=== PATIENT | female | born 1940 | race Caucasian/White ===

== ENCOUNTER → 2017-10-18 05:00 | Outpatient (REF) | payer MEDICARE, MEDICAID, SELFPAY ==
[2017-10-18 09:08] LABS: Hematocrit 41.2 % (37-47); Hemoglobin 12.8 g/dl (12.0-15.0); Mean Corp Hgb Conc 31.1 g/gl (32-36); Mean Corpuscular Hgb 32.5 pg (27.0-32.0); Mean Corpuscular Volume 104.6 fL (81-99); Mean Platelet Vol. 12.4 fl (6.2-12.0); Platelet Count 175 K/mm3 (150-450); RBC Distribution Width CV 13.1 % (11.6-14.6); RBC Distribution Width SD 49.7 fl (35.1-43.9); Red Blood Count 3.94 M/mm3 (4.2-5.4); White Blood Count 4.8 K/mm3 (4.4-11.0)
[2017-10-18 09:10] LABS: Scan Indicated on CBC? Y/N NO
[2017-10-18 09:28] LABS: ALB/GLOB Ratio 0.7 RATIO (0.9-2.4); AST(SGOT) 26 U/L (15-37); Alanine Aminotransfer ALT/SGPT 18 U/L (12-78); Albumin, Serum 2.9 g/dL (3.4-5.0); Alkaline Phosphatase 93 U/L (45-117); Anion Gap 6 (5-15); BUN 27 mg/dL (7-18); BUN/Creat Ratio 46.2 RATIO (10-20); Calcium,Total 8.7 mg/dL (8.5-10.1); Chloride 105 mmol/L (98-107); Creatinine, Serum 0.58 mg/dL (0.55-1.02); EST Glomerular Filtration Rate 106 mL/min (>60); Est Glom Filt Rate - Afr Amer 128 mL/min (>60); Globulin 4.1 g/dL (2.2-4.2); Glucose 90 mg/dL (70-110); Potassium 4.2 mmol/L (3.5-5.1); Sodium Level 139 mmol/L (136-145)
== END ==
LOC: OLS.WHLEAS 05:00
PROVIDERS: Visit Provider Internal Medicine
DX: D64.9 Anemia, unspecified (principal); I10 Essential (primary) hypertension; M15.9 Polyosteoarthritis, unspecified; I73.89 Other specified peripheral vascular diseases
CPT/HCPCS: 36415; 80053; 85027

== ENCOUNTER → 2018-03-03 05:00 | Outpatient (REF) | payer MEDICARE, MEDICAID, SELFPAY ==
[2018-03-03 06:56] LABS: Absolute Lymphocyte Count 0.85 X10^3/ul (0.83-4.51); Absolute Neutrophil Count 5.9 X10^3/uL (2.0-7.7); Basophil# 0.01 X10^3/uL; Basophil% 0.1 % (0-1); Eosinophil# 0.13 X10^3/uL; Eosinophils% 1.7 % (0-5); Hematocrit 40.7 % (37-47); Hemoglobin 13.2 g/dl (12.0-15.0); Lymphocyte # 0.85 X10^3/ul (4.0); Lymphocyte % 11.2 % (19-41); Mean Corp Hgb Conc 32.4 g/gl (32-36); Mean Corpuscular Hgb 33.8 pg (27.0-32.0); Mean Corpuscular Volume 104.1 fL (81-99); Mean Platelet Vol. 13.1 fl (6.2-12.0); Monocyte# 0.73 X10^3/uL; Monocyte% 9.6 % (0-10); Neutrophil # 5.86 X10^3/uL (2.7-7.7); Neutrophil % 77.3 % (47-70); POSITIVE COUNT NO; POSITIVE DIFFERENTIAL NO; POSITIVE MORPHOLOGY NO; Platelet Count 139 K/mm3 (150-450); RBC Distribution Width CV 13.3 % (11.6-14.6); RBC Distribution Width SD 50.3 fl (35.1-43.9); Red Blood Count 3.91 M/mm3 (4.2-5.4); White Blood Count 7.6 K/mm3 (4.4-11.0)
[2018-03-03 07:00] LABS: Anion Gap 4 (5-15); BUN 23 mg/dL (7-18); Calcium,Total 8.7 mg/dL (8.5-10.1); Chloride 104 mmol/L (98-107); Creatinine, Serum 0.68 mg/dL (0.55-1.02); EST Glomerular Filtration Rate 89 mL/min (>60); Est Glom Filt Rate - Afr Amer 108 mL/min (>60); Glucose 103 mg/dL (74-106); Potassium 4.6 mmol/L (3.5-5.1); Sodium Level 139 mmol/L (136-145)
== END ==
LOC: OLS.WHLEAS 05:00
PROVIDERS: Visit Provider Internal Medicine
DX: D64.9 Anemia, unspecified (principal)
CPT/HCPCS: 36415; 80048; 85025

== ENCOUNTER → 2018-06-03 05:50 | Outpatient (REF) | payer MEDICARE, SELFPAY ==
[2018-06-03 09:19] LABS: Hematocrit 41.5 % (37-47); Hemoglobin 13.1 g/dl (12.0-15.0); Mean Corp Hgb Conc 31.6 g/gl (32-36); Mean Corpuscular Hgb 33.2 pg (27.0-32.0); Mean Corpuscular Volume 105.3 fL (81-99); Mean Platelet Vol. 13.2 fl (6.2-12.0); Platelet Count 145 K/mm3 (150-450); RBC Distribution Width CV 13.1 % (11.6-14.6); RBC Distribution Width SD 50.1 fl (35.1-43.9); Red Blood Count 3.94 M/mm3 (4.2-5.4); White Blood Count 3.3 K/mm3 (4.4-11.0)
[2018-06-03 09:24] LABS: Scan Indicated on CBC? Y/N NO
[2018-06-03 09:31] LABS: Anion Gap 8 (5-15); BUN 24 mg/dL (7-18); BUN/Creat Ratio 34.7 RATIO (10-20); Calcium,Total 8.7 mg/dL (8.5-10.1); Chloride 104 mmol/L (98-107); Creatinine, Serum 0.69 mg/dL (0.55-1.02); EST Glomerular Filtration Rate 87 mL/min (>60); Est Glom Filt Rate - Afr Amer 105 mL/min (>60); Glucose 110 mg/dL (74-106); Potassium 4.4 mmol/L (3.5-5.1); Sodium Level 142 mmol/L (136-145)
== END ==
LOC: OLS.WHLEAS 05:50
PROVIDERS: Visit Provider Internal Medicine
DX: D64.9 Anemia, unspecified (principal); I10 Essential (primary) hypertension
CPT/HCPCS: 36415; 80048; 85027

== ENCOUNTER → 2018-08-31 05:00 | Outpatient (REF) | payer MEDICARE, SELFPAY ==
[2018-08-31 08:31] LABS: Hematocrit 41.1 % (37-47); Hemoglobin 13.1 g/dl (12.0-15.0); Mean Corp Hgb Conc 31.9 g/gl (32-36); Mean Corpuscular Hgb 33.8 pg (27.0-32.0); Mean Corpuscular Volume 105.9 fL (81-99); Mean Platelet Vol. 13.3 fl (6.2-12.0); Platelet Count 131 K/mm3 (150-450); RBC Distribution Width CV 12.9 % (11.6-14.6); RBC Distribution Width SD 49.5 fl (35.1-43.9); Red Blood Count 3.88 M/mm3 (4.2-5.4); White Blood Count 4.5 K/mm3 (4.4-11.0)
[2018-08-31 08:35] LABS: Scan Indicated on CBC? Y/N NO
[2018-08-31 08:43] LABS: Anion Gap 8 (5-15); BUN 26 mg/dL (7-18); BUN/Creat Ratio 34.9 RATIO (10-20); Calcium,Total 8.2 mg/dL (8.5-10.1); Chloride 102 mmol/L (98-107); Creatinine, Serum 0.75 mg/dL (0.55-1.02); EST Glomerular Filtration Rate 80 mL/min (>60); Est Glom Filt Rate - Afr Amer 96 mL/min (>60); Glucose 80 mg/dL (74-106); Potassium 4.3 mmol/L (3.5-5.1); Sodium Level 139 mmol/L (136-145)
== END ==
LOC: OLS.WHLEAS 05:00
PROVIDERS: Visit Provider Internal Medicine
DX: D64.9 Anemia, unspecified (principal); I10 Essential (primary) hypertension; M15.9 Polyosteoarthritis, unspecified; I73.89 Other specified peripheral vascular diseases
CPT/HCPCS: 36415; 80048; 85027

== ENCOUNTER → 2018-12-08 05:55 | Outpatient (REF) | payer MEDICARE, SELFPAY ==
[2018-12-08 08:19] LABS: Hemoglobin 12.5 g/dl (12.0-15.0); Mean Corp Hgb Conc 31.3 g/gl (32-36); Mean Corpuscular Hgb 33.5 pg (27.0-32.0); Mean Corpuscular Volume 107.2 fL (81-99); Mean Platelet Vol. 12.9 fl (6.2-12.0); Platelet Count 108 K/mm3 (150-450); RBC Distribution Width CV 12.7 % (11.6-14.6); RBC Distribution Width SD 48.8 fl (35.1-43.9); Red Blood Count 3.73 M/mm3 (4.2-5.4); White Blood Count 4.5 K/mm3 (4.4-11.0)
[2018-12-08 08:22] LABS: Scan Indicated on CBC? Y/N NO
[2018-12-08 08:27] LABS: Anion Gap 6 (5-15); BUN 25 mg/dL (7-18); BUN/Creat Ratio 32.2 RATIO (10-20); Calcium,Total 8.7 mg/dL (8.5-10.1); Chloride 103 mmol/L (98-107); Creatinine, Serum 0.78 mg/dL (0.55-1.02); EST Glomerular Filtration Rate 76 mL/min (>60); Est Glom Filt Rate - Afr Amer 92 mL/min (>60); Glucose 85 mg/dL (74-106); Potassium 4.2 mmol/L (3.5-5.1); Sodium Level 140 mmol/L (136-145)
== END ==
LOC: OLS.WHLEAS 05:55
PROVIDERS: Visit Provider Internal Medicine
DX: D64.9 Anemia, unspecified (principal); I10 Essential (primary) hypertension; M15.9 Polyosteoarthritis, unspecified; F79 Unspecified intellectual disabilities
CPT/HCPCS: 36415; 80048; 85027

== ENCOUNTER → 2019-01-24 05:00 | Outpatient (REF) | payer MEDICARE, SELFPAY ==
[2019-01-24 09:49] LABS: Anion Gap 4 (5-15); BUN 27 mg/dL (7-18); BUN/Creat Ratio 39.2 RATIO (10-20); Calcium,Total 8.1 mg/dL (8.5-10.1); Chloride 107 mmol/L (98-107); Creatinine, Serum 0.69 mg/dL (0.55-1.02); EST Glomerular Filtration Rate 87 mL/min (>60); Est Glom Filt Rate - Afr Amer 106 mL/min (>60); Glucose 99 mg/dL (74-106); Potassium 4.2 mmol/L (3.5-5.1); Sodium Level 139 mmol/L (136-145)
[2019-01-24 10:35] LABS: Vitamin B12 648 pg/mL (211-911)
== END ==
LOC: OLS.WHLEAS 05:00
PROVIDERS: Visit Provider Internal Medicine
DX: I10 Essential (primary) hypertension (principal); Z93.1 Gastrostomy status
CPT/HCPCS: 36415; 80048; 82607; 82746

== ENCOUNTER 2019-03-12 19:53 | Emergency (ER) | payer MEDICARE, SELFPAY ==
[2019-03-12 20:03] VITALS: BP 153/77; PULSE 69; RESP 16; TEMP 36.7; O2SAT 96; BMI 34.4
--- NOTE | 2019-03-12 21:06 | ED.DCSUM_ITS ---
- ER Visit Summary Date of Service: 03/12/19 Chief Complaint: Chest pain, shortness of breath History of Present Illness: The patient is a 78 F presenting after pulling her PEG tube out. Her PEG tube was accidentally pulled out at the long-term. She is unable to provide history. Per long-term staff this was placed by Dr. Mohan. Physical Examination: Vitals are stable. Patient is afebrile. Alert no acute distress. HEENT exam is unremarkable. Neck is supple. Lungs are clear and equal bilaterally. Heart is regular rate and rhythm Abdomen is soft nontender nondistended. Extremities symmetric edema Skin is warm and dry. Remainder of exam is unremarkable. Emergency Department Course and Treatment: Discussed with Dr. Mohan. He replaced her PEG tube 2 weeks ago. She had a previous PEG tube per Dr. Crane and the track is well-established. PEG tube was replaced in the emergency department. KUB with Gastrografin shows PEG tube with tip in the stomach. No contrast extravasation. Patient will be sent back to the nursing facility. Advised return to ED if worsening complaints. Disposition: Discharge home Impression: PEG tube replacement This note was generated with [employer] dictation software. It may contain incorrect words, spelling, and punctuation that were not noted in review of the chart prior to signing ED Disposition - Plan for ED Patient: Referrals: Tory aFrris MD [Primary Care Provider] -
--- NOTE | 2019-03-12 21:40 | RAD_ITS ---
STUDY: X-RAY - ABDOMEN/PELVIS REASON FOR EXAM: Female, 78 years old. PEG tube placement with Gastrografin TECHNIQUE: Single view COMPARISON: None. FINDINGS: Normal visualized lung bases. There is an unremarkable bowel gas pattern. Feces distended rectum. There is no demonstrated free abdominal air. A PEG tube is noted with tip in the distal stomach. Administered contrast outlines the gastric lumen. There is no gastric outlet obstruction. No contrast extravasation. Normal soft tissue structures. Normal visualized osseous structures. RAD/Abdomen Single View (Portable) IMPRESSION: PEG tube with tip in the stomach. No contrast extravasation. Electronically Signed: Rui Marie DO at 22:08 EDT Tel [phone], Service support ,
--- NOTE | 2019-03-12 23:00 | ED.DEP ---
ED Disposition - Plan for ED Patient: Instructions: ED G Tube Replacement Referrals: Tory Farris MD [Primary Care Provider] -
== END 2019-03-12 23:36 | disposition skilled nursing facility (03) ==
PROVIDERS: Emergency Provider Emergency Medicine; Family Provider Internal Medicine; PCP Internal Medicine
DX: Z43.1 Encounter for attention to gastrostomy (principal); R60.0 Localized edema; Z66 Do not resuscitate
CPT/HCPCS: 74018; 99284; J7030

== ENCOUNTER 2019-03-13 13:48 | Emergency (ER) | payer MEDICARE, SELFPAY ==
[2019-03-12 20:03] VITALS: BMI 34.4
[2019-03-13 13:49] VITALS: BP 126/73; PULSE 73; RESP 18; TEMP 36; O2SAT 97; BMI 31.7
--- NOTE | 2019-03-13 14:14 | ED.VISSUMM ---
- ER Visit Summary Date of Service: 03/13/19 Chief Complaint: [G-tube fell out] History of Present Illness: The patient is a 78 F [resents to the emergency department from workshop where the nurse attempted to give medication to patient through G-tube and noted that it was out of the abdomen and just sitting on top of her abdomen. Patient was in the emergency department last night and had a G-tube replaced. Patient is nonverbal and really cannot give any history. Patient otherwise not been ill.] Physical Examination: [HEENT-PERRLA, EOMI. Cranial nerves II through XII grossly intact. TMs clear. Mucous membranes moist. No adenopathy. Cardiovascular-regular rate and rhythm without murmur or ectopy Lungs-clear to auscultation, chest wall stable without crepitus or subcu emphysema Abdomen-normoactive bowel sounds, soft, nontender, no rebound or rigidity, no peritoneal signs. Extremities-intact ?4, normal range of motion, normal pulses, atraumatic] Test Results: [KUB was obtained with Gastrografin and shows good position of G-tube in the stomach.] Emergency Department Course and Treatment: [Patient had the G-tube checked as it was brought by nursing staff. I inflated it with water in the balloon appears to be intact and does not bubble air while submerged in water. The G-tube was lubricated with petroleum jelly and easily inserted through the fistulous tract into the stomach. I inflated the balloon with 5 cc of normal saline. Patient tired procedure well.] Treatment Plan: [Follow-up with primary care physician or surgeon as needed] Disposition: [Discharged in stable condition.] Impression: [G-tube reinsertion] This note was generated with [employer] dictation software. It may contain incorrect words, spelling, and punctuation that were not noted in review of the chart prior to signing ED Disposition - Plan for ED Patient: Referrals: Tory Farris MD [Primary Care Provider] -
--- NOTE | 2019-03-13 14:17 | ED.DCSUM_ITS ---
- ER Visit Summary Date of Service: 03/13/19 Chief Complaint: [G-tube fell out] History of Present Illness: The patient is a 78 F [resents to the emergency department from workshop where the nurse attempted to give medication to patient through G-tube and noted that it was out of the abdomen and just sitting on top of her abdomen. Patient was in the emergency department last night and had a G-tube replaced. Patient is nonverbal and really cannot give any history. Patient otherwise not been ill.] Physical Examination: [HEENT-PERRLA, EOMI. Cranial nerves II through XII grossly intact. TMs clear. Mucous membranes moist. No adenopathy. Cardiovascular-regular rate and rhythm without murmur or ectopy Lungs-clear to auscultation, chest wall stable without crepitus or subcu emphysema Abdomen-normoactive bowel sounds, soft, nontender, no rebound or rigidity, no peritoneal signs. Extremities-intact ?4, normal range of motion, normal pulses, atraumatic] Test Results: [KUB was obtained with Gastrografin and shows good position of G- tube in the stomach.] Emergency Department Course and Treatment: [Patient had the G-tube checked as it was brought by nursing staff. I inflated it with water in the balloon appears to be intact and does not bubble air while submerged in water. The G-tube was lubricated with petroleum jelly and easily inserted through the fistulous tract into the stomach. I inflated the balloon with 5 cc of normal saline. Patient tired procedure well.] Treatment Plan: [Follow-up with primary care physician or surgeon as needed] Disposition: [Discharged in stable condition.] Impression: [G-tube reinsertion] This note was generated with [employer] dictation software. It may contain incorrect words, spelling, and punctuation that were not noted in review of the chart prior to signing ED Disposition - Plan for ED Patient: Referrals: Tory Farris MD [Primary Care Provider] -
--- NOTE | 2019-03-13 14:17 | ED.DEP ---
ED Disposition - Plan for ED Patient: Instructions: ED G Tube Insertion Referrals: Tory Farris MD [Primary Care Provider] - As Needed
--- NOTE | 2019-03-13 14:27 | RAD_ITS ---
STUDY: X-RAY - ABDOMEN/PELVIS REASON FOR EXAM: Female, 78 years old. G-tube placement. TECHNIQUE: Single AP view of the abdomen / pelvis. COMPARISON: Comparison is made with prior study dated March 12, 2019. FINDINGS: A gastrostomy tube is in situ. 60 cc of Gastrografin was placed. The gastrostomy tube is within the stomach. Oral contrast from prior examination is seen throughout the colon. Contrast is also seen within the urinary bladder. The visualized liver, spleen and kidneys are grossly normal in size and morphology. Normal soft tissue structures. There are degenerative changes of the visualized lumbar spine. RAD/Abdomen Single View IMPRESSION: PEG tube within the stomach. Electronically Signed: Neto Michaels, at 15:07 EDT , Service support ,
[2019-03-13 15:37] VITALS: BP 124/65; PULSE 85; RESP 14; O2SAT 98
== END 2019-03-13 15:30 | disposition home or self-care (01) ==
PROVIDERS: Emergency Provider Emergency Medicine; Family Provider Internal Medicine; PCP Internal Medicine
DX: Z43.1 Encounter for attention to gastrostomy (principal); F79 Unspecified intellectual disabilities; E66.9 Obesity, unspecified
CPT/HCPCS: 74018; 99284

== ENCOUNTER → 2019-06-01 05:00 | Outpatient (REF) | payer MEDICARE, SELFPAY ==
[2019-06-01 07:28] LABS: Hematocrit 38.1 % (37-47); Hemoglobin 12.2 g/dL (12.0-15.0); Mean Corpuscular Hgb 34.1 pg (27.0-32.0); Mean Corpuscular Volume 106.4 fL (81-99); Platelet Count 141 K/mm3 (150-450); RBC Distribution Width CV 12.1 % (11.6-14.6); RBC Distribution Width SD 47.8 fl (35.1-43.9); Red Blood Count 3.58 M/mm3 (4.2-5.4); White Blood Count 5.2 K/mm3 (4.4-11.0)
[2019-06-01 08:00] LABS: Albumin, Serum 2.6 g/dL (3.2-5.0); Anion Gap 5 (5-15); BUN 26 mg/dL (7-18); BUN/Creat Ratio 36.3 RATIO (10-20); Calcium,Total 8.5 mg/dL (8.5-10.1); Chloride 106 mmol/L (98-107); Creatinine, Serum 0.72 mg/dL (0.55-1.02); EST Glomerular Filtration Rate 83 mL/min (>60); Est Glom Filt Rate - Afr Amer 101 mL/min (>60); Glucose 116 mg/dL (74-106); Potassium 4.5 mmol/L (3.5-5.1); Sodium Level 142 mmol/L (136-145)
== END ==
LOC: OLS.WHLEAS 05:00
PROVIDERS: Visit Provider Internal Medicine
DX: F79 Unspecified intellectual disabilities (principal); R13.10 Dysphagia, unspecified; I10 Essential (primary) hypertension; D64.9 Anemia, unspecified; E66.9 Obesity, unspecified; H35.30 Unspecified macular degeneration
CPT/HCPCS: 36415; 80048; 82040; 85027

== ENCOUNTER 2019-07-17 05:52 | Day surgery (SDC) | payer MEDICARE, SELFPAY ==
[2019-07-17] VITALS (10 sets, daily range): BP systolic 90–128; BP diastolic 53–76; PULSE 72–79; RESP 16–18; TEMP 36.2–36.7; O2SAT 94–98; BMI 33.2
--- NOTE | 2019-07-17 07:07 | ED.DCSUM_ITS ---
- ER Visit Summary Date of Service: 07/17/19 Chief Complaint: Dislodged PEG tube History of Present Illness: The patient is a 78 F who presents with a dislodged PEG tube that was noticed this morning. Patient is a poor historian. Patient woke up and her tube was out this morning. Patient does not know when her PEG tube fell out. Patient denies any pain. Patient denies any nausea or vomiting. Patient denies any discharge or drainage. Patient denies any fevers or chills. Physical Examination: Vital signs are stable. Patient is afebrile. Patient is in no acute distress. Oral mucosa is pink and moist. Neck is supple. Trachea is midline. There is no JVD noted. Heart was regular rate and rhythm. Lungs are clear and equal bilaterally. Abdomen is soft. Bowel sounds are normal. There is no tenderness. There is a PEG tube site in the left upper quadrant. There is no discharge or drainage. There is mild erythema. Cranial nerves II through XII are grossly intact. There are no focal motor or sensory deficits noted. Emergency Department Course and Treatment: I attempted to replace the PEG tube with the tube that was provided by the [facility]. I was unable to replace the tube. I kept meeting resistance at the abdominal muscle wall. Case was discussed with Dr. Vargas. She will begin an attempt to replace the PEG tube. Disposition: [] Impression: 1. Dislodged PEG tube This note was generated with [employer] dictation software. It may contain incorrect words, spelling, and punctuation that were not noted in review of the chart prior to signing ED Disposition - Plan for ED Patient: Disposition: [facility] Acute Care Diagnosis: PEG tube malfunction Instructions: PEG Feeding Tube Care: [place] Referrals: Tory Farris MD [Primary Care Provider] -
--- NOTE | 2019-07-17 07:51 | PN_ITS ---
Progress Note Attempt to replace 20 Togolese G-tube. Did meet resistance. Did try a 16 Tog[place]ese [place] again the same resistance. Unsure if this just fell out overnight. Patient was also not wanting this replaced she kept saying no and was trying to move away. Patient will likely need an EGD for replacement of PEG per previous notes this was placed by Dr. Mohan, Dr. Cerda will take her for an EGD and replacement.
[2019-07-17] MEDS: Lactated Ringers 1,000 ML 100 ML IV (09:28)
[2019-07-17] MEDS: Cefazolin 2 GM in 0.9% Normal Saline 100 ML IV (10:57)
--- NOTE | 2019-07-17 11:22 | OP.ENDO_ITS ---
07/17/2019 Tory Farris [id number] [place] [address] Re : Upper GI endoscopy procedure for Dariana Agee Dear Dr. Farris This procedure was performed on Wednesday, July 17, 2019. My impressions and recommendations are as follows: Impressions : - Normal first portion of the duodenum and second portion of the duodenum. - Normal stomach. - Tortuous esophagus. - An externally removable PEG placement was successfully completed. - No specimens collected. Recommendations : - Discharge patient to home (ambulatory). - Resume previous diet. - Continue present medications. - Return to primary care physician PRN. My findings are described in the full procedure note, which is enclosed. If I can be of further assistance, please feel free to contact me at Doctor phone number(s): , Work: . Sincerely, MD Ashely Han MD 07/17/2019 11:22:00 AM This report has been signed electronically.
--- NOTE | 2019-07-17 11:25 | HP.PCM_ITS ---
History and Physical Date of Admission: 07/17/19 Chief Complaint: PEG fell out History of Present Illness: 78 y/o WF with MRDD - resident of [facility], presented to ED this morning. ED physician was told that the PEG tube fell out at 5:00 am this morning. As he was trying to arrange outpatient replacement of PEG tube, he was then told by the [facility] staff that the patient hadn't had any food or water for two days. The patient cannot take in oral feedings, and has had PEG tube for several years. Multiple attempts were made to replace the gastrostomy tube in the ED by three physicians. Patient therefore presents for PEG tube placement Past Medical History: MRDD GERD obesity Past Surgical History: placement of PEG tube - multiple times Medications: unobtainable Allergies: clindamycin Social history: TOB use denies resident of [facility] Review of Systems: General - denies fevers unobtainable Physical examination: Vital signs Temp 98F HR 78 RR 16 BP 128/74 General WD/WN obese WF in no apparent distress HEENT Normocephalic. EOM intact with sclera clear and no icterus noted. Neck is supple. Trachea is midline. Lungs normal breath sounds in all lung angulo. No rales/rhonchi/wheezing noted. No labored breathing noted, such as retractions. No cough heard. Heart regular Abdomen soft and benign and obese, gastrostomy tube site - skin indentation due to patient's body habitus Extremities no pitting edema noted. Genitourinary/Rectal deferred Skin normal skin integrity. Neurological non foca. Psychological patient is calm and appropriate Impression: replace PEG tube DIscussion/Plannformed consent: I have discussed the above with the patient's medical power of real estate attorney - her sister Plan for placement of PEG. I have explained the procedure to her. I have counseled her as to the risks of the procedure, including but not limited to: infection, bleeding, perforation of the stomach, injury to any intraabdominal organs, inability to place the PEG tube, complications of anesthesia, etc. - she understands. She wishes to proceed I have answered all questions to the patient?s satisfaction and the patient has no further questions.
--- NOTE | 2019-07-17 11:35 | DCINST_ITS ---
Discharge Diet: No Restrictions - start with small input per gtube for today - no more than 50 cc/ hr Discharge Activity: Return to Normal Activity Additional Dressing/Incision Instructions:: Apply dressings to area as previous Instructions: PEG Feeding Tube Care: [place] Allergies/Adverse Reactions: Allergies clindamycin Allergy (Verified 07/17/19 05:59) Unknown TAPE Allergy (Uncoded 07/17/19 05:59) Unknown Medications to take at Discharge Unobtainable 03/13/19 Primary Care Physician: Tory Farris MD [Primary Care Provider] - Test Results: Test results from this visit will be discussed in further detail at your follow- up appointment, if applicable. Please Follow Up With: Ashely Cerda MD - When: as needed
== END 2019-07-17 13:43 | disposition home or self-care (01) ==
LOC: ED 08:35 → SDC 08:37 → AC 08:38
PROVIDERS: Emergency Provider Emergency Medicine; Family Provider Internal Medicine; PCP Internal Medicine; Visit Provider Surgery
PROC: 0DJ08ZZ Inspection of Upper Intestinal Tract, Via Natural or Artificial Opening Endoscopic (ICD-10-PCS; CPT 43235; principal; 2019-07-17 10:55)
DX: Z43.1 Encounter for attention to gastrostomy (principal); Q39.9 Congenital malformation of esophagus, unspecified; F79 Unspecified intellectual disabilities; E66.9 Obesity, unspecified
CPT/HCPCS: 43246; 99285; J7120; A4216; J2405

== ENCOUNTER → 2019-09-08 05:00 | Outpatient (REF) | payer MEDICARE, SELFPAY ==
[2019-07-17 05:53] VITALS: BMI 33.2
[2019-09-08 07:46] LABS: Albumin, Serum 2.8 g/dL (3.2-5.0); Anion Gap 4 (5-15); BUN 32 mg/dL (7-18); BUN/Creat Ratio 48.1 RATIO (10-20); Calcium,Total 8.6 mg/dL (8.5-10.1); Chloride 106 mmol/L (98-107); Creatinine, Serum 0.66 mg/dL (0.55-1.02); EST Glomerular Filtration Rate 91 mL/min (>60); Est Glom Filt Rate - Afr Amer 110 mL/min (>60); Glucose 119 mg/dL (74-106); Potassium 4.5 mmol/L (3.5-5.1); Sodium Level 141 mmol/L (136-145)
[2019-09-08 08:06] LABS: Hematocrit 37.9 % (37-47); Hemoglobin 12.2 g/dL (12.0-15.0); Mean Corp Hgb Conc 32.2 g/dL (32-36); Mean Corpuscular Hgb 33.6 pg (27.0-32.0); Mean Corpuscular Volume 104.4 fL (81-99); Mean Platelet Vol. 12.7 fl (6.2-12.0); Platelet Count 150 K/mm3 (150-450); RBC Distribution Width CV 12.6 % (11.6-14.6); RBC Distribution Width SD 48.5 fl (35.1-43.9); Red Blood Count 3.63 M/mm3 (4.2-5.4); White Blood Count 4.4 K/mm3 (4.4-11.0)
== END ==
LOC: OLS.WHLEAS 05:00
PROVIDERS: Visit Provider Internal Medicine
DX: F79 Unspecified intellectual disabilities (principal); R13.10 Dysphagia, unspecified; I10 Essential (primary) hypertension; D64.9 Anemia, unspecified; E66.9 Obesity, unspecified; H35.30 Unspecified macular degeneration; Z93.1 Gastrostomy status
CPT/HCPCS: 36415; 80048; 82040; 85027

== ENCOUNTER → 2019-12-07 05:00 | Outpatient (REF) | payer MEDICARE, MEDICAID, SELFPAY ==
[2019-07-17 05:53] VITALS: BMI 33.2
[2019-12-07 09:31] LABS: Hematocrit 39.6 % (37-47); Hemoglobin 12.5 g/dL (12.0-15.0); Mean Corp Hgb Conc 31.6 g/dL (32-36); Mean Corpuscular Hgb 33.5 pg (27.0-32.0); Mean Corpuscular Volume 106.2 fL (81-99); Mean Platelet Vol. 12.9 fl (6.2-12.0); Platelet Count 147 K/mm3 (150-450); RBC Distribution Width CV 12.8 % (11.6-14.6); RBC Distribution Width SD 50.2 fl (35.1-43.9); Red Blood Count 3.73 M/mm3 (4.2-5.4); White Blood Count 4.9 K/mm3 (4.4-11.0)
[2019-12-07 09:45] LABS: Albumin, Serum 2.7 g/dL (3.2-5.0); Anion Gap 2 (5-15); BUN 29 mg/dL (7-18); Calcium,Total 8.7 mg/dL (8.5-10.1); Chloride 107 mmol/L (98-107); Creatinine, Serum 0.76 mg/dL (0.55-1.02); EST Glomerular Filtration Rate 77 mL/min (>60); Est Glom Filt Rate - Afr Amer 94 mL/min (>60); Glucose 124 mg/dL (74-106); Potassium 4.5 mmol/L (3.5-5.1); Sodium Level 140 mmol/L (136-145)
== END ==
LOC: OLS.WHLEAS 05:00
PROVIDERS: PCP Internal Medicine; Visit Provider Internal Medicine
DX: F79 Unspecified intellectual disabilities (principal); R13.10 Dysphagia, unspecified; I10 Essential (primary) hypertension; D64.9 Anemia, unspecified; E66.9 Obesity, unspecified; H35.30 Unspecified macular degeneration; Z93.1 Gastrostomy status
CPT/HCPCS: 36415; 80048; 82040; 85027

== ENCOUNTER → 2020-03-07 06:00 | Outpatient (REF) | payer MEDICARE, MEDICAID, SELFPAY ==
[2019-07-17 05:53] VITALS: BMI 33.2
[2020-03-07 08:54] LABS: Hematocrit 38.3 % (37-47); Hemoglobin 12.3 g/dL (12.0-15.0); Mean Corp Hgb Conc 32.1 g/dL (32-36); Mean Corpuscular Hgb 33.6 pg (27.0-32.0); Mean Corpuscular Volume 104.6 fL (81-99); Mean Platelet Vol. 12.8 fl (6.2-12.0); Platelet Count 143 K/mm3 (150-450); RBC Distribution Width CV 12.5 % (11.6-14.6); Red Blood Count 3.66 M/mm3 (4.2-5.4); White Blood Count 3.7 K/mm3 (4.4-11.0)
[2020-03-07 09:11] LABS: BUN 26 mg/dL (7-18); Creatinine, Serum 0.71 mg/dL (0.55-1.02); EST Glomerular Filtration Rate 84 mL/min (>60); Glucose 105 mg/dL (74-106)
[2020-03-07 09:12] LABS: Albumin, Serum 2.7 g/dL (3.2-5.0); Anion Gap 6 (5-15); BUN/Creat Ratio 36.6 RATIO (10-20); Calcium,Total 8.5 mg/dL (8.5-10.1); Chloride 100 mmol/L (98-107); Est Glom Filt Rate - Afr Amer 102 mL/min (>60); Potassium 3.9 mmol/L (3.5-5.1); Sodium Level 136 mmol/L (136-145)
== END ==
LOC: OLS.WHLEAS 06:00
PROVIDERS: PCP Internal Medicine; Referring Provider Internal Medicine; Visit Provider Internal Medicine
DX: I10 Essential (primary) hypertension (principal); F79 Unspecified intellectual disabilities; R13.10 Dysphagia, unspecified; E66.9 Obesity, unspecified; D64.9 Anemia, unspecified; H35.30 Unspecified macular degeneration; Z93.1 Gastrostomy status
CPT/HCPCS: 36415; 80048; 82040; 85027

== ENCOUNTER → 2020-06-06 05:12 | Outpatient (REF) | payer MEDICARE, MEDICAID, SELFPAY ==
[2019-07-17 05:53] VITALS: BMI 33.2
[2020-06-06 08:28] LABS: Hematocrit 39.1 % (37-47); Hemoglobin 12.4 g/dL (12.0-15.0); Mean Corp Hgb Conc 31.7 g/dL (32-36); Mean Corpuscular Hgb 33.6 pg (27.0-32.0); Platelet Count 141 K/mm3 (150-450); RBC Distribution Width CV 12.4 % (11.6-14.6); RBC Distribution Width SD 48.7 fl (35.1-43.9); Red Blood Count 3.69 M/mm3 (4.2-5.4); White Blood Count 3.9 K/mm3 (4.4-11.0)
[2020-06-06 08:51] LABS: Albumin, Serum 2.8 g/dL (3.2-5.0); Anion Gap 4 (5-15); BUN 24 mg/dL (7-18); Calcium,Total 8.2 mg/dL (8.5-10.1); Chloride 103 mmol/L (98-107); Creatinine, Serum 0.65 mg/dL (0.55-1.02); EST Glomerular Filtration Rate 93 mL/min (>60); Est Glom Filt Rate - Afr Amer 113 mL/min (>60); Glucose 90 mg/dL (74-106); Potassium 3.9 mmol/L (3.5-5.1); Sodium Level 137 mmol/L (136-145)
== END ==
LOC: OLS.WHLEAS 05:12
PROVIDERS: PCP Internal Medicine; Referring Provider Internal Medicine; Visit Provider Internal Medicine
DX: I10 Essential (primary) hypertension (principal); F79 Unspecified intellectual disabilities; R13.10 Dysphagia, unspecified; D61.9 Aplastic anemia, unspecified; E66.9 Obesity, unspecified; H35.30 Unspecified macular degeneration; Z93.1 Gastrostomy status
CPT/HCPCS: 36415; 80048; 82040; 85027

== ENCOUNTER → 2020-09-04 05:00 | Outpatient (REF) | payer MEDICARE, MEDICAID, SELFPAY ==
[2019-07-17 05:53] VITALS: BMI 33.2
[2020-09-04 06:58] LABS: Hematocrit 40.2 % (37-47); Hemoglobin 12.6 g/dL (12.0-15.0); Mean Corp Hgb Conc 31.3 g/dL (32-36); Mean Corpuscular Hgb 33.3 pg (27.0-32.0); Mean Corpuscular Volume 106.3 fL (81-99); Mean Platelet Vol. 11.8 fl (6.2-12.0); Platelet Count 156 K/mm3 (150-450); RBC Distribution Width CV 12.3 % (11.6-14.6); RBC Distribution Width SD 48.7 fl (35.1-43.9); Red Blood Count 3.78 M/mm3 (4.2-5.4)
[2020-09-04 07:34] LABS: Anion Gap 1 (5-15); BUN 32 mg/dL (7-18); BUN/Creat Ratio 45.7 RATIO (10-20); Calcium,Total 8.7 mg/dL (8.5-10.1); Chloride 105 mmol/L (98-107); EST Glomerular Filtration Rate 85 mL/min (>60); Est Glom Filt Rate - Afr Amer 103 mL/min (>60); Glucose 115 mg/dL (74-106); Potassium 4.5 mmol/L (3.5-5.1); Sodium Level 140 mmol/L (136-145)
== END ==
LOC: OLS.WHLEAS 05:00
PROVIDERS: PCP Internal Medicine; Visit Provider Internal Medicine
DX: F79 Unspecified intellectual disabilities (principal); R13.10 Dysphagia, unspecified; I10 Essential (primary) hypertension; D61.9 Aplastic anemia, unspecified; E66.9 Obesity, unspecified; H35.30 Unspecified macular degeneration; Z93.1 Gastrostomy status
CPT/HCPCS: 36415; 80048; 85027

== ENCOUNTER 2020-11-27 19:08 | Emergency (ER) | payer MEDICARE, MEDICAID, SELFPAY ==
[2019-07-17 05:53] VITALS: BMI 33.2
[2020-11-27 19:09] VITALS: BP 145/83; PULSE 88; RESP 16; TEMP 36.6; O2SAT 96; BMI 38.5
--- NOTE | 2020-11-27 19:28 | ED.VIS.GEN ---
History of Present Illness Chief Complaint: General Illness Limited by: - - Patient is MRDD Narrative: 80-year-old female with MRDD presenting for PEG tube malfunction. Apparently the PEG tube was cut somehow. This was taped together and now it is leaking. Patient is not able to give a significant history but states that her abdomen hurts around the PEG tube. She came with no care provider. She does have documents that need to be reviewed. - Past Medical History (1) Obesity Status: Chronic (2) Mental retardation Status: Chronic (3) History of gastroesophageal reflux (GERD) Status: Chronic Past Medical History - Allergies and Home Meds Allergies/Adverse Reactions: Allergies clindamycin Allergy (Verified 11/27/20 19:13) Unknown TAPE Allergy (Uncoded 05/01/20 14:57) Unknown Primary Care Physician: Tory Farris MD [Primary Care Provider] - Prior records reviewed: Yes Past Medical History: - - Reviewed in problem list Surgical History: noncontributory, unknown Lives: Skilled Nursing Smoking Status: Never smoker Alcohol: None Drugs: None Review of Systems ROS: Unable to Obtain Physical Exam Vital Signs/Narrative: Vital Signs Temp Pulse Resp BP Pulse Ox 11/27/20 19:09 98 F 88 16 145/83 H 96 Inital Vital Signs reviewed: Yes General: Obese, No Acute Distress Head: Normocephalic, Atraumatic Eyes: Perrl, EOMI. Negative for: Pale conjunctiva ENT: Moist mucous membranes, No rhinorrhea Cardiovascular: Regular rate, Regular rhythm, No murmurs Respiratory: No distress, CTA bilaterally, Chest nontender Abdomen: Soft, Nondistended, Tender - Tenderness to palpation around the PEG tube. PEG tube is in place with tape around the end of it. Extremities: Nontender, No edema Skin: Normal color, No rash. Negative for: Cyanosis, Diaphoresis Neurological: Alert, Oriented x3, Cranial nerves II-XII grossly intact, Normal Strength, Normal Sensation Psychological: Normal affect, Normal Mood Diagnostic/Tx/Re-eval Clinical Impression(s) from Imaging Studies Abdomen/Pelvis CT 11/27/20 20:15 IMPRESSION: Bilateral lower lobe infiltrates. The PEG to does appear to be within the gastric lumen which is collapsed down around the tubing. The lumen of the gastrostomy tube is patent. Stool-filled and very distended rectosigmoid colon. The remainder of the colon is nondistended. Diverticulosis is present without evidence of acute diverticulitis. A normal appendix is identified. Unremarkable liver and spleen. Fatty atrophy of the pancreatic body and head. Cholelithiasis. One large laminated gallstone present. Subcentimeter simple cysts of the kidneys bilaterally. No additional imaging recommendations. No acute renal findings. Negative for pelvic mass or free fluid in the pelvis. Electronically Signed: Kathryn Mijares MD at 20:44 EST , Service support , Laboratory Data 11/27/20 11/27/20 19:46 19:46 WBC 5.8 RBC 4.02 L Hgb 13.3 Hct 41.9 MCV 104.2 H MCH 33.1 H MCHC 31.7 L RDW Std Deviation 51.6 H RDW Coeff of Kaylin 13.2 Plt Count 170 MPV 12.0 Immature Gran % (Auto) 0.200 Neut % (Auto) 52.3 Lymph % (Auto) 29.8 Teller % (Auto) 13.8 H Eos % (Auto) 3.4 Baso % (Auto) 0.5 Absolute Neuts (auto) 3.0 Absolute Lymphs (auto) 1.73 Nucleated RBC % 0 Sodium 139 Potassium 3.8 Chloride 105 Carbon Dioxide 31.0 Anion Gap 3 L BUN 25 H Creatinine 0.79 Estim Creat Clear Calc 33.29 Est GFR (MDRD) Af Amer 90 Est GFR (MDRD) Non-Af 74 BUN/Creatinine Ratio 31.6 H Glucose 91 Calcium 8.8 Total Bilirubin 0.40 AST 30 ALT 21 Alkaline Phosphatase 115 Total Protein 7.4 Albumin 3.1 L Globulin 4.3 H Albumin/Globulin Ratio 0.7 L Lipase 43 L - Medical Decision Making 80-year-old female presenting with PEG tube malfunction. This was cut and taped together. Is difficult to assess the patient's abdominal pain because she is MRDD. I did push around her PEG tube and appeared to hurt her. Patient had blood work which shows no leukocytosis. Hemoglobin is stable. GFR and electrolytes are normal. LFTs are normal. Lipase is actually low. Patient had CT abdomen pelvis which does not identify any acute abnormality. PEG tube does appear to be in place. Given the way that the PEG tube is cut there is no way to remove this. Did speak with Dr. Cerda who stated that she could get it done in office tomorrow if the patient follows up. She recommended just to clamp the tube and she can see her in office. I did call her brother the POA and informed him of this. I attempted to call the patient's physician however her physician's phone line was not working. Instructions were passed along to her facility. Impression: 1. Abdominal pain 2. PEG tube malfunction ED Disposition - Plan for ED Patient: Disposition: Home or Assisted Living Instructions: ED Feeding Tube Replacement Referrals: Tory Farris MD [Primary Care Provider] - Additional Instructions: I spoke with Dr. Cerda the surgeon who placed to the feeding tube. She states to have her come by the office tomorrow to have it replaced by her.
[2020-11-27 19:52] LABS: Absolute Lymphocyte Count 1.73 X10^3/uL (0.83-4.51); Basophil# 0.03 X10^3/uL; Basophil% 0.5 % (0-1); Eosinophils% 3.4 % (0-5); Hematocrit 41.9 % (37-47); Hemoglobin 13.3 g/dL (12.0-15.0); Lymphocyte # 1.73 X10^3/ul (4.0); Lymphocyte % 29.8 % (19-41); Mean Corp Hgb Conc 31.7 g/dL (32-36); Mean Corpuscular Hgb 33.1 pg (27.0-32.0); Mean Corpuscular Volume 104.2 fL (81-99); Monocyte% 13.8 % (0-10); NRBC Flagged by Analyzer 0 % (0-5); Neutrophil # 3.04 X10^3/uL (2.7-7.7); Neutrophil % 52.3 % (47-70); Platelet Count 170 K/mm3 (150-450); RBC Distribution Width CV 13.2 % (11.6-14.6); RBC Distribution Width SD 51.6 fl (35.1-43.9); Red Blood Count 4.02 M/mm3 (4.2-5.4); White Blood Count 5.8 K/mm3 (4.4-11.0)
[2020-11-27 20:09] LABS: ALB/GLOB Ratio 0.7 RATIO (0.9-2.4); AST(SGOT) 30 U/L (15-37); Alanine Aminotransfer ALT/SGPT 21 U/L (13-56); Albumin, Serum 3.1 g/dL (3.2-5.0); Alkaline Phosphatase 115 U/L (45-117); Anion Gap 3 (5-15); BUN 25 mg/dL (7-18); BUN/Creat Ratio 31.6 RATIO (10-20); Calcium,Total 8.8 mg/dL (8.5-10.1); Chloride 105 mmol/L (98-107); Creatinine, Serum 0.79 mg/dL (0.55-1.02); EST Glomerular Filtration Rate 74 mL/min (>60); Est Glom Filt Rate - Afr Amer 90 mL/min (>60); Estimated Creatinine Clearance 33.29 ml/min; Globulin 4.3 g/dL (2.2-4.2); Glucose 91 mg/dL (74-106); Lipase 43 U/L (73-393); Potassium 3.8 mmol/L (3.5-5.1); Protein, Total 7.4 g/dL (6.4-8.2); Sodium Level 139 mmol/L (136-145)
--- NOTE | 2020-11-27 20:15 | CT_ITS ---
STUDY: CT ABDOMEN AND PELVIS WITH CONTRAST REASON FOR EXAM: Female, 80 years old. DYSFUNCTIONING PEG TUBE, TUBE WAS CUT AND STAFF TAPED RADIATION DOSAGE (If Supplied By Facility): CTDIvol = ( 17.05 ) mGy, DLP = ( 1240.60 ) mGycm TECHNIQUE: Transaxial images were obtained from the dome of the diaphragm to the symphysis pubis without oral contrast. IV 100mL Isovue-370 was administered. Sagittal and coronal images were reconstructed. Individualized dose optimization techniques were used for this CT. COMPARISON: None. FINDINGS: Bilateral dependent lower lobe infiltrates. The visualized portions of the heart are within normal limits. Normal liver. Large volume gallbladder. One large laminated stone in the body of the gallbladder. Normal spleen. Fatty atrophy of the pancreas, body and head. Normal bilateral adrenal glands. Subcentimeter simple renal cysts. Otherwise normal kidneys without hydronephrosis or stones. The stomach is nondistended. The PEG to appears to be intraluminal with the stomach collapsed around the tubing. The lumen of the PEG tube appears patent. There are no extraluminal fluid collections. Diverticulosis of the colon without evidence of acute diverticulitis. Stool filled dilated rectosigmoid colon with stool present to the level of the rectum. The appendix is visualized and appears normal. Mild plaque and moderate tortuosity of the abdominal aorta and iliac vessels. Normal inferior vena cava. Normal retroperitoneum. Nondistended urinary bladder. Negative for pelvic mass or free fluid of the pelvis. Minimal fatty umbilical hernia. Degenerative changes of the lumbar spine. Chronic bilateral pars interarticularis defect at L5 with a grade 1 spondylolisthesis. Old superior endplate compression deformities of L3 and T12 and T11. CT/Abdomen/Pelvis W IV Cont ONLY IMPRESSION: Bilateral lower lobe infiltrates. The PEG to does appear to be within the gastric lumen which is collapsed down around the tubing. The lumen of the gastrostomy tube is patent. Stool-filled and very distended rectosigmoid colon. The remainder of the colon is nondistended. Diverticulosis is present without evidence of acute diverticulitis. A normal appendix is identified. Unremarkable liver and spleen. Fatty atrophy of the pancreatic body and head. Cholelithiasis. One large laminated gallstone present. Subcentimeter simple cysts of the kidneys bilaterally. No additional imaging recommendations. No acute renal findings. Negative for pelvic mass or free fluid in the pelvis. Electronically Signed: Kathryn Mijares MD at 20:44 EST , Service support ,
[2020-11-27 22:26] VITALS: BP 146/99; PULSE 72; RESP 16; O2SAT 96
[2020-11-27 23:26] VITALS: RESP 16
== END 2020-11-27 23:40 | disposition intermediate care facility (04) ==
PROVIDERS: Emergency Provider Student in an Organized Health Care Education/Training Program; PCP Internal Medicine
DX: K94.23 Gastrostomy malfunction (principal); R10.9 Unspecified abdominal pain; E66.9 Obesity, unspecified; F79 Unspecified intellectual disabilities; K21.9 Gastro-esophageal reflux disease without esophagitis
CPT/HCPCS: 74177; 80053; 83690; 85025; 99285; Q9967

== ENCOUNTER → 2020-12-04 05:00 | Outpatient (REF) | payer MEDICARE, MEDICAID, SELFPAY ==
[2020-11-27 19:09] VITALS: BMI 38.5
[2020-12-04 07:44] LABS: Hemoglobin 12.3 g/dL (12.0-15.0); Mean Corp Hgb Conc 31.5 g/dL (32-36); Mean Corpuscular Hgb 32.6 pg (27.0-32.0); Mean Corpuscular Volume 103.4 fL (81-99); Platelet Count 113 K/mm3 (150-450); RBC Distribution Width CV 13.2 % (11.6-14.6); RBC Distribution Width SD 50.6 fl (35.1-43.9); Red Blood Count 3.77 M/mm3 (4.2-5.4); White Blood Count 3.6 K/mm3 (4.4-11.0)
[2020-12-04 08:07] LABS: Albumin, Serum 2.8 g/dL (3.2-5.0); Anion Gap 6 (5-15); BUN 29 mg/dL (7-18); BUN/Creat Ratio 41.5 RATIO (10-20); Calcium,Total 8.5 mg/dL (8.5-10.1); Chloride 106 mmol/L (98-107); EST Glomerular Filtration Rate 85 mL/min (>60); Est Glom Filt Rate - Afr Amer 103 mL/min (>60); Glucose 116 mg/dL (74-106); Potassium 4.2 mmol/L (3.5-5.1); Sodium Level 139 mmol/L (136-145)
== END ==
LOC: OLS.WHLEAS 05:00
PROVIDERS: PCP Internal Medicine; Visit Provider Internal Medicine
DX: I10 Essential (primary) hypertension (principal); F79 Unspecified intellectual disabilities; R13.10 Dysphagia, unspecified; D61.9 Aplastic anemia, unspecified; E66.9 Obesity, unspecified; H35.30 Unspecified macular degeneration; Z93.1 Gastrostomy status
CPT/HCPCS: 36415; 80048; 82040; 85027

== ENCOUNTER → 2021-01-09 05:00 | Outpatient (REF) | payer MEDICARE, MEDICAID, SELFPAY ==
[2021-01-09 07:25] LABS: Absolute Lymphocyte Count 1.15 X10^3/uL (0.83-4.51); Absolute Neutrophil Count 2.3 X10^3/uL (2.0-7.7); Basophil# 0.02 X10^3/uL; Basophil% 0.5 % (0-1); Eosinophil# 0.19 X10^3/uL; Eosinophils% 4.6 % (0-5); Hematocrit 40.7 % (37-47); Hemoglobin 12.8 g/dL (12.0-15.0); Lymphocyte # 1.15 X10^3/ul (4.0); Mean Corp Hgb Conc 31.4 g/dL (32-36); Mean Corpuscular Hgb 32.8 pg (27.0-32.0); Mean Corpuscular Volume 104.4 fL (81-99); Mean Platelet Vol. 13.2 fl (6.2-12.0); Monocyte# 0.47 X10^3/uL; Monocyte% 11.4 % (0-10); NRBC Flagged by Analyzer 0 % (0-5); Neutrophil # 2.27 X10^3/uL (2.7-7.7); Neutrophil % 55.3 % (47-70); Platelet Count 117 K/mm3 (150-450); RBC Distribution Width CV 12.6 % (11.6-14.6); RBC Distribution Width SD 48.7 fl (35.1-43.9); White Blood Count 4.1 K/mm3 (4.4-11.0)
[2021-01-09 08:07] LABS: ALB/GLOB Ratio 0.7 RATIO (0.9-2.4); AST(SGOT) 30 U/L (15-37); Alanine Aminotransfer ALT/SGPT 19 U/L (13-56); Albumin, Serum 2.8 g/dL (3.2-5.0); Alkaline Phosphatase 105 U/L (45-117); Anion Gap 5 (5-15); BUN 36 mg/dL (7-18); BUN/Creat Ratio 52.1 RATIO (10-20); Calcium,Total 8.7 mg/dL (8.5-10.1); Chloride 104 mmol/L (98-107); Creatinine, Serum 0.69 mg/dL (0.55-1.02); EST Glomerular Filtration Rate 87 mL/min (>60); Est Glom Filt Rate - Afr Amer 105 mL/min (>60); Globulin 4.1 g/dL (2.2-4.2); Glucose 108 mg/dL (74-106); Potassium 4.3 mmol/L (3.5-5.1); Protein, Total 6.9 g/dL (6.4-8.2); Sodium Level 139 mmol/L (136-145)
[2021-01-09 09:09] LABS: Vitamin B12 601 pg/mL (211-911)
[2021-01-18 08:59] LABS: VITAMIN B6 13.7 ug/L (2.0-32.8)
== END ==
LOC: OLS.WHLEAS 05:00
PROVIDERS: PCP Internal Medicine; Referring Provider Internal Medicine; Visit Provider Internal Medicine
DX: I10 Essential (primary) hypertension (principal); F79 Unspecified intellectual disabilities; R13.10 Dysphagia, unspecified; D61.9 Aplastic anemia, unspecified; E66.9 Obesity, unspecified; H35.30 Unspecified macular degeneration; Z93.1 Gastrostomy status
CPT/HCPCS: 36415; 80053; 82607; 82746; 84207; 85025

== ENCOUNTER → 2021-01-10 05:00 | Outpatient (REF) | payer MEDICARE, MEDICAID, SELFPAY ==
[2021-01-10 07:23] LABS: Absolute Lymphocyte Count 1.11 X10^3/uL (0.83-4.51); Absolute Neutrophil Count 2.1 X10^3/uL (2.0-7.7); Basophil# 0.02 X10^3/uL; Basophil% 0.5 % (0-1); Hematocrit 40.2 % (37-47); Hemoglobin 12.6 g/dL (12.0-15.0); Lymphocyte # 1.11 X10^3/ul (4.0); Lymphocyte % 27.8 % (19-41); Mean Corp Hgb Conc 31.3 g/dL (32-36); Mean Corpuscular Hgb 32.8 pg (27.0-32.0); Mean Corpuscular Volume 104.7 fL (81-99); Mean Platelet Vol. 12.8 fl (6.2-12.0); Monocyte# 0.55 X10^3/uL; Monocyte% 13.8 % (0-10); NRBC Flagged by Analyzer 0 % (0-5); Neutrophil # 2.11 X10^3/uL (2.7-7.7); Neutrophil % 52.6 % (47-70); Platelet Count 138 K/mm3 (150-450); RBC Distribution Width CV 12.5 % (11.6-14.6); RBC Distribution Width SD 48.6 fl (35.1-43.9); Red Blood Count 3.84 M/mm3 (4.2-5.4)
== END ==
LOC: OLS.WHLEAS 05:00
PROVIDERS: PCP Internal Medicine; Visit Provider Internal Medicine
DX: I10 Essential (primary) hypertension (principal); F79 Unspecified intellectual disabilities; R13.10 Dysphagia, unspecified; D61.9 Aplastic anemia, unspecified; E66.9 Obesity, unspecified; H35.30 Unspecified macular degeneration; Z93.1 Gastrostomy status
CPT/HCPCS: 36415; 85025

== ENCOUNTER 2021-02-01 06:36 | Emergency (ER) | payer MEDICARE, MEDICAID, SELFPAY ==
[2021-02-01 06:37] VITALS: BP 144/94; PULSE 70; RESP 16; TEMP 36.8; O2SAT 98; BMI 41.2
--- NOTE | 2021-02-01 06:50 | ED.VISSUMM ---
- ER Visit Summary Date of Service: 02/01/21 Chief Complaint: Clogged PEG tube History of Present Illness: The patient is a 80 F who has a clogged PEG tube. She was sent from [facility]. According to records it was replaced in 2019 under endoscopic guidance. [facility] did not call report. The patient has a history of MRDD and is noncommunicative. Physical Examination: Vital signs are reviewed. Regular rate and rhythm, lungs are clear auscultation. Abdomen soft nontender. PEG in the left upper quadrant. Skin has no rashes or erythema. She is alert to self only which is her baseline. Test Results: None performed Emergency Department Course and Treatment: The PEG tube was clogged and unable to be flushed. The clogged PEG tube was removed with traction by myself. It was replaced by myself with a 24 Yoruba PEG. There was a good air bolus upon auscultation. She will be discharged back to [facility] Treatment Plan: [] Disposition: Discharge Impression: PEG tube malfunction This note was generated with [employer] dictation software. It may contain incorrect words, spelling, and punctuation that were not noted in review of the chart prior to signing ED Disposition - Plan for ED Patient: Disposition: Home or Assisted Living Instructions: ED Feeding Tube Replacement Referrals: Tory Farris MD [Primary Care Provider] -
[2021-02-01 06:56] VITALS: BP 140/78; PULSE 78; RESP 17; TEMP 36.7; O2SAT 92
== END 2021-02-01 07:40 | disposition home or self-care (01) ==
PROVIDERS: Emergency Provider Emergency Medicine; PCP Internal Medicine
DX: K94.23 Gastrostomy malfunction (principal); F79 Unspecified intellectual disabilities; K21.9 Gastro-esophageal reflux disease without esophagitis
CPT/HCPCS: 99284

== ENCOUNTER → 2021-03-05 05:00 | Outpatient (REF) | payer MEDICARE, MEDICAID, SELFPAY ==
[2021-03-05 08:06] LABS: Hemoglobin 12.3 g/dL (12.0-15.0); Mean Corp Hgb Conc 31.5 g/dL (32-36); Mean Corpuscular Hgb 33.7 pg (27.0-32.0); Mean Corpuscular Volume 106.8 fL (81-99); Mean Platelet Vol. 12.8 fl (6.2-12.0); Platelet Count 139 K/mm3 (150-450); RBC Distribution Width CV 12.8 % (11.6-14.6); RBC Distribution Width SD 50.4 fl (35.1-43.9); Red Blood Count 3.65 M/mm3 (4.2-5.4); White Blood Count 3.9 K/mm3 (4.4-11.0)
[2021-03-05 08:25] LABS: Albumin, Serum 2.8 g/dL (3.2-5.0); Anion Gap 1 (5-15); BUN 36 mg/dL (7-18); BUN/Creat Ratio 50.9 RATIO (10-20); Calcium,Total 8.6 mg/dL (8.5-10.1); Chloride 105 mmol/L (98-107); Creatinine, Serum 0.71 mg/dL (0.55-1.02); EST Glomerular Filtration Rate 84 mL/min (>60); Est Glom Filt Rate - Afr Amer 102 mL/min (>60); Glucose 89 mg/dL (74-106); Potassium 4.4 mmol/L (3.5-5.1); Sodium Level 138 mmol/L (136-145)
== END ==
LOC: OLS.WHLEAS 05:00
PROVIDERS: PCP Internal Medicine; Visit Provider Internal Medicine
DX: I10 Essential (primary) hypertension (principal); F79 Unspecified intellectual disabilities; R13.10 Dysphagia, unspecified; D61.9 Aplastic anemia, unspecified; E66.9 Obesity, unspecified; H35.30 Unspecified macular degeneration; Z93.1 Gastrostomy status
CPT/HCPCS: 36415; 80048; 82040; 85027

== ENCOUNTER 2021-04-17 03:15 | Emergency (ER) | payer MEDICARE, MEDICAID, SELFPAY ==
[2021-04-17 03:16] VITALS: BP 156/82; PULSE 83; RESP 18; TEMP 36.4; O2SAT 96; BMI 41.3
--- NOTE | 2021-04-17 03:29 | RAD_ITS ---
STUDY: X-RAY - ABDOMEN/PELVIS REASON FOR EXAM: Female, 80 years old. PEG Placement TECHNIQUE: Single AP view of the abdomen / pelvis. COMPARISON: 03/13/2019 FINDINGS: 25 cc of GASTROGRAFIN and 25 cc of water mixture was injected through PEG tube. Appropriate outline of the stomach without contrast extravasation. There is an unremarkable bowel gas pattern. There is no demonstrated free abdominal air. The visualized liver, spleen and kidneys are grossly normal in size and morphology. Normal soft tissue structures. Normal visualized osseous structures. RAD/Abdomen Single View IMPRESSION: PEG tube as above Electronically Signed: Keegan Phillips DO at 4:05 EDT Tel , Service support ,
--- NOTE | 2021-04-17 03:35 | EDS_ITS ---
HPI History of Present Illness Chief Complaint: Wound Narrative Narrative: Patient presenting for evaluation for dislodgment of her PEG tube. Patient has an underlying history of developmental delay and has had a longstanding PEG tube for feedings. Became dislodged tonight. Additional history was unable to be obtained secondary to the patient's baseline mental status. Patient's PEG tube size is 24 Georgian. PFSH PFSH Home Medications Omeprazole 20 Mg/10ml 10 ml GT QHS 11/27/20 [History Last Taken 11/26/20] calcium carbonate-vitamin D3 1 ea GT QHS 11/27/20 [History Last Taken 11/26/20] cholecalciferol (vitamin D3) 2,000 unit GT DAILY 11/27/20 [History Last Taken 11/26/20] Tylenol 650 mg Q4H PRN PRN 02/01/21 [History Last Taken Unknown] alum-mag hydroxide-simeth 15 ml Q4H PRN PRN MDD constipation 02/01/21 [History Last Taken Unknown] bisacodyl 10 mg RC BID PRN PRN 02/01/21 [History Last Taken Unknown] magnesium hydroxide 30 ml DAILY PRN 02/01/21 [History Last Taken Unknown] Allergy/AdvReac Type Severity Reaction Status Date / Time clindamycin Allergy Unknown Verified 04/17/21 03:17 TAPE Allergy Unknown Uncoded 04/17/21 03:17 Social History Smoking Status: Never smoker ROS ROS ED Review of Systems ROS Unobtainable: due to mental condition Constitutional Constitutional ED: Denies fever(s) Gastrointestinal Gastrointestinal: Denies abdominal pain EXAM Physical Exam Const Vital Signs: 04/17/21 03:16 Temperature 97.6 F L Temperature Source Temporal Pulse Rate 83 Respiratory Rate 18 Blood Pressure 156/82 H Blood Pressure Mean 106 Pulse Ox 96 Positive well nourished and well developed General Appearance ED: well developed HEENT Negative for trauma Eyes EOMs intact bilaterally Resp normal respiratory effort Cardio regular rate GI GI Narrative: PEG tube site in the left upper quadrant is clean dry and intact Neuro Sensorium / Orientation: alert Skin no rashes or lesions noted MDM MDM MDM Narrative Medical decision making narrative: Patient presented due to dislodgment of the PEG tube. A 24 Georgian PEG tube was obtained. The area was cleansed, the tube was lubricated and gentle pressure was applied. Patient had some difficulty with this and I was unable to replace the tube initially. One size smaller, 22 Georgian, was then obtained. This was lubricated and was able to be passed with gentle continuous pressure. Decision was then made at that time since the [place] was likely dilated that we would remove the 22 Georgian and placed the 24 Georgian as that was her previous size for her feedings. This was performed successfully. Balloon was inflated with 6 cc of water. It was secured in place. Abdominal x-ray was obtained with contrast to confirm placement. Abdominal x-ray by my personal interpretation shows contrast with in the stomach. This confirms good placement. Patient will be discharged back to the assisted. Discharge Plan Triage Chief Complaint: Wound ED Provider: Patrick Mace Dx/Rx/DC Orders Clinical Impression: PEG tube malfunction Instructions: ED Feeding Tube Replacement Prescriptions: No Action calcium carbonate-vitamin D3 1 EACH tablet 1 ea GT QHS RF: 0 cholecalciferol (vitamin D3) 2,000 UNIT capsule 2,000 unit GT DAILY RF: 0 Omeprazole 20 Mg/10ml 10 ml GT QHS RF: 0 Tylenol 650 mg Q4H PRN PRN (Reason: Pain 1-10 Or Fever) RF: 0 magnesium hydroxide 30 ML suspension 30 ml DAILY PRN (Reason: Constipation) RF: 0 bisacodyl 10 MG suppository 10 mg RC BID PRN PRN (Reason: Constipation) RF: 0 alum-mag hydroxide-simeth 355 ML suspension 15 ml Q4H PRN MDD constipation PRN (Reason: Constipation) RF: 0 Primary Care Provider: Tory Farris Referrals: Tory Farris MD [Primary Care Provider] - Disposition Disposition: Shelter Facility Discharge Location: [facility]
== END 2021-04-17 04:15 | disposition skilled nursing facility (03) ==
PROVIDERS: Emergency Provider Emergency Medicine; PCP Internal Medicine
DX: K94.23 Gastrostomy malfunction (principal)
CPT/HCPCS: 74018; 99284

== ENCOUNTER → 2021-06-04 05:00 | Outpatient (REF) | payer MEDICARE, MEDICAID, SELFPAY ==
[2021-06-04 07:33] LABS: Hematocrit 39.3 % (37-47); Hemoglobin 12.4 g/dL (12.0-15.0); Mean Corp Hgb Conc 31.6 g/dL (32-36); Mean Corpuscular Hgb 33.4 pg (27.0-32.0); Mean Corpuscular Volume 105.9 fL (81-99); Mean Platelet Vol. 13.1 fl (6.2-12.0); Platelet Count 121 K/mm3 (150-450); RBC Distribution Width CV 11.9 % (11.6-14.6); RBC Distribution Width SD 46.3 fl (35.1-43.9); Red Blood Count 3.71 M/mm3 (4.2-5.4)
[2021-06-04 07:58] LABS: Anion Gap 3 (5-15); BUN 36 mg/dL (7-18); BUN/Creat Ratio 58.8 RATIO (10-20); Calcium,Total 8.5 mg/dL (8.5-10.1); Chloride 106 mmol/L (98-107); Creatinine, Serum 0.61 mg/dL (0.55-1.02); EST Glomerular Filtration Rate 100 mL/min (>60); Est Glom Filt Rate - Afr Amer 120 mL/min (>60); Glucose 108 mg/dL (74-106); Sodium Level 138 mmol/L (136-145)
== END ==
LOC: OLS.WHLEAS 05:00
PROVIDERS: PCP Internal Medicine; Referring Provider Internal Medicine; Visit Provider Internal Medicine
DX: I10 Essential (primary) hypertension (principal); F79 Unspecified intellectual disabilities; R13.10 Dysphagia, unspecified; D61.9 Aplastic anemia, unspecified; E66.9 Obesity, unspecified; H35.30 Unspecified macular degeneration; Z93.1 Gastrostomy status
CPT/HCPCS: 36415; 80048; 85027

== ENCOUNTER 2021-07-28 15:34 | Emergency (ER) | payer MEDICARE, MEDICAID, SELFPAY ==
[2021-07-28 15:35] VITALS: BP 141/99; PULSE 76; RESP 18; TEMP 36.4; O2SAT 97; BMI 34.3
--- NOTE | 2021-07-28 16:01 | EDS_ITS ---
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 She has a PEG tube in place to help with feeding and medications. Nursing reports that she dislodged the PEG tube today and therefore with need to have it replaced was sent in for evaluation. With the patient's MRDD she does not provide any further history PFSH PFSH Medical History Aplastic anemia GERD (gastroesophageal reflux disease) HTN (hypertension) Osteoarthritis Home Medications Omeprazole 20 Mg/10ml 10 ml GT QHS 11/27/20 [History Last Taken 11/26/20] calcium carbonate-vitamin D3 1 ea GT QHS 11/27/20 [History Last Taken 11/26/20] cholecalciferol (vitamin D3) 2,000 unit GT DAILY 11/27/20 [History Last Taken 11/26/20] Tylenol 650 mg Q4H PRN PRN 02/01/21 [History Last Taken Unknown] alum-mag hydroxide-simeth 15 ml Q4H PRN PRN MDD constipation 02/01/21 [History Last Taken Unknown] bisacodyl 10 mg RC BID PRN PRN 02/01/21 [History Last Taken Unknown] magnesium hydroxide 30 ml DAILY PRN 02/01/21 [History Last Taken Unknown] food supplemt, lactose-reduced [Jevity] 910 ml FEEDING TUBE DINNER 07/28/21 [History Last Taken Unknown] Allergy/AdvReac Type Severity Reaction Status Date / Time clindamycin Allergy Unknown Verified 04/17/21 03:17 TAPE Allergy Unknown Uncoded 04/17/21 03:17 Social History Smoking Status: Never smoker ROS ROS ED Review of Systems ROS Unobtainable: due to mental status and other Details: Review of systems cannot be obtained secondary to the patient's MRDD status EXAM Physical Exam Const Vital Signs: 07/28/21 15:35 Temperature 97.6 F L Temperature Source Temporal Pulse Rate 76 Respiratory Rate 18 Blood Pressure 141/99 H Blood Pressure Mean 113 Pulse Ox 97 Oxygen Delivery Method Room Air Positive well nourished, well developed and obese General Appearance ED: well developed Nutritional Appearance: obese HEENT HEENT Narrative: Normocephalic atraumatic Eyes PERRL and EOMs intact bilaterally Neck supple Chest Wall palpation of chest normal Resp normal respiratory effort and clear to auscultation bilaterally Cardio regular rate and regular rhythm GI GI Narrative: Abdomen is obese soft and nondistended with normal active bowel sounds. There is a opening in the left upper abdomen consistent with previous PEG tube. There is mild blood from the site consistent with recent dislodgment but no secondary changes to suggest infection. There is mild pain on palpation at the site. No voluntary guarding or pulsatile mass Neuro Neuro Narrative: Patient is awake and alert at her baseline mental status with no focal neurologic deficits noted Sensorium / Orientation: other Skin Skin Narrative: Dried blood around the PEG tube consistent with recent dislodgment otherwise no acute findings MDM MDM MDM Narrative Medical decision making narrative: Patient presented to the ER at her baseline mental status. She had history of PEG tube placement going back to 2019 and dislodged earlier today. As the PEG tube is in place for multiple years I have low concern about creating a false track. Therefore I did replace the PEG tube. Following this a KUB with Gastrografin was ordered to confirm placement. Once the x-ray confirmed PEG tube was in the proper position patient is now safe for discharge Discharge Plan Triage Chief Complaint: Wound ED Provider: Mario Clarke Dx/Rx/DC Orders Clinical Impression: PEG tube malfunction Instructions: ED Feeding Tube Insertion Prescriptions: No Action calcium carbonate-vitamin D3 1 EACH tablet 1 ea GT QHS RF: 0 cholecalciferol (vitamin D3) 2,000 UNIT capsule 2,000 unit GT DAILY RF: 0 Omeprazole 20 Mg/10ml 10 ml GT QHS RF: 0 Tylenol 650 mg Q4H PRN PRN (Reason: Pain 1-10 Or Fever) RF: 0 magnesium hydroxide 30 ML suspension 30 ml DAILY PRN (Reason: Constipation) RF: 0 bisacodyl 10 MG suppository 10 mg RC BID PRN PRN (Reason: Constipation) RF: 0 alum-mag hydroxide-simeth 355 ML suspension 15 ml Q4H PRN MDD constipation PRN (Reason: Constipation) RF: 0 Jevity Liquid 910 ml feeding tube DINNER RF: 0 Primary Care Provider: Tory Farris Referrals: Tory Farris MD [Primary Care Provider] - Disposition Disposition: Home, Self Care
--- NOTE | 2021-07-28 16:10 | RAD_ITS ---
STUDY: X-RAY - ABDOMEN/PELVIS REASON FOR EXAM: Female, 80 years old. PEG tube placement -- Please use Gastrografin to confirm placement TECHNIQUE: KUB COMPARISON: None. FINDINGS: The study is limited by patient motion. Lung bases are clear. Tube is projected over the midline upper abdomen. Contrast material is seen in the stomach. There is a non-obstructive bowel gas pattern. There is no organomegaly. No abnormal calcifications. Soft tissues and bony structures are unremarkable. RAD/Abdomen Single View (Portable) IMPRESSION: Oral contrast in stomach. Electronically Signed: Bonnie Joseph MD at 16:44 EDT Tel , Service support ,
[2021-07-28 16:37] VITALS: RESP 18
--- NOTE | 2021-07-28 16:38 | ED.RN ---
THIS RN CALLED REPORT TO [facility] AT [phone], AND REPORT WAS GIVEN TO PAULINE. PT TO BE D/C BACK TO [facility].
== END 2021-07-28 16:53 | disposition home or self-care (01) ==
PROVIDERS: Emergency Provider Emergency Medicine; PCP Internal Medicine
DX: K94.23 Gastrostomy malfunction (principal); E66.9 Obesity, unspecified; Z68.34 Body mass index [BMI] 34.0-34.9, adult; F79 Unspecified intellectual disabilities; I10 Essential (primary) hypertension; K21.9 Gastro-esophageal reflux disease without esophagitis; M19.90 Unspecified osteoarthritis, unspecified site; Z79.899 Other long term (current) drug therapy
CPT/HCPCS: 74018; 99284

== ENCOUNTER 2021-09-03 05:00 | Outpatient (REF) | payer MEDICARE, MEDICAID, SELFPAY ==
[2021-09-03 08:24] LABS: Hematocrit 42.6 % (37-47); Hemoglobin 13.4 g/dL (12.0-15.0); Mean Corp Hgb Conc 31.5 g/dL (32-36); Mean Corpuscular Hgb 32.9 pg (27.0-32.0); Mean Corpuscular Volume 104.7 fL (81-99); Mean Platelet Vol. 13.3 fl (6.2-12.0); Platelet Count 135 K/mm3 (150-450); RBC Distribution Width CV 12.6 % (11.6-14.6); RBC Distribution Width SD 48.5 fl (35.1-43.9); Red Blood Count 4.07 M/mm3 (4.2-5.4); White Blood Count 5.1 K/mm3 (4.4-11.0)
[2021-09-03 08:40] LABS: Albumin, Serum 2.6 g/dL (3.2-5.0); Anion Gap 7 (5-15); BUN 33 mg/dL (7-18); Calcium,Total 8.8 mg/dL (8.5-10.1); Chloride 106 mmol/L (98-107); Creatinine, Serum 0.72 mg/dL (0.55-1.02); EST Glomerular Filtration Rate 83 mL/min (>60); Est Glom Filt Rate - Afr Amer 100 mL/min (>60); Glucose 104 mg/dL (74-106); Potassium 4.6 mmol/L (3.5-5.1); Sodium Level 138 mmol/L (136-145)
== END 2021-09-03 23:59 | disposition home or self-care (01) ==
LOC: OLS.WHLEAS 05:00
PROVIDERS: PCP Internal Medicine; Visit Provider Internal Medicine
DX: I10 Essential (primary) hypertension (principal); D61.9 Aplastic anemia, unspecified; Z93.1 Gastrostomy status; F79 Unspecified intellectual disabilities; R13.10 Dysphagia, unspecified; E66.9 Obesity, unspecified; H35.30 Unspecified macular degeneration
CPT/HCPCS: 36415; 80048; 82040; 85027

== ENCOUNTER → 2021-12-04 | Outpatient (REF) | payer MEDICARE, MEDICAID, SELFPAY ==
[2021-12-04 08:19] LABS: Hematocrit 38.7 % (37-47); Hemoglobin 12.7 g/dL (12.0-15.0); Mean Corp Hgb Conc 32.8 g/dL (32-36); Mean Corpuscular Hgb 34.5 pg (27.0-32.0); Mean Corpuscular Volume 105.2 fL (81-99); Mean Platelet Vol. 13.1 fl (6.2-12.0); Platelet Count 124 K/mm3 (150-450); RBC Distribution Width CV 12.4 % (11.6-14.6); RBC Distribution Width SD 47.8 fl (35.1-43.9); Red Blood Count 3.68 M/mm3 (4.2-5.4); White Blood Count 4.3 K/mm3 (4.4-11.0)
[2021-12-04 08:36] LABS: Anion Gap 3 (5-15); BUN 32 mg/dL (7-18); BUN/Creat Ratio 50.4 RATIO (10-20); Calcium,Total 8.4 mg/dL (8.5-10.1); Chloride 106 mmol/L (98-107); Creatinine, Serum 0.64 mg/dL (0.55-1.02); EST Glomerular Filtration Rate 95 mL/min (>60); Est Glom Filt Rate - Afr Amer 115 mL/min (>60); Glucose 79 mg/dL (74-106); Potassium 4.5 mmol/L (3.5-5.1); Sodium Level 138 mmol/L (136-145)
== END | disposition home or self-care (01) ==
LOC: OLS.WHLEAS 04:00
PROVIDERS: PCP Internal Medicine; Visit Provider Internal Medicine
DX: I10 Essential (primary) hypertension (principal); D61.9 Aplastic anemia, unspecified; Z93.1 Gastrostomy status; I73.89 Other specified peripheral vascular diseases; F79 Unspecified intellectual disabilities; R13.10 Dysphagia, unspecified; E66.9 Obesity, unspecified
CPT/HCPCS: 36415; 80048; 85027

== ENCOUNTER → 2022-03-04 | Outpatient (REF) | payer MEDICARE, MEDICAID, SELFPAY ==
[2022-03-04 06:17] LABS: Absolute Lymphocyte Count 1.14 X10^3/uL (0.83-4.51); Absolute Neutrophil Count 2.4 X10^3/uL (2.0-7.7); Basophil# 0.03 X10^3/uL; Basophil% 0.7 % (0-1); Eosinophil# 0.22 X10^3/uL; Eosinophils% 5.2 % (0-5); Hematocrit 39.6 % (37-47); Hemoglobin 12.6 g/dL (12.0-15.0); Lymphocyte # 1.14 X10^3/ul (0.83-4.51); Lymphocyte % 26.8 % (19-41); Mean Corp Hgb Conc 31.8 g/dL (32-36); Mean Corpuscular Hgb 33.4 pg (27.0-32.0); Mean Platelet Vol. 12.7 fl (6.2-12.0); Monocyte# 0.47 X10^3/uL; NRBC Flagged by Analyzer 0 % (0-5); Neutrophil # 2.39 X10^3/uL (2.7-7.7); Neutrophil % 56.1 % (47-70); Platelet Count 147 K/mm3 (150-450); RBC Distribution Width CV 12.5 % (11.6-14.6); RBC Distribution Width SD 48.4 fl (35.1-43.9); Red Blood Count 3.77 M/mm3 (4.2-5.4); White Blood Count 4.3 K/mm3 (4.4-11.0)
[2022-03-04 06:38] LABS: BUN 28 mg/dL (7-18); Creatinine, Serum 0.66 mg/dL (0.55-1.02); EST Glomerular Filtration Rate 91 mL/min (>60); Glucose 107 mg/dL (74-106)
[2022-03-04 06:39] LABS: Albumin, Serum 2.7 g/dL (3.2-5.0); Anion Gap 3 (5-15); BUN/Creat Ratio 42.6 RATIO (10-20); Calcium,Total 8.6 mg/dL (8.5-10.1); Chloride 105 mmol/L (98-107); Est Glom Filt Rate - Afr Amer 111 mL/min (>60); Potassium 4.3 mmol/L (3.5-5.1); Sodium Level 139 mmol/L (136-145)
== END | disposition home or self-care (01) ==
LOC: OLS.WHLEAS 05:00
PROVIDERS: PCP Internal Medicine; Referring Provider Internal Medicine; Visit Provider Internal Medicine
DX: I10 Essential (primary) hypertension (principal); D61.9 Aplastic anemia, unspecified; Z93.1 Gastrostomy status; I73.89 Other specified peripheral vascular diseases; F79 Unspecified intellectual disabilities; R13.10 Dysphagia, unspecified; E66.9 Obesity, unspecified
CPT/HCPCS: 36415; 80048; 82040; 85025

== ENCOUNTER → 2022-06-03 | Outpatient (REF) | payer MEDICARE, MEDICAID, SELFPAY ==
[2022-06-03 09:11] LABS: Hematocrit 38.4 % (37-47); Hemoglobin 12.4 g/dL (12.0-15.0); Mean Corp Hgb Conc 32.3 g/dL (32-36); Mean Corpuscular Hgb 33.4 pg (27.0-32.0); Mean Corpuscular Volume 103.5 fL (81-99); Mean Platelet Vol. 13.4 fl (6.2-12.0); Platelet Count 107 K/mm3 (150-450); RBC Distribution Width CV 12.6 % (11.6-14.6); RBC Distribution Width SD 47.8 fl (35.1-43.9); Red Blood Count 3.71 M/mm3 (4.2-5.4); White Blood Count 4.9 K/mm3 (4.4-11.0)
[2022-06-03 09:34] LABS: Albumin, Serum 2.6 g/dL (3.2-5.0); Anion Gap 3 (5-15); BUN 35 mg/dL (7-18); BUN/Creat Ratio 52.4 RATIO (10-20); Calcium,Total 8.3 mg/dL (8.5-10.1); Chloride 106 mmol/L (98-107); Creatinine, Serum 0.67 mg/dL (0.55-1.02); EST Glomerular Filtration Rate 90 mL/min (>60); Est Glom Filt Rate - Afr Amer 109 mL/min (>60); Glucose 85 mg/dL (74-106); Potassium 4.3 mmol/L (3.5-5.1); Sodium Level 139 mmol/L (136-145)
== END ==
LOC: OLS.WHLEAS 05:00
PROVIDERS: PCP Internal Medicine; Visit Provider Internal Medicine
DX: I10 Essential (primary) hypertension (principal); F79 Unspecified intellectual disabilities; R13.10 Dysphagia, unspecified; D61.9 Aplastic anemia, unspecified; I73.89 Other specified peripheral vascular diseases; E66.9 Obesity, unspecified; Z93.1 Gastrostomy status
CPT/HCPCS: 36415; 80048; 82040; 85027

== ENCOUNTER 2022-09-15 16:30 | Emergency (ER) | payer MEDICARE, MEDICAID, SELFPAY ==
[2022-09-15 16:31] VITALS: BP 119/77; PULSE 84; RESP 16; TEMP 36.2; O2SAT 98; BMI 30.5
--- NOTE | 2022-09-15 20:10 | EDS_ITS ---
HPI History of Present Illness Chief Complaint: Other, Pain/Inj Informant: patient and SNF Narrative Narrative: Patient is an 82-year-old female with history of mental retardation and PEG tube presenting after her PEG tube was pulled out. This occurred this afternoon sometime. The PEG tube is been in place since at least 2019. Contacted the facility who states is a size 24 PEG tube. Patient has no other complaints at this time. Patient otherwise been in her normal state of health. PEG tube is followed by Dr. Mohan. [facility] Medical History Aplastic anemia GERD (gastroesophageal reflux disease) HTN (hypertension) Osteoarthritis Home Medications Omeprazole 20 Mg/10ml 10 ml G-tube QHS GERD 11/27/20 [History Last Taken 11/26/20] calcium carbonate 600 mg-vitamin D3 10 mcg (400 unit) tablet 1 ea G-tube QHS 11/27/20 [History Last Taken 11/26/20] cholecalciferol (vitamin D3) 50 mcg (2,000 unit) capsule 2,000 unit G-tube DAILY 11/27/20 [History Last Taken 11/26/20] Tylenol 650 mg Q4H PRN PRN Pain 1-10 Or Fever 02/01/21 [History Last Taken Unknown] aluminum-mag hydroxide-simethicone 400 mg-400 mg-40 mg/5 mL oral susp 15 ml Q4H PRN PRN Constipation 02/01/21 [History Last Taken Unknown] bisacodyl 10 mg rectal suppository 10 mg AR BID PRN PRN Constipation 02/01/21 [History Last Taken Unknown] magnesium hydroxide 400 mg/5 mL oral suspension 30 ml DAILY PRN Constipation 02/01/21 [History Last Taken Unknown] food supplemt, lactose-reduced 910 ml feeding tube DINNER 07/28/21 [History Last Taken Unknown] Allergy/AdvReac Type Severity Reaction Status Date / Time adhesive tape Allergy NEEDS Verified 09/15/22 16:31 FOLLOW-UP clindamycin Allergy Unknown Verified 09/15/22 16:31 Social History Smoking Status: Never smoker ROS ROS ED Review of Systems ROS Unobtainable: due to mental condition EXAM Physical Exam Const Vital Signs: 09/15/22 16:31 Temperature 97.1 F L Temperature Source Temporal Pulse Rate 84 Respiratory Rate 16 Blood Pressure 119/77 Blood Pressure Mean 91 Pulse Ox 98 Oxygen Delivery Method Room Air Positive well nourished and well developed General Appearance ED: well developed and NAD HEENT Reports moist mucous membranes Negative for trauma Eyes PERRL and EOMs intact bilaterally Neck supple Chest Wall inspection of chest normal and palpation of chest normal Resp normal respiratory effort and clear to auscultation bilaterally Cardio regular rate, regular rhythm and no murmurs GI normal to inspection, nondistended, normoactive bowel sounds and non-tender GI Narrative: Tract for PEG tube in place. There is some dried blood around it. Inspection: Negative for abdominal distention Extremity normal to inspection Psych mental status grossly normal Skin no wounds and skin turgor normal MDM MDM MDM Narrative Medical decision making narrative: Patient evaluated for PEG tube malfunction. Patient pulled the PEG tube out. Its been in place for at least a couple years. care home states it is a 24 Japanese. A 24 Japanese is attempted to reinsert however does not going in. An 18 Japanese [place] was used to go through the tract which patient tolerates overall well. 24 Japanese PEG tube is attempted again however still of the tract is too tight. I then tried with a 20 Japanese which with some gentle pressure eventually did go in. Balloon was inflated with 6 cc of saline. I will obtain a Gastrografin x-ray to confirm placement and if it is in place patient will be discharged to follow-up with her surgeon, Dr. Mohan or Dr. Cerda X-ray interpreted by myself shows Gastrografin in the GI tract. Abdominal binder will be placed to patient be discharged back to [facility]. Discharge Plan Triage Chief Complaint: Other, Pain/Inj ED Provider: Ashly Abdi Dx/Rx/DC Orders Clinical Impression: PEG tube malfunction Instructions: ED Feeding Tube Replacement Prescriptions: No Action calcium carbonate-vitamin D3 1 EACH tablet 1 ea GT QHS cholecalciferol (vitamin D3) 2,000 UNIT capsule 2,000 unit GT DAILY Omeprazole 20 Mg/10ml 10 ml GT QHS Tylenol 650 mg Q4H PRN PRN (Reason: Pain 1-10 Or Fever) magnesium hydroxide 30 ML suspension 30 ml DAILY PRN (Reason: Constipation) bisacodyl 10 MG suppository 10 mg RC BID PRN PRN (Reason: Constipation) alum-mag hydroxide-simeth 355 ML suspension 15 ml Q4H PRN MDD constipation PRN (Reason: Constipation) Jevity Liquid 910 ml feeding tube DINNER Primary Care Provider: Rebecca Raymond Referrals: Rebecca Raymond MD [Primary Care Provider] - Ashely Cerda MD [Med Staff - Active Staff] - 2 Days for wound check Disposition Disposition: Senior Living Facility Discharge Location: [facility]
--- NOTE | 2022-09-15 20:32 | ED.RN ---
20F gtube inserted to abd by Dr. Abdi. Pt tolerated well.
--- NOTE | 2022-09-15 20:45 | RAD_ITS ---
STUDY: X-RAY - ABDOMEN/PELVIS REASON FOR EXAM: Female, 82 years old. PEG tube in the - with gastrogaffin TECHNIQUE: KUB COMPARISON: None. FINDINGS: Normal visualized lung bases. PEG tube is noted entering the stomach at the level of the gastric body. There is contrast injected into the G-tube filling the stomach as well as the duodenum and proximal jejunum. There is no extravasation of contrast.: RAD/Abdomen Single View (Portable) IMPRESSION: PEG tube placement in the gastric body Electronically Signed: Jhony Bruce MD at 21:14 EST ,
== END 2022-09-15 21:12 | disposition skilled nursing facility (03) ==
PROVIDERS: Emergency Provider Emergency Medicine; PCP Internal Medicine; Visit Provider Emergency Medicine
DX: K94.23 Gastrostomy malfunction (principal); I10 Essential (primary) hypertension; F79 Unspecified intellectual disabilities
CPT/HCPCS: 74018; 99282; A4216

== ENCOUNTER → 2022-12-02 | Outpatient (REF) | payer MEDICARE, MEDICAID, SELFPAY ==
[2022-12-02 09:24] LABS: Hematocrit 44.8 % (37-47); Hemoglobin 13.8 g/dL (12.0-15.0); Mean Corp Hgb Conc 30.8 g/dL (32-36); Mean Corpuscular Hgb 33.3 pg (27.0-32.0); Mean Platelet Vol. 13.5 fl (6.2-12.0); Platelet Count 127 K/mm3 (150-450); RBC Distribution Width CV 12.9 % (11.6-14.6); Red Blood Count 4.15 M/mm3 (4.2-5.4); White Blood Count 4.3 K/mm3 (4.4-11.0)
[2022-12-02 09:44] LABS: Albumin, Serum 2.9 g/dL (3.2-5.0); Anion Gap 6 (5-15); BUN 37 mg/dL (7-18); BUN/Creat Ratio 57.8 RATIO (10-20); Calcium,Total 9.1 mg/dL (8.5-10.1); Chloride 106 mmol/L (98-107); Creatinine, Serum 0.64 mg/dL (0.55-1.02); EST Glomerular Filtration Rate 94 mL/min (>60); Est Glom Filt Rate - Afr Amer 114 mL/min (>60); Glucose 97 mg/dL (74-106); Potassium 4.4 mmol/L (3.5-5.1); Sodium Level 140 mmol/L (136-145)
== END ==
LOC: OLS.WHLEAS 05:00
PROVIDERS: PCP Internal Medicine; Visit Provider Internal Medicine
DX: I10 Essential (primary) hypertension (principal); F79 Unspecified intellectual disabilities; R13.10 Dysphagia, unspecified; D61.9 Aplastic anemia, unspecified; I73.89 Other specified peripheral vascular diseases; E66.9 Obesity, unspecified; Z93.1 Gastrostomy status
CPT/HCPCS: 36415; 80048; 82040; 85027

== ENCOUNTER → 2023-03-03 | Outpatient (REF) | payer MEDICARE, MEDICAID, SELFPAY ==
[2023-03-03 09:10] LABS: Hematocrit 43.3 % (37-47); Hemoglobin 13.4 g/dL (12.0-15.0); Mean Corp Hgb Conc 30.9 g/dL (32-36); Mean Corpuscular Hgb 33.5 pg (27.0-32.0); Mean Corpuscular Volume 108.3 fL (81-99); Mean Platelet Vol. 13.4 fl (6.2-12.0); Platelet Count 143 K/mm3 (150-450); RBC Distribution Width CV 13.1 % (11.6-14.6); RBC Distribution Width SD 53.1 fl (35.1-43.9)
[2023-03-03 09:29] LABS: Albumin, Serum 3.1 g/dL (3.2-5.0); Anion Gap 7 (5-15); BUN 30 mg/dL (7-18); BUN/Creat Ratio 45.8 RATIO (10-20); Calcium,Total 9.3 mg/dL (8.5-10.1); Chloride 107 mmol/L (98-107); Creatinine, Serum 0.66 mg/dL (0.55-1.02); EST Glomerular Filtration Rate 92 mL/min (>60); Est Glom Filt Rate - Afr Amer 111 mL/min (>60); Glucose 100 mg/dL (74-106); Potassium 3.9 mmol/L (3.5-5.1); Sodium Level 141 mmol/L (136-145)
== END ==
LOC: OLS.WHLEAS 05:00
PROVIDERS: PCP Internal Medicine; Visit Provider Internal Medicine
DX: I10 Essential (primary) hypertension (principal); F79 Unspecified intellectual disabilities; R13.10 Dysphagia, unspecified; D61.9 Aplastic anemia, unspecified; I73.89 Other specified peripheral vascular diseases; E66.9 Obesity, unspecified
CPT/HCPCS: 36415; 80048; 82040; 85027

== ENCOUNTER 2023-03-07 21:25 | Emergency (ER) | payer MEDICARE, MEDICAID, SELFPAY ==
[2023-03-07 21:26] VITALS: BP 136/66; PULSE 77; RESP 18; TEMP 36.2; O2SAT 97; BMI 30.2
--- NOTE | 2023-03-07 22:55 | RAD_ITS ---
EXAM: XR ABDOMEN, 1 VIEW CLINICAL INDICATION: s/p PEG tube placement -- Please use Gastrografin TECHNIQUE: Frontal supine view of the abdomen/pelvis. COMPARISON: 09/15/2022 FINDINGS: LOWER THORAX: No acute pathology. GASTROINTESTINAL TRACT: Unremarkable. Non-obstructive. No bowel or stomach distention. ORGANS: Unremarkable as visualized. No organomegaly. No abnormal calcifications. BONES/JOINTS: No acute pathology. SOFT TISSUES: No acute pathology. TUBES, LINES AND DEVICES: Contrast injected through the percutaneous gastrostomy tube fills the distal stomach and the proximal duodenum. No evidence of extravasation into the abdominal wall or peritoneum. RAD/Abdomen Single View (Portable) IMPRESSION: Tip of the percutaneous gastrostomy tube is within the body of the stomach. Electronically Signed: Nemesio Pinon MD at 23:25 EDT ,
--- NOTE | 2023-03-07 23:23 | EX.ED.DYSGE1 ---
HPI History of Present Illness Chief Complaint: Other, Pain/Inj Informant: EMS and SNF Narrative Narrative: Patient is an 82-year-old female from the group home with past medical history of obesity GERD MRDD and need for PEG tube. Nursing reports that they were rounding on the patient this evening and discovered her PEG tube had been dislodged. They state they are unsure of how long the tube has been dislodged but as it will not replaced as the patient does not take her medications by mouth she was sent in for evaluation. Nursing reports patient is at her baseline mental status and based on the history of MRDD she cannot offer any further history [facility] Medical History Aplastic anemia GERD (gastroesophageal reflux disease) HTN (hypertension) Osteoarthritis Home Medications Omeprazole 20 Mg/10ml 10 ml G-tube QHS GERD 11/27/20 [History Last Taken 11/26/20] calcium carbonate 600 mg-vitamin D3 10 mcg (400 unit) tablet 1 ea G-tube QHS 11/27/20 [History Last Taken 11/26/20] cholecalciferol (vitamin D3) 50 mcg (2,000 unit) capsule 2,000 unit G-tube DAILY 11/27/20 [History Last Taken 11/26/20] Tylenol 650 mg Q4H PRN PRN Pain 1-10 Or Fever 02/01/21 [History Last Taken Unknown] aluminum-mag hydroxide-simethicone 400 mg-400 mg-40 mg/5 mL oral susp 15 ml Q4H PRN PRN Constipation 02/01/21 [History Last Taken Unknown] bisacodyl 10 mg rectal suppository 10 mg [place] BID PRN PRN Constipation 02/01/21 [History Last Taken Unknown] magnesium hydroxide 400 mg/5 mL oral suspension 30 ml DAILY PRN Constipation 02/01/21 [History Last Taken Unknown] food supplemt, lactose-reduced 910 ml feeding tube DINNER 07/28/21 [History Last Taken Unknown] Allergy/AdvReac Type Severity Reaction Status Date / Time adhesive tape Allergy NEEDS Verified 09/15/22 16:31 FOLLOW-UP clindamycin Allergy Unknown Verified 09/15/22 16:31 Social History Smoking Status: Never smoker ROS ROS ED ROS Narrative Review of systems cannot be obtained secondary to patient's history of MRDD Review of Systems ROS Unobtainable: due to mental condition EXAM Physical Exam Const Vital Signs: 03/07/23 21:26 Temperature 97.2 F L Temperature Source Temporal Pulse Rate 77 Respiratory Rate 18 Blood Pressure 136/66 H Blood Pressure Mean 89 Pulse Ox 97 Oxygen Delivery Method Room Air Positive well nourished, well developed and obese General Appearance ED: well developed Nutritional Appearance: obese HEENT Reports dry mucous membranes HEENT Narrative: No airway edema or compromise Mouth ED: Yes dry mucous membranes Mouth: dry mucous membranes Eyes PERRL and EOMs intact bilaterally General Eye ED: Negative for scleral icterus Neck supple Resp normal respiratory effort and clear to auscultation bilaterally Cardio regular rate and regular rhythm GI normal to inspection, nondistended, normoactive bowel sounds, non-tender and non-distended GI Narrative: Stoma for PEG tube present in the left mid upper quadrant without surrounding changes to suggest infection and no active discharge or bleeding noted Auscultation: normoactive bowel sounds Palpation: soft Extremity normal to inspection Neuro CN's II-XII intact bilaterally Neuro Narrative: Patient is at her baseline mental status Sensorium / Orientation: alert Psych mental status grossly normal Skin no rashes or lesions noted MDM MDM MDM Narrative Medical decision making narrative: Patient presented to the ER in no acute distress at her baseline mental status with a soft nonsurgical abdomen. Exam indicates that the PEG tube has been dislodged but there is been no internal derangement and therefore there is no need for imaging or laboratory studies. Concern for colitis/gastroenteritis/perforation is low and therefore do not feel there is need for further work-up. The patient had a 24 Chinese PEG tube reinserted as documented below and following that she is otherwise safe for discharge back to the group home Patient had her abdominal stoma cleaned with chlorhexidine. Sterile K-Y jelly was then placed for lubrication over top skin. A 24 Chinese PEG tube was then passed through the stoma and inserted to 5 cm deep into the intestine/stomach. Confirmation was by KUB with Gastrografin. Patient tolerated procedure well without complication History & Record Review Discussion w/independent historian: EMS personnel Radiography Diagnostic Testing: Clinical Impression(s) from Imaging Studies KUB X-Ray 03/07/23 22:55 IMPRESSION: Tip of the percutaneous gastrostomy tube is within the body of the stomach. Electronically Signed: Nemesio Pinon MD at 23:25 EDT , KUB as interpreted by the emergency medicine physician reveals that the PEG tube is within the antrum of the stomach without perforation or extravasation Discharge Plan Triage Chief Complaint: Other, Pain/Inj ED Provider: Mario Clarke Dx/Rx/DC Orders Clinical Impression: PEG tube malfunction, Mental retardation, Obesity Instructions: ED Feeding Tube Replacement Prescriptions: No Action calcium carbonate-vitamin D3 1 EACH tablet 1 ea GT QHS cholecalciferol (vitamin D3) 2,000 UNIT capsule 2,000 unit GT DAILY Omeprazole 20 Mg/10ml 10 ml GT QHS Tylenol 650 mg Q4H PRN PRN (Reason: Pain 1-10 Or Fever) magnesium hydroxide 30 ML suspension 30 ml DAILY PRN (Reason: Constipation) bisacodyl 10 MG suppository 10 mg RC BID PRN PRN (Reason: Constipation) alum-mag hydroxide-simeth 355 ML suspension 15 ml Q4H PRN MDD constipation PRN (Reason: Constipation) Jevity Liquid 910 ml feeding tube DINNER Primary Care Provider: Rebecca Raymond Referrals: Rebecca Raymond MD [Primary Care Provider] - Disposition Disposition: Home, Self Care
--- NOTE | 2023-03-07 23:33 | ED.RN ---
Report called to Selena about pt d/c.
== END 2023-03-08 02:43 | disposition home or self-care (01) ==
PROVIDERS: Emergency Provider Emergency Medicine; PCP Internal Medicine; Visit Provider Emergency Medicine
DX: K94.23 Gastrostomy malfunction (principal); I10 Essential (primary) hypertension; F79 Unspecified intellectual disabilities; E66.9 Obesity, unspecified; K21.9 Gastro-esophageal reflux disease without esophagitis
CPT/HCPCS: 43762; 74018; 99284

== ENCOUNTER → 2023-06-02 | Outpatient (REF) | payer MEDICARE, MEDICAID, SELFPAY ==
[2023-06-02 09:32] LABS: Hematocrit 42.1 % (37-47); Hemoglobin 13.4 g/dL (12.0-15.0); Mean Corp Hgb Conc 31.8 g/dL (32-36); Mean Corpuscular Hgb 33.6 pg (27.0-32.0); Mean Corpuscular Volume 105.5 fL (81-99); Mean Platelet Vol. 14.3 fl (6.2-12.0); POSITIVE COUNT YES; Platelet Count 96 K/mm3 (150-450); RBC Distribution Width CV 12.1 % (11.6-14.6); RBC Distribution Width SD 47.8 fl (35.1-43.9); Red Blood Count 3.99 M/mm3 (4.2-5.4); White Blood Count 4.9 K/mm3 (4.4-11.0)
[2023-06-02 09:34] LABS: Scan Indicated on CBC? Y/N YES- FLAGS NOTED
[2023-06-02 09:43] LABS: Albumin, Serum 3.1 g/dL (3.2-5.0); Anion Gap 2 (5-15); BUN 30 mg/dL (7-18); BUN/Creat Ratio 49.2 RATIO (10-20); Chloride 102 mmol/L (98-107); Creatinine, Serum 0.61 mg/dL (0.55-1.02); EST Glomerular Filtration Rate 99 mL/min (>60); Est Glom Filt Rate - Afr Amer 120 mL/min (>60); Glucose 91 mg/dL (74-106); Potassium 4.1 mmol/L (3.5-5.1); Sodium Level 134 mmol/L (136-145)
== END ==
LOC: OLS.WHLEAS 05:00
PROVIDERS: PCP Internal Medicine; Visit Provider Internal Medicine
DX: I10 Essential (primary) hypertension (principal); F79 Unspecified intellectual disabilities; R13.10 Dysphagia, unspecified
CPT/HCPCS: 36415; 80048; 82040; 85027

== ENCOUNTER → 2023-06-07 | Outpatient (REF) | payer MEDICARE, MEDICAID, SELFPAY ==
[2023-06-07 09:15] LABS: Absolute Lymphocyte Count 1.38 X10^3/uL (0.83-4.51); Absolute Neutrophil Count 2.4 X10^3/uL (2.0-7.7); Basophil# 0.02 X10^3/uL; Basophil% 0.4 % (0-1); Eosinophils% 4.5 % (0-5); Hematocrit 42.3 % (37-47); Hemoglobin 13.2 g/dL (12.0-15.0); Lymphocyte # 1.38 X10^3/ul (0.83-4.51); Lymphocyte % 30.7 % (19-41); Mean Corp Hgb Conc 31.2 g/dL (32-36); Mean Corpuscular Hgb 33.6 pg (27.0-32.0); Mean Corpuscular Volume 107.6 fL (81-99); Mean Platelet Vol. 12.9 fl (6.2-12.0); Monocyte# 0.49 X10^3/uL; Monocyte% 10.9 % (0-10); NRBC Flagged by Analyzer 0 % (0-5); Neutrophil # 2.39 X10^3/uL (2.7-7.7); Neutrophil % 53.3 % (47-70); Platelet Count 132 K/mm3 (150-450); RBC Distribution Width CV 12.3 % (11.6-14.6); RBC Distribution Width SD 49.3 fl (35.1-43.9); Red Blood Count 3.93 M/mm3 (4.2-5.4); White Blood Count 4.5 K/mm3 (4.4-11.0)
[2023-06-07 09:34] LABS: Anion Gap 4 (5-15); BUN 32 mg/dL (7-18); BUN/Creat Ratio 51.3 RATIO (10-20); Calcium,Total 8.9 mg/dL (8.5-10.1); Chloride 105 mmol/L (98-107); Creatinine, Serum 0.62 mg/dL (0.55-1.02); EST Glomerular Filtration Rate 97 mL/min (>60); Est Glom Filt Rate - Afr Amer 117 mL/min (>60); Glucose 96 mg/dL (74-106); Sodium Level 140 mmol/L (136-145)
== END ==
LOC: OLS.WHLEAS 05:00
PROVIDERS: PCP Internal Medicine; Visit Provider Internal Medicine
DX: R53.83 Other fatigue (principal); R13.10 Dysphagia, unspecified; I10 Essential (primary) hypertension
CPT/HCPCS: 36415; 80048; 85025

== ENCOUNTER → 2023-08-25 | Outpatient (REF) | payer MEDICARE, MEDICAID, SELFPAY ==
[2023-08-25 09:41] LABS: Albumin, Serum 2.4 g/dL (3.2-5.0); Anion Gap 4 (5-15); BUN 32 mg/dL (7-18); BUN/Creat Ratio 53.2 RATIO (10-20); Chloride 107 mmol/L (98-107); EST Glomerular Filtration Rate 101 mL/min (>60); Est Glom Filt Rate - Afr Amer 122 mL/min (>60); Glucose 109 mg/dL (74-106); Potassium 5.3 mmol/L (3.5-5.1); Sodium Level 136 mmol/L (136-145)
== END ==
LOC: OLS.WHLEAS 05:00
PROVIDERS: PCP Internal Medicine; Visit Provider Internal Medicine
DX: I10 Essential (primary) hypertension (principal); F79 Unspecified intellectual disabilities; R13.10 Dysphagia, unspecified; D61.9 Aplastic anemia, unspecified; I73.89 Other specified peripheral vascular diseases; Z93.1 Gastrostomy status
CPT/HCPCS: 36415; 80048; 82040

== ENCOUNTER → 2023-08-26 | Outpatient (REF) | payer MEDICARE, MEDICAID, SELFPAY ==
[2023-08-26 08:38] LABS: Hematocrit 39.2 % (37-47); Hemoglobin 12.5 g/dL (12.0-15.0); Mean Corp Hgb Conc 31.9 g/dL (32-36); Mean Corpuscular Hgb 33.7 pg (27.0-32.0); Mean Corpuscular Volume 105.7 fL (81-99); Mean Platelet Vol. 14.1 fl (6.2-12.0); Platelet Count 107 K/mm3 (150-450); RBC Distribution Width CV 12.7 % (11.6-14.6); RBC Distribution Width SD 49.6 fl (35.1-43.9); Red Blood Count 3.71 M/mm3 (4.2-5.4); White Blood Count 4.6 K/mm3 (4.4-11.0)
== END ==
LOC: OLS.WHLEAS 05:00
PROVIDERS: PCP Internal Medicine; Visit Provider Internal Medicine
DX: I10 Essential (primary) hypertension (principal)
CPT/HCPCS: 85027

== ENCOUNTER 2023-09-26 19:59 | Emergency (ER) | payer MEDICARE, MEDICAID, SELFPAY ==
[2023-09-26 20:06] VITALS: BP 130/76; PULSE 71; RESP 18; TEMP 36.6; O2SAT 96; BMI 31.1
--- NOTE | 2023-09-26 21:11 | ED.RN ---
[facility] CALLED, ETA 2-3 HOURS ([phone])
--- NOTE | 2023-09-26 21:25 | RAD_ITS ---
EXAM: XR ABDOMEN, 1 VIEW CLINICAL INDICATION: PEG tube replacement -- With Gastrografin TECHNIQUE: Frontal supine view of the abdomen/pelvis. COMPARISON: CT 11/27/2020 FINDINGS: LOWER THORAX: No acute pathology. GASTROINTESTINAL TRACT: Large amount of stool in the rectal vault can suggest constipation. ORGANS: Calcification of the right upper quadrant suggestive of a gallstone. No organomegaly. BONES/JOINTS: Degenerative findings in the lumbar spine. SOFT TISSUES: No acute pathology. TUBES, LINES AND DEVICES: There is a PEG tube in place. Contrast inject through the PEG tube demonstrates oral contrast within the lumen of the stomach. This confirms PEG placement. RAD/Abdomen Single View (Portable) IMPRESSION: 1. There is a PEG tube in place. Contrast inject through the PEG tube demonstrates oral contrast within the lumen of the stomach. This confirms PEG placement. 2. Large amount of stool in the rectal vault can suggest constipation. 3. Calcification of the right upper quadrant suggestive of a gallstone. Electronically Signed: Nemesio Sweeney MD at 21:43 EST ,
--- NOTE | 2023-09-26 21:49 | EDS_ITS ---
HPI History of Present Illness Chief Complaint: Wound Informant: patient and SNF Onset/Context/Timing Onset: Today Context: Gradual Onset Timing: Continuous Worsened by: Nothing Relieved by: Nothing Narrative Narrative: Patient presents with dysfunctional PEG tube. long term staff reports that they were unable to flush anything through the PEG tube tonight. Patient is a poor informant. Patient has a history of dementia. Patient denies any abdominal pain. Staff denies any nausea or vomiting. Staff denies any fevers or chills. PFSH PFSH Medical History (Updated 09/26/23 @ 21:[address] Axel Michaels DO) Aplastic anemia GERD (gastroesophageal reflux disease) HTN (hypertension) Osteoarthritis Home Medications Omeprazole 20 Mg/10ml 10 ml G-tube QHS GERD 11/27/20 [History Last Taken 11/26/20] calcium carbonate 600 mg-vitamin D3 10 mcg (400 unit) tablet 1 ea G-tube QHS 11/27/20 [History Last Taken 11/26/20] cholecalciferol (vitamin D3) 50 mcg (2,000 unit) capsule 2,000 unit G-tube DAILY 11/27/20 [History Last Taken 11/26/20] Tylenol 650 mg Q4H PRN PRN Pain 1-10 Or Fever 02/01/21 [History Last Taken Unknown] aluminum-mag hydroxide-simethicone 400 mg-400 mg-40 mg/5 mL oral susp 15 ml Q4H PRN PRN Constipation 02/01/21 [History Last Taken Unknown] bisacodyl 10 mg rectal suppository 10 mg NE BID PRN PRN Constipation 02/01/21 [History Last Taken Unknown] magnesium hydroxide 400 mg/5 mL oral suspension 30 ml DAILY PRN Constipation 02/01/21 [History Last Taken Unknown] food supplemt, lactose-reduced 910 ml feeding tube DINNER 07/28/21 [History Last Taken Unknown] Allergy/AdvReac Type Severity Reaction Status Date / Time adhesive tape Allergy NEEDS Verified 09/26/23 20:05 FOLLOW-UP clindamycin Allergy Unknown Verified 09/26/23 20:05 Surgical History (Updated 09/26/23 @ 21:[address] Axel Michaels DO) Status post insertion of percutaneous endoscopic gastrostomy (PEG) tube Social History Smoking Status: Never smoker ROS ROS ED Review of Systems ROS Unobtainable: due to mental condition and due to mental status EXAM Physical Exam Const Vital Signs: 09/26/23 20:06 09/26/23 21:59 09/26/23 22:37 Temperature 97.8 F 96 F L 97.1 F L Temperature Source Temporal Temporal Pulse Rate 71 98 92 Respiratory Rate 18 16 16 Blood Pressure 130/76 H 151/74 H Blood Pressure Mean 94 99 Pulse Ox 96 94 94 Oxygen Delivery Method Room Air Room Air Positive well nourished and well developed General Appearance ED: well developed and NAD HEENT Reports moist mucous membranes Neck supple and no JVD Resp normal respiratory effort and clear to auscultation bilaterally Cardio regular rate and regular rhythm GI non-distended Palpation: soft and tender LUQ (Mild tenderness around PEG tube site) Neuro CN's II-XII intact bilaterally and no sensory deficits noted Sensorium / Orientation: alert Motor Exam: strength 5/5 throughout MDM MDM MDM Narrative Medical decision making narrative: The dysfunctional PEG tube was removed. A new 24 Polish PEG tube was reinserted without difficulty. The balloon was inflated. Gastrografin study was performed. There is 1 view. On my independent interpretation, the Gastrografin went into the lumen of the stomach. There is no extravasation noted. Radiologist also interpreted the x-ray and agrees. Patient tolerated the procedure well. Patient will be discharged back to the extended care facility. Radiography Diagnostic Testing: Clinical Impression(s) from Imaging Studies KUB X-Ray 09/26/23 21:25 IMPRESSION: 1. There is a PEG tube in place. Contrast inject through the PEG tube demonstrates oral contrast within the lumen of the stomach. This confirms PEG placement. 2. Large amount of stool in the rectal vault can suggest constipation. 3. Calcification of the right upper quadrant suggestive of a gallstone. Electronically Signed: Nemesio Sweeney MD at 21:43 EST , Gastrografin study was performed. There is 1 view. On my independent interpretation, the PEG tube is in place. The contrast goes into the stomach. There is no extravasation of the contrast. There is no free air. Radiologist also interpreted the x-ray and agrees. Procedures Other Procedures Procedure(s): The dysfunctional PEG tube was removed after deflating the balloon. A new 24 Polish PEG tube was placed into the stoma and passed into the stomach. The balloon was inflated with 5 cc of air. Patient tolerated procedure well. Gastrografin study was performed after placement. Contrast is in the stomach. There is no extravasation of the contrast dye. Radiologist also interpreted the Gastrografin study and agrees. Discharge Plan Triage Chief Complaint: Wound ED Provider: Axel Michaels Dx/Rx/DC Orders Clinical Impression: PEG tube malfunction, Mental retardation Instructions: ED Feeding Tube Replacement Prescriptions: No Action calcium carbonate-vitamin D3 1 EACH tablet 1 ea GT QHS cholecalciferol (vitamin D3) 2,000 UNIT capsule 2,000 unit GT DAILY Omeprazole 20 Mg/10ml 10 ml GT QHS Tylenol 650 mg Q4H PRN PRN (Reason: Pain 1-10 Or Fever) magnesium hydroxide 30 ML suspension 30 ml DAILY PRN (Reason: Constipation) bisacodyl 10 MG suppository 10 mg RC BID PRN PRN (Reason: Constipation) alum-mag hydroxide-simeth 355 ML suspension 15 ml Q4H PRN MDD constipation PRN (Reason: Constipation) Jevity Liquid 910 ml feeding tube DINNER Primary Care Provider: Rebecca Raymond Referrals: Rebecca Raymond MD [Primary Care Provider] - 5-7 Days Disposition Disposition: Home, Self Care
[2023-09-26 21:59] VITALS: PULSE 98; RESP 16; TEMP 35.5; O2SAT 94
[2023-09-26 22:37] VITALS: BP 151/74; PULSE 92; RESP 16; TEMP 36.2; O2SAT 94
--- NOTE | 2023-09-26 23:55 | ED.RN ---
APRIL called and report was given.
== END 2023-09-27 00:29 | disposition home or self-care (01) ==
PROVIDERS: Emergency Provider Emergency Medicine; PCP Internal Medicine; Visit Provider Emergency Medicine
DX: K94.23 Gastrostomy malfunction (principal); I10 Essential (primary) hypertension; F79 Unspecified intellectual disabilities; K21.9 Gastro-esophageal reflux disease without esophagitis; Z79.899 Other long term (current) drug therapy
CPT/HCPCS: 49440; 74018; 99282

== ENCOUNTER 2023-09-27 01:48 | Emergency (ER) | payer MEDICARE, MEDICAID, SELFPAY ==
[2023-09-27 01:48] VITALS: BP 140/79; PULSE 67; RESP 18; TEMP 36.4; O2SAT 96; BMI 29.8
--- NOTE | 2023-09-27 02:01 | EDS_ITS ---
HPI History of Present Illness Chief Complaint: Other, Pain/Inj Narrative Narrative: Patient presents because her feeding tube fell out. This 1 was placed earlier in the day this past day, staff at the intermediate states they went in and it was sitting on her abdomen with the balloon deflated. Limited ROS due to MR. [facility] Medical History Aplastic anemia GERD (gastroesophageal reflux disease) HTN (hypertension) Mental retardation Osteoarthritis Home Medications Omeprazole 20 Mg/10ml 10 ml G-tube QHS GERD 11/27/20 [History Last Taken 11/26/20] calcium carbonate 600 mg-vitamin D3 10 mcg (400 unit) tablet 1 ea G-tube QHS 11/27/20 [History Last Taken 11/26/20] cholecalciferol (vitamin D3) 50 mcg (2,000 unit) capsule 2,000 unit G-tube DAILY 11/27/20 [History Last Taken 11/26/20] Tylenol 650 mg Q4H PRN PRN Pain 1-10 Or Fever 02/01/21 [History Last Taken Unknown] aluminum-mag hydroxide-simethicone 400 mg-400 mg-40 mg/5 mL oral susp 15 ml Q4H PRN PRN Constipation 02/01/21 [History Last Taken Unknown] bisacodyl 10 mg rectal suppository 10 mg NE BID PRN PRN Constipation 02/01/21 [History Last Taken Unknown] magnesium hydroxide 400 mg/5 mL oral suspension 30 ml DAILY PRN Constipation 02/01/21 [History Last Taken Unknown] food supplemt, lactose-reduced 910 ml feeding tube DINNER 07/28/21 [History Last Taken Unknown] Allergy/AdvReac Type Severity Reaction Status Date / Time adhesive tape Allergy NEEDS Verified 09/27/23 01:49 FOLLOW-UP clindamycin Allergy Unknown Verified 09/27/23 01:49 Surgical History Status post insertion of percutaneous endoscopic gastrostomy (PEG) tube Social History Smoking Status: Never smoker ROS ROS ED Review of Systems ROS Unobtainable: due to mental condition EXAM Physical Exam Const Vital Signs: 09/27/23 01:48 09/27/23 01:48 09/27/23 02:32 Temperature 97.6 F L Temperature Source Temporal Pulse Rate 67 64 Respiratory Rate 18 15 Respiratory Effort Normal Non-Labored Blood Pressure 140/79 H Blood Pressure Mean 99 Pulse Ox 96 98 Oxygen Delivery Method Room Air Positive well nourished and well developed General Appearance ED: well developed and NAD HEENT Reports moist mucous membranes Chest Wall inspection of chest normal and palpation of chest normal Resp normal respiratory effort Cardio regular rate and regular rhythm Rate: Negative for tachycardic GI normal to inspection, nondistended, normoactive bowel sounds GI Narrative: G-tube site left upper quadrant with some gastric contents around it but otherwise benign and patent Skin no rashes or lesions noted and no wounds MDM MDM MDM Narrative Medical decision making narrative: Tube was replaced promptly see the procedure note. There were no complications and small amount of gastric contents with the water that was flushed were able to be aspirated. In reviewing past records, patient has had a gastric feeding tube for years. Given this I do not think we need to do confirmatory x-rays. She is doing well and waiting for a ride to go back to the [facility]. Procedures Other Procedures Procedure(s): 24 Latvian G-tube placement after verifying balloon competent, inflated with 6 cc of water, both ports ramakrishna back gastric contents and flushed easily. No complications tolerated well. Discharge Plan Triage Chief Complaint: Other, Pain/Inj ED Provider: Brent Owens Dx/Rx/DC Orders Clinical Impression: PEG tube malfunction Instructions: ED Feeding Tube Replacement Prescriptions: No Action calcium carbonate-vitamin D3 1 EACH tablet 1 ea GT QHS cholecalciferol (vitamin D3) 2,000 UNIT capsule 2,000 unit GT DAILY Omeprazole 20 Mg/10ml 10 ml GT QHS Tylenol 650 mg Q4H PRN PRN (Reason: Pain 1-10 Or Fever) magnesium hydroxide 30 ML suspension 30 ml DAILY PRN (Reason: Constipation) bisacodyl 10 MG suppository 10 mg RC BID PRN PRN (Reason: Constipation) alum-mag hydroxide-simeth 355 ML suspension 15 ml Q4H PRN MDD constipation PRN (Reason: Constipation) Jevity Liquid 910 ml feeding tube DINNER Primary Care Provider: Rebecca Raymond Referrals: Rebecca Raymond MD [Primary Care Provider] - As Needed Disposition Disposition: Home, Self Care
--- OUTSIDE RECORDS SUMMARY | 2023-09-27 02:11 | XMS RPT_ITS | CCD ---
Author Name Unknown Address [facility] [address] [place] [address] Organization [facility] Care Team Providers Care Development Technician Name Role Phone Tory Alonso MD Primary Care Provider DESMOND CRANE Referring Unavailable DESMOND CRANE Attending Unavailable TORY ALONSO Primary Care Unavailable Allergies Allergy Classification Reported Allergen(s) Allergy Type Date of Onset Reaction(s) Facility (2 sources) Adhesive agent; Translations: [ADHESIVE] Drug Intolerance 1 Rash [facility] (2 sources) Clindamycin; Translations: [CLINDAMYCIN] Drug Allergy 4 Unknown [facility] Medications Completed/Discontinued Medications Medication Drug Class(es) Dates Sig (Normalized) Sig (Original) calcium carbonate 500 mg chewable tablet (1 source) Start: 11-07-2012 take 1-2 tablets by mouth once daily calcium carbonate (CALCIUM ANTACID) 500 mg Chew Take 1-2 tablets by mouth once daily. 0 11/07/2012 Active Problems Active Problems Problem Classification Problem Date Documented Da te Episodic/Chronic Asthma (1 source) Asthmatic bronchitis; Translations: [Unspecified asthma, uncomplicated] Onset: 6 10-06-2021 Chronic Complications of surgical procedures or medical care (2 sources) Malfunction of gastrostomy tube; Translations: [Gastrostomy malfunction] Onset: 1 Episodic Developmental disorders (1 source) Intellectual disability; Translations: [Unspecified intellectual disabilities] 08-07-2005 Chronic Esophageal disorders (1 source) Gastroesophageal reflux disease; Translations: [Gastro-esophageal reflux disease without esophagitis] Onset: 0 10-31-2009 Chronic Essential hypertension (1 source) Essential hypertension; Translations: [Essential (primary) hypertension] Onset: 5 10-06-2021 Chronic Genitourinary symptoms and ill-defined conditions (1 source) Incontinence; Translations: [Mixed incontinence] Onset: 5 08-10-2005 Chronic Menopausal disorders (1 source) Atrophic vaginitis; Translations: [Postmenopausal atrophic vaginitis] Onset: 8 08-30-2008 Chronic Nutritional deficiencies (1 source) Vitamin D deficiency; Translations: [Vitamin D deficiency, unspecified] Onset: 7 08-17-2007 Chronic Osteoarthritis (1 source) Degenerative joint disease involving multiple joints; Translations: [Polyosteoarthritis, unspecified] Onset: 7 02-04-2007 Chronic Other congenital anomalies (1 source) Anomaly of chromosome pair 21; 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, unspecified] Onset: 5 10-06-2021 Chronic Other gastrointestinal disorders (1 source) Finding of gastrointestinal device; Translations: [Encounter for attention to other artificial openings of digestive tract] Onset: 9 12-20-2008 Chronic Other gastrointestinal disorders (1 source) Gastrostomy present; Translations: [Gastrostomy status] Onset: 7 06-15-2017 Chronic Other inflammatory condition of skin (1 source) Rosacea; Translations: [Rosacea, unspecified] Onset: 2 09-13-2012 Chronic Other lower respiratory disease (1 source) Respiratory complication; Translations: [Respiratory complications, not elsewhere classified] 01-14-2007 Episodic Peripheral and visceral atherosclerosis (1 source) Atherosclerosis of arteries of the extremities; Translations: [Unspecified atherosclerosis of [place] arteries of extremities, unspecified extremity] Onset: 6 08-20-2006 Chronic Residual codes; unclassified (1 source) Restlessness and agitation; Translations: [Restlessness and agitation] Onset: 5 10-17-2014 Chronic Retinal detachments; defects; vascular occlusion; and retinopathy (1 source) Degenerative disorder of macula ; Translations: [Unspecified macular degeneration] Onset: 1 10-06-2021 Chronic Urinary tract infections (1 source) Chronic cystitis; Translations: [Other chronic cystitis without hematuria] Onset: 8 08-30-2008 Chronic Past or Other Problems Problem Classification Problem Date Documented Da te Episodic/Chronic Biliary tract disease (1 source) Cholelithiasis without obstruction; Translations: [Calculus of gallbladder without cholecystitis without obstruction] Onset: 09-13-2012 09-13-2012 Episodic Mycoses (2 sources) Onychomycosis due to dermatophyte ; Translations: [Tinea unguium] Onset: 08-25-2005 08-25-2005 Episodic Other bone disease and musculoskeletal deformities (1 source) Disorder of skeletal system; Translations: [Disorder of bone, unspecified] Onset: 08-10-2005 08-10-2005 Episodic Other circulatory disease (1 source) Pulmonary congestion ; Translations: [Other specified symptoms and signs involving the circulatory and respiratory systems] Onset: 04-18-2018 04-18-2018 Episodic Other connective tissue disease (1 source) Pain in limb; Translations: [Pain in unspecified limb] Onset: 09-14-2007 09-14-2007 Episodic Other gastrointestinal disorders (1 source) Dysphagia, unspecified; Translations: [Dysphagia, unspecified] Onset: 02-19-2009 02-19-2009 Episodic Other gastrointestinal disorders (1 source) Oral phase dysphagia; Translations: [Dysphagia, oral phase] Onset: 09-17-2015 10-06-2021 Episodic Other gastrointestinal disorders (1 source) Dysphagia; Translations: [Dysphagia, unspecified] Onset: 12-30-2015 10-06-2021 Episodic Other lower respiratory disease (1 source) Acute respiratory infections; Translations: [Unspecified acute lower respiratory infection] Onset: 11-12-2014 11-12-2014 Episodic Other lower respiratory disease (1 source) Hypoxia; Translations: [Hypoxemia] Onset: 11-12-2014 11-12-2014 Episodic Other lower respiratory disease (1 source) Cough; Translations: [Cough] Onset: 07-14-2017 07-14-2017 Episodic Other lower respiratory disease (1 source) History of aspiration pneumonia; Translations: [Personal history of pneumonia (recurrent)] Onset: 01-20-2018 01-20-2018 Episodic Other lower respiratory disease (1 source) H/O: respiratory disease; Translations: [Personal history of other diseases of the respiratory system] Onset: 12-01-2019 12-01-2019 Episodic Other skin disorders (1 source) Eruption; Translations: [Rash and other nonspecific skin eruption] Onset: 12-06-2018 12-06-2018 Episodic Other upper respiratory disease (1 source) Nasal discharge; Translations: [Other specified disorders of nose and nasal sinuses] Onset: 12-30-2015 10-06-2021 Episodic Pneumonia (except that caused by tuberculosis or sexually transmitted disease) (1 source) Pneumonia; Translations: [Pneumonia, unspecified organism] Onset: 08-26-2013 10-06-2021 Episodic Results Test Name Value Interpretation Reference Range Facil ity Vital Signs Date Time Vital Sign Value Performing Clinician Faci lity 05-11-2022 15:21-0400 Body height 149.9 cm Desmond Crane MD Work Phone: [facility] 05-11-2022 15:21-0400 Body temperature 96.69 [degF] Desmond Crane MD Work Phone: [facility] 05-11-2022 15:21-0400 Diastolic blood pressure 64 mm[Hg] Desmond Crane MD Work Phone: [facility] 05-11-2022 15:21-0400 Heart rate 93 /min Desmond Crane MD Work Phone: [facility] 05-11-2022 15:21-0400 SaO2% (BldA) [Mass fraction] 94 % Desmond Crane MD Work Phone: [facility] 05-11-2022 15:21-0400 Systolic blood pressure 94 mm[Hg] Desmond Crane MD Work Phone: [facility] Encounters Encounter Date Encounter Type Care Provider Facility Start: 05-11-2022 End: 05-11-2022 ambulatory DESMOND CRANE Facility:[facility] Start: 05-11-2022 End: 05-11-2022 Patient encounter procedure Desmond Crane MD Work Phone: General Surgery Plan of Treatment Date Care Activity Detail Author Start: 06-11-2022 Influenza vaccination INFLUENZA (#1) [facility] Start: 10-11-2021 ADVANCE DIRECTIVE DISCUSSION ADVANCE DIRECTIVE DISCUSSION [facility] Start: 03-04-2015 DIABETES SCREEN DIABETES SCREEN [facility] Start: 08-11-2014 Urine microalbumin profile DTAP,TDAP ,TD (2 - Tdap) [facility] Start: 12-29-2012 PNEUMOCOCCAL: 65+ (2 - PCV) PNEUMOCOCCAL: 65+ (2 - PCV) [facility] Start: 11-27-2012 FECAL OCCULT BLOOD FECAL OCCULT BLOO D [facility] Start: 1989 SHINGRIX VACCINE (1 of 2) PULIDO GRIX VACCINE (1 of 2) [facility] Immunizations Immunization Date Immunization Notes Care Provider Fa mohanty 07-01-2012 influenza virus vacc ine, unspecified formulation Desmond Crane MD Work Phone: [facility] 12-30-2011 pneumococcal polysaccharide vaccine, 23 valent Desmond Crane MD Work Phone: [facility] 09-11-2011 influenza virus vacc ine, unspecified formulation Desmond Crane MD Work Phone: [facility] 07-29-2010 influenza virus vacc ine, unspecified formulation Desmond Crane MD Work Phone: [facility] 07-02-2009 influenza virus vacc ine, unspecified formulation Desmond Crane MD Work Phone: [facility] Work Phone: 08-17-2008 influenza virus vacc ine, unspecified formulation Desmond Crane MD Work Phone: [facility] 08-17-2007 influenza virus vacc ine, unspecified formulation Desmond Crane MD Work Phone: [facility] Work Phone: 08-10-2005 influenza virus vacc ine, unspecified formulation Desmond Crane MD Work Phone: [facility] Work Phone: 08-11-2004 diphtheria and tetan us toxoids, adsorbed for pediatric use Desmond Crane MD Work Phone: [facility] Work Phone: 07-25-2004 pneumococcal polysaccharide vaccine, 23 valent Desmond Crane MD Work Phone: [facility] Work Phone: Payers Date Payer Category Payer Medicare [id number] 2018 Medicare [id number] Social History Date Type Detail Facility Tobacco smoking stat us NHIS Never smoked tobacco [facility] Start: 05-11-2022 Alcohol intake 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 Author Type: Physician Type: Progress Notes Filed: 05/11/2022 4:32 PM Note Text: Subjective: Patient is well-known to me for having her PEG tube replaced back in November of this year. She has had this fall out and had to go back to the emergency department and have another 1 placed. I am being asked to evaluate this. Subjective:Blood pressure 94/64, pulse 93, temperature (!) 35.9 ?C (96.7 ?F), height 149.9 cm (4' 11 ), SpO2 94 %. Patient no longer has a P[place]ky pull-through she now has a balloon PEG tube in it appears to be intact surrounding tissue on the skin looks viable without signs of cellulitis or rash. Assessment:Peg tube malfunction (hcc) (primary encounter diagnosis) Plan: At this point I think the best thing to do is get an abdominal binder for her so that she can no longer pull on it it is clear that that is probably how the PEG tube is been coming out I do not think that there is any other good way to do this. [facility] History of Present illness Narrative 05-11-2022 Desmond Crane MD - 05/11/2022 4:09 PM EDT Note Date & Type Note Facility 05-11-2022 History of Presen t illness Narrative Subjective: Patient is well-known to me for having her PEG tube replaced back in November of this year. She has had this fall out and had to go back to the emergency department and have another 1 placed. I am being asked to evaluate this. Subjective:Blood pressure 94/64, pulse 93, temperature (!) 35.9 C (96.7 F), height 149.9 cm (4' 11 ), SpO2 94 %. Patient no longer has a Ponsky pull-through she now has a balloon PEG tube in it appears to be intact surrounding tissue on the skin looks viable without signs of cellulitis or rash. Assessment:Peg tube malfunction (hcc) (primary encounter diagnosis) Plan: At this point I think the best thing to do is get an abdominal binder for her so that she can no longer pull on it it is clear that that is probably how the PEG tube is been coming out I do not think that there is any other good way to do this. documented in this encounter [facility] Nurse Note 05-11-2022 Marion ChasidyMOLLY gandara - 05/11/2022 3:28 PM EDT Note Date & Type Note Facility 05-11-2022 Nurse Note REVIEW OF SYSTEMS: General: The patient denies fatigue, denies weight loss, denies weight gain, denies feeling hot, and denies feelings of cold. Eyes: The patient denies glaucoma, denies eye injury/surgery, does not wear glasses or contacts. Ear/Nose/Throat: The patient denies allergies, denies hayfever, notes ear infections, and denies bloody noses. Cardiovascular: The patient denies chest pain, denies heart disease, notes high blood pressure,denies cardiac stent, denies prior heart attack, denies irregular heart beat, denies high cholesterol, denies poor circulation, denies heart failure, other cardiac issues, denies claudication, denies cold feet, denies peripheral arterial stent. Respiratory: The patient denies tuberculosis, denies pneumonia, notes frequent cough, denies pulmonary embolism, denies shortness of breath, and denies coughing up blood. Gastrointestinal: The patient denies difficulty swallowing, notes acid reflux, denies ulcers, denies vomiting, denies jaundice/hepatitis, denies gallbladder problems, denies black or tarry stools, denies hemorrhoids, denies bleeding from rectum, denies diverticulitis, notes constipation, denies diarrhea, denies loss of stool control, and denies hernias. Kidney/Bladder: The patient denies kidney stones, denies urine infections, and denies bloody urine. Skin: The patient denies a history of skin cancer, denies bleeding/changing moles, and denies a history of skin rash. Neurologic: The patient denies a history of epilepsy/convulsions, denies headaches, denies head/spinal injuries, and denies stroke/TIA. Psychiatric: The patient denies psychiatric medications, denies depression, and denies voices, denies substance abuse. Endocrine: The patient denies thyroid disorders, denies diabetes, and denies hormonal problems. Hematologic: The patient denies a history of bruising, denies bleeding, and notes anemia, denies blood clots. Infections: The patient denies a history of measles and mumps, denies rheumatic fever, and denies sexually transmitted diseases. Musculoskeletal: The patient denies back pain/injury, denies back problems, denies sciatica, denies knee/foot trouble, denies arthritis, or denies gout. When was patient's last Mammogram screening? 2013 Last Colonoscopy: unknown Marion Umaña LPN documented in this encounter [facility] History of Past illness Narrative 11-05-2015 Note Date & Type Note Facility documented as of this encounter (statuses as of 05/11/2022) [facility] Evaluation note Note Date & Type Note Facility documented in this encounter [facility] Advance Directives No Advanced Directives Records FoundDocuments on File Type Date Recorded Patient Dietary Aid Expl anation Advance Directive(s) Summary Purpose Family History No Family History Records Found Additional Source Comments Source Comments (unrecognize d section and content) In the event this informatio n is protected by the Federal Confidentiality of Alcohol and Drug Abuse Patient Records regulations: The Federal rules restrict any use of the information to criminally investigate or prosecute any alcohol or drug abuse patient.[facility] Reason for Visit (unrecogniz ed section and content) Care Teams (unrecognized sec tion and content) INFORMATION SOURCE (unrecogn ized section and content) FOR RECORDS PERTAINING TO PATIENTS WHO ARE OR HAVE BEEN ENROLLED IN A CHEMICAL DEPENDENCY/SUBSTANCEABUSE PROGRAM, SOME INFORMATION MAY BE OMITTED. This clinical summary was aggregated from multiple sources. Caution should be exercised in using it in the provision of clinical care. This summary normalizes information from multiple sources, and as a consequence, information in this document may materially change the coding, format and clinical context of patient data. In addition, data may be omitted in some cases. CLINICAL DECISIONS SHOULD BE BASED ON THE PRIMARY CLINICAL RECORDS. [employer] provides no warranty or guarantee of the accuracy or completeness of information in this document.
--- NOTE | 2023-09-27 02:20 | ED.RN ---
Peg tube flushed with 10cc NS, flushed easily and when checking residual 5cc noted with small floaters noted. Per Dr. Graciela harden to use and sent pt back to longterm.
[2023-09-27 02:32] VITALS: PULSE 64; RESP 15; O2SAT 98
--- NOTE | 2023-09-27 03:34 | ED.RN ---
Report called to Riley at [place].
== END 2023-09-27 03:50 | disposition home or self-care (01) ==
PROVIDERS: Emergency Provider Emergency Medicine; PCP Internal Medicine; Referring Provider Emergency Medicine; Visit Provider Emergency Medicine
DX: K94.23 Gastrostomy malfunction (principal); I10 Essential (primary) hypertension; K21.9 Gastro-esophageal reflux disease without esophagitis; F79 Unspecified intellectual disabilities; Z79.899 Other long term (current) drug therapy
CPT/HCPCS: 43762; 99282

== ENCOUNTER → 2023-11-22 | Outpatient (REF) | payer MEDICARE, MEDICAID, SELFPAY ==
[2023-11-22 10:30] LABS: Anion Gap 5 (5-15); BUN 34 mg/dL (7-18); BUN/Creat Ratio 54.7 RATIO (10-20); Calcium,Total 8.6 mg/dL (8.5-10.1); Chloride 108 mmol/L (98-107); Creatinine, Serum 0.62 mg/dL (0.55-1.02); EST Glomerular Filtration Rate 97 mL/min (>60); Est Glom Filt Rate - Afr Amer 117 mL/min (>60); Glucose 118 mg/dL (74-106); Potassium 4.7 mmol/L (3.5-5.1); Sodium Level 140 mmol/L (136-145)
== END ==
LOC: OLS.WHLEAS 05:00
PROVIDERS: PCP Internal Medicine; Visit Provider Internal Medicine
DX: E87.6 Hypokalemia (principal); F79 Unspecified intellectual disabilities; R13.10 Dysphagia, unspecified; Z93.1 Gastrostomy status; D61.9 Aplastic anemia, unspecified; E66.9 Obesity, unspecified
CPT/HCPCS: 36415; 80048

== ENCOUNTER → 2023-12-01 | Outpatient (REF) | payer MEDICARE, MEDICAID, SELFPAY ==
--- OUTSIDE RECORDS SUMMARY | 2023-12-01 04:33 | XMS RPT_ITS | CCD ---
Author Name Unknown Address [facility] [address] [place] [address] Organization [facility] Care Team Providers Care Inspector Repairer Name Role Phone Tory Alonso MD Primary Care Provider DESMOND CRANE Referring Unavailable DESMOND CRAEN Attending Unavailable TORY ALONSO Primary Care Unavailable Allergies Allergy Classification Reported Allergen(s) Allergy Type Date of Onset Reaction(s) Facility (2 sources) Adhesive agent; Translations: [ADHESIVE] Drug Intolerance [address] [facility] (2 sources) Clindamycin; Translations: [CLINDAMYCIN] Drug Allergy [address] [facility] Medications Completed/Discontinued Medications Medication Drug Class(es) Dates [...] of the extremities; Translations: [Unspecified atherosclerosis of [place] arteries of extremities, unspecified extremity] Onset: 6 [...] 149.9 cm Desmond Crane MD Work Phone: [facility] 05-11-2022 15:21-0400 Body temperature 96.69 [degF] Desmond Crane MD Work Phone: [facility] 05-11-2022 15:21-0400 Diastolic blood pressure 64 mm[Hg] Desmond Crane MD Work Phone: [facility] 05-11-2022 15:21-0400 Heart rate 93 /min Desmond Crane MD Work Phone: [facility] 05-11-2022 15:21-0400 SaO2% (BldA) [Mass fraction] 94 % Desmond Crane MD Work Phone: [facility] 05-11-2022 15:21-0400 Systolic blood pressure 94 mm[Hg] Dsemond Crane MD Work Phone: [facility] Encounters Encounter Date Encounter Type Care Provider Facility Start: 05-11-2022 End: 05-11-2022 ambulatory DESMOND CRANE Facility:[facility] Start: 05-11-2022 End: 05-11-2022 Patient encounter procedure Desmond Crane MD Work Phone: General Surgery Plan of Treatment Date Care Activity Detail Author Start: 06-11-2022 Influenza vaccination INFLUENZA (#1) [facility] Start: 10-11-2021 ADVANCE DIRECTIVE DISCUSSION ADVANCE DIRECTIVE DISCUSSION [facility] Start: 03-04-2015 DIABETES SCREEN DIABETES SCREEN [facility] Start: 08-11-2014 Urine microalbumin profile DTAP,TDAP ,TD (2 - Tdap) [facility] Start: 12-29-2012 PNEUMOCOCCAL: 65+ (2 - PCV) PNEUMOCOCCAL: 65+ (2 - PCV) [facility] Start: 11-27-2012 FECAL OCCULT BLOOD FECAL OCCULT BLOO D [facility] Start: 1989 SHINGRIX VACCINE (1 of 2) PULIDO GRIX VACCINE (1 of 2) [facility] Immunizations Immunization Date Immunization Notes Care Provider Fa mohanty 07-01-2012 influenza virus vacc ine, unspecified formulation Desmond Crane MD Work Phone: [facility] 12-30-2011 pneumococcal polysaccharide vaccine, 23 valent Desmond Crane MD Work Phone: [facility] 09-11-2011 influenza virus vacc ine, unspecified formulation Desmond Crane MD Work Phone: [facility] 07-29-2010 influenza virus vacc ine, unspecified formulation Desmond Crane MD Work Phone: [facility] 07-02-2009 influenza virus vacc ine, unspecified formulation Desmond Crane MD Work Phone: [facility] Work Phone: 08-17-2008 influenza virus vacc ine, unspecified formulation Desmond Crane MD Work Phone: [facility] 08-17-2007 influenza virus vacc ine, unspecified formulation Desmond Crane MD Work Phone: [facility] Work Phone: 08-10-2005 influenza virus vacc ine, unspecified formulation Desmond Crane MD Work Phone: [facility] Work Phone: 08-11-2004 diphtheria and tetan us toxoids, adsorbed for pediatric use Desmond Crane MD Work Phone: [facility] Work Phone: 07-25-2004 pneumococcal polysaccharide vaccine, 23 valent Desmond Crane MD Work Phone: [facility] Work Phone: Payers Date Payer Category Payer Medicare [id number] 2018 Medicare [id number] Social History Date Type Detail Facility Tobacco smoking stat us NHIS Never smoked tobacco 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 Start: 1940 Sex Assigned At Not on file C [facility] Start: 05-01-2022 End: 05-11-2022 Exposure to SARS-CoV-2 (event) Not sure [facility] Progress note 05-11-2022 Note Date & Type Note Facility 05-11-2022 Note HNO ID: [id number] Author: Desmond Crane MD Service: ? Author [...] any other good way to do this. [facility] History of Present illness Narrative 05-11-2022 Desmond [...] to do this. documented in this encounter [facility] Nurse Note 05-11-2022 Marion ChasidyMOLLY gandara - [...] Marion Umaña LPN documented in this encounter [facility] History of Past illness Narrative 11-05-2015 Note Date & Type Note Facility documented as of this encounter (statuses as of 05/11/2022) [facility] Evaluation note Note Date & Type Note Facility documented in this encounter [facility] Advance Directives No Advanced Directives Records FoundDocuments on File Type Date Recorded Patient Watch Engine Operator Expl anation Advance Directive(s) Summary Purpose Family History No Family History Records Found Additional Source Comments Source Comments (unrecognize d section and content) In the event this informatio n is protected by the Federal Confidentiality of Alcohol and Drug Abuse Patient Records regulations: The Federal rules restrict any use of the information to criminally investigate or prosecute any alcohol or drug abuse patient.[facility] Reason for Visit (unrecogniz ed section and [...] BE BASED ON THE PRIMARY CLINICAL RECORDS. [facility] [employer] provides no warranty or guarantee of the accuracy or completeness of information in this document.
[2023-12-01 08:57] LABS: Hematocrit 39.9 % (37-47); Hemoglobin 12.9 g/dL (12.0-15.0); Mean Corp Hgb Conc 32.3 g/dL (32-36); Mean Corpuscular Hgb 34.3 pg (27.0-32.0); Mean Corpuscular Volume 106.1 fL (81-99); Mean Platelet Vol. 13.3 fl (6.2-12.0); Platelet Count 105 K/mm3 (150-450); RBC Distribution Width CV 12.5 % (11.6-14.6); RBC Distribution Width SD 49.2 fl (35.1-43.9); Red Blood Count 3.76 M/mm3 (4.2-5.4); White Blood Count 4.2 K/mm3 (4.4-11.0)
[2023-12-01 09:50] LABS: Albumin, Serum 2.8 g/dL (3.2-5.0); Anion Gap 5 (5-15); BUN 35 mg/dL (7-18); BUN/Creat Ratio 50.8 RATIO (10-20); Chloride 110 mmol/L (98-107); Creatinine, Serum 0.69 mg/dL (0.55-1.02); EST Glomerular Filtration Rate 86 mL/min (>60); Est Glom Filt Rate - Afr Amer 104 mL/min (>60); Glucose 118 mg/dL (74-106); Potassium 4.3 mmol/L (3.5-5.1); Sodium Level 140 mmol/L (136-145)
== END ==
LOC: OLS.WHLEAS 04:00
PROVIDERS: PCP Internal Medicine; Referring Provider Internal Medicine; Visit Provider Internal Medicine
DX: I10 Essential (primary) hypertension (principal); F79 Unspecified intellectual disabilities; I73.89 Other specified peripheral vascular diseases; D61.9 Aplastic anemia, unspecified
CPT/HCPCS: 36415; 80048; 82040; 85027

== ENCOUNTER 2024-01-17 16:11 | Emergency (ER) | payer MEDICARE, MEDICAID, SELFPAY ==
[2024-01-17 16:11] VITALS: BP 100/73; PULSE 81; RESP 16; TEMP 36.7; O2SAT 99; BMI 31.6
--- NOTE | 2024-01-17 16:39 | EDS_ITS ---
HPI HPI - GI History of Present Illness Chief Complaint: Other, Pain/Inj Informant: patient Abdominal Pain/Flank Pain Onset: Today Narrative Narrative: 83-year-old female very limited informant. Reportedly from extended-care facility she pulled out her PEG tube today. Able to still make sure that is in place. Patient herself denies complaints but again is a very limited informant. Prior similar symptoms: No Recent Illness/Hospitalization: No PFSH PFSH Medical History Aplastic anemia GERD (gastroesophageal reflux disease) HTN (hypertension) Mental retardation Osteoarthritis Home Medications Omeprazole 20 Mg/10ml 10 ml G-tube QHS GERD 11/27/20 [History Last Taken 11/26/20] calcium carbonate 600 mg-vitamin D3 10 mcg (400 unit) tablet 1 ea G-tube QHS 11/27/20 [History Last Taken 11/26/20] cholecalciferol (vitamin D3) 50 mcg (2,000 unit) capsule 2,000 unit G-tube DAILY 11/27/20 [History Last Taken 11/26/20] Tylenol 650 mg Q4H PRN PRN Pain 1-10 Or Fever 02/01/21 [History Last Taken Unknown] aluminum-mag hydroxide-simethicone 400 mg-400 mg-40 mg/5 mL oral susp 15 ml Q4H PRN PRN Constipation 02/01/21 [History Last Taken Unknown] bisacodyl 10 mg rectal suppository 10 mg [place] BID PRN PRN Constipation 02/01/21 [History Last Taken Unknown] magnesium hydroxide 400 mg/5 mL oral suspension 30 ml DAILY PRN Constipation 02/01/21 [History Last Taken Unknown] food supplemt, lactose-reduced 910 ml feeding tube DINNER 07/28/21 [History Last Taken Unknown] Allergy/AdvReac Type Severity Reaction Status Date / Time adhesive tape Allergy NEEDS Verified 09/27/23 01:49 FOLLOW-UP clindamycin Allergy Unknown Verified 09/27/23 01:49 Surgical History Status post insertion of percutaneous endoscopic gastrostomy (PEG) tube Social History Smoking Status: Never smoker ROS ROS ED ROS Narrative Unknown due to mental status. Review of Systems ROS Unobtainable: due to mental status EXAM Physical Exam Narrative Exam Narrative: Well-appearing 83-year-old female. Vital signs stable afebrile. Pulse ox 99% on room air no hypoxia. She is in no distress. No one else is present in the room. H EENT exam chronic dental changes. Moist mucous membranes. Pupils round reactive light. Neck nontender. Lungs clear. Heart regular rhythm rate about 80 no murmur. Chest wall and ribs nontender. Abdomen soft, nontender nondistended. Normal bowel sounds no peritoneal signs. She is a PEG tube in left upper quadrant. There is gastric content of tube. Moving all 4 extremities. Nontender no edema. Neurologically her eyes are open she is awake. She answers questions but does not know where she is at. Const Vital Signs: 01/17/24 16:11 01/17/24 16:21 Temperature 98.1 F Temperature Source Temporal Pulse Rate 81 Respiratory Rate 16 Respiratory Effort Normal Non-Labored Respiratory Pattern Normal Blood Pressure 100/73 Blood Pressure Mean 82 Pulse Ox 99 Oxygen Delivery Method Room Air Positive well nourished and well developed; Negative for cachectic, contractures or unkempt General Appearance ED: well developed and NAD; Negative for unkempt, cachectic, contractures or pallor Nutritional Appearance: Negative for cachectic HEENT Reports moist mucous membranes normocephalic and atraumatic; Negative for trauma or tenderness Eyes PERRL and EOMs intact bilaterally General Eye ED: Negative for pale conjunctiva or scleral icterus Neck no lymphadenopathy, supple and no JVD General: Negative for tenderness Lymph Lymphatic: Negative for other Resp normal respiratory effort and clear to auscultation bilaterally Effort and Inspection: Negative for respiratory distress or retractions Auscultation: Negative for rales, rhonchi, wheezes, diminished lung sounds or other Cardio regular rate, regular rhythm, S1 normal heart sound, S2 normal heart sound and no murmurs Rate: Negative for bradycardia or tachycardic Rhythm: Negative for abnormal rhythm GI non-tender and non-distended GI Narrative: PEG tube left upper quadrant. Auscultation: normoactive bowel sounds Palpation: soft; Negative for tender or rebound tenderness present Extremity full ROM General Extremety ED: Negative for edema or tenderness General Extremity: Negative for edema Neuro moves all extremities Neuro Narrative: History of mental retardation. Sensorium / Orientation: alert, oriented to person and orientation impaired; Negative for oriented to place or oriented to time Psych mental status grossly normal Appearance: Negative for unkempt Attitude: No agitated Mood & Affect: Negative for depressed, anxious or tearful Skin no wounds General Skin Exam: Negative for jaundice or pallor Lesions: no lesions Rashes: no rashes Trauma: Negative for abrasion MDM MDM MDM Narrative Medical decision making narrative: 83-year-old MRR [facility] sent in to check PEG tube placement. Gastrografin single view KUB will be obtained. Exam benign. Repeat exam at 508 unchanged. Discharged back to [facility]. Radiography Chest X-Ray - ED: Read by ED Physician Diagnostic Testing: KUB Gastrografin shows the PEG tube to be in good position. There is Gastrografin in the stomach and small bowel. Patient be discharged back to the extended care facility. Discharge Plan Triage Chief Complaint: Other, Pain/Inj ED Provider: Dejon Raymundo Dx/Rx/DC Orders Clinical Impression: PEG tube malfunction Prescriptions: No Action calcium carbonate-vitamin D3 1 EACH tablet 1 ea GT QHS cholecalciferol (vitamin D3) 2,000 UNIT capsule 2,000 unit GT DAILY Omeprazole 20 Mg/10ml 10 ml GT QHS Tylenol 650 mg Q4H PRN PRN (Reason: Pain 1-10 Or Fever) magnesium hydroxide 30 ML suspension 30 ml DAILY PRN (Reason: Constipation) bisacodyl 10 MG suppository 10 mg RC BID PRN PRN (Reason: Constipation) alum-mag hydroxide-simeth 355 ML suspension 15 ml Q4H PRN MDD constipation PRN (Reason: Constipation) Jevity Liquid 910 ml feeding tube DINNER Primary Care Provider: Rebecca Raymond Referrals: Rebecca Raymond MD [Primary Care Provider] - As Needed Activity Restrictions/Additional Instructions: X-ray was obtained with Gastrografin and it shows the PEG tube to be in good position. You may use it. Disposition Disposition: Home, Self Care
--- NOTE | 2024-01-17 16:53 | RAD_ITS ---
STUDY: X-RAY - ABDOMEN/PELVIS REASON FOR EXAM: Female, 83 years old. Peg tube placement w/ gastrograffin TECHNIQUE: Single AP view of the abdomen / pelvis. COMPARISON: None. FINDINGS: Normal visualized lung bases. PEG tube in grossly satisfactory appearance with contrast filling the stomach and passing into the duodenum. No extravasation of contrast. There is an unremarkable bowel gas pattern. There is no demonstrated free abdominal air. The visualized liver, spleen and kidneys are grossly normal in size and morphology. Normal soft tissue structures. Normal visualized osseous structures. RAD/Abdomen Single View IMPRESSION: Satisfactory positioning of PEG tube. Electronically Signed: Dinh Hernandez MD at 17:22 EDT ,
--- NOTE | 2024-01-17 17:23 | NURSING ---
CALLED [facility], ETA IS 2200
[2024-01-17 19:02] VITALS: BP 110/77; PULSE 84; RESP 16; TEMP 36.7; O2SAT 94
== END 2024-01-17 19:09 | disposition home or self-care (01) ==
PROVIDERS: Emergency Provider Emergency Medicine; PCP Internal Medicine; Visit Provider Emergency Medicine
DX: K94.23 Gastrostomy malfunction (principal); K21.9 Gastro-esophageal reflux disease without esophagitis; I10 Essential (primary) hypertension; Z79.899 Other long term (current) drug therapy
CPT/HCPCS: 74018; 99282; A4216

== ENCOUNTER 2024-02-08 05:16 | Emergency (ER) | payer MEDICARE, MEDICAID, SELFPAY ==
[2024-02-08 05:18] VITALS: BP 114/68; PULSE 76; RESP 18; TEMP 36.1; O2SAT 96
--- NOTE | 2024-02-08 05:23 | EDS_ITS ---
HPI History of Present Illness Chief Complaint: Other, Pain/Inj Detail of Chief Complaint: pulled feeding tube out Informant: patient and EMS Onset/Context/Timing Onset: Today Narrative Narrative: 83-year-old female with a long-term with history limited due to mental retardation brought at 5:15 AM due to nurses finding her with her feeding tube out. Unknown how long it was out, but they think no more than a couple hours. Patient admits that this must of happened on accident. She denies having any pain. EMS reports that there is no significant bleeding from the site or discharge. [facility] PFS Medical History Aplastic anemia GERD (gastroesophageal reflux disease) HTN (hypertension) Mental retardation Osteoarthritis Home Medications Omeprazole 20 Mg/10ml 10 ml G-tube QHS GERD 11/27/20 [History Last Taken 11/26/20] calcium carbonate 600 mg-vitamin D3 10 mcg (400 unit) tablet 1 ea G-tube QHS 11/27/20 [History Last Taken 11/26/20] cholecalciferol (vitamin D3) 50 mcg (2,000 unit) capsule 2,000 unit G-tube DAILY 11/27/20 [History Last Taken 11/26/20] Tylenol 650 mg Q4H PRN PRN Pain 1-10 Or Fever 02/01/21 [History Last Taken Unknown] aluminum-mag hydroxide-simethicone 400 mg-400 mg-40 mg/5 mL oral susp 15 ml Q4H PRN PRN Constipation 02/01/21 [History Last Taken Unknown] bisacodyl 10 mg rectal suppository 10 mg [place] BID PRN PRN Constipation 02/01/21 [History Last Taken Unknown] magnesium hydroxide 400 mg/5 mL oral suspension 30 ml DAILY PRN Constipation 02/01/21 [History Last Taken Unknown] food supplemt, lactose-reduced 910 ml feeding tube DINNER 07/28/21 [History Last Taken Unknown] Allergy/AdvReac Type Severity Reaction Status Date / Time adhesive tape Allergy NEEDS Verified 09/27/23 01:49 FOLLOW-UP clindamycin Allergy Unknown Verified 09/27/23 01:49 Surgical History Status post insertion of percutaneous endoscopic gastrostomy (PEG) tube Social History Smoking Status: Never smoker ROS ROS ED Cardiovascular Cardiovascular: Denies chest pain Respiratory/Chest Respiratory/Chest: Denies dyspnea Gastrointestinal Gastrointestinal: Denies abdominal pain, nausea or vomiting EXAM Physical Exam Const Vital Signs: 02/08/24 05:18 Temperature 97 F L Temperature Source Temporal Pulse Rate 76 Respiratory Rate 18 Blood Pressure 114/68 Blood Pressure Mean 83 Pulse Ox 96 Oxygen Delivery Method Room Air Positive well nourished and well developed General Appearance ED: well developed and NAD Chest Wall inspection of chest normal and palpation of chest normal Resp normal respiratory effort and clear to auscultation bilaterally GI normal to inspection, nondistended, normoactive bowel sounds, non-tender and non-distended GI Narrative: PEG tube site epigastrium benign patent no active bleeding or signs of infection. Extremity normal to inspection Neuro no sensory deficits noted Motor Exam: strength 5/5 throughout Psych mental status grossly normal MDM MDM MDM Narrative Medical decision making narrative: PEG tube was replaced easily, see the procedure note. She had a 24 Cambodian and we placed a 24 Cambodian. Patient has well-established tract, she has had a PEG in for over 1.5 years, and given that it went in uneventfully and I was able to aspirate stomach contents and flush fluid easily, literature supports using this without the need for radiographic confirmation. Procedures Other Procedures Procedure(s): PEG replacement: Immediately upon arrival, placed new 24 Cambodian PEG after confirming competency of balloon with 6 cc saline, lubricated the tip of the tube and with gentle pressure was able to pop it through the opening with little transient discomfort, aspirating stomach contents small amount, and easily flushes with 20 cc of fluid without any symptoms. Discharge Plan Triage Chief Complaint: Other, Pain/Inj ED Provider: Brent Owens Dx/Rx/DC Orders Clinical Impression: PEG tube malfunction Instructions: Gastrostomy Feeding Tube Care ... Prescriptions: No Action calcium carbonate-vitamin D3 1 EACH tablet 1 ea GT QHS cholecalciferol (vitamin D3) 2,000 UNIT capsule 2,000 unit GT DAILY Omeprazole 20 Mg/10ml 10 ml GT QHS Tylenol 650 mg Q4H PRN PRN (Reason: Pain 1-10 Or Fever) magnesium hydroxide 30 ML suspension 30 ml DAILY PRN (Reason: Constipation) bisacodyl 10 MG suppository 10 mg RC BID PRN PRN (Reason: Constipation) alum-mag hydroxide-simeth 355 ML suspension 15 ml Q4H PRN MDD constipation PRN (Reason: Constipation) Jevity Liquid 910 ml feeding tube DINNER Primary Care Provider: Rebecca Raymond Referrals: Rebecca Raymond MD [Primary Care Provider] - As Needed Disposition Disposition: Home, Self Care
[2024-02-08 05:24] VITALS: BP 106/67; PULSE 69; RESP 18; TEMP 36.2; O2SAT 97
== END 2024-02-08 06:46 | disposition home or self-care (01) ==
PROVIDERS: Emergency Provider Emergency Medicine; PCP Internal Medicine; Visit Provider Emergency Medicine
DX: K94.23 Gastrostomy malfunction (principal); F79 Unspecified intellectual disabilities; K21.9 Gastro-esophageal reflux disease without esophagitis; I10 Essential (primary) hypertension; Z79.899 Other long term (current) drug therapy
CPT/HCPCS: 43762; 99282; A4216

== ENCOUNTER → 2024-02-23 | Outpatient (REF) | payer MEDICARE, MEDICAID, SELFPAY ==
[2024-02-23 07:22] LABS: Hematocrit 38.6 % (37-47); Hemoglobin 12.3 g/dL (12.0-15.0); Mean Corp Hgb Conc 31.9 g/dL (32-36); Mean Corpuscular Hgb 34.1 pg (27.0-32.0); Mean Corpuscular Volume 106.9 fL (81-99); Platelet Count 124 K/mm3 (150-450); RBC Distribution Width CV 12.5 % (11.6-14.6); RBC Distribution Width SD 48.9 fl (35.1-43.9); Red Blood Count 3.61 M/mm3 (4.2-5.4); White Blood Count 4.4 K/mm3 (4.4-11.0)
[2024-02-23 07:45] LABS: Albumin, Serum 2.7 g/dL (3.2-5.0); Anion Gap 0 (5-15); BUN 35 mg/dL (7-18); BUN/Creat Ratio 51.9 RATIO (10-20); Calcium,Total 8.9 mg/dL (8.5-10.1); Chloride 108 mmol/L (98-107); Creatinine, Serum 0.68 mg/dL (0.55-1.02); EST Glomerular Filtration Rate 88 mL/min (>60); Est Glom Filt Rate - Afr Amer 107 mL/min (>60); Glucose 121 mg/dL (74-106); Sodium Level 139 mmol/L (136-145)
== END ==
LOC: OLS.WHLEAS 05:00
PROVIDERS: PCP Internal Medicine; Visit Provider Internal Medicine
DX: I10 Essential (primary) hypertension (principal); F79 Unspecified intellectual disabilities; R13.10 Dysphagia, unspecified
CPT/HCPCS: 36415; 80048; 82040; 85027

== ENCOUNTER → 2024-05-09 | Outpatient (REF) | payer MEDICARE, MEDICAID, SELFPAY ==
[2024-05-09 06:48] LABS: Absolute Lymphocyte Count 0.65 X10^3/uL (0.83-4.51); Absolute Neutrophil Count 23.6 X10^3/uL (2.0-7.7); Basophil# 0.14 X10^3/uL; Basophil% 0.5 % (0-1); Eosinophil# 0.03 X10^3/uL; Eosinophils% 0.1 % (0-5); Hematocrit 35.5 % (37-47); Hemoglobin 11.5 g/dL (12.0-15.0); Lymphocyte # 0.65 X10^3/ul (0.83-4.51); Lymphocyte % 2.5 % (19-41); Mean Corp Hgb Conc 32.4 g/dL (32-36); Mean Platelet Vol. 12.9 fl (6.2-12.0); Monocyte# 1.62 X10^3/uL; Monocyte% 6.1 % (0-10); NRBC Flagged by Analyzer 0 % (0-5); Neutrophil # 23.57 X10^3/uL (2.7-7.7); Neutrophil % 88.9 % (47-70); POSITIVE DIFFERENTIAL YES; Platelet Count 111 K/mm3 (150-450); RBC Distribution Width CV 12.8 % (11.6-14.6); RBC Distribution Width SD 50.1 fl (35.1-43.9); Red Blood Count 3.38 M/mm3 (4.2-5.4); White Blood Count 26.5 K/mm3 (4.4-11.0)
[2024-05-09 06:54] LABS: Differential Indicated SCAN CRITERIA MET
[2024-05-09 06:59] LABS: ALB/GLOB Ratio 0.4 RATIO (0.9-2.4); AST(SGOT) 20 U/L (15-37); Alanine Aminotransfer ALT/SGPT 16 U/L (13-56); Alkaline Phosphatase 139 U/L (45-117); Anion Gap 5 (5-15); BUN 58 mg/dL (7-18); BUN/Creat Ratio 54.7 RATIO (10-20); Calcium,Total 8.4 mg/dL (8.5-10.1); Chloride 109 mmol/L (98-107); Creatinine, Serum 1.06 mg/dL (0.55-1.02); EST Glomerular Filtration Rate 52 mL/min (>60); Est Glom Filt Rate - Afr Amer 63 mL/min (>60); Globulin 4.6 g/dL (2.2-4.2); Glucose 225 mg/dL (74-106); Potassium 4.2 mmol/L (3.5-5.1); Protein, Total 6.6 g/dL (6.4-8.2); Sodium Level 142 mmol/L (136-145)
[2024-05-09 07:44] LABS: Differential Comment SCANNED
[2024-05-10 13:42] LABS: Pathologist Review Reviewed
== END ==
LOC: OLS.WHLEAS 04:00
PROVIDERS: PCP Internal Medicine; Visit Provider Internal Medicine
DX: F79 Unspecified intellectual disabilities (principal); I10 Essential (primary) hypertension; R11.10 Vomiting, unspecified
CPT/HCPCS: 36415; 80053; 85025

== ENCOUNTER → 2024-05-17 | Outpatient (REF) | payer MEDICARE, MEDICAID, SELFPAY | LOC: OLS.WHLEAS 23:00 | PROVIDERS: PCP Internal Medicine; Visit Provider Nurse Practitioner Adult Health | DX: J15.9 Unspecified bacterial pneumonia (principal) | CPT/HCPCS: 87449 ==

== ENCOUNTER → 2024-05-31 | Outpatient (REF) | payer MEDICARE, MEDICAID, SELFPAY ==
[2024-05-31 08:22] LABS: Hematocrit 36.5 % (37-47); Hemoglobin 11.4 g/dL (12.0-15.0); Mean Corp Hgb Conc 31.2 g/dL (32-36); Mean Corpuscular Hgb 33.6 pg (27.0-32.0); Mean Corpuscular Volume 107.7 fL (81-99); Mean Platelet Vol. 12.4 fl (6.2-12.0); Platelet Count 113 K/mm3 (150-450); RBC Distribution Width CV 12.8 % (11.6-14.6); RBC Distribution Width SD 50.8 fl (35.1-43.9); Red Blood Count 3.39 M/mm3 (4.2-5.4); White Blood Count 5.7 K/mm3 (4.4-11.0)
[2024-05-31 08:45] LABS: Albumin, Serum 2.2 g/dL (3.2-5.0); Anion Gap 4 (5-15); BUN 28 mg/dL (7-18); BUN/Creat Ratio 46.6 RATIO (10-20); Chloride 106 mmol/L (98-107); EST Glomerular Filtration Rate 101 mL/min (>60); Est Glom Filt Rate - Afr Amer 122 mL/min (>60); Glucose 112 mg/dL (74-106); Potassium 4.4 mmol/L (3.5-5.1); Sodium Level 139 mmol/L (136-145)
== END ==
LOC: OLS.WHLEAS 05:00
PROVIDERS: PCP Internal Medicine; Visit Provider Internal Medicine
DX: I10 Essential (primary) hypertension (principal); D61.9 Aplastic anemia, unspecified; I73.89 Other specified peripheral vascular diseases; E66.9 Obesity, unspecified
CPT/HCPCS: 36415; 80048; 82040; 85027

== ENCOUNTER → 2024-08-30 | Outpatient (REF) | payer MEDICARE, MEDICAID, SELFPAY ==
[2024-08-30 08:16] LABS: Hemoglobin 12.5 g/dL (12.0-15.0); Mean Corp Hgb Conc 32.1 g/dL (32-36); Mean Corpuscular Hgb 33.4 pg (27.0-32.0); Mean Corpuscular Volume 104.3 fL (81-99); Mean Platelet Vol. 13.2 fl (6.2-12.0); Platelet Count 120 K/mm3 (150-450); RBC Distribution Width CV 13.1 % (11.6-14.6); RBC Distribution Width SD 49.8 fl (35.1-43.9); Red Blood Count 3.74 M/mm3 (4.2-5.4); White Blood Count 5.6 K/mm3 (4.4-11.0)
[2024-08-30 09:50] LABS: Albumin, Serum 2.8 g/dL (3.2-5.0); Anion Gap 4 (5-15); BUN 34 mg/dL (7-18); BUN/Creat Ratio 54.7 RATIO (10-20); Calcium,Total 9.1 mg/dL (8.5-10.1); Chloride 110 mmol/L (98-107); Creatinine, Serum 0.62 mg/dL (0.55-1.02); EST Glomerular Filtration Rate 97 mL/min (>60); Est Glom Filt Rate - Afr Amer 117 mL/min (>60); Glucose 97 mg/dL (74-106); Potassium 4.4 mmol/L (3.5-5.1); Sodium Level 142 mmol/L (136-145)
== END ==
LOC: OLS.WHLEAS 05:00
PROVIDERS: PCP Internal Medicine; Visit Provider Internal Medicine
DX: I10 Essential (primary) hypertension (principal); F79 Unspecified intellectual disabilities; R13.12 Dysphagia, oropharyngeal phase; D61.9 Aplastic anemia, unspecified; I73.89 Other specified peripheral vascular diseases
CPT/HCPCS: 36415; 80048; 82040; 85027

== ENCOUNTER → 2024-11-29 05:00 | Outpatient (REF) | payer MEDICARE, MEDICAID, SELFPAY ==
[2024-11-29 07:52] LABS: Hematocrit 37.7 % (37-47); Hemoglobin 11.7 g/dL (12.0-15.0); Mean Corpuscular Hgb 33.2 pg (27.0-32.0); Mean Corpuscular Volume 107.1 fL (81-99); Mean Platelet Vol. 13.3 fl (6.2-12.0); Platelet Count 108 K/mm3 (150-450); RBC Distribution Width CV 12.6 % (11.6-14.6); RBC Distribution Width SD 49.7 fl (35.1-43.9); Red Blood Count 3.52 M/mm3 (4.2-5.4); White Blood Count 4.1 K/mm3 (4.4-11.0)
[2024-11-29 08:25] LABS: Albumin, Serum 2.6 g/dL (3.2-5.0); Anion Gap 6 (5-15); BUN 33 mg/dL (7-18); BUN/Creat Ratio 58.2 RATIO (10-20); Calcium,Total 9.1 mg/dL (8.5-10.1); Chloride 109 mmol/L (98-107); Creatinine, Serum 0.57 mg/dL (0.55-1.02); EST Glomerular Filtration Rate 108 mL/min (>60); Est Glom Filt Rate - Afr Amer 130 mL/min (>60); Glucose 120 mg/dL (74-106); Potassium 4.5 mmol/L (3.5-5.1); Sodium Level 144 mmol/L (136-145)
== END ==
LOC: OLS.WHLEAS 05:00
PROVIDERS: PCP Internal Medicine; Visit Provider Internal Medicine
DX: F79 Unspecified intellectual disabilities (principal); Z93.1 Gastrostomy status; I10 Essential (primary) hypertension; D61.9 Aplastic anemia, unspecified; I73.89 Other specified peripheral vascular diseases
CPT/HCPCS: 36415; 80048; 82040; 85027

== ENCOUNTER → 2024-12-08 | Outpatient (REF) | payer MEDICARE, MEDICAID, SELFPAY ==
[2024-12-08 07:43] LABS: Absolute Lymphocyte Count 1.22 X10^3/uL (0.83-4.51); Absolute Neutrophil Count 13.7 X10^3/uL (2.0-7.7); Basophil# 0.05 X10^3/uL; Basophil% 0.3 % (0-1); Eosinophil# 0.05 X10^3/uL; Eosinophils% 0.3 % (0-5); Hematocrit 40.1 % (37-47); Hemoglobin 13.1 g/dL (12.0-15.0); Lymphocyte # 1.22 X10^3/ul (0.83-4.51); Lymphocyte % 7.4 % (19-41); Mean Corp Hgb Conc 32.7 g/dL (32-36); Mean Corpuscular Hgb 33.8 pg (27.0-32.0); Mean Corpuscular Volume 103.4 fL (81-99); Mean Platelet Vol. 12.9 fl (6.2-12.0); Monocyte# 1.43 X10^3/uL; Monocyte% 8.7 % (0-10); NRBC Flagged by Analyzer 0 % (0-5); Neutrophil # 13.68 X10^3/uL (2.7-7.7); Neutrophil % 82.8 % (47-70); Platelet Count 119 K/mm3 (150-450); RBC Distribution Width CV 12.8 % (11.6-14.6); Red Blood Count 3.88 M/mm3 (4.2-5.4); White Blood Count 16.5 K/mm3 (4.4-11.0)
[2024-12-08 10:20] LABS: Anion Gap 12 (5-15); BUN 25 mg/dL (4-19); BUN/Creat Ratio 41.6 RATIO (10-20); Calcium 8.8 mg/dL (7.6-11.0); Carbon Dioxide 21.1 mmol/L (22.0-29.0); Chloride 103 mmol/L (96-108); EST Glomerular Filtration Rate 88 (>60); Glucose 118 mg/dL (70-99); Potassium 4.2 mmol/L (3.3-5.1); Sodium Level 136 mmol/L (133-145)
== END ==
LOC: OLS.WHL 05:00
PROVIDERS: PCP Internal Medicine; Visit Provider Internal Medicine
DX: R11.10 Vomiting, unspecified (principal); F79 Unspecified intellectual disabilities; R13.12 Dysphagia, oropharyngeal phase; I10 Essential (primary) hypertension; D61.9 Aplastic anemia, unspecified
CPT/HCPCS: 36415; 80048; 85025

== ENCOUNTER 2024-12-18 10:41 | Emergency (ER) | payer MEDICARE, MEDICAID, SELFPAY ==
[2024-12-18 10:44] VITALS: BP 104/69; PULSE 83; RESP 16; TEMP 36.6; O2SAT 95; BMI 31.2
--- NOTE | 2024-12-18 10:57 | EDS_ITS ---
HPI <NORM Rocha - Last Filed: 12/18/24 13:12> History of Present Illness Chief Complaint: General Illness Narrative Narrative: 84-year-old female sent in from her group home with limited history due to cognitive delay pulled out her PEG tube. It is unknown how long it was out. She has had it for over a year according to the chart. She has no acute complaints. PFSH <NORM Rocha - Last Filed: 12/18/24 13:12> [facility] Medical History Aplastic anemia GERD (gastroesophageal reflux disease) HTN (hypertension) Mental retardation Osteoarthritis Home Medications ?Medication ?Instructions ?Recorded ?Last Taken ?Type Omeprazole 20 Mg/10ml 10 ml G-tube QHS GERD 11/26/20 History calcium 600 mg (as 1 ea G-tube QHS 11/27/20 History carbonate)-vitamin D3 10 mcg (400 unit) tablet cholecalciferol (vitamin D3) 50 2,000 unit G-tube ISABELLE Y 11/27/20 11/26/20 History mcg (2,000 unit) capsule Tylenol 650 mg Q4H PRN PRN Pain 1-10 Or 02/01/21 Unknown History Fever aluminum-mag hydroxide-simethicone 15 ml Q4H PRN PRN C onstipation 02/01/21 Unknown History 400 mg-400 mg-40 mg/5 mL oral susp bisacodyl 10 mg rectal suppository 10 mg [place] BID PRN MA N Constipation 02/01/21 Unknown History magnesium hydroxide 400 mg/5 mL 30 ml DAILY PRN Consti pation 02/01/21 Unknown History oral suspension food supplemt, lactose-reduced 910 ml feeding tube DIN NER 07/28/21 Unknown History Allergy/AdvReac Type Severity Reaction Status Date / Time adhesive tape Allergy NEEDS Verified 12/18/24 10:47 FOLLOW-UP clindamycin Allergy Unknown Verified 12/18/24 10:47 Family History no significant family his Surgical History Status post insertion of percutaneous endoscopic gastrostomy (PEG) tube Social History Smoking Status: Never smoker ROS <NORM Rocha - Last Filed: 12/18/24 13:12> ROS ED ROS Narrative Unable to obtain due to patient's mental status EXAM <NORM Rocha - Last Filed: 12/18/24 13:12> Physical Exam Narrative Exam Narrative: CONST: Patient sitting in no acute distress. EYES: Normal inspection. NECK: Normal inspection. RESP: No respiratory distress, CTAB. CVS: Regular rate and rhythm, no murmur, no gallop. ABD: Chronic appearing tract in left upper abdomen with no surrounding erythema or drainage. Abdomen is soft and nontender, no guarding or rebound, nondistended. SKIN: Color normal, no rash, warm, dry, intact. EXTREMITIES: Normal appearance, no pedal edema. NEURO: Alert and answering questions appropriately. PSYCH: Normal affect. Const Vital Signs: 12/18/24 10:44 12/18/24 10:50 12/18/24 13:41 Temperature 97.9 F 97.9 F Temperature Source Temporal Pulse Rate 83 82 Respiratory Rate 16 16 Respiratory Effort Normal Non-Labored Respiratory Pattern Normal Blood Pressure 104/69 99/75 Blood Pressure Mean 80 83 Pulse Ox 95 95 Oxygen Delivery Method Room Air <Dr. Adalberto Jensen DO - Last Filed: 12/18/24 22:26> Physical Exam Const Vital Signs: 12/18/24 10:44 12/18/24 10:50 12/18/24 13:41 Temperature 97.9 F 97.9 F Temperature Source Temporal Pulse Rate 83 82 Respiratory Rate 16 16 Respiratory Effort Normal Non-Labored Respiratory Pattern Normal Blood Pressure 104/69 99/75 Blood Pressure Mean 80 83 Pulse Ox 95 95 Oxygen Delivery Method Room Air MDM <NORM Rocha - Last Filed: 12/18/24 13:12> [facility] Narrative Medical decision making narrative: 84-year-old female pulled out her PEG tube this morning at her facility. The facility sent a 20 [place]iboutian replacement tube with her. She has a well-established tract for about 2 years. I lubricated the tip of the 20 [place]ian PEG tube and with gentle pressure I was able to pop it through the opening with transient discomfort. It easily flushes with 20 cc of fluid but I could not aspirate stomach contents so I ordered Gastrografin KUB to confirm placement. Due to downtime radiology faxed over a written read which confirms contrast is in the stomach. Patient was discharged back to SNF in stable condition. ED attending interpretation of KUB with Gastrografin shows contrast within the stomach. Radiography Diagnostic Testing: Clinical Impression(s) from Imaging Studies KUB X-Ray 12/18/24 11:55 IMPRESSION: No gastric outlet obstruction. No contrast extravasation. G-tube appears to be proper position. Reading Location: [facility] <Dr. Adalberto Jensen, DO - Last Filed: 12/18/24 22:26> [facility] MDM Narrative Medical decision making narrative: 84-year-old female pulled out her PEG tube this morning at her facility. The facility sent a 20 Djiboutian replacement tube with her. She has a well-established tract for about 2 years. I lubricated the tip of the 20 [place]iboutian PEG tube and with gentle pressure I was able to pop it through the opening with transient discomfort. It easily flushes with 20 cc of fluid but I could not aspirate stomach contents so I ordered Gastrografin KUB to confirm placement. Due to downtime radiology faxed over a written read which confirms contrast is in the stomach. Patient was discharged back to SNF in stable condition. ED attending interpretation of KUB with Gastrografin shows contrast within the stomach. Supervisory Physician Note Patient was seen and examined with the Advanced Practice Provider. Nursing notes and vital signs have been reviewed. Pertinent old records have been reviewed. I agree with the essential elements of the KALI's history, physical exam, assessment, and plan. The differential diagnosis and management options were discussed with the KALI. I participated in determining and agree with the management, procedures, final impression and disposition as documented. See changes noted by me. Please see addendum or separate note for any additional details. Patient presented for PEG replacement after dislodgment. Abdomen benign. Patient tolerated PEG placement. PEG confirmed to be in correct position after placement. Patient discharged home. Impression: 1. PEG tube dislodgment, s/p PEG tube replacement Radiography Diagnostic Testing: Clinical Impression(s) from Imaging Studies KUB X-Ray 12/18/24 11:55 IMPRESSION: No gastric outlet obstruction. No contrast extravasation. G-tube appears to be proper position. Reading Location: [facility] Discharge Plan Triage Chief Complaint: General Illness Other Complaint: Wound ED Midlevel Provider: Rochelle Jones ED Provider: Adalberto Jensen Dx/Rx/DC Orders Clinical Impression: PEG tube malfunction Prescriptions: No Action calcium carbonate-vitamin D3 1 EACH tablet 1 ea GT QHS cholecalciferol (vitamin D3) 2,000 UNIT capsule 2,000 unit GT DAILY Omeprazole 20 Mg/10ml 10 ml GT QHS Tylenol 650 mg Q4H PRN PRN (Reason: Pain 1-10 Or Fever) magnesium hydroxide 30 ML suspension 30 ml DAILY PRN (Reason: Constipation) bisacodyl 10 MG suppository 10 mg RC BID PRN PRN (Reason: Constipation) alum-mag hydroxide-simeth 355 ML suspension 15 ml Q4H PRN MDD constipation PRN (Reason: Constipation) Jevity Liquid 910 ml feeding tube DINNER Primary Care Provider: Rebecca Raymond Referrals: Rebecca Raymond MD [Primary Care Provider] - Activity Restrictions/Additional Instructions: Her PEG tube was replaced with a 20 Djiboutian with a 20 cc balloon and placement was confirmed with an x-ray. Print Language: Malaysian Disposition Disposition: Home, Self Care Discharge Date/Time: 12/18/24 14:00
--- NOTE | 2024-12-18 11:55 | RAD_ITS ---
EXAM: XR Abdomen, 1 View CLINICAL INDICATION: TECHNIQUE: Frontal supine view of the abdomen/pelvis. COMPARISON: No relevant prior studies available. FINDINGS: GASTROINTESTINAL TRACT: Unremarkable. No dilation. BONES/JOINTS: Unremarkable. No acute fracture. TUBES, LINES AND DEVICES: No gastric outlet obstruction. No contrast extravasation. G-tube appears to be proper position. RAD/Abdomen Single View (Portable) IMPRESSION: No gastric outlet obstruction. No contrast extravasation. G-tube appears to b e proper position. Reading Location: [facility]
[2024-12-18 13:41] VITALS: BP 99/75; PULSE 82; RESP 16; TEMP 36.6; O2SAT 95
--- NOTE | 2024-12-18 14:29 | ED.RN ---
Attempted to call [place] twice to give report with no answer.
== END 2024-12-18 14:00 | disposition home or self-care (01) ==
PROVIDERS: Emergency Provider Surgery; PCP Internal Medicine; Visit Provider Surgery
DX: K94.23 Gastrostomy malfunction (principal); I10 Essential (primary) hypertension; K21.9 Gastro-esophageal reflux disease without esophagitis; Z79.899 Other long term (current) drug therapy
CPT/HCPCS: 43762; 74018; 99285

== ENCOUNTER → 2025-02-28 | Outpatient (REF) | payer MEDICARE, MEDICAID, SELFPAY ==
[2025-02-28 06:56] LABS: Hematocrit 35.2 % (37-47); Hemoglobin 11.3 g/dL (12.0-15.0); Mean Corp Hgb Conc 32.1 g/dL (32-36); Mean Corpuscular Hgb 33.7 pg (27.0-32.0); Mean Corpuscular Volume 105.1 fL (81-99); Mean Platelet Vol. 12.4 fl (6.2-12.0); Platelet Count 131 K/mm3 (150-450); RBC Distribution Width SD 50.6 fl (35.1-43.9); Red Blood Count 3.35 M/mm3 (4.2-5.4); White Blood Count 4.1 K/mm3 (4.4-11.0)
[2025-02-28 08:00] LABS: Anion Gap 9 (5-15); BUN 27 mg/dL (4-19); BUN/Creat Ratio 48.5 RATIO (10-20); Calcium,Total 8.9 mg/dL (7.6-11.0); Carbon Dioxide 26.7 mmol/L (21.0-32.0); Chloride 102 mmol/L (98-108); Creatinine, Serum 0.55 mg/dL (0.70-1.20); EST Glomerular Filtration Rate 90 (>60); Glucose 111 mg/dL (70-99); Potassium 4.3 mmol/L (3.3-5.1); Sodium Level 138 mmol/L (133-145)
== END ==
LOC: OLS.WHLEAS 05:00
PROVIDERS: PCP Internal Medicine; Visit Provider Internal Medicine
DX: I10 Essential (primary) hypertension (principal); F79 Unspecified intellectual disabilities; R13.12 Dysphagia, oropharyngeal phase; Z93.1 Gastrostomy status; I73.89 Other specified peripheral vascular diseases; D61.9 Aplastic anemia, unspecified
CPT/HCPCS: 36415; 80048; 82040; 85027

== ENCOUNTER → 2025-05-30 05:00 | Outpatient (REF) | payer MEDICARE, MEDICAID, SELFPAY ==
--- OUTSIDE RECORDS SUMMARY | 2025-05-30 04:21 | XMS RPT_ITS | CCD ---
Author Organization [facility] Care Team Providers Care Family Dinner Service Specialist Name Role Phone Kimberly Farris MD Primary Care Provider Dr. Rebecca Raymond Primary Care Provider Ja MEDICAL GENETICS DIRECTOR, MEDICAL GENETICS DIRECTOR-C Iraida Attending Provider Dr. Rebecca Shelby Attending Provider Dr. Rebecca Raymond Primary Care Provider [phone] Ja MEDICAL GENETICS DIRECTOR, MEDICAL GENETICS DIRECTOR-C Iraida Attending Provider Dr. Rebecca Shelby Attending Provider Dr. Rebecca Raymond Primary Care Provider [phone] Ja MEDICAL GENETICS DIRECTOR, MEDICAL GENETICS DIRECTOR-C Iraida Attending Provider Dr. Rebecca Shelby Attending Provider Dr. Rebecca Raymond Primary Care Provider Dr. Rebecca Raymond Attending Provider Ja MEDICAL GENETICS DIRECTOR, MEDICAL GENETICS DIRECTOR-C Iraida Attending Provider Dr. Rebecca Shelby Primary Care Provider Dr. Rebecca Raymond Attending Provider Dr. Rebecca Raymond Primary Care Provider [phone] Ja MEDICAL GENETICS DIRECTOR, MEDICAL GENETICS DIRECTOR-C Iraida Attending Provider Dr. Rebecca Raymond Attending Provider Dr. Rebecca Raymond Primary Care Provider Ja MEDICAL GENETICS DIRECTOR, MEDICAL GENETICS DIRECTOR-C Iraida Attending Provider Dr. Rebecca Raymond Attending Provider [phone] NORM Dang Attending Provider [phone] Kimberly Farris MD Primary Care Provider Dr. Rebecca Raymond Primary Care Provider [phone] Dr. Rebecca Raymond Primary Care Provider [phone] Dr. Rebecca Raymond Attending Provider [phone] Kimberly Farris MD Primary Care Provider Mora RN BURN.ASW/ASUW TACTICAL AIR CONTROLLER, Ellie Unavailable Marii RN BURN.ENVIRONMENTAL AIR SPECIALIST, Alanis Unavailable Dr. Rebecca Raymond MD Primary Care Provider Julian Dang Attending Provider [phone] Rebecca Raymond MD Attending Provider UnavailDr. Rebecca Baker MD Attending Provider [phone] Ja JUNIOR-CIraida Attending Provider Dr. Adalberto Jensen DO Emergency Provider Dr. Rebecca Raymond MD Primary Care Provider Rebecca Raymond MD Attending Provider UnavailDr. Adalberto Real DO Attending Provider Dr. Rebecca Raymond MD Primary Care Provider Julian Dang Attending Provider [phone] Kimberly Farris MD Primary Care Provider Mora RN BURN.ASW/ASUW TACTICAL AIR CONTROLLER, Ellie Unavailable Marii RN BURN.ENVIRONMENTAL AIR SPECIALIST, Alanis Unavailable Marii RN BURN.ENVIRONMENTAL AIR SPECIALIST, Alanis Unavailable CALOS BOWEN Attending Unavailable KIMBERLY FARRIS Primary Care Unavailable Dr. Rebecca Raymond MD Attending Provider [phone] Ja MEDICAL GENETICS DIRECTOR-CIraida Attending Provider Mandi BENTLEY, Dr. Fernandez Primary Care Provider Julian Dang Attending Provider Rebecca Raymond MD Attending Provider Unavaila elvi Raymond MD, Dr. Fernandez Primary Care Provider Ja MEDICAL GENETICS DIRECTOR-CIraida Attending Provider Mandi BENTLEY, Dr. Fernandez Attending Provider [phone] Oleghe, Efewongbe Primary Care Unavailable Oleghe, Efewongbe Attending Unavailable Oleghe, Efewongbe Primary Care Unavailable [place] MEDICAL GENETICS DIRECTORIraida Attending Unavailable Oleghe, Efewongbe Primary Care Unavailable [place] MEDICAL GENETICS DIRECTORIraida Attending Unavailable Oleghe, Efewongbe Primary Care Unavailable Oleghe, Efewongbe Attending Unavailable Oleghe, Efewongbe Primary Care Unavailable Oleghe, Efewongbe Attending Unavailable Oleghe, Efewongbe Primary Care Unavailable [place] MEDICAL GENETICS DIRECTOR, Iraida Attending Unavailable Julian Dang Attending Unavailable Oleghe, Efewongbe Primary Care Unavailable Julian Dang Attending Unavailable Oleghe, Efewongbe Primary Care Unavailable [place] MEDICAL GENETICS DIRECTORIraida Attending Unavailable Oleghe, Efewongbe Primary Care Unavailable Oleghe, Efewongbe Primary Care Unavailable [place] MEDICAL GENETICS DIRECTOR, Iraida Attending Unavailable Oleghe, Efewongbe Primary Care Unavailable Oleghe, Efewongbe Attending Unavailable Oleghe, Efewongbe Primary Care Unavailable Oleghe OLS, Efewongbe Attending Unavailabl e Oleghe, Efewongbe Primary Care Unavailable Julian Dang Attending Unavailable Oleghe, Efewongbe Primary Care Unavailable Oleghe OLS, Efewongbe Attending Unavailabl e Oleghe, Efewongbe Primary Care Unavailable Oleghe OLS, Efewongbe Attending Unavailabl e Oleghe, Efewongbe Primary Care Unavailable Oleghe OLS, Efewongbe Attending Unavailabl e Oleghe, Efewongbe Primary Care Unavailable Oleghe OLS Efewongbe Attending Unavailabl e Oleghe, Efewongbe Primary Care Unavailable Adalberto Jensen Attending UnavailRebecca Ridley Primary Care Unavailable Rebecca Raymond Attending Unavailable Julian Dang Attending Unavailable DillonRebecca nazario Primary Care Unavailable Allergies Allergy Classification Reported Allergen(s) Allergy Type Date of Onset Reaction(s) Facility (5 sources) Adhesive agent; Translations: [ADHESIVE] Drug Intolerance 1 Rash [facility] (20 sources) Clindamycin; Translations: [CLINDAMYCIN] Drug Allergy 4 Unknown [facility] (20 sources) Adhesive Tape; Translations: [adhesive tape] Allergy to substance 2 NEEDS FOLLOW-UP [facility] (1 source) Clindamycin Drug Allergy 5 [facility] Repository Medications Current Medications Medication Drug Class(es) Dates Sig (Normalized) Sig (Original) Acetaminophen (20 sources) Start: 02-01-2021 Tylenol Active 650 mg EVERY 4 HOURS NEEDED as needed for Pain 1-10 Or Fever February 01, 2021 12:00am Start: 02-01-2021 Tylenol Active 650 MG EVERY 4 HOURS NEEDED January 31, 2021 11:00pm Start: 02-01-2021 Tylenol Active 650 MG EVERY 4 HOURS NEEDED February 01, 2021 12:00am take 2 capsules intr agastric route every six hours as needed acetaminophen 325 mg cap 650 mg by PEG route four times a day as needed. Active take 1 capsule by mo uth every six hours as needed acetaminophen 325 mg cap Take 325 mg by mouth four times a day as needed. 0 Active Comment on above: Take 325 mg by mouth four times a day as needed. albuterol 0.83 mg/ml inhalation solution (1 source) beta2-Adrenergic Agonist albuterol (PROVENTIL ) 2.5 mg /3 mL (0.083 %) nebulizer solution Use 2.5 mg via nebulizer one time only. Active aluminum hydroxide 80 mg/ml / magnesium hydroxide 80 mg/ml / simethicone 8 mg/ml oral suspension (20 sources) Start: 02-01-2021 Alum-Mag Hydroxide-Simeth 355 ML suspension Active 15 mL EVERY 4 HOURS NEEDED as needed for Constipation February 01, 2021 12:00am take 15 mL by mouth every four hours as needed aluminum & magnesium hydroxide-simethico ne (FABIAN-LANTA) 400-400-40 mg/5 mL suspension Take 15 mL by mouth every 4 hours as needed. Active take 30 mL by mouth every six hours as needed aluminum & magnesium hydroxide-simethico ne (FABIAN-LANTA) 400-400-40 mg/5 mL suspension Take 30 mL by mouth every 6 hours as needed. 0 Active Comment on above: Take 30 mL by mouth every 6 hours as needed. bisacodyl 10 mg rectal suppository (20 sources) Stimulant Laxative Start: 02-01-2021 Bisacodyl 10 MG suppository Active 10 mg RC TWICE DAILY NEEDED as needed for Constipation February 01, 2021 12:00am take 10 mg rectal ro [place] once daily as needed for constipation bisacodyl (DULCOLAX) 10 mg supp 10 mg by RECTAL route once daily as needed for constipation. Active calcium carbonate 1500 mg / cholecalciferol 0.01 mg oral tablet (20 sources) Vitamin D Start: 11-27-2020 Calcium Carbon ate-Vitamin D3 1 EACH tablet Active 1 EA GT AT BEDTIME November 27, 2020 1:00am Start: 11-27-2020 Calcium Carbon ate-Vitamin D3 Active 1 EA GT AT BEDTIME November 27, 2020 1:00am cetirizine hydrochloride 1 mg/ml oral solution (4 sources) Histamine-1 Receptor Antagonist Start: 04-15-2022 cetirizine (ZYRTEC) 1 mg/mL syrup 5 mg by G-TUBE route once daily. 04/15/2022 Active Start: 04-15-2022 cetirizine (ZY RTEC) 1 mg/mL syrup Comment on above: 5 mg by G-TUBE route once daily. cholecalciferol 0.05 mg oral tablet (20 sources) Vitamin D Start: 05-01-2022 cholecalciferol (VITAMIN D3) 50 mcg (2,000 unit) tablet 05/01/2022 Active Start: 11-27-2020 Cholecalcifero l (Vitamin D3) 2,000 UNIT capsule Active 2000 U GT DAILY November 27, 2020 1:00am Start: 11-27-2020 Cholecalcifero l (Vitamin D3) Active 2000 UNIT GT DAILY November 27, 2020 1:00am COMPOUNDED PRESCRIPTION (20 sources) Start: 09-13-2012 COMPOUNDED PRE SCRIPTION Indications: Disorder of bone and cartilage, unspecified Calci-Chew Tablet. Crush half a pill and dissolve in 240 cc water and put through PEG tube daily 15 tablet 6 09/13/2012 Active Start: 05-05-2012 End: 10-18-2024 COMPOUNDED PRESCRIPTION Qiana cations: Dysphagia, unspecified(787.20) 4x4 drain sponges-change daily-787.20 30 Each 05/05/2012 10/18/2024 Discontinued (Discontinued by Patient) Start: 05-05-2012 COMPOUNDED PRE SCRIPTION Indications: Dysphagia, unspecified(787.20) 4x4 drain sponges-change daily-787.20 30 Each 05/05/2012 Active Start: 05-05-2012 COMPOUNDED PRE SCRIPTION Indications: Mixed incontinence urge and stress (male)(female) Prevail Pull UPs (extra large) - Dx: Mixed urge and stress incontinence - 56 pullups/month, extra large.and case large Diagnosos: 788.33 7 per day 56 Each 05/05/2012 Active Start: 05-05-2012 COMPOUNDED PRE SCRIPTION Indications: Mixed incontinence urge and stress (male)(female) Prevail Breezers Large 72 / case One case per month Urge and Stress Urinary Incontinence 788.33 72 Each 05/05/2012 Active Start: 12-24-2011 End: 10-18-2024 COMPOUNDED PRESCRIPTION Cons ult to physical therapy, evaluate and treat. Dx: osteoarthritis and knee pain. 1 Each 0 12/24/2011 10/18/2024 Discontinued (Discontinued by Patient) Start: 12-24-2011 COMPOUNDED PRE SCRIPTION Consult to physical therapy, evaluate and treat. Dx: osteoarthritis and knee pain. 1 Each 0 12/24/2011 Active Start: 04-07-2011 COMPOUNDED PRE SCRIPTION Indications: Dysphagia, unspecified(787.20) 4x4 drain sponges-change daily-787.20 30 Each 04/07/2011 Active Start: 05-01-2010 End: 10-18-2024 COMPOUNDED PRESCRIPTION Qiana cations: Dysphagia, unspecified(787.20) Split drain sponges for PEG tube drsg apply daily 05/01/2010 10/18/2024 Discontinued (Discontinued by Patient) Start: 05-01-2010 COMPOUNDED PRE SCRIPTION Indications: Dysphagia, unspecified(787.20) Split drain sponges for PEG tube drsg apply daily 0 05/01/2010 Active Start: 08-01-2007 End: 10-18-2024 COMPOUNDED PRESCRIPTION Use ear wax removal drops OTC, 5 drops each ear twice weekly for ear wax prevention 0 08/01/2007 10/18/2024 Discontinued (Discontinued by Patient) Start: 08-01-2007 COMPOUNDED PRE SCRIPTION Use ear wax removal drops OTC, 5 drops each ear twice weekly for ear wax prevention 0 08/01/2007 Active Comment on above: Use ear wax removal drops OTC, 5 drops each ear twice weekly for ear wax prevention Split drain sponges for PEG tube drsg apply daily 4x4 drain sponges-ch birdie daily-787.20 Consult to physical therapy, evaluate and treat. Dx: osteoarthritis and knee pain. Prevail Pull UPs (ex tra large) - Dx: Mixed urge and stress incontinence - 56 pullups/month, extra large.and case large Diagnosos: 788.33 7 per day Prevail Breezers Lar ge 72 / case One case per month Urge and Stress Urinary Incontinence 788.33 Calci-Chew Tablet. C pandey half a pill and dissolve in 240 cc water and put through PEG tube daily Food Supplement, Lactose-Free (JEVITY) Liqd (4 sources) Start: 05-05-2012 Food Supplement, Lactose-Free (JEVITY) Liqd Indications: Dysphagia, unspecified(787.20) 1.5 trever. 4 cans daily through peg tube 787.2 319 120 mL 12 05/05/2012 Active Comment on above: 1.5 trever. 4 cans letty y through peg tube 787.2 319 Food Supplemt, Lactose-Reduced (Jevity) Liquid (20 sources) Start: 07-28-2021 Food Supplemt, Lactose-Reduced (Jevity) Liquid Active 910 mL feeding tube WITH DINNER July 28, 2021 12:00am Start: 07-28-2021 Food Supplemt, Lactose-Reduced (Jevity) Liquid Active 910 ML feeding tube WITH DINNER July 27, 2021 11:00pm Start: 07-28-2021 Food Supplemt, Lactose-Reduced (Jevity) Liquid Active 910 ML feeding tube WITH DINNER July 28, 2021 12:00am gly/dimeth/petrolat,wht/wate r(CETAPHIL MOISTURIZING TOPICAL CREAM) (4 sources) Start: 05-01-2010 gly/dimeth/petrolat,wht/wate r(CETAPHIL MOISTURIZING TOPICAL CREAM) apply topically sm amt for rash to legs twice weekly 0 0 05/01/2010 Active Comment on above: apply topically sm a mt for rash to legs twice weekly magnesium hydroxide 80 mg/ml oral suspension (20 sources) Start: 02-01-2021 Magnesium Hydroxide 30 ML garcia spension Active 30 mL DAILY as needed for Constipation February 01, 2021 12:00am magnesium hydrox solitario (MILK OF MAGNESIA) 400 mg/5 mL suspension 30 mL by PEG route once daily as needed. Active nystatin 100 unt/mg topical powder (4 sources) Polyene Antifungal Start: 05-23-2012 nystatin (M YCOSTATIN) powder Indications: Dermatophytosis of the body Apply in folds of skin twice weekly 1 Bottle 8 05/23/2012 Active Comment on above: Apply in folds of sk in twice weekly nystatin 271068 unt/ml / triamcinolone acetonide 1 mg/ml topical cream (4 sources) Polyene Antifungal, Corticosteroid Start: 08-01-2012 nystatin-triamcinolo ne cream Indications: Candidal skin infection Apply 1 application to affected area twice daily. Apply to rash under breasts for candidal infection for up to 2 weeks. 30 g 1 08/01/2012 Active Comment on above: Apply 1 application to affected area twice daily. Apply to rash under breasts for candidal infection for up to 2 weeks. Omeprazole (20 sources) Proton Pump Inhibitor Start: 11-27-2020 Omeprazo le 20 Mg/10ml Active 10 mL GT AT BEDTIME November 27, 2020 1:00am GERD Start: 11-27-2020 Omeprazole 20 Mg/10ml Active 10 mL GT AT BEDTIME November 27, 2020 1:00am Start: 11-27-2020 Omeprazole 20 Mg/10ml Active 10 ML GT AT BEDTIME November 27, 2020 12:00am Start: 11-27-2020 Omeprazole 20 Mg/10ml Active 10 ML GT AT BEDTIME November 27, 2020 1:00am End: 10-18-2024 take 1 capsule by mouth once daily omeprazole (PRILOSEC) 20 mg capsule Take 20 mg by mouth once daily. 10/18/2024 Discontinued (Discontinued by Patient) Comment on above: Take 20 mg by mouth once daily. ondansetron 0.8 mg/ml oral solution (1 source) Serotonin-3 Receptor Antagonist take 4 mg by mouth every eight hours as needed ondansetron (ZOFRAN) 4 mg/5 mL solution Take 4 mg by mouth every 8 hours as needed for nausea/vomiting. Active polyethylene glycol 3350 17196 mg powder for oral solution (4 sources) Osmotic Laxative Start: 2 Polyethylene Glycol 3350 (MIRALAX) 17 gram/dose powder Dissolve 1 scoop (17 grams of miralax) in 240 cc of liquid via peg tube daily as needed 527 g 11 05/03/2012 Active Comment on above: Dissolve 1 scoop (17 grams of miralax) in 240 cc of liquid via peg tube daily as needed syringe (SYRINGE) 60 mL Misc Syrg (4 sources) Start: 1 syringe (SYRINGE) 60 mL Misc Syrg Indications: Dysphagia, unspecified(787.20) For PEG tube feeding and flushes DX 787.2 319 15 Syringe 12 04/07/2011 Active Comment on above: For PEG tube feeding and flushes DX 787.2 319 Completed/Discontinued Medications Medication Drug Class(es) Dates Sig (Normalized) Sig (Original) calcium carbonate 500 mg chewable tablet (3 sources) Start: 11-07-2012 End: 10-18-2024 take 1-2 tablets by mouth once daily calcium carbonate (CALCIUM ANTACID) 500 mg Chew Take 1-2 tablets by mouth once daily. 11/07/2012 10/18/2024 Discontinued (Discontinued by Patient) Comment on above: Take 1-2 tablets by mouth once daily. 12 hr dextromethorphan polistirex 6 mg/ml extended release suspension (3 sources) Uncompetitive B-kdqewm-Z-asparta te Receptor Antagonist, Sigma-1 Agonist Start: 05-07-2022 End: 10-18-2024 dextromethorphan polistirex ER (DELSYM) 30 mg/5 mL oral liquid 05/07/2022 10/18/2024 Discontinued (Discontinued by Patient) loratadine 10 mg oral tablet (3 sources) Start: 11-01-2012 End: 10-18-2024 take 1 tablet by mouth once daily loratadine (CLARITIN) 10 mg tablet Take 1 tablet by mouth once daily. 30 tablet 11 11/01/2012 10/18/2024 Discontinued (Discontinued by Patient) Comment on above: Take 1 tablet by gallo th once daily. Osichyrci-Ige-QP-Lut- Zeaxanth (ICAPS MV) 100-1.66-0.83 mcg-mg-mg ORAL TbEC (3 sources) Start: 12-30-2011 End: 10-18-2024 take 1 tablet by mouth once Xfifidier-Ubs-FK-Lut -Zeaxanth (ICAPS MV) 100-1.66-0.83 mcg-mg-mg ORAL TbEC by PEG Tube route. Crush two tablets daily and dissolve in 240 cc of water and deliver via peg tube 60 tablet 11 12/30/2011 10/18/2024 Discontinued (Discontinued by Patient) Start: 12-30-2011 take 1 tablet by gallo th once Dkowhxemb-Byg-FV-Lut-Zeaxanth (ICAPS MV) 100-1.66-0.83 mcg-mg-mg ORAL TbEC by PEG Tube route. Crush two tablets daily and dissolve in 240 cc of water and deliver via peg tube 60 tablet 11 12/30/2011 Active Comment on above: by PEG Tube route. C pandey two tablets daily and dissolve in 240 cc of water and deliver via peg tube raloxifene hydrochloride 60 mg oral tablet (3 sources) Estrogen Agonist/Antagonist Start: 09-13-20 12 End: 10-18-19 25 raloxifene (EVISTA) 60 mg tablet Indications: Disorder of bone and cartilage, unspecified 1 tablet once daily. crush and administer through peg tube 30 tablet 11 09/13/2012 10/18/2024 Discontinued (Discontinued by Patient) Comment on above: 1 tablet once daily. crush and administer through peg tube raNITIdine 150 mg oral tablet (3 sources) Histamine-2 Receptor Antagonist Start: 09-13-20 12 End: 10-18-19 25 ranitidine (ZANTAC MAXIMUM STRENGTH) 150 mg tablet Indications: GERD (gastroesophageal reflux disease) 1 tablet twice daily. Crush and mix with 20cc water-give via peg tube. 60 tablet 6 09/13/2012 10/18/2024 Discontinued (Discontinued by Patient) Comment on above: 1 tablet twice daily . Crush and mix with 20cc water-give via peg tube. White Petrolatum-Zinc Oxide TOPICAL cream (3 sources) Start: 12-14-19 12 End: 10-18-19 25 apply 60 g topically twice daily at mealtime as needed White Petrolatum-Zinc Oxide TOPICAL cream Indications: Skin sore , Candidal dermatitis Apply to affected area as needed. Apply to rectal area and medial thigh rash until healed. Apply at least twice daily and as needed to protect skin till rash heals. 60 g 1 12/14/2011 10/18/2024 Discontinued (Discontinued by Patient) Start: 12-14-2011 apply 60 g topically twice daily at mealtime as needed White Petrolatum-Zinc Oxide TOPICAL cream Indications: Skin sore , Candidal dermatitis Apply to affected area as needed. Apply to rectal area and medial thigh rash until healed. Apply at least twice daily and as needed to protect skin till rash heals. 60 g 1 12/14/2011 Active Comment on above: Apply to affected ar ea as needed. Apply to rectal area and medial thigh rash until healed. Apply at least twice daily and as needed to protect skin till rash heals. Problems Active Problems Problem Classification Problem Date Documented Da te Episodic/Chronic Asthma (4 sources) Asthmatic bronchitis; Translations: [Unspecified asthma, uncomplicated] Onset: 6 10-06-2021 Chronic Deficiency and other anemia (1 source) Aplastic anemia, unspecified; Translations: [Aplastic anemia, unspecified] Onset: 5 Chronic Developmental disorders (20 sources) Intellectual disability; Translations: [Unspecified intellectual disabilities] Onset: 5 08-07-2005 Chronic Esophageal disorders (4 sources) Gastroesophageal reflux disease; Translations: [Gastro-esophageal reflux disease without esophagitis] Onset: 0 10-31-2009 Chronic Essential hypertension (8 sources) Essential hypertension; Translations: [Essential (primary) hypertension] Onset: 5 Resolved: 6 10-06-2021 Chronic Genitourinary symptoms and ill-defined conditions (4 sources) Incontinence; Translations: [Mixed incontinence] Onset: 5 08-10-2005 Chronic Menopausal disorders (4 sources) Atrophic vaginitis; Translations: [Postmenopausal atrophic vaginitis] Onset: 8 08-30-2008 Chronic Nutritional deficiencies (4 sources) Vitamin D deficiency; Translations: [Vitamin D deficiency, unspecified] Onset: 7 08-17-2007 Chronic Osteoarthritis (4 sources) Degenerative joint disease involving multiple joints; Translations: [Polyosteoarthritis, unspecified] Onset: 7 02-04-2007 Chronic Other circulatory disease (1 source) Other specified peripheral vascular diseases; Translations: [Other specified peripheral vascular diseases] Onset: 4 Chronic Other congenital anomalies (4 sources) Anomaly of chromosome pair 21; 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, unspecified] Onset: 5 10-06-2021 Chronic Other gastrointestinal disorders (4 sources) Finding of gastrointestinal device; Translations: [Encounter for attention to other artificial openings of digestive tract] Onset: 9 12-20-2008 Chronic Other gastrointestinal disorders (4 sources) Gastrostomy present; Translations: [Gastrostomy status] Onset: 7 06-15-2017 Chronic Other gastrointestinal disorders (1 source) Gastrostomy status; 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 Other gastrointestinal disorders (20 sources) History of gastroesophageal reflux disease; Translations: [Personal history of other diseases of the digestive system] 10-10-2013 Episodic Other gastrointestinal disorders (1 source) Dysphagia, oropharyngeal phase; Translations: [Dysphagia, oropharyngeal phase] Onset: 5 Episodic Other inflammatory condition of skin (4 sources) Rosacea; Translations: [Rosacea, unspecified] Onset: 2 09-13-2012 Chronic Other lower respiratory disease (4 sources) Respiratory complication; Translations: [Respiratory complications, not elsewhere classified] 01-14-2007 Episodic Other nutritional; endocrine; and metabolic disorders (20 sources) Obesity; Translations: [Obesity, unspecified] 10-10-2013 Chronic Other nutritional; endocrine; and metabolic disorders (1 source) Obesity, unspecified; Translations: [Obesity, unspecified] Onset: 4 Chronic Peripheral and visceral atherosclerosis (4 sources) Atherosclerosis of arteries of the extremities; Translations: [Unspecified atherosclerosis of inaja arteries of extremities, unspecified extremity] Onset: 6 08-20-2006 Chronic Residual codes; unclassified (4 sources) Restlessness and agitation; Translations: [Restlessness and agitation] Onset: 5 10-17-2014 Chronic Retinal detachments; defects; vascular occlusion; and retinopathy (4 sources) Degenerative disorder of macula ; Translations: [Unspecified macular degeneration] Onset: 1 10-06-2021 Chronic Urinary tract infections (4 sources) Chronic cystitis; Translations: [Other chronic cystitis without hematuria] Onset: 8 08-30-2008 Chronic Past or Other Problems Problem Classification Problem Date Documented Da te Episodic/Chronic Biliary tract disease (4 sources) Cholelithiasis without obstruction; Translations: [Calculus of gallbladder without cholecystitis without obstruction] Onset: 09-13-2012 09-13-2012 Episodic Complications of surgical procedures or medical care (20 sources) Malfunction of gastrostomy tube; Translations: [Gastrostomy malfunction] Onset: 09-30-2011 Episodic Mycoses (8 sources) Onychomycosis due to dermatophyte ; Translations: [Tinea unguium] Onset: 08-25-2005 08-25-2005 Episodic Nausea and vomiting (1 source) Vomiting, unspecified; Translations: [Vomiting, unspecified] Onset: 01-10-2025 Episodic Other bone disease and musculoskeletal deformities (4 sources) Disorder of skeletal system; Translations: [Disorder of bone, unspecified] Onset: 08-10-2005 08-10-2005 Episodic Other circulatory disease (4 sources) Pulmonary congestion ; Translations: [Other specified symptoms and signs involving the circulatory and respiratory systems] Onset: 04-18-2018 04-18-2018 Episodic Other connective tissue disease (6 sources) Pain in limb; Translations: [Pain in unspecified limb] Onset: 08-25-2005 Resolved: 08-01-2007 09-14-2007 Episodic Other gastrointestinal disorders (5 sources) Dysphagia, unspecified; Translations: [Dysphagia, unspecified] Onset: 02-19-2009 02-19-2009 Episodic Other gastrointestinal disorders (4 sources) Oral phase dysphagia; Translations: [Dysphagia, oral phase] Onset: 09-17-2015 10-06-2021 Episodic Other gastrointestinal disorders (4 sources) Dysphagia; Translations: [Dysphagia, unspecified] Onset: 12-30-2015 10-06-2021 Episodic Other lower respiratory disease (4 sources) Acute respiratory infections; Translations: [Unspecified acute lower respiratory infection] Onset: 11-12-2014 11-12-2014 Episodic Other lower respiratory disease (4 sources) Hypoxia; Translations: [Hypoxemia] Onset: 11-12-2014 11-12-2014 Episodic Other lower respiratory disease (4 sources) Cough; Translations: [Cough] Onset: 07-14-2017 07-14-2017 Episodic Other lower respiratory disease (4 sources) History of aspiration pneumonia; Translations: [Personal history of pneumonia (recurrent)] Onset: 01-20-2018 01-20-2018 Episodic Other lower respiratory disease (4 sources) H/O: respiratory disease; Translations: [Personal history of other diseases of the respiratory system] Onset: 12-01-2019 12-01-2019 Episodic Other skin disorders (1 source) Eruption; Translations: [Rash and other nonspecific skin eruption] Onset: 12-06-2018 12-06-2018 Episodic Other skin disorders (3 sources) Rash and other nonspecific skin eruption; Translations: [Rash and other nonspecific skin eruption] Onset: 12-06-2018 12-06-2018 Episodic Other upper respiratory disease (4 sources) Nasal discharge; Translations: [Other specified disorders of nose and nasal sinuses] Onset: 12-30-2015 10-06-2021 Episodic Pneumonia (except that caused by tuberculosis or sexually transmitted disease) (4 sources) Pneumonia; Translations: [Pneumonia, unspecified organism] Onset: 08-26-2013 10-06-2021 Episodic Sprains and strains (2 sources) Sprain of ankle; Translations: [Sprain of unspecified ligament of unspecified ankle, initial encounter] Onset: 11-18-2006 Resolved: 08-01-2007 04-20-2024 Episodic Urinary tract infections (2 sources) Urinary tract infectious disease; Translations: [Urinary tract infection, site not specified] Resolved: 07-15-2016 07-15-2016 Episodic Results Test Name Value Interpretation Reference Range Facility Anion gap in Serum or Plasma Ordered By: Rebecca Raymond on 02-28-2025 Anion gap [Moles/Vol] 9 mmol/L 5-15 [facility] BUN/creatinine ratioOrdered By: Rebecca Raymond on 02-28-2025 Urea nitrogen/Creatinine [Mass ratio] 48.5 mg/mg High 10-20 [facility] Carbon dioxide, total [Moles /volume] in Central venous bloodOrdered By: Rebecca Raymond on 02-28-2025 CO2 [Moles/Vol] 26.7 mmol/L 21.0-32.0 [facility] Chloride assayOrdered By: Panda Raymond on 02-28-2025 Chloride [Moles/Vol] 102 mmol/L 98-108 [facility] Erythrocyte distribution wid th ratioOrdered By: suellen Raymond on 02-28-2025 Erythrocyte distribution width (RBC) [Ratio] 13.0 % 11.6-14.6 [facility] Erythrocyte distribution wid th standard deviationOrdered By: radhabostonkamar Raymond on 02-28-2025 Erythrocyte distribution width (RBC) [Ratio] 50.6 fl High 35.1-43.9 [facility] Glomerular filtration rate ( GFR) estimation/1.73 sq m using serum, plasma, or whole bOrdered By: Rebecca Raymond on 02-28-2025 GFR/1.73 sq M.predicted among non-blacks MDRD (S/P/Bld) [Vol rate/Area] 90 mL/min/{1.73_m2} >60 [facility] Comment on above: mL/min/1.73m2 CKD-EP I Creatinine Equation (2020) Hematocrit Auto (Bld) [Volum e fraction]Ordered By: Rebecca Raymond on 02-28-2025 Hematocrit (Bld) [Volume fraction] 35.2 % Low 37-47 [facility] Hemoglobin measurementOrdere d By: Rebecca Raymond on 02-28-2025 Hemoglobin (Bld) [Mass/Vol] 11.3 g/dL Low 12.0-15.0 [facility] MCV (mean corpuscular volume ) determinationOrdered By: Rebecca Raymond 02-28-2025 MCV (RBC) [Entitic vol] 105.1 fL High 81-99 [facility] Mean corpuscular hemoglobin (MCH) determinationOrdered By: Rebecca Raymond on 02-28-2025 MCH (RBC) [Entitic mass] 33.7 pg High 27.0-32.0 [facility] Mean corpuscular hemoglobin concentration (MCHC) determinationOrdered By: Rebecca Raymond on 02-28-2025 MCHC (RBC) [Mass/Vol] 32.1 g/dL 32-36 [facility] Mean platelet volume determi nationOrdered By: Rebecca Raymond on 02-28-2025 Platelet mean volume (Bld) [Entitic vol] 12.4 fL High 6.2-12.0 [facility] Platelet countOrdered By: Panda Raymond on 02-28-2025 Platelets (Bld) [#/Vol] 131 10*3/uL Low 150-450 [facility] Potassium measurement (mass/ volume)Ordered By: Rebecca Raymond on 02-28-2025 Potassium (Unsp spec) [Mass/Vol] 4.3 mmol/L 3.3-5.1 [facility] RBC Auto (Bld) [#/Vol]Ordere d By: Rebecca Raymond on 02-28-2025 RBC (Bld) [#/Vol] 3.35 10*6/uL Low 4.2-5.4 [facility] Serum creatinine measurement (mass/volume)Ordered By: Rebecca Raymond on 02-28-2025 Creatinine [Mass/Vol] 0.55 mg/dL Low 0.70-1.20 [facility] Serum glucose measurement (m ass/volume)Ordered By: Rebecca Raymond on 02-28-2025 Glucose [Mass/Vol] 111 mg/dL High 70-99 [facility] Serum or plasma albumin carmen urement (mass/volume)Ordered By: Rebecca Raymond on 02-28-2025 Albumin [Mass/Vol] 3.0 g/dL Low 3.4-4.8 [facility] Serum or plasma calcium carmen urement (mass/volume)Ordered By: Rebecca Raymond on 02-28-2025 Calcium [Mass/Vol] 8.9 mg/dL 7.6-11.0 [facility] Serum or plasma urea nitroge n measurement (mass/volume)Ordered By: Rebecca Raymond on 02-28-2025 Urea nitrogen [Mass/Vol] 27 mg/dL High 4-19 [facility] Sodium levelOrdered By: Mikala charmaine Mandi on 02-28-2025 Sodium [Moles/Vol] 138 mmol/L 133-145 [facility] White blood cell (WBC) count Ordered By: Rebecca Raymond on 02-28-2025 WBC (Bld) [#/Vol] 4.1 10*3/uL Low 4.4-11.0 [facility] Abdomen Single View (Portabl e)on 12-18-2024 Abdomen Single View (Portable) [facility] Imaging Services [address] [place], [place] [id number] Abdomen Single View (Portable) MR#: [id number] Acct: [id number] Name: DARIANA VAZQUEZ Rep #: [id number] : 1940 F 84 From: Blayne Estrada MD PCP: Dr. Rebecca Raymond MD Status: DEP ER Study: Abdomen Single View (Portable) Date of Exam: 0 12/18/24 Exam# [id number] Ordering Dr: Rochelle Jones EXAM: XR Abdomen, 1 View CLINICAL INDICATION: TECHNIQUE: Frontal supine view of the abdomen/pelvis. COMPARISON: No relevant prior studies available. FINDINGS: GASTROINTESTINAL TRACT: Unremarkable. No dilation. BONES/JOINTS: Unremarkable. No acute fracture. TUBES, LINES AND DEVICES: No gastric outlet obstruction. No contrast extravasation. G-tube appears to be proper position. RAD/Abdomen Single View (Portable) IMPRESSION: No gastric outlet obstruction. No contrast extravasation. G-tube appears to be proper position. Reading [facility] CC: Dr. Rebecca Raymond MD; [facility] Picking Tech: Signed Normal [facility] Emergency Department Summary on 12-18-2024 Emergency Department Summary [facility] Medical Records Department [address] [place] [address] Emergency Department Summary 12/18/24 MR#: [id number] Acct: [id number] Name: DARIANA VAZQUEZ Rep #: [id number] : 1940 84 From: Rochelle ZHENG PCP: Dr. Rebecca Raymond MD Status:DEP ER Location: ED HPI History of Present Illness Chief Complaint: General Illness Narrative Narrative: 84-year-old female sent in from her [facility]pc with limited history due to cognitive delay pulled out her PEG tube. It is unknown how long it was out. She has had it for over a year according to the chart. She has no acute complaints. [facility] Medical History Aplastic anemia GERD (gastroesophageal reflux disease) HTN (hypertension) Mental retardation Osteoarthritis Home Medications ???Medication ???Instructions ???Recorded ???Last Taken ???Type Omeprazole 20 Mg/10ml 10 ml G-tube QHS GERD 11/27/20 History calcium 600 mg (as 1 ea G-tube QHS 11/27/20 11/26/20 History carbonate)-vitamin D3 10 mcg (400 unit) tablet cholecalciferol (vitamin D3) 50 2,000 unit G-tube DAILY 11/27/20 0 11/26/20 History mcg (2,000 unit) capsule Tylenol 650 mg Q4H PRN PRN Pain 1-10 Or Unknown History Fever aluminum-mag hydroxide-simethico ne 15 ml Q4H PRN PRN Constipation 0 02/01/21 Unknown History 400 mg-400 mg-40 mg/5 mL oral susp bisacodyl 10 mg rectal suppository 10 mg NV BID PRN PRN Constipatio n 02/01/21 Unknown History magnesium hydroxide 400 mg/5 mL 30 ml DAILY PRN Constipation 02/01 Unknown History oral suspension food supplemt, lactose-reduced 910 ml feeding tube DINNER 1 Unknown History Allergy/AdvReac Type Severity Reaction Status Date / Time adhesive tape Allergy NEEDS Verified 12/18/24 10:47 FOLLOW-UP clindamycin Allergy Unknown Verified 12/18/24 10:47 Family History no significant family his Surgical History Status post insertion of percutaneous endoscopic gastrostomy (PEG) tube Social History Smoking Status: Never smoker ROS ROS ED ROS Narrative Unable to obtain due to patient's mental status EXAM Physical Exam Narrative Exam Narrative: CONST: Patient sitting in no acute distress. EYES: Normal inspection. NECK: Normal inspection. RESP: No respiratory distress, CTAB. CVS: Regular rate and rhythm, no murmur, no gallop. ABD: Chronic appearing tract in left upper abdomen with no surrounding erythema or drainage. Abdomen is soft and nontender, no guarding or rebound, nondistended. SKIN: Color normal, no rash, warm, dry, intact. EXTREMITIES: Normal appearance, no pedal edema. NEURO: Alert and answering questions appropriately. PSYCH: Normal affect. Const Vital Signs: 12/18/24 10:44 12/18/24 10:50 12/18/24 13:41 Temperature 97.9 F 97.9 F Temperature Source Temporal Pulse Rate 83 82 Respiratory Rate 16 16 Respiratory Effort Normal Non-Labored Respiratory Pattern Normal Blood Pressure 104/69 99/75 Blood Pressure Mean 80 83 Pulse Ox 95 95 Oxygen Delivery Method Room Air Physical Exam Const Vital Signs: 12/18/24 10:44 12/18/24 10:50 12/18/24 13:41 Temperature 97.9 F 97.9 F Temperature Source Temporal Pulse Rate 83 82 Respiratory Rate 16 16 Respiratory Effort Normal Non-Labored Respiratory Pattern Normal Blood Pressure 104/69 99/75 Blood Pressure Mean 80 83 Pulse Ox 95 95 Oxygen Delivery Method Room Air MDM MDM MDM Narrative Medical decision making narrative: 84-year-old female pulled out her PEG tube this morning at her facility. The facility sent a 20 Malagasy replacement tube with her. She has a well-established tract for about 2 years. I lubricated the tip of the 20 Malagasy PEG tube and with gentle pressure I was able to pop it through the opening with transient discomfort. It easily flushes with 20 cc of fluid but I could not aspirate stomach contents so I ordered Gastrografin KUB to confirm placement. Due to downtime radiology faxed over a written read which confirms contrast is in the stomach. Patient was discharged back to SNF in stable condition. ED attending interpretation of KUB with Gastrografin shows contrast within the stomach. Radiography Diagnostic Testing: Clinical Impression(s) from Imaging Studies KUB X-Ray 12/18/24 11:55 IMPRESSION: No gastric outlet obstruction. No contrast extravasation. G-tube appears to be proper position. Reading Location: [facility] MDM Narrative Medical decision making narrative: 84-year-o (more content not included)... Normal [facility] Absolute lymphocyte countOrd ered By: [facility] Raymond on 12-08-2024 Lymphocytes Auto (Unsp spec) [#/Vol] 1.22 10*3/uL 0.83-4.51 [facility] Absolute neutrophil countOrd ered By: radhabostonkamar Raymond on 12-08-2024 Neutrophils (Bld) [#/Vol] 13.7 10*3/uL High 2.0-7.7 [facility] Automated lymphocyte count a s percentage of total leukocytesOrdered By: Rebecca Raymond on 12-08-2024 Lymphocytes/100 WBC Auto (Unsp spec) 7.4 % Low 19-41 [facility] BUN/creatinine ratioOrdered By: suellen Raymond on 12-08-2024 Urea nitrogen/Creatinine [Mass ratio] 41.6 mg/mg High 10-20 [facility] Basophil percentageOrdered B y: Rebecca Raymond on 12-08-2024 Basophils/100 WBC (Bld) 0.3 % 0-1 [facility] Carbon dioxide measurementOr dered By: Rebecca Raymond on 12-08-2024 CO2 [Moles/Vol] 21.1 mmol/L Low 22.0-29.0 [facility] Chloride measurementOrdered By: radhabostonkamar Raymond on 12-08-2024 Chloride [Moles/Vol] 103 mmol/L 96-108 [facility] Eosinophil percentageOrdered By: [facility] Newnankamar Carranzamansi on 12-08-2024 Eosinophils/100 WBC (Bld) 0.3 % 0-5 [facility] Erythrocyte distribution wid th ratioOrdered By: suellen Raymond on 12-08-2024 Erythrocyte distribution width (RBC) [Ratio] 12.8 % 11.6-14.6 [facility] Erythrocyte distribution wid th standard deviationOrdered By: Rebecca Raymond on 12-08-2024 Erythrocyte distribution width (RBC) [Entitic vol] 48.0 fL High 35.1-43.9 [facility] Erythrocyte distribution width (RBC) [Ratio] 48.0 fl High 35.1-43.9 [facility] GFR/1.73 sq M.predicted lui g non-blacks MDRD (S/P/Bld) [Vol rate/Area]Ordered By: Rebecca Raymond on 12-08-2024 Estimated GFR (MDRD) Non-Af Amer 88 >60 [facility] Comment on above: mL/min/1.73m2 CKD-EP I Creatinine Equation (2020) Glomerular filtration rate ( GFR) estimation/1.73 sq m using serum, plasma, or whole bOrdered By: Rebecca Raymond on 12-08-2024 GFR/1.73 sq M.predicted among non-blacks MDRD (S/P/Bld) [Vol rate/Area] 88 mL/min/{1.73_m2} >60 [facility] Comment on above: mL/min/1.73m2 CKD-EP I Creatinine Equation (2020) Hematocrit Auto (Bld) [Volum e fraction]Ordered By: Rebecca Raymond on 12-08-2024 Hematocrit (Bld) [Volume fraction] 40.1 % 37-47 [facility] Hemoglobin measurementOrdere d By: Rebecca Raymond on 12-08-2024 Hemoglobin (Bld) [Mass/Vol] 13.1 g/dL 12.0-15.0 [facility] Immature granulocytes/100 WB C Auto (Bld)Ordered By: Rebecca Raymond on 12-08-2024 Immature granulocytes/100 WBC (Bld) 0.500 % 0.0-0.9 [facility] Comment on above: IG% - Immature Granu locytes (promyelocytes, myelocytes and metamyelocytes) > 1% indicates that a LEFT SHIFT is Present. Lymphocytes Auto (Unsp spec) [#/Vol]Ordered By: Rebecca Carranzanathanmansi on 12-08-2024 Lymphocytes (Bld) [#/Vol] 1.22 10*3/uL 0.83-4.5 1 [facility] Lymphocytes/100 WBC Auto (Un sp spec)Ordered By: Mikalaevkamar Carranzanathanmansi on 12-08-2024 Lymphocytes/100 WBC (Bld) 7.4 % Low 19-41 [facility] MCV (mean corpuscular volume ) determinationOrdered By: Rebecca Carranzanathanmansi on 12-08-2024 MCV (RBC) [Entitic vol] 103.4 fL High 81-99 [facility] Mean corpuscular hemoglobin (MCH) determinationOrdered By: Rebecca Carranzanathanmansi on 12-08-2024 MCH (RBC) [Entitic mass] 33.8 pg High 27.0-32.0 [facility] Mean corpuscular hemoglobin concentration (MCHC) determinationOrdered By: Rebecca Raymond on 12-08-2024 MCHC (RBC) [Mass/Vol] 32.7 g/dL 32-36 [facility] Mean platelet volume determi nationOrdered By: Rebecca Carranzanathanmansi on 12-08-2024 Platelet mean volume (Bld) [Entitic vol] 12.9 fL High 6.2-12.0 [facility] Monocyte percentageOrdered B y: Rebecca Carranzanathanmansi on 12-08-2024 Monocytes/100 WBC (Bld) 8.7 % 0-10 [facility] Neutrophil percentageOrdered By: Rebecca Carranzanathanmansi on 12-08-2024 Neutrophils/100 WBC (Bld) 82.8 % High 47-70 [facility] Nucleated red blood cell per centageOrdered By: Mikalaevkamar Carranzanathanmansi on 12-08-2024 Nucleated RBC/100 WBC (Bld) [Ratio] 0 % 0-5 [facility] Platelet countOrdered By: Panda radhacharmaine Carranzanathanmansi on 12-08-2024 Platelets (Bld) [#/Vol] 119 10*3/uL Low 150-450 [facility] RBC Auto (Bld) [#/Vol]Ordere d By: Mikalaevkamar Carranzanathanmansi on 12-08-2024 RBC (Bld) [#/Vol] 3.88 10*6/uL Low 4.2-5.4 [facility] Serum creatinine measurement (mass/volume)Ordered By: Rebecca Raymond on 12-08-2024 Creatinine [Mass/Vol] 0.60 mg/dL Low 0.70-1.20 [facility] Serum glucose measurement (m ass/volume)Ordered By: Rebecca Raymond on 12-08-2024 Glucose [Mass/Vol] 118 mg/dL High 70-99 [facility] Serum or plasma anion gap de termination (moles/volume)Ordered By: Rebecca Raymond on 12-08-2024 Anion gap [Moles/Vol] 12 mmol/L 5-15 [facility] Serum or plasma calcium carmen urement (mass/volume)Ordered By: Rebecca Raymond on 12-08-2024 Calcium [Mass/Vol] 8.8 mg/dL 7.6-11.0 [facility] Serum or plasma potassium me asurementOrdered By: Rebecca Raymond on 12-08-2024 Potassium [Moles/Vol] 4.2 mmol/L 3.3-5.1 [facility] Comment on above: Hemolysis present, R esults could be affected. Serum or plasma sodium measu rement (moles/volume)Ordered By: Rebecca Raymond on 12-08-2024 Sodium [Moles/Vol] 136 mmol/L 133-145 [facility] Serum or plasma urea nitroge n measurement (mass/volume)Ordered By: Rebecca Raymond on 12-08-2024 Urea nitrogen [Mass/Vol] 25 mg/dL High 4- [facility] White blood cell (WBC) count Ordered By: Rebecca Raymond on 12-08-2024 WBC (Bld) [#/Vol] 16.5 10*3/uL High 4.4-11.0 [facility] Blood urea nitrogen (BUN)/cr eatinine ratioOrdered By: Rebecca Raymond on 11-29-2024 Urea nitrogen/Creatinine [Mass ratio] 58.2 mg/mg High 10-20 [facility] Carbon dioxide measurementOr dered By: Rebecca Raymond on 11-29-2024 CO2 [Moles/Vol] 29.0 mmol/L 21.0-32.0 [facility] Chloride measurementOrdered By: Rebecca Raymond on 11-29-2024 Chloride [Moles/Vol] 109 mmol/L High 98-107 [facility] Erythrocyte distribution wid th ratioOrdered By: Rebecca Raymond on 11-29-2024 Erythrocyte distribution width (RBC) [Ratio] 12.6 % 11.6-14.6 [facility] Erythrocyte distribution wid th standard deviationOrdered By: Rebecca Raymond on 11-29-2024 Erythrocyte distribution width (RBC) [Entitic vol] 49.7 fL High 35.1-43.9 [facility] Erythrocyte distribution width (RBC) [Ratio] 49.7 fl High 35.1-43.9 [facility] Estimated glomerular filtrat ion rate (GFR) AmericanOrdered By: Rebecca Raymond on 11-29-2024 Estimated GFR (MDRD) Amer 130 mL/min >60 [facility] Comment on above: GFR Calc Glomerular filtration rate ( GFR) estimationOrdered By: Rebecca Raymond on 11-29-2024 Estimated GFR (MDRD) Non-Af Amer 108 mL/min >60 [facility] Comment on above: Non- GFR Calc GFR/1.73 sq M.predicted among non-blacks MDRD (S/P/Bld) [Vol rate/Area] 108 mL/min/{1.73_m2} >60 [facility] Comment on above: Non- GFR Calc Glucose measurementOrdered B y: Rebecca Raymond on 11-29-2024 Glucose [Mass/Vol] 120 mg/dL High 74-106 [facility] Comment on above: Fasting Glucose resu lt from 100 to 125 mg/dL suggests IMPAIRED HOMEOSTASIS per A.D.A. criteria. Hematocrit Auto (Bld) [Volum e fraction]Ordered By: Rebecca Raymond on 11-29-2024 Hematocrit (Bld) [Volume fraction] 37.7 % 37-47 [facility] Hemoglobin measurementOrdere d By: Rebecca Raymond on 11-29-2024 Hemoglobin (Bld) [Mass/Vol] 11.7 g/dL Low 12.0-15.0 [facility] MCV (mean corpuscular volume ) determinationOrdered By: Rebecca Raymond on 11-29-2024 MCV (RBC) [Entitic vol] 107.1 fL High 81-99 [facility] Mean corpuscular hemoglobin (MCH) determinationOrdered By: Rebecca Raymond on 11-29-2024 MCH (RBC) [Entitic mass] 33.2 pg High 27.0-32.0 [facility] Mean corpuscular hemoglobin concentration (MCHC) determinationOrdered By: Rebecca Raymond on 11-29-2024 MCHC (RBC) [Mass/Vol] 31.0 g/dL Low 32-36 [facility] Mean platelet volume determi nationOrdered By: Rebecca Raymond on 11-29-2024 Platelet mean volume (Bld) [Entitic vol] 13.3 fL High 6.2-12.0 [facility] Platelet countOrdered By: Panda Raymond on 11-29-2024 Platelets (Bld) [#/Vol] 108 10*3/uL Low 150-450 [facility] Potassium measurementOrdered By: Rebecca Raymond on 11-29-2024 Potassium [Moles/Vol] 4.5 mmol/L 3.5-5.1 [facility] RBC Auto (Bld) [#/Vol]Ordere d By: Reebcca Raymond on 11-29-2024 RBC (Bld) [#/Vol] 3.52 10*6/uL Low 4.2-5.4 [facility] Serum anion gap measurementO rdered By: Rebecca Raymond on 11-29-2024 Anion gap [Moles/Vol] 6 mmol/L 5-15 [facility] Serum or plasma albumin carmen urement (mass/volume)Ordered By: Rebecca Raymond on 11-29-2024 Albumin [Mass/Vol] 2.6 g/dL Low 3.2-5.0 [facility] Serum or plasma calcium carmen urement (mass/volume)Ordered By: Rebecca Dillonnathanmansi on 11-29-2024 Calcium [Mass/Vol] 9.1 mg/dL 8.5-10.1 [facility] Serum or plasma creatinine m easurement (mass/volume)Ordered By: Rebecca Dillonnathanmansi on 11-29-2024 Creatinine [Mass/Vol] 0.57 mg/dL 0.55-1.02 [facility] Comment on above: The validity of the calculated GFR & GFRAA in patients over 70 years has not been determined. Clinical correlation is essential. Serum or plasma urea nitroge n measurement (mass/volume)Ordered By: [facility] Carranzanathanmansi on 11-29-2024 Urea nitrogen [Mass/Vol] 33 mg/dL High 7-18 [facility] Sodium levelOrdered By: Mikala Hallmansi on 11-29-2024 Sodium [Moles/Vol] 144 mmol/L 136-145 [facility] White blood cell (WBC) count Ordered By: Rebecca Dillonnathanmansi on 11-29-2024 WBC (Bld) [#/Vol] 4.1 10*3/uL Low 4.4-11.0 [facility] CNOVon 10-18-2024 CNOV Office Visit (GENSWS) ---- DARIANA VAZQUEZ ([id number]) 1940 F Date Time Provider Department 10/18/24 10:00 AM NOHEMI AZEVEDO [facility]ENS[facility] During your visit today, we recorded the following information about you: Calos Bowen MD 10/25/2024 5:11 AM Signed FOLLOW UP VISIT - PEG TUBE EVALUATION NAME: Dariana Vazquez [facility] NO.: [id number] DATE OF SERVICE: October 18, 2024 : 1940 REFERRING PHYSICIAN: Kimberly D Talampas, MD Dariana is a patient who had a PEG tube placed for dysphagia and aspiration risk in 2008. The tube has been replaced multiple times. I last replaced the tube in 2019. Dr. Crane was asked to evaluate the patient in May 2022 for was felt to be PEG tube malfunction. He noted the tube was intact and felt the issue was the patient pulling on the tube and recommended a binder. The patients caregivers have noted that they see what they think are cracks within the tube. Dariana presents for PEG tube removal/exchange. VITALS: There were no vitals taken for this visit. On examination, the PEG tube site is clean and intact. The buttress is loosened to 6 cm. There are tube feeds in the tube which are somewhat dried out and therefore give the appearance of the tube is correct. The tube was flushed it is intact and there are no further visual episodes of a crack. The tube is a 24 Malagasy tube (note that I had last replaced the tube with a 20 Malagasy tube) and the buttress was secured down to 4 cm at the skin. Assessment IMPRESSION: Status post PEG tube not requiring removal/replacament PLAN: If the patient notes any problems, abdominal pain or signs of wound infections, she should contact me immediately. I discussed with the caregiver that the retained tube end should pass spontaneously. If the patient seems to have any issues with nausea or vomiting, she should be taken to the ER and I should be contacted. I recommended the F obtain a 24 Malagasy PEG tube that when the catheter does fail we can change as we only have 20 Malagasy replacement since stock. Diagnoses: No diagnosis found. Return to Clinic: The patient is instructed to follow-up with me as needed. MD Candido Pritchett Kimberley, [employer]IST 10/25/2024 3:14 PM Signed FOLLOW UP VISIT - PEG TUBE REMOVAL NAME: Dariana Vazquez CLINIC NO.: [id number] DATE OF SERVICE: 10/18/2024 : 1940 REFERRING PHYSICIAN: Kimberly Farris MD Dariana is a patient who had a PEG tube placed for dysphagia and aspiration risk in 2008. The tube has been replaced multiple times. Dr. Bowen last replaced the tube in 2018. Dr. Crane was asked to evaluate the patient in May 2022 for was felt to be PEG tube malfunction. He noted the tube was intact and felt the issue was the patient pulling on the tube and recommended a binder. The patients caregivers have noted that they see what they think are cracks within the tube. Dariana presents for PEG tube removal/exchange. VITALS: There were no vitals taken for this visit. On examination, the PEG tube site is clean and intact. PROCEDURE: PEG TUBE REPLACEMENT The risks, benefits and anticipated outcomes of the procedure, the risks and benefits of the alternatives to the procedure, and the roles and tasks of the personnel to be involved, were discussed with the patient, and the patient consents to the procedure and agrees to proceed. April traction was placed on the PEG tube. It was removed without difficulty. There was no bleeding from the PEGF tube site. The tube was a 20Fr, removed in tact. A 20Fr tube was replaced without difficulty and patent with drainage upon insertion. Assessment IMPRESSION: Status post PEG tube replacement PLAN: If the patient notes any problems, abdominal pain or signs of wound infections, she should contact me immediately. We discussed that liquid or gastric contents may leak from the site for a few days. Diagnoses: (K94.23) PEG tube malfunction (HCC) (primary encounter diagnosis) Return to Clinic: The patient is instructed to follow-up with me as needed. Nohemi Azevedo APRN.ENVIRONMENTAL AIR SPECIALIST Allergies As of Date: 10/18/2024 Noted Allergy Reaction ADHESIVE 05/26/2011 2 - Rash CLINDAMYCIN 02/01/2014 16 - Unknown Date Reviewed: 10/18/2024 Reviewed by: Deb Oswald RN - Fully Assessed Reason for Visit: Consult [173] Cmt: Peg tube change Primary Visit Diagnosis:PEG tube malfunction (HCC) [K94.23] Prescriptions as of 10/25/2024 - magnesium hydroxide (MILK OF MAGNESIA) 400 mg/5 mL suspension 30 mL by PEG route once daily as needed. - ondansetron (ZOFRAN) 4 mg/5 mL solution Take 4 mg by mouth every 8 hours as needed for nausea/vomiting. - albuterol (PROVENTIL) 2.5 mg /3 mL (0.083 %) nebulizer solution Use 2.5 mg via nebulizer one time only. - bisacodyl (DULCOLAX) 10 mg supp 10 mg by RECTAL route once (more content not included)... Normal [facility] CNP[facility]20[facility] ---- DARIANA VAZQUEZ ([id number]) 1940 F Date Time Provider Department 08/31/24 CALOS BOWENJarad During your visit today, we recorded the following information about you: Margie Lynn LPN 08/31/2024 9:34 AM [facility] Did leave message for nursing staff to call General Surgery. Patient has appointment for PEG tube change 09/06/2024. Please verify that [facility] is sending 24 Malagasy PEG Tube with patient to appointment. MOLLY Pugh Kimberly, LPN 08/31/2024 1:00 PM Signed Called [employer]- left message with nurse line on [facility] where patient resides. No details left due to line not secure. MOLLY Pugh Mary, LPN 10/16/2024 10:51 AM Signed Called and spoke to Dariana's nurse and states will check if they have a 24 Malagasy peg tube, states will call us back to update. Marion Umaña LPN October 16, 2024 10:51 AM Allergies As of Date: 08/31/2024 Noted Allergy Reaction ADHESIVE 05/26/2011 2 - Rash CLINDAMYCIN 02/01/2014 16 - Unknown Date Reviewed: 01/01/2024 Reviewed by: Calos Bowen MD - Fully Assessed Reason for Visit: Appointment [186] Prescriptions as of 03/16/2025 - magnesium hydroxide (MILK OF MAGNESIA) 400 mg/5 mL suspension 30 mL by PEG route once daily as needed. - ondansetron (ZOFRAN) 4 mg/5 mL solution Take 4 mg by mouth every 8 hours as needed for nausea/vomiting. - albuterol (PROVENTIL) 2.5 mg /3 mL (0.083 %) nebulizer solution Use 2.5 mg via nebulizer one time only. - bisacodyl (DULCOLAX) 10 mg supp 10 mg by RECTAL route once daily as needed for constipation. - acetaminophen 325 mg cap 650 mg by PEG route four times a day as needed. - aluminum AND magnesium hydroxide-simethico ne (FABIAN-LANTA) 400-400-40 mg/5 mL suspension Take 15 mL by mouth every 4 hours as needed. - cholecalciferol (VITAMIN D3) 50 mcg (2,000 unit) tablet - cetirizine (ZYRTEC) 1 mg/mL syrup 5 mg by G-TUBE route once daily. - COMPOUNDED PRESCRIPTION Calci-Chew Tablet. Crush half a pill and dissolve in 240 cc water and put through PEG tube daily - nystatin-triamcinol one cream Apply 1 application to affected area twice daily. Apply to rash under breasts for candidal infection for up to 2 weeks. - nystatin (MYCOSTATIN) powder Apply in folds of skin twice weekly - Food Supplement, Lactose-Free (JEVITY) Liqd 1.5 trever. 4 cans daily through peg tube 787.2 319 - COMPOUNDED PRESCRIPTION Prevail Pull UPs (extra large) - Dx: Mixed urge and stress incontinence - 56 pullups/month, extra large.and case large Diagnosos: 788.33 7 per day - COMPOUNDED PRESCRIPTION Prevail Breezers Large 72 / case One case per month Urge and Stress Urinary Incontinence 788.33 - Polyethylene Glycol 3350 (MIRALAX) 17 gram/dose powder Dissolve 1 scoop (17 grams of miralax) in 240 cc of liquid via peg tube daily as needed - syringe (SYRINGE) 60 mL Misc Syrg For PEG tube feeding and flushes DX 787.2 319 - COMPOUNDED PRESCRIPTION 4x4 drain sponges-change daily-787.20 - gly/dimeth/petrolat ,wht/water(CETAPHIL MOISTURIZING TOPICAL CREAM) apply topically sm amt for rash to legs twice weekly Problem List As Of Date 08/31/2024 Noted Resolved Urinary tract infection, site not specified [N3* 07/15/2016 MENTAL RETARDATION NOS [F79] Osteopenia [M89.9, M94.9] 08/10/2005 URGE AND STRESS MIXED INCONTINENCE [N39.46] 08/10/2005 PAIN IN LIMB [M79.609] 08/25/2005 08/01/2007 DERMATOPHYTOSIS OF NAIL [B35.1] 08/25/2005 ATHEROSCLER ART [place] EXTREM UNSP [I70.209] 08/20/2006 SPRAIN OF ANKLE NOS [S93.409A] 11/18/2006 08/01/2007 COMPLIC-RESPIR SYST [997.3] GENERAL OSTEOARTHROSIS [M15.9] 02/04/2007 VITAMIN D DEFICIENCY NOS [E55.9] 08/17/2007 PAIN IN LIMB [M79.609] 09/14/2007 DERMATOPHYTOSIS OF FOOT [B35.3] 02/06/2008 CHRONIC CYSTITIS NEC [N30.20] 08/30/2008 ATROPHIC VAGINITIS [N95.2] 08/30/2008 ATTEN TO ENTEROSTOMY NEC [Z43.4] 12/20/2008 DYSPHAGIA s/p PEG placement [R13.10] 02/19/2009 Esophageal Reflux [K21.9] 10/31/2009 Macular degeneration [H35.30] 07/22/2011 Malfunction of gastrostomy tube [K94.23] 09/30/2011 Rosacea [L71.9] 09/13/2012 Cholelithiasis without obstruction [K80.20] 09/13/2012 Pneumonia [J18.9] 08/26/2013 Agitation [R45.1] 10/17/2014 Acute respiratory infection [J22] 11/12/2014 Hypoxia (HCC) [R09.02] 11/12/2014 Down's syndrome [Q90.9] 09/17/2015 Essential hypertension [I10] 09/17/2015 Oral phase dysphagia [R13.11] 09/17/2015 Essential hypertension, malignant [I10] 11/05/2015 07/15/2016 Dysphagia [R13.10] 12/30/2015 Rhinorrhea [J34.89] 12/30/2015 Acute asthmatic bronchitis [J45.909] 04/14/2016 G tube feedings (HCC) [Z93.1] 06/15/2017 Cough [R05.9] 07/14/2017 History of aspiration pneumonia [Z87.01] 01/20/2018 Chest congestion [R09.89] 04/18/2018 Rash of face [R2 (more content not included)... Normal [facility] Blood urea nitrogen (BUN)/cr eatinine ratioOrdered By: Rebecca Raymond on 08-30-2024 Urea nitrogen/Creatinine [Mass ratio] 54.7 mg/mg High - [facility] Carbon dioxide measurementOr dered By: Rebecca Raymond on 08-30-2024 CO2 [Moles/Vol] 29.0 mmol/L 21.0-32.0 [facility] Chloride measurementOrdered By: Rebecca Raymond on 08-30-2024 Chloride [Moles/Vol] 110 mmol/L High 98-107 [facility] Erythrocyte distribution wid th ratioOrdered By: Rebecca Raymond on 08-30-2024 Erythrocyte distribution width (RBC) [Ratio] 13.1 % 11.6-14.6 [facility] Erythrocyte distribution wid th standard deviationOrdered By: Rebecca Raymond on 08-30-2024 Erythrocyte distribution width (RBC) [Entitic vol] 49.8 fL High 35.1-43.9 [facility] Estimated glomerular filtrat ion rate (GFR) AmericanOrdered By: Rebecca Raymond on 08-30-2024 Estimated GFR (MDRD) Amer 117 mL/min >60 [facility] Comment on above: GFR Calc Glomerular filtration rate ( GFR) estimationOrdered By: Rebecca Raymond on 08-30-2024 Estimated GFR (MDRD) Non-Af Amer 97 mL/min >60 [facility] Comment on above: Non- GFR Calc Glucose measurementOrdered B y: Rebecca Raymond on 08-30-2024 Glucose [Mass/Vol] 97 mg/dL 74-106 [facility] Hematocrit Auto (Bld) [Volum e fraction]Ordered By: Rebecca Raymond on 08-30-2024 Hematocrit (Bld) [Volume fraction] 39.0 % 37-47 [facility] Hemoglobin measurementOrdere d By: Rebecca Raymond on 08-30-2024 Hemoglobin (Bld) [Mass/Vol] 12.5 g/dL 12.0-15.0 [facility] MCV (mean corpuscular volume ) determinationOrdered By: Rebecca Raymond on 08-30-2024 MCV (RBC) [Entitic vol] 104.3 fL High 81-99 [facility] Mean corpuscular hemoglobin (MCH) determinationOrdered By: Rebecca Raymond on 08-30-2024 MCH (RBC) [Entitic mass] 33.4 pg High 27.0-32.0 [facility] Mean corpuscular hemoglobin concentration (MCHC) determinationOrdered By: Rebecca Raymond on 08-30-2024 MCHC (RBC) [Mass/Vol] 32.1 g/dL 32-36 [facility] Mean platelet volume determi nationOrdered By: Rebecca Raymond on 08-30-2024 Platelet mean volume (Bld) [Entitic vol] 13.2 fL High 6.2-12.0 [facility] Platelet countOrdered By: Panda Raymond on 08-30-2024 Platelets (Bld) [#/Vol] 120 10*3/uL Low 150-450 [facility] Potassium measurementOrdered By: Rebecca Raymond on 08-30-2024 Potassium [Moles/Vol] 4.4 mmol/L 3.5-5.1 [facility] RBC Auto (Bld) [#/Vol]Ordere d By: Rebecca Raymond on 08-30-2024 RBC (Bld) [#/Vol] 3.74 10*6/uL Low 4.2-5.4 [facility] Serum anion gap measurementO rdered By: Rebecca Raymond on 08-30-2024 Anion gap [Moles/Vol] 4 mmol/L Low 5-15 [facility] Serum or plasma albumin carmen urement (mass/volume)Ordered By: Rebecca Raymond on 08-30-2024 Albumin [Mass/Vol] 2.8 g/dL Low 3.2-5.0 [facility] Serum or plasma calcium carmen urement (mass/volume)Ordered By: Rebecca Raymond on 08-30-2024 Calcium [Mass/Vol] 9.1 mg/dL 8.5-10.1 [facility] Serum or plasma creatinine m easurement (mass/volume)Ordered By: Rebecca Carranzanathanmansi on 08-30-2024 Creatinine [Mass/Vol] 0.62 mg/dL 0.55-1.02 [facility] Comment on above: The validity of the calculated GFR & GFRAA in patients over 70 years has not been determined. Clinical correlation is essential. Serum or plasma urea nitroge n measurement (mass/volume)Ordered By: Rebecca Raymond on 08-30-2024 Urea nitrogen [Mass/Vol] 34 mg/dL High 7-18 [facility] Sodium levelOrdered By: Mikala charmaine Dillonnathanmansi on 08-30-2024 Sodium [Moles/Vol] 142 mmol/L 136-145 [facility] White blood cell (WBC) count Ordered By: Rebecca Raymond on 08-30-2024 WBC (Bld) [#/Vol] 5.6 10*3/uL 4.4-11.0 [facility] Basophil percentageOrdered B y: Rebecca Raymond on 12-01-2023 Chloride [Moles/Vol] 110 mmol/L 98-107 [facility] Glucose [Mass/Vol] 118 mg/dL 74-106 [facility] Comment on above: Fasting Glucose resu lt from 100 to 125 mg/dL suggests IMPAIRED HOMEOSTASIS per A.D.A. criteria. Hemoglobin (Bld) [Mass/Vol] 12.9 g/dL 12.0-15.0 [facility] Potassium [Moles/Vol] 4.3 mmol/L 3.5-5.1 [facility] Sodium [Moles/Vol] 140 mmol/L 136-145 [facility] WBC (Bld) [#/Vol] 4.2 10*3/uL 4.4-11.0 [facility] Determination of erythrocyte mean corpuscular volume (MCV)Ordered By: Rebecca Raymond on 12-01-2023 MCV (RBC) [Entitic vol] 106.1 fL 81-99 [facility] Erythrocyte distribution wid th ratioOrdered By: Rebecca Raymond on 12-01-2023 Erythrocyte distribution width (RBC) [Ratio] 12.5 % 11.6-14.6 [facility] Erythrocyte distribution wid th standard deviationOrdered By: Rebecca Raymond on 12-01-2023 Erythrocyte distribution width (RBC) [Entitic vol] 49.2 fL 35.1-43.9 [facility] Hematocrit Auto (Bld) [Volum e fraction]Ordered By: Rebecca Raymond on 12-01-2023 Hematocrit (Bld) [Volume fraction] 39.9 % 37-47 [facility] Laboratory - Chemistry and C hemistry - challengeOrdered By: Mikalabostonkamar Raymond on 12-01-2023 CO2 [Moles/Vol] 25.0 mmol/L 21.0-32.0 [facility] Urea nitrogen/Creatinine [Mass ratio] 50.8 mg/mg 10-20 [facility] Laboratory - Hematology and Cell countsOrdered By: Rebecca Raymond on 12-01-2023 MCH (RBC) [Entitic mass] 34.3 pg 27.0-32.0 [facility] MCHC (RBC) [Mass/Vol] 32.3 g/dL 32-36 [facility] Platelet mean volume (Bld) [Entitic vol] 13.3 fL 6.2-12.0 [facility] Platelets (Bld) [#/Vol] 105 10*3/uL 150-450 [facility] No Panel InformationOrdered By: Rebecca Raymond on 12-01-2023 Estimated GFR (MDRD) Amer 104 mL/min >60 [facility] Comment on above: GFR Calc Estimated GFR (MDRD) Non-Af Amer 86 mL/min >60 [facility] Comment on above: Non- GFR Calc RBC Auto (Bld) [#/Vol]Ordere d By: Rebecca Raymond on 12-01-2023 RBC (Bld) [#/Vol] 3.76 10*6/uL 4.2-5.4 [facility] Serum or plasma calcium carmen urement (mass/volume)Ordered By: Rebecca Raymond on 12-01-2023 Calcium [Mass/Vol] 9.0 mg/dL 8.5-10.1 [facility] Serum or plasma creatinine m easurement (mass/volume)Ordered By: Rebecca Raymond on 12-01-2023 Creatinine [Mass/Vol] 0.69 mg/dL 0.55-1.02 [facility] Comment on above: The validity of the calculated GFR & GFRAA in patients over 70 years has not been determined. Clinical correlation is essential. Serum or plasma urea nitroge n measurement (mass/volume)Ordered By: Rebecca Raymond on 12-01-2023 Urea nitrogen [Mass/Vol] 35 mg/dL 7-18 [facility] Thin prep Papanicolaou smear with manual screeningOrdered By: Rebecca Raymond on 12-01-2023 Thin prep Papanicolaou smear with manual screening 2.8 g/dL 3.2-5.0 [facility] Thin prep Papanicolaou smear with manual screening 5 5-15 [facility] Basophil percentageOrdered B y: Rebecca Raymond on 11-22-2023 Chloride [Moles/Vol] 108 mmol/L 98-107 [facility] Glucose [Mass/Vol] 118 mg/dL 74-106 [facility] Comment on above: Fasting Glucose resu lt from 100 to 125 mg/dL suggests IMPAIRED HOMEOSTASIS per A.D.A. criteria. Potassium [Moles/Vol] 4.7 mmol/L 3.5-5.1 [facility] Sodium [Moles/Vol] 140 mmol/L 136-145 [facility] Laboratory - Chemistry and C hemistry - challengeOrdered By: Rebecca Raymond on 11-22-2023 CO2 [Moles/Vol] 27.0 mmol/L 21.0-32.0 [facility] Urea nitrogen/Creatinine [Mass ratio] 54.7 mg/mg 10-20 [facility] No Panel InformationOrdered By: Rebecca Raymond on 11-22-2023 Estimated GFR (MDRD) Amer 117 mL/min >60 [facility] Comment on above: GFR Calc Estimated GFR (MDRD) Non-Af Amer 97 mL/min >60 [facility] Comment on above: Non- GFR Calc Serum or plasma calcium carmen urement (mass/volume)Ordered By: Rebecca Raymond on 11-22-2023 Calcium [Mass/Vol] 8.6 mg/dL 8.5-10.1 [facility] Serum or plasma creatinine m easurement (mass/volume)Ordered By: Rebecca Raymond on 11-22-2023 Creatinine [Mass/Vol] 0.62 mg/dL 0.55-1.02 [facility] Comment on above: The validity of the calculated GFR & GFRAA in patients over 70 years has not been determined. Clinical correlation is essential. Serum or plasma urea nitroge n measurement (mass/volume)Ordered By: Rebecca Raymond on 11-22-2023 Urea nitrogen [Mass/Vol] 34 mg/dL 7-18 [facility] Thin prep Papanicolaou smear with manual screeningOrdered By: Rebecca Raymond on 11-22-2023 Thin prep Papanicolaou smear with manual screening 5 5-15 [facility] Basophil percentageOrdered B y: Rebecca Raymond on 08-26-2023 WBC (Bld) [#/Vol] 4.6 10*3/uL 4.4-11.0 [facility] Blood erythrocytes count (nu mber/volume)Ordered By: Rebecca Raymond on 08-26-2023 RBC (Bld) [#/Vol] 3.71 10*6/uL 4.2-5.4 [facility] Blood hemoglobin measurement (mass/volume)Ordered By: Rebecca Raymond on 08-26-2023 Hemoglobin (Bld) [Mass/Vol] 12.5 g/dL 12.0-15.0 [facility] Blood platelet mean volumeOr dered By: Rebecca Raymond on 08-26-2023 Platelet mean volume (Bld) [Entitic vol] 14.1 fL 6.2-12.0 [facility] Determination of erythrocyte mean corpuscular volume (MCV)Ordered By: Rebecca Raymond on 08-26-2023 MCV (RBC) [Entitic vol] 105.7 fL 81-99 [facility] Hematocrit Auto (Bld) [Volum e fraction]Ordered By: Pandaradhaevkamar Raymond on 08-26-2023 Hematocrit (Bld) [Volume fraction] 39.2 % 37-47 [facility] Laboratory - Hematology and Cell countsOrdered By: Rebecca Raymond on 08-26-2023 Erythrocyte distribution width (RBC) [Entitic vol] 49.6 fL 35.1-43.9 [facility] Erythrocyte distribution width (RBC) [Ratio] 12.7 % 11.6-14.6 [facility] MCH (RBC) [Entitic mass] 33.7 pg 27.0-32.0 [facility] MCHC Auto (RBC) [Mass/Vol]Or dered By: Rebecca Raymond on 08-26-2023 MCHC (RBC) [Mass/Vol] 31.9 g/dL 32-36 [facility] Platelets bldOrdered By: Bean marikamar Raymond on 08-26-2023 Platelets (Bld) [#/Vol] 107 10*3/uL 150-450 [facility] Basophil percentageOrdered B y: Rebecca Raymond on 08-25-2023 Chloride [Moles/Vol] 107 mmol/L 98-107 [facility] Glucose [Mass/Vol] 109 mg/dL 74-106 [facility] Comment on above: Fasting Glucose resu lt from 100 to 125 mg/dL suggests IMPAIRED HOMEOSTASIS per A.D.A. criteria. Potassium [Moles/Vol] 5.3 mmol/L 3.5-5.1 [facility] Sodium [Moles/Vol] 136 mmol/L 136-145 [facility] Laboratory - Chemistry and C hemistry - challengeOrdered By: Rebecca Raymond on 08-25-2023 CO2 [Moles/Vol] 25.0 mmol/L 21.0-32.0 [facility] Urea nitrogen/Creatinine [Mass ratio] 53.2 mg/mg 10-20 [facility] No Panel InformationOrdered By: Rebecca Raymond on 11-15-2023 Estimated GFR (MDRD) Amer 122 mL/min >60 [facility] Comment on above: GFR Calc Estimated GFR (MDRD) Non-Af Amer 101 mL/min >60 [facility] Comment on above: Non- GFR Calc Serum or plasma albumin carmen urement (mass/volume)Ordered By: Rebecca Raymond on 08-25-2023 Albumin [Mass/Vol] 2.4 g/dL 3.2-5.0 [facility] Serum or plasma calcium carmen urement (mass/volume)Ordered By: Rebecca Raymond on 08-25-2023 Calcium [Mass/Vol] 8.0 mg/dL 8.5-10.1 [facility] Serum or plasma creatinine m easurement (mass/volume)Ordered By: Rebecca Raymond on 08-25-2023 Creatinine [Mass/Vol] 0.60 mg/dL 0.55-1.02 [facility] Comment on above: The validity of the calculated GFR & GFRAA in patients over 70 years has not been determined. Clinical correlation is essential. Serum or plasma urea nitroge n measurement (mass/volume)Ordered By: Rebecca Raymond on 08-25-2023 Urea nitrogen [Mass/Vol] 32 mg/dL 7-18 [facility] Thin prep Papanicolaou smear with manual screeningOrdered By: radhabostonkamar Raymond on 08-25-2023 Thin prep Papanicolaou smear with manual screening 4 5-15 [facility] Absolute lymphocyte countOrd ered By: Rebecca Raymond on 06-07-2023 Lymphocytes Auto (Unsp spec) [#/Vol] 1.38 10*3/uL 0.83-4.51 [facility] Basophil percentageOrdered B y: Rebecca Raymond on 06-07-2023 Basophils/100 WBC (Bld) 0.4 % 0-1 [facility] Chloride [Moles/Vol] 105 mmol/L 98-107 [facility] Eosinophils/100 WBC (Bld) 4.5 % 0-5 [facility] Glucose [Mass/Vol] 96 mg/dL 74-106 [facility] Neutrophils (Bld) [#/Vol] 2.4 10*3/uL 2.0-7.7 [facility] Neutrophils/100 WBC (Bld) 53.3 % 47-70 [facility] Potassium [Moles/Vol] 4.0 mmol/L 3.5-5.1 [facility] Sodium [Moles/Vol] 140 mmol/L 136-145 [facility] WBC (Bld) [#/Vol] 4.5 10*3/uL 4.4-11.0 [facility] Blood erythrocytes count (nu mber/volume)Ordered By: Rebecca Raymond on 06-07-2023 RBC (Bld) [#/Vol] 3.93 10*6/uL 4.2-5.4 [facility] Blood hemoglobin measurement (mass/volume)Ordered By: Rebecca Raymond on 06-07-2023 Hemoglobin (Bld) [Mass/Vol] 13.2 g/dL 12.0-15.0 [facility] Blood lymphocytes/100 leukoc ytesOrdered By: Rebecca Raymond on 06-07-2023 Lymphocytes/100 WBC (Bld) 30.7 % 19-41 [facility] Blood monocytes/100 leukocyt esOrdered By: Rebecca Raymond on 06-07-2023 Monocytes/100 WBC (Bld) 10.9 % 0-10 [facility] Blood platelet mean volumeOr dered By: Rebecca Raymond on 06-07-2023 Platelet mean volume (Bld) [Entitic vol] 12.9 fL 6.2-12.0 [facility] Determination of erythrocyte mean corpuscular volume (MCV)Ordered By: Rebecca Raymond on 06-07-2023 MCV (RBC) [Entitic vol] 107.6 fL 81-99 [facility] Hematocrit Auto (Bld) [Volum e fraction]Ordered By: Rebecca Raymond on 06-07-2023 Hematocrit (Bld) [Volume fraction] 42.3 % 37-47 [facility] Laboratory - Chemistry and C hemistry - challengeOrdered By: Rebecca Raymond on 06-07-2023 CO2 [Moles/Vol] 31.0 mmol/L 21.0-32.0 [facility] Urea nitrogen/Creatinine [Mass ratio] 51.3 mg/mg 10-20 [facility] Laboratory - Hematology and Cell countsOrdered By: Rebecca Raymond on 06-07-2023 Erythrocyte distribution width (RBC) [Entitic vol] 49.3 fL 35.1-43.9 [facility] Erythrocyte distribution width (RBC) [Ratio] 12.3 % 11.6-14.6 [facility] Immature granulocytes/100 WBC (Bld) 0.200 % 0.0-0.9 [facility] Comment on above: IG% - Immature Granu locytes (promyelocytes, myelocytes and metamyelocytes) > 1% indicates that a LEFT SHIFT is Present. MCH (RBC) [Entitic mass] 33.6 pg 27.0-32.0 [facility] Nucleated RBC/100 WBC (Bld) [Ratio] 0 % 0-5 [facility] MCHC Auto (RBC) [Mass/Vol]Or dered By: Rebecca Raymond on 06-07-2023 MCHC (RBC) [Mass/Vol] 31.2 g/dL 32-36 [facility] No Panel InformationOrdered By: Rebecca Raymond on 06-07-2023 Estimated GFR (MDRD) Amer 117 mL/min >60 [facility] Comment on above: GFR Calc Estimated GFR (MDRD) Non-Af Amer 97 mL/min >60 [facility] Comment on above: Non- GFR Calc Platelets bldOrdered By: Bean Raymond on 06-07-2023 Platelets (Bld) [#/Vol] 132 10*3/uL 150-450 [facility] Serum or plasma calcium carmen urement (mass/volume)Ordered By: Rebecca Raymond on 06-07-2023 Calcium [Mass/Vol] 8.9 mg/dL 8.5-10.1 [facility] Serum or plasma creatinine m easurement (mass/volume)Ordered By: Rebecca Raymond on 06-07-2023 Creatinine [Mass/Vol] 0.62 mg/dL 0.55-1.02 [facility] Comment on above: The validity of the calculated GFR & GFRAA in patients over 70 years has not been determined. Clinical correlation is essential. Serum or plasma urea nitroge n measurement (mass/volume)Ordered By: Rebecca Raymond on 06-07-2023 Urea nitrogen [Mass/Vol] 32 mg/dL 7-18 [facility] Thin prep Papanicolaou smear with manual screeningOrdered By: Rebecca Raymond on 06-07-2023 Thin prep Papanicolaou smear with manual screening 4 5-15 [facility] Basophil percentageOrdered B y: Rebecca Raymond on 06-02-2023 Chloride [Moles/Vol] 102 mmol/L 98-107 [facility] Glucose [Mass/Vol] 91 mg/dL 74-106 [facility] Potassium [Moles/Vol] 4.1 mmol/L 3.5-5.1 [facility] Comment on above: Slight Hemolysis, Re sult may be falsely increased. Sodium [Moles/Vol] 134 mmol/L 136-145 [facility] WBC (Bld) [#/Vol] 4.9 10*3/uL 4.4-11.0 [facility] Blood erythrocytes count (nu mber/volume)Ordered By: Rebecca Raymond on 06-02-2023 RBC (Bld) [#/Vol] 3.99 10*6/uL 4.2-5.4 [facility] [facility] Blood hemoglobin measurement (mass/volume)Ordered By: Rebecca Raymond on 06-02-2023 Hemoglobin (Bld) [Mass/Vol] 13.4 g/dL 12.0-15.0 [facility] Blood manual differential co mment interpretation (narrative result)Ordered By: Rebecca Raymond on 06-02-2023 Manual differential comment Barrera (Bld) [Interp] COMMENT [facility] Comment on above: PLT POPULATION - MOD ERATELY DECREASED. Blood platelet mean volumeOr dered By: Rebecca Raymond on 06-02-2023 Platelet mean volume (Bld) [Entitic vol] 14.3 fL 6.2-12.0 [facility] Determination of erythrocyte mean corpuscular volume (MCV)Ordered By: Rebecca Raymond on 06-02-2023 MCV (RBC) [Entitic vol] 105.5 fL 81-99 [facility] Hematocrit Auto (Bld) [Volum e fraction]Ordered By: Rebecca Raymond on 06-02-2023 Hematocrit (Bld) [Volume fraction] 42.1 % 37-47 [facility] Laboratory - Chemistry and C hemistry - challengeOrdered By: Rebecca Raymond on 06-02-2023 CO2 [Moles/Vol] 30.0 mmol/L 21.0-32.0 [facility] Urea nitrogen/Creatinine [Mass ratio] 49.2 mg/mg 10-20 [facility] Laboratory - Hematology and Cell countsOrdered By: Rebecca Raymond on 06-02-2023 Erythrocyte distribution width (RBC) [Entitic vol] 47.8 fL 35.1-43.9 [facility] Erythrocyte distribution width (RBC) [Ratio] 12.1 % 11.6-14.6 [facility] MCH (RBC) [Entitic mass] 33.6 pg 27.0-32.0 [facility] MCHC Auto (RBC) [Mass/Vol]Or dered By: Rebecca Raymond on 06-02-2023 MCHC (RBC) [Mass/Vol] 31.8 g/dL 32-36 [facility] No Panel InformationOrdered By: Rebecca Raymond on 06-02-2023 Estimated GFR (MDRD) Amer 120 mL/min >60 [facility] Comment on above: GFR Calc Estimated GFR (MDRD) Non-Af Amer 99 mL/min >60 [facility] Comment on above: Non- GFR Calc Platelets bldOrdered By: Bean Raymond on 06-02-2023 Platelets (Bld) [#/Vol] 96 10*3/uL 150-450 [facility] Serum or plasma albumin carmen urement (mass/volume)Ordered By: Rebecca Raymond on 06-02-2023 Albumin [Mass/Vol] 3.1 g/dL 3.2-5.0 [facility] Serum or plasma calcium carmen urement (mass/volume)Ordered By: Rebecca Raymond on 06-02-2023 Calcium [Mass/Vol] 9.0 mg/dL 8.5-10.1 [facility] Serum or plasma creatinine m easurement (mass/volume)Ordered By: Rebecca Raymond on 06-02-2023 Creatinine [Mass/Vol] 0.61 mg/dL 0.55-1.02 [facility] Comment on above: The validity of the calculated GFR & GFRAA in patients over 70 years has not been determined. Clinical correlation is essential. Serum or plasma urea nitroge n measurement (mass/volume)Ordered By: Rebecca Raymond on 06-02-2023 Urea nitrogen [Mass/Vol] 30 mg/dL 7-18 [facility] Thin prep Papanicolaou smear with manual screeningOrdered By: Rebecca Raymond on 06-02-2023 Thin prep Papanicolaou smear with manual screening 2 5-15 [facility] Basophil percentageOrdered B y: Rebecca Raymond on 03-03-2023 Chloride [Moles/Vol] 107 mmol/L 98-107 [facility] Glucose [Mass/Vol] 100 mg/dL 74-106 [facility] Comment on above: Fasting Glucose resu lt from 100 to 125 mg/dL suggests IMPAIRED HOMEOSTASIS per A.D.A. criteria. Potassium [Moles/Vol] 3.9 mmol/L 3.5-5.1 [facility] Sodium [Moles/Vol] 141 mmol/L 136-145 [facility] WBC (Bld) [#/Vol] 5.0 10*3/uL 4.4-11.0 [facility] Blood erythrocytes count (nu mber/volume)Ordered By: Rebecca Raymond on 03-03-2023 RBC (Bld) [#/Vol] 4.00 10*6/uL 4.2-5.4 [facility] Blood hemoglobin measurement (mass/volume)Ordered By: Rebecca Raymond on 03-03-2023 Hemoglobin (Bld) [Mass/Vol] 13.4 g/dL 12.0-15.0 [facility] Blood platelet mean volumeOr dered By: Rebecca Raymond on 03-03-2023 Platelet mean volume (Bld) [Entitic vol] 13.4 fL 6.2-12.0 [facility] Determination of erythrocyte mean corpuscular volume (MCV)Ordered By: Rebecca Raymond on 03-03-2023 MCV (RBC) [Entitic vol] 108.3 fL 81-99 [facility] Hematocrit Auto (Bld) [Volum e fraction]Ordered By: Rebecca Raymond on 03-03-2023 Hematocrit (Bld) [Volume fraction] 43.3 % 37-47 [facility] Laboratory - Chemistry and C hemistry - challengeOrdered By: Rebecca Raymond on 03-03-2023 CO2 [Moles/Vol] 27.0 mmol/L 21.0-32.0 [facility] Urea nitrogen/Creatinine [Mass ratio] 45.8 mg/mg 10-20 [facility] Laboratory - Hematology and Cell countsOrdered By: Rebecca Raymond on 03-03-2023 Erythrocyte distribution width (RBC) [Entitic vol] 53.1 fL 35.1-43.9 [facility] Erythrocyte distribution width (RBC) [Ratio] 13.1 % 11.6-14.6 [facility] MCH (RBC) [Entitic mass] 33.5 pg 27.0-32.0 [facility] MCHC Auto (RBC) [Mass/Vol]Or dered By: Rebecca Raymond on 03-03-2023 MCHC (RBC) [Mass/Vol] 30.9 g/dL 32-36 [facility] No Panel InformationOrdered By: Rebecca Raymond on 03-03-2023 Estimated GFR (MDRD) Amer 111 mL/min >60 [facility] Comment on above: GFR Calc Estimated GFR (MDRD) Non-Af Amer 92 mL/min >60 [facility] Comment on above: Non- GFR Calc Platelets bldOrdered By: Bean Raymond on 03-03-2023 Platelets (Bld) [#/Vol] 143 10*3/uL 150-450 [facility] Serum or plasma albumin carmen urement (mass/volume)Ordered By: Rebecca Raymond on 03-03-2023 Albumin [Mass/Vol] 3.1 g/dL 3.2-5.0 [facility] Serum or plasma calcium carmen urement (mass/volume)Ordered By: Rebecca Raymond on 03-03-2023 Calcium [Mass/Vol] 9.3 mg/dL 8.5-10.1 [facility] Serum or plasma creatinine m easurement (mass/volume)Ordered By: Rebecca Raymond on 03-03-2023 Creatinine [Mass/Vol] 0.66 mg/dL 0.55-1.02 [facility] Comment on above: The validity of the calculated GFR & GFRAA in patients over 70 years has not been determined. Clinical correlation is essential. Serum or plasma urea nitroge n measurement (mass/volume)Ordered By: Rebecca Raymond on 03-03-2023 Urea nitrogen [Mass/Vol] 30 mg/dL 7-18 [facility] Thin prep Papanicolaou smear with manual screeningOrdered By: Rebecca Raymond on 03-03-2023 Thin prep Papanicolaou smear with manual screening 7 5-15 [facility] Basophil percentageOrdered B y: Rebecca Raymond on 12-02-2022 Chloride [Moles/Vol] 106 mmol/L 98-107 [facility] Glucose [Mass/Vol] 97 mg/dL 74-106 [facility] Potassium [Moles/Vol] 4.4 mmol/L 3.5-5.1 [facility] Sodium [Moles/Vol] 140 mmol/L 136-145 [facility] WBC (Bld) [#/Vol] 4.3 10*3/uL 4.4-11.0 [facility] Blood erythrocytes count (nu mber/volume)Ordered By: Rebecca Raymond on 12-02-2022 RBC (Bld) [#/Vol] 4.15 10*6/uL 4.2-5.4 [facility] Blood hemoglobin measurement (mass/volume)Ordered By: Rebecca Raymond on 12-02-2022 Hemoglobin (Bld) [Mass/Vol] 13.8 g/dL 12.0-15.0 [facility] Blood platelet mean volumeOr dered By: Rebecca Raymond on 12-02-2022 Platelet mean volume (Bld) [Entitic vol] 13.5 fL 6.2-12.0 [facility] Determination of erythrocyte mean corpuscular volume (MCV)Ordered By: Rebecca Raymond on 12-02-2022 MCV (RBC) [Entitic vol] 108.0 fL 81-99 [facility] Hematocrit Auto (Bld) [Volum e fraction]Ordered By: Rebecca Raymond on 12-02-2022 Hematocrit (Bld) [Volume fraction] 44.8 % 37-47 [facility] Laboratory - Chemistry and C hemistry - challengeOrdered By: Rebecca Raymond on 12-02-2022 CO2 [Moles/Vol] 28.0 mmol/L 21.0-32.0 [facility] Urea nitrogen/Creatinine [Mass ratio] 57.8 mg/mg 10-20 [facility] Laboratory - Hematology and Cell countsOrdered By: Rebecca Raymond on 12-02-2022 Erythrocyte distribution width (RBC) [Entitic vol] 51.0 fL 35.1-43.9 [facility] Erythrocyte distribution width (RBC) [Ratio] 12.9 % 11.6-14.6 [facility] MCH (RBC) [Entitic mass] 33.3 pg 27.0-32.0 [facility] MCHC Auto (RBC) [Mass/Vol]Or dered By: Rebecca Raymond on 12-02-2022 MCHC (RBC) [Mass/Vol] 30.8 g/dL 32-36 [facility] No Panel InformationOrdered By: Rebecca Raymond on 12-02-2022 Estimated GFR (MDRD) Amer 114 mL/min >60 [facility] Comment on above: GFR Calc Estimated GFR (MDRD) Non-Af Amer 94 mL/min >60 [facility] Comment on above: Non- GFR Calc Platelets bldOrdered By: Bean Raymond on 12-02-2022 Platelets (Bld) [#/Vol] 127 10*3/uL 150-450 [facility] Serum or plasma albumin carmen urement (mass/volume)Ordered By: Rebecca Raymond on 12-02-2022 Albumin [Mass/Vol] 2.9 g/dL 3.2-5.0 [facility] Serum or plasma calcium carmen urement (mass/volume)Ordered By: Rebecca Raymond on 12-02-2022 Calcium [Mass/Vol] 9.1 mg/dL 8.5-10.1 [facility] Serum or plasma creatinine m easurement (mass/volume)Ordered By: Rebecca Raymond on 12-02-2022 Creatinine [Mass/Vol] 0.64 mg/dL 0.55-1.02 [facility] Comment on above: The validity of the calculated GFR & GFRAA in patients over 70 years has not been determined. Clinical correlation is essential. Serum or plasma urea nitroge n measurement (mass/volume)Ordered By: Rebecca Raymond on 12-02-2022 Urea nitrogen [Mass/Vol] 37 mg/dL 7-18 [facility] Thin prep Papanicolaou smear with manual screeningOrdered By: Rebecca Raymond on 12-02-2022 Thin prep Papanicolaou smear with manual screening 6 5-15 [facility] Basophil percentageon 2021 Chloride [Moles/Vol] 106 mmol/L 98-107 [facility] Work Phone: [phone] Glucose [Mass/Vol] 85 mg/dL 74-106 [facility] Work Phone: Potassium [Moles/Vol] 4.3 mmol/L 3.5-5.1 [facility] Work Phone: [phone] Sodium [Moles/Vol] 139 mmol/L 136-145 [facility] Work Phone: [phone] WBC (Bld) [#/Vol] 4.9 10*3/uL 4.4-11.0 [facility] Work Phone: [phone] Blood erythrocytes count (nu mber/volume)on 06-03-2022 RBC (Bld) [#/Vol] 3.71 10*6/uL 4.2-5.4 [facility] Work Phone: Blood hemoglobin measurement (mass/volume)on 06-03-2022 Hemoglobin (Bld) [Mass/Vol] 12.4 g/dL 12.0-15.0 [facility] Work Phone: Blood platelet mean volumeon 06-03-2022 Platelet mean volume (Bld) [Entitic vol] 13.4 fL 6.2-12.0 [facility] Work Phone: Determination of erythrocyte mean corpuscular volume (MCV)on 06-03-2022 MCV (RBC) [Entitic vol] 103.5 fL 81-99 [facility] Work Phone: Hematocrit Auto (Bld) [Volum e fraction]on 06-03-2022 Hematocrit (Bld) [Volume fraction] 38.4 % 37-47 [facility] Work Phone: Laboratory - Chemistry and C hemistry - challengeon 06-03-2022 CO2 [Moles/Vol] 30.0 mmol/L 21.0-32.0 [facility] Work Phone: Urea nitrogen/Creatinine [Mass ratio] 52.4 mg/mg 10-20 [facility] Work Phone: Laboratory - Hematology and Cell countson 06-03-2022 Erythrocyte distribution width (RBC) [Entitic vol] 47.8 fL 35.1-43.9 [facility] Work Phone: Erythrocyte distribution width (RBC) [Ratio] 12.6 % 11.6-14.6 [facility] Work Phone: MCH (RBC) [Entitic mass] 33.4 pg 27.0-32.0 [facility] Work Phone: MCHC Auto (RBC) [Mass/Vol]on 06-03-2022 MCHC (RBC) [Mass/Vol] 32.3 g/dL 32-36 [facility] Work [facility]: No Panel Informationon 06-03 Estimated GFR (MDRD) Amer 109 mL/min >60 [facility] Work Phone: Comment on above: GFR Calc Estimated GFR (MDRD) Non-Af Amer 90 mL/min >60 [facility] Work Phone: Comment on above: Non- GFR Calc Platelets bldon 06-03-2022 Platelets (Bld) [#/Vol] 107 10*3/uL 150-450 [facility] Work Phone: Serum or plasma albumin carmen urement (mass/volume)on 06-03-2022 Albumin [Mass/Vol] 2.6 g/dL 3.2-5.0 [facility] Work Phone: Serum or plasma calcium carmen urement (mass/volume)on 06-03-2022 Calcium [Mass/Vol] 8.3 mg/dL 8.5-10.1 [facility] Work Phone: Serum or plasma creatinine m easurement (mass/volume)on 06-03-2022 Creatinine [Mass/Vol] 0.67 mg/dL 0.55-1.02 [facility] Work Phone: Comment on above: The validity of the calculated GFR & GFRAA in patients over 70 years has not been determined. Clinical correlation is essential. Serum or plasma urea nitroge n measurement (mass/volume)on 06-03-2022 Urea nitrogen [Mass/Vol] 35 mg/dL 7-18 [facility] Work Phone: Thin prep Papanicolaou smear with manual screeningon 06-03-2022 Thin prep Papanicolaou smear with manual screening 3 5-15 [facility] Work Phone: Absolute lymphocyte counton 03-04-2022 Lymphocytes Auto (Unsp spec) [#/Vol] 1.14 10*3/uL 0.83-4.51 [facility] Work Phone: Basophil percentageon 2021 Basophils/100 WBC (Bld) 0.7 % 0-1 [facility] Work Phone: Chloride [Moles/Vol] 105 mmol/L 98-107 [facility] Work Phone: [phone] Eosinophils/100 WBC (Bld) 5.2 % 0-5 [facility] Work Phone: [phone] Glucose [Mass/Vol] 107 mg/dL 74-106 [facility] Work Phone: [phone] Comment on above: Fasting Glucose resu lt from 100 to 125 mg/dL suggests IMPAIRED HOMEOSTASIS per A.D.A. criteria. Neutrophils (Bld) [#/Vol] 2.4 10*3/uL 2.0-7.7 [facility] Work Phone: [phone] Neutrophils/100 WBC (Bld) 56.1 % 47-70 [facility] Work Phone: [phone] Potassium [Moles/Vol] 4.3 mmol/L 3.5-5.1 [facility] Work Phone: [phone] Sodium [Moles/Vol] 139 mmol/L 136-145 [facility] Work Phone: [phone] WBC (Bld) [#/Vol] 4.3 10*3/uL 4.4-11.0 [facility] Work Phone: Blood erythrocytes count (nu mber/volume)on 03-04-2022 RBC (Bld) [#/Vol] 3.77 10*6/uL 4.2-5.4 [facility] Work Phone: [phone] Blood hemoglobin measurement (mass/volume)on 03-04-2022 Hemoglobin (Bld) [Mass/Vol] 12.6 g/dL 12.0-15.0 [facility] Work Phone: Blood lymphocytes/100 leukoc yteson 03-04-2022 Lymphocytes/100 WBC (Bld) 26.8 % 19-41 [facility] Work Phone: [phone] Blood monocytes/100 leukocyt eson 03-04-2022 Monocytes/100 WBC (Bld) 11.0 % 0-10 [facility] Work Phone: Blood platelet mean volumeon 03-04-2022 Platelet mean volume (Bld) [Entitic vol] 12.7 fL 6.2-12.0 [facility] Work Phone: Determination of erythrocyte mean corpuscular volume (MCV)on 03-04-2022 MCV (RBC) [Entitic vol] 105.0 fL 81-99 [facility] Work Phone: Hematocrit Auto (Bld) [Volum e fraction]on 03-04-2022 Hematocrit (Bld) [Volume fraction] 39.6 % 37-47 [facility] Work Phone: Laboratory - Chemistry and C hemistry - challengeon 03-04-2022 CO2 [Moles/Vol] 31.0 mmol/L 21.0-32.0 [facility] Work Phone: Urea nitrogen/Creatinine [Mass ratio] 42.6 mg/mg 10-20 [facility] Work Phone: Laboratory - Hematology and Cell countson 03-04-2022 Erythrocyte distribution width (RBC) [Entitic vol] 48.4 fL 35.1-43.9 [facility] Work Phone: Erythrocyte distribution width (RBC) [Ratio] 12.5 % 11.6-14.6 [facility] Work Phone: Immature granulocytes/100 WBC (Bld) 0.200 % 0.0-0.9 [facility] Work Phone: Comment on above: IG% - Immature Granu locytes (promyelocytes, myelocytes and metamyelocytes) > 1% indicates that a LEFT SHIFT is Present. MCH (RBC) [Entitic mass] 33.4 pg 27.0-32.0 [facility] Work Phone: Nucleated RBC/100 WBC (Bld) [Ratio] 0 % 0-5 [facility] Work Phone: MCHC Auto (RBC) [Mass/Vol]on 03-04-2022 MCHC (RBC) [Mass/Vol] 31.8 g/dL 32-36 [facility] Work Phone: No Panel Informationon 03-04 Estimated GFR (MDRD) Amer 111 mL/min >60 [facility] Work Phone: Comment on above: GFR Calc Estimated GFR (MDRD) Non-Af Amer 91 mL/min >60 [facility] Work Phone: Comment on above: Non- GFR Calc Platelets bldon 03-04-2022 Platelets (Bld) [#/Vol] 147 10*3/uL 150-450 [facility] Work Phone: Serum or plasma albumin carmen urement (mass/volume)on 03-04-2022 Albumin [Mass/Vol] 2.7 g/dL 3.2-5.0 [facility] Work Phone: Serum or plasma calcium carmen urement (mass/volume)on 03-04-2022 Calcium [Mass/Vol] 8.6 mg/dL 8.5-10.1 [facility] Work Phone: Serum or plasma creatinine m easurement (mass/volume)on 03-04-2022 Creatinine [Mass/Vol] 0.66 mg/dL 0.55-1.02 [facility] Work Phone: Comment on above: The validity of the calculated GFR & GFRAA in patients over 70 years has not been determined. Clinical correlation is essential. Serum or plasma urea nitroge n measurement (mass/volume)on 03-04-2022 Urea nitrogen [Mass/Vol] 28 mg/dL 7-18 [facility] Work Phone: Thin prep Papanicolaou smear with manual screeningon 03-04-2022 Thin prep Papanicolaou smear with manual screening 3 5-15 [facility] Work Phone: Vital Signs Date Time Vital Sign Value Performing Clinician Facility 05-24-2025 10:04-0400 Body height 157.[address] Rebecca Raymond MD Work Phone: [facility] 12-18-2024 13:41-0400 Body temperature 97.9 [degF] Dr. Rebecca Raymond MD Work Phone: [facility] 12-18-2024 13:41-0400 Diastolic blood pressure 75 mm[Hg] Dr. Rebecca Raymond MD Work Phone: [facility] 12-18-2024 13:41-0400 Heart rate 82 /min Dr. Rebecca Raymond MD Work Phone: [facility] 12-18-2024 13:41-0400 Respiratory rate 16 /min Dr. Rebecca Raymond MD Work Phone: [facility] 12-18-2024 13:41-0400 SaO2% (BldA) [Mass fraction] 95 % Dr. Rebecca Raymond MD Work Phone: [facility] 12-18-2024 13:41-0400 Systolic blood pressure 99 mm[Hg] Dr. Rebecca Raymond MD Work Phone: [facility] 12-18-2024 10:44-0400 Body height 157.[address] Rebecca Raymond MD Work Phone: [facility] 12-18-2024 10:44-0400 Body mass index (BMI) [Ratio] 31.2 kg/m2 Dr. Rebecca Raymond MD Work Phone: [facility] 12-18-2024 10:44-0400 Body weight 77.[address] Rebecca Raymond MD Work Phone: [facility] 02-08-2024 05:24-0400 Body temperature 97.1 [degF] Dr. Rebecca Raymond Work Phone: [facility] 02-08-2024 05:24-0400 Diastolic blood pressure 67 mm[Hg] Dr. Rebecca Raymond Work Phone: [facility] 02-08-2024 05:24-0400 Heart rate 69 /min Dr. Rebecca Raymond Work Phone: [facility] 02-08-2024 05:24-0400 Respiratory rate 18 /min Dr. Rebecca Raymond Work Phone: [facility] 02-08-2024 05:24-0400 SaO2% (BldA) [Mass fraction] 97 % Dr. Rebecca Raymond Work Phone: [facility] 02-08-2024 05:24-0400 Systolic blood pressure 106 mm[Hg] Dr. Rebecca Raymond Work Phone: [facility] 02-08-2024 05:18-0400 Body height 157.[address] Rebecca Raymond Work Phone: [facility] 01-17-2024 19:02-0400 Body temperature 98.1 [degF] Dr. Rebecca Raymond Work Phone: [facility] 01-17-2024 19:02-0400 Diastolic blood pressure 77 mm[Hg] Dr. Rebecca Raymond Work Phone: [facility] 01-17-2024 19:02-0400 Heart rate 84 /min Dr. Rebecca Raymond Work Phone: [facility] 01-17-2024 19:02-0400 Respiratory rate 16 /min Dr. Rebecca Raymond Work Phone: [facility] 01-17-2024 19:02-0400 SaO2% (BldA) [Mass fraction] 94 % Dr. Rebecca Raymond Work Phone: [facility] 01-17-2024 19:02-0400 Systolic blood pressure 110 mm[Hg] Dr. Rebecca Raymond Work Phone: [facility] 01-17-2024 16:11-0400 Body height 157.[address] Rebecca Raymond Work Phone: [facility] 01-17-2024 16:11-0400 Body mass index (BMI) [Ratio] 31.6 kg/m2 Dr. Rebecca Raymond Work Phone: [facility] 01-17-2024 16:11-0400 Body weight 78.[address] Rebecca Raymond Work Phone: [facility] 12-31-2023 14:29-0400 Body temperature 98.01 [degF] Calos Bowen MD Work Phone: [facility] 12-31-2023 14:29-0400 Diastolic blood pressure 86 mm[Hg] Calos Bowen MD Work Phone: [facility] 12-31-2023 14:29-0400 Heart rate 121 /min Calos Bowen MD Work Phone: [facility] 12-31-2023 14:29-0400 SaO2% (BldA) [Mass fraction] 90 % Calos Bowen MD Work Phone: [facility] 12-31-2023 14:29-0400 Systolic blood pressure 124 mm[Hg] Calos Bowen MD Work Phone: [facility] 09-27-2023 02:32-0500 Heart rate 64 /min Dr. Rebecca Raymond Work Phone: [facility] 09-27-2023 02:32-0500 Respiratory rate 15 /min Dr. Rebecca Raymond Work Phone: [facility] 09-27-2023 02:32-0500 SaO2% (BldA) [Mass fraction] 98 % Dr. Rebecca Raymond Work Phone: [facility] 09-27-2023 01:48-0500 Body height 160.[address] Rebecca Raymond Work Phone: [facility] 09-27-2023 01:48-0500 Body mass index (BMI) [Ratio] 29.8 kg/m2 Dr. Rebecca Raymond Work Phone: [facility] 09-27-2023 01:48-0500 Body temperature 97.6 [degF] Dr. Rebecca Raymond Work Phone: [facility] 09-27-2023 01:48-0500 Body weight 76.[address] Rebecca Raymond Work Phone: [facility] 09-27-2023 01:48-0500 Diastolic blood pressure 79 mm[Hg] Dr. Rebecca Raymond Work Phone: [facility] 09-27-2023 01:48-0500 Systolic blood pressure 140 mm[Hg] Dr. Rebecca Raymond Work Phone: [facility] 09-26-2023 22:37-0500 Body temperature 97.1 [degF] Dr. Rebecca Raymond Work Phone: [facility] 09-26-2023 22:37-0500 Diastolic blood pressure 74 mm[Hg] Dr. Rebecca Raymond Work Phone: [facility] 09-26-2023 22:37-0500 Heart rate 92 /min Dr. Rebecca Raymond Work Phone: [facility] 09-26-2023 22:37-0500 Respiratory rate 16 /min Dr. Rebecca Raymond Work Phone: [facility] 09-26-2023 22:37-0500 SaO2% (BldA) [Mass fraction] 94 % Dr. Rebecca Raymond Work Phone: [facility] 09-26-2023 22:37-0500 Systolic blood pressure 151 mm[Hg] Dr. Rebecca Raymond Work Phone: [facility] 09-26-2023 20:06-0500 Body height 160.[address] Rebecca Raymond Work Phone: [facility] 09-26-2023 20:06-0500 Body mass index (BMI) [Ratio] 31.1 kg/m2 Dr. Rebecca Raymond Work Phone: [facility] 09-26-2023 20:06-0500 Body weight 79.[address] Rebecca Raymond Work Phone: [facility] 03-07-2023 21:26-0400 Body height 160.[address] Rebecca Raymond Work Phone: [facility] 03-07-2023 21:26-0400 Body mass index (BMI) [Ratio] 30.2 kg/m2 Dr. Rebecca Raymond Work Phone: [facility] 03-07-2023 21:26-0400 Body temperature 97.2 [degF] Dr. Rebecca Raymond Work Phone: [facility] 03-07-2023 21:26-0400 Body weight 77.[address] Rebecca Raymond Work Phone: [facility] 03-07-2023 21:26-0400 Diastolic blood pressure 66 mm[Hg] Dr. Rebecca Raymond Work Phone: [facility] 03-07-2023 21:26-0400 Heart rate 77 /min Dr. Rebecca Raymond Work Phone: [facility] 03-07-2023 21:26-0400 Respiratory rate 18 /min Dr. Rebecca Raymond Work Phone: [facility] 03-07-2023 21:26-0400 SaO2% (BldA) [Mass fraction] 97 % Dr. Rebecca Raymond Work Phone: [facility] 03-07-2023 21:26-0400 Systolic blood pressure 136 mm[Hg] Dr. Rebecca Raymond Work Phone: [facility] 09-15-2022 16:31-0500 Body height 162.56 cm [facility] 09-15-2022 16:31-0500 Body mass index (BMI) [Ratio] 30.5 kg/m2 [facility] [facility] 09-15-2022 16:31-0500 Body temperature 97.1 [degF] [facility] 09-15-2022 16:31-0500 Body weight 80.73 kg [facility] 09-15-2022 16:31-0500 Diastolic blood pressure 77 mm[Hg] [facility] 09-15-2022 16:31-0500 Heart rate 84 /min [facility] 09-15-2022 16:31-0500 Respiratory rate 16 /min [facility] 09-15-2022 16:31-0500 SaO2% (BldA) [Mass fraction] 98 % [facility] 09-15-2022 16:31-0500 Systolic blood pressure 119 mm[Hg] [facility] 05-11-2022 15:21-0400 Body height 149.9 cm Desmond Crane MD Work Phone: [facility] 05-11-2022 15:21-0400 Body temperature 96.69 [degF] Desmond Crane MD Work Phone: [facility] 05-11-2022 15:21-0400 Diastolic blood pressure 64 mm[Hg] Desmond Crane MD Work Phone: [facility] 05-11-2022 15:21-0400 Heart rate 93 /min Desmond Crane MD Work Phone: [facility] 05-11-2022 15:21-0400 SaO2% (BldA) [Mass fraction] 94 % Desmond Crane MD Work Phone: [facility] 05-11-2022 15:21-0400 Systolic blood pressure 94 mm[Hg] Desmond Crane MD Work Phone: [facility] Encounters Encounter Date Encounter Type Care Provider Facility Start: 04-12-2025 End: 04-12-[address] Rebecca Raymond MD Work Phone: [facility] Start: 04-12-2025 End: 04-12-2025 Patient encounter procedure Julian ZHENG -[facility] Work Phone: Start: 03-13-2025 End: 03-13-[address] Rebecca Raymond MD Work Phone: [facility] Start: 03-13-2025 End: 03-13-[address] Rebecca Raymond MD -[facility] Work Phone: Start: 02-28-2025 End: 02-28-[address] Rebecca Raymond MD Work Phone: [facility] Work Phone: Start: 02-28-2025 End: 02-28-2025 Departed Referred Rebecca Raymond MD [facility] Start: 02-28-2025 End: 02-28-2025 ambulatory Rebecca Raymond Facility:[facility] Start: 02-13-2025 End: 02-13-[address] Rebecca Raymond MD Work Phone: [facility] Start: 02-13-2025 End: 02-13-2025 Patient encounter procedure Iraida MAGANA -[facility] Work Phone: Start: 02-08-2025 End: 02-08-[address] Rebecca Raymond MD Work Phone: [facility] Start: 02-08-2025 End: 02-08-2025 Patient encounter procedure Julian ZHENG -[facility] Work Phone: Start: 01-22-2025 End: 01-22-[address] Rebecca Raymond MD Work Phone: [facility] Work Phone: Start: 01-22-2025 End: 01-22-2025 Patient encounter procedure Iraida MAGANA -[facility] Work Phone: Start: 01-16-2025 End: 01-16-[address] Rebecca Raymond MD Work Phone: [facility] Work Phone: Start: 01-16-2025 End: 01-16-[address] Rebecca Raymond MD -[facility] Work Phone: Start: 12-21-2024 End: 12-21-2024 ambulatory Rebecca Raymond Facility:[facility] Start: 12-21-2024 End: 12-21-2024 Patient encounter procedure Julian ZHENG -[facility] Work Phone: Start: 12-18-2024 End: 12-18-2024 Emergency department patient visit Dr. Rebecca Raymond MD Work Phone: -Emergency Department Work Phone: Start: 12-08-2024 End: 12-08-[address] Rebecca Raymond MD Work Phone: [facility] Work Phone: Start: 12-08-2024 End: 12-08-2024 [facility] Start: 12-08-[facility]24 [facility] Start: 12-08-2024 End: 12-08-2024 ambulatory Rebecca Raymond Facility:[facility] Start: 11-29-2024 ambulatory Rebecca Raymond Facili ty:[facility] Start: 11-29-2024 Registered Referred Rebecca Raymond MD [facility] Start: 11-14-2024 End: 11-14-2024 ambulatory Efsuellen Raymond Facility:[facility] Start: 11-14-2024 End: 11-14-[address] Rebecca Raymond MD -[facility] Work Phone: Start: 11-01-2024 End: 11-01-2024 ambulatory [facility] Facility:[facility] Start: 11-01-2024 End: 11-01-2024 Patient encounter procedure Iraida MAGANA -[facility] Work Phone: Start: 10-18-2024 End: 10-18-2024 ambulatory CALOS BOWEN Facility:[facility] Start: 10-18-2024 End: 10-18-2024 Patient encounter procedure Nohemi Azevedo RN [facility] Work Phone: General Surgery Comment on above: PEG tube malfunction (HCC) (Primary Dx) Start: 09-12-2024 End: 09-12-2024 ambulatory [facility] Facility:[facility] Start: 09-12-2024 End: 09-12-[address] Rebecca Raymond MD -[facility] Work Phone: Start: 08-31-2024 End: 03-16-2025 Telephone encounter Calos Bowen MD Work Phone: General Surgery Comment on above: Appointment Start: 08-30-2024 End: 08-30-2024 Departed Referred Rebecca Raymond MD [facility] Start: 08-30-2024 End: 08-30-[facility] Start: 08-24-2024 End: 08-24-2024 ambulatory Julian ZHENG Facility:[facility] Start: 08-24-2024 End: 08-24-2024 Patient encounter procedure Julian ZHENG -[facility] Work Phone: Start: 07-18-2024 End: 07-18-2024 [facility] Start: 07-13-2024 End: 07-13-2024 [facility] Start: 05-31-2024 End: 05-31-2024 [facility] Start: 05-31-2024 End: 05-31-2024 ambulatory Rebecca Raymond Facility:[facility] Start: 02-08-2024 End: 02-08-2024 Emergency department patient visit Dr. Rebecca Raymond Work Phone: [facility] Work Phone: Start: 01-17-2024 End: 01-17-2024 Emergency department patient visit Dr. Rebecca Raymond Work Phone: [facility] Work Phone: Start: 12-31-2023 End: 12-31-2023 Patient encounter procedure Calos Bowen MD Work Phone: General Surgery Comment on above: PEG tube malfunction (HCC) Start: 12-23-2023 End: 12-23-[address] Rebecca Raymond Work Phone: [facility] Work Phone: Start: 12-01-2023 End: 12-01-[address] Rebecca Raymond Work Phone: [facility] Work Phone: Start: 12-01-2023 End: 12-01-[address] Rebecca Raymond Work Phone: [facility] Start: 12-01-[address] Sejal Raymond Work Phone: [facility] Start: 11-22-2023 End: 11-22-[address] Rebecca Raymond Work Phone: [facility] Work Phone: Start: 11-22-2023 End: 11-22-[address] Rebecca Raymond Work Phone: [facility] Start: 11-16-2023 End: 11-16-[address] Rebecca Raymond Work Phone: [facility] Work Phone: Start: 10-28-2023 End: 10-28-[address] Rebecca Raymond Work Phone: [facility] Work Phone: Start: 09-27-2023 End: 09-27-2023 Emergency department patient [facility] Start: 09-26-2023 End: 09-27-2023 Emergency department patient visit Dr. Rebecca Raymond Work Phone: [facility] Work Phone: Start: 09-21-2023 End: 09-21-[address] Rebecca Raymond Work Phone: [facility] Work Phone: Start: 09-06-2023 End: 09-06-[address] Rebecca Raymond Work Phone: [facility] Work Phone: Start: 08-26-2023 End: 08-26-[address] Rebecca Raymond Work Phone: [facility] Start: 08-26-[address] Sejal Raymond Work Phone: [facility] Start: 08-25-2023 End: 08-25-[address] Rebecca Raymond Work Phone: [facility] Work Phone: Start: 08-25-2023 End: 08-25-[address] Rebecca Raymond Work Phone: [facility] Start: 08-03-2023 End: 08-03-[address] Rebecca Raymond Work Phone: [facility] Work Phone: Start: 07-05-2023 End: 07-05-[address] Rebecca Raymond Work Phone: [facility] Work Phone: Start: 06-07-2023 End: 06-07-[address] Rebecca Raymond Work Phone: [facility] Start: 06-02-2023 End: 06-02-[address] Rebecca Raymond Work Phone: [facility] Start: 05-18-2023 End: 05-18-[address] Rebecca Raymond Work Phone: [facility] Work Phone: Start: 05-04-2023 End: 05-04-[address] Rebecca Raymond Work Phone: [facility] Work Phone: Start: 03-16-2023 End: 03-16-[address] Rebecca Raymond Work Phone: [facility] Work Phone: Start: 03-07-2023 End: 03-08-2023 Emergency department patient visit Dr. Rebecca Raymond Work Phone: [facility] Start: 03-04-2023 End: 03-04-[address] Rebecca Raymond Work Phone: [facility] Work Phone: Start: 03-03-2023 End: 03-03-[address] Rebecca Raymond Work Phone: [facility] Work Phone: Start: 03-03-2023 End: 03-03-[address] Rebecca Raymond Work Phone: [facility] Start: 03-03-[address] Sejal Raymond Work Phone: [facility] Start: 01-19-2023 End: 01-19-[address] Rebecca Raymond Work Phone: [facility] Start: 01-01-2023 End: 01-01-[address] Rebecca Raymond Work Phone: [facility] Start: 12-02-2022 End: 12-02-[address] Rebecca Raymond Work Phone: [facility] Work Phone: Start: 12-02-2022 End: 12-02-[address] Rebecca Raymond Work Phone: [facility] Start: 11-03-2022 End: 11-03-[address] Rebecca Raymond Work Phone: [facility] Start: 10-26-2022 End: 10-26-[address] Rebecca Raymond Work Phone: [facility] Start: 09-15-2022 End: 09-15-2022 Emergency department patient visit [facility] Start: 06-03-2022 End: 06-03-2022 ambulatory [facility] Work Phone: Start: 06-03-2022 End: 06-03-2022 Departed Referred [facility] Start: 05-11-2022 End: 05-11-2022 Patient encounter procedure Desmond Crane MD Work Phone: General Surgery Comment on above: PEG tube malfunction (HCC) (Primary Dx) Start: 03-04-2022 End: 03-04-2022 Departed Referred [facility] Procedures Date Procedure Procedure Detail Performing Clinician Start: 12-18-2024 Plain X-ray abdomen Dr. Rebecca Raymond MD Work Phone: Start: 11-29-2024 Measurement of renal function Dr. Rebecca Raymond MD Work Phone: Comment on above: GFR Calc Start: 01-17-2024 Diagnostic radiograp hy of abdomen Dr. Rebecca Raymond Work Phone: Start: 09-26-2023 Plain X-ray abdomen Dr. Rebecca Raymond Work Phone: Start: 03-07-2023 Plain X-ray abdomen Dr. Rebecca Raymond Work Phone: Start: 09-15-2022 Plain X-ray abdomen Dr. Rebecca Raymond Work Phone: Plan of Treatment Date Care Activity Detail Author Start: 06-11-2025 Influenza vaccination Influenza Vaccine (Season Ended) [facility] Start: 12-18-2024 Application of abdominal corset [facility] Start: 12-18-2024 [facility] Start: 12-18-2024 Plain X-ray abdomen Abdomen Single View (Portable) [facility] Start: 12-18-2024 XR Abdomen Single view [facility] Start: 10-11-2024 Advance Directive Discussion Advance Directive Discussion [facility] Start: 06-11-2024 Covid-19 Vaccine ( season) Covid-19 Vaccine ( season) [facility] Start: 06-11-2024 Influenza vaccination Influenza Vaccine (#1) [facility] Start: 02-08-2024 [facility] Start: 01-17-2024 [facility] Start: 10-11-2023 Advance Directive Discussion Advance Directive Discussion [facility] Start: 10-11-2023 Depression Assessment Depression Assessment [facility] Start: 09-27-2023 Perq replacement gtube not req revj gstrst [facility] GTUBE NO REVJ TRC [facility] Start: 09-27-2023 [facility] Start: 09-27-2023 [facility] Start: 09-26-2023 [facility] Start: 09-26-2023 Insert gastrostomy tube percutaneous PLACE GASTROSTOMY TUBE PERC [facility] Start: 06-11-2023 Covid-19 Vaccine ( season) Covid-19 Vaccine () [facility] Start: 06-11-2023 Influenza vaccination Influenza Vaccine (#1) [facility] Start: 03-07-2023 Perq replacement gtube not req revj gstrst [facility] GTUBE NO REVJ [facility] Start: 09-15-2022 Application of abdominal corset [facility] Start: 09-15-2022 Plain X-ray abdomen Abdomen Single View (Portable) [facility] Work Phone: Start: 09-15-2022 XR Abdomen Single view [facility] Work Phone: Start: 06-11-2022 Influenza vaccination INFLUENZA (#1) [facility] Start: 10-11-2021 ADVANCE DIRECTIVE DISCUSSION ADVANCE DIRECTIVE DISCUSSION [facility] Start: 03-04-2015 DIABETES SCREEN DIABETES SCREEN [facility] Start: 03-04-2015 Diabetes Screening Diabetes Screening [facility] Start: 08-11-2014 Urine microalbumin profile [facility] Start: 2014 RSV Vaccine (1 - 1-dose 75+ series) RSV Vaccine (1 - 1-dose 75+ series) [facility] Start: 12-29-2012 Pneumococcal Vaccine: 50+ (2 of 2 - PCV) Pneumococcal Vaccine: 50+ (2 of 2 - PCV) [facility] Start: 12-29-2012 Pneumococcal Vaccine: 65+ (2 of 2 - PCV) Pneumococcal Vaccine: 65+ (2 of 2 - PCV) [facility] Start: 12-29-2012 PNEUMOCOCCAL: 65+ (2 - PCV) PNEUMOCOCCAL: 65+ (2 - PCV) [facility] Start: 11-27-2012 FECAL OCCULT BLOOD FECAL OCCULT BLOOD [facility] Start: 1999 RSV Vaccine (1 - 1-dose 60+ series) RSV Vaccine (1 - 1-dose 60+ series) [facility] Start: 1989 SHINGRIX VACCINE (1 of 2) SHINGRIX VACCINE (1 of 2) [facility] Start: 1957 Anxiety Screening Anxiety Screening [facility] Start: 1957 Depression Screening Depression Screening [facility] Patient Education [facility] Work Phone: Patient referral [facility] Work Phone: Immunizations Immunization Date Immunization Notes Care Provider Desiree ramos 07-01-2012 influenza virus vacc ine, unspecified formulation Desmond Crane MD Work Phone: [facility] 12-30-2011 pneumococcal polysaccharide vaccine, 23 valent Desmond Crane MD Work Phone: [facility] 09-11-2011 influenza virus vacc ine, unspecified formulation Desmond Crane MD Work Phone: [facility] 07-29-2010 influenza virus vacc ine, unspecified formulation Desmond Crane MD Work Phone: [facility] 07-02-2009 influenza virus vacc ine, unspecified formulation Desmond Crane MD Work Phone: [facility] Work Phone: 08-17-2008 influenza virus vacc ine, unspecified formulation Desmond Crane MD Work Phone: [facility] 08-17-2007 influenza virus vacc ine, unspecified formulation Desmond Crane MD Work Phone: [facility] Work Phone: 08-10-2005 influenza virus vacc ine, unspecified formulation Desmond Crane MD Work Phone: [facility] Work Phone: 08-11-2004 diphtheria and tetan us toxoids, adsorbed for pediatric use Desmond Crane MD Work Phone: [facility] Work Phone: 07-25-2004 pneumococcal polysaccharide vaccine, 23 valent Desmond Crane MD Work Phone: [facility] Work Phone: Payers Date Payer Category Payer Self-pay [id number] 2018 Medicaid [id number] 2018 Medicare [id number] 2018 Medicare [employer]IC[employer] [id number] 2018-Present [phone] [address] [place] [address] Medicare [id number] 2018 Medicare (Managed Care) [facility] [id number] 2018 Unknown [id number] 2012 Medicaid [id number] Medicare MEDICARE PART A B [id number] Unknown [id number]. 462 Unknown [id number] 2.16.840.1.343491.3.579.2. 462 Unknown [id number] 2.16.840.1.947903.3.579.2. 462 Unknown [id number] 2.16.840.1.922269.3.579.2. 462 Unknown [id number] 2.16.840.1.305895.3.579.2. 462 Unknown [id number] 2.16.840.1.362519.3.579.2. 462 Unknown [id number] 2.16.840.1.824876.3.579.2. 462 Unknown [id number] 2.16.840.1.871895.3.579.2. 462 Unknown [id number] 2.16.840.1.139166.3.579.2. 462 Unknown [id number] 2.16.840.1.725595.3.579.2. 462 Unknown [id number] 2.16.840.1.894464.3.579.2. 462 Unknown [id number] 2.16.840.1.446830.3.579.2. 462 Unknown [id number] 2.16.840.1.613441.3.579.2. 462 Unknown [id number] 2.16.840.1.707940.3.579.2. 462 Unknown [id number] 2.16.840.1.366949.3.579.2. 462 Unknown [id number] 2.16.840.1.362176.3.579.2. 462 Unknown [id number] 2.16.840.1.559267.3.579.2. 462 Unknown [id number] 2.16.840.1.442045.3.579.2. 462 Unknown [id number] 2.16.840.1.813719.3.579.2. 462 Unknown [id number] [id number]. 462 Social History Date Type Detail Facility Start: 05-25-2012 End: 05-24-2025 Tobacco smoking status NHIS Never smoked tobacco [facility] Start: 05-11-2022 End: 01-01-2024 Alcohol intake Current non-drinker of alcohol (finding) [facility] Start: 1940 Sex Assigned At Not on file C [facility] Start: 05-01-2022 End: 05-11-2022 Exposure to SARS-CoV-2 (event) Not sure [facility] Start: 07-28-2021 End: 02-08-2024 Tobacco smoking status KYIS Unknown if ever smoked [facility] Start: 11-27-2020 None [facility] Start: 04-17-2021 None;unknown [facility] Start: 11-27-2020 Correction [facility] Start: 04-17-2021 Non-smoker [facility] Start: 1940 Sex Assigned At Female W [facility] Start: 05-25-2012 Tobacco use and exposure Smokeless tobacco non-user [facility] Work Phone: Start: 01-01-2024 History of Social function [facility] Start: 01-01-2024 Tobacco use panel [facility] Start: 12-18-2024 End: 01-10-2025 Sex Female (finding) [facility] Mental Status Date Assessment Result Facility 12-18-2024 Cognitive function Level Of Cons ciousness Awake;Alert [facility] Work Phone: 02-08-2024 Cognitive function Level Of Cons ciousness Awake;Alert [facility] Work Phone: 01-17-2024 Cognitive function Level Of Cons ciousness Awake;Alert;Appropriate;Follow s Commands [facility] Work Phone: 09-27-2023 Cognitive function Level Of Cons ciousness Awake;Alert [facility] Work Phone: 03-07-2023 Cognitive function Level Of Cons ciousness Awake;Alert [facility] Work Phone: 09-15-2022 Cognitive function Level Of Cons ciousness Awake;Alert;Appropriate;Follow s Commands [facility] Work Phone: Clinical Notes 11-05-2015 to 10-18-2024 Nohemi Azevedo APRN.ENVIRONMENTAL AIR SPECIALIST - 10/18/2024 10:36 AM Calos Hutchison MD - 10/18/2024 10:00 AM ESTTelephone Encounter - Marion Umaña LPN - 10/16/2024 10:50 AM EST Note Date & Type Note Facility 10-18-2024 Note HNO ID: [id number] Author: NOHEMI AZEVEDO APRN.ENVIRONMENTAL AIR SPECIALIST Service: ? Author Type: Nurse Practitioner Type: Progress Notes Filed: 10/25/2024 15:14 Note Text: FOLLOW UP VISIT - PEG TUBE REMOVAL NAME: Dariana Vazquez [facility] NO.: [id number] DATE OF SERVICE: 10/18/2024 : 1940 REFERRING PHYSICIAN: Kimberly Farris MD Dariana is a patient who had a PEG tube placed for dysphagia and aspiration risk in 2008. The tube has been replaced multiple times. Dr. Bowen last replaced the tube in 2018. Dr. Crane was asked to evaluate the patient in May 2022 for was felt to be PEG tube malfunction. He noted the tube was intact and felt the issue was the patient pulling on the tube and recommended a binder. The patients caregivers have noted that they see what they think are cracks within the tube. Dariana presents for PEG tube removal/exchange. VITALS: There were no vitals taken for this visit. On examination, the PEG tube site is clean and intact. PROCEDURE: PEG TUBE REPLACEMENT The risks, benefits and anticipated outcomes of the procedure, the risks and benefits of the alternatives to the procedure, and the roles and tasks of the personnel to be involved, were discussed with the patient, and the patient consents to the procedure and agrees to proceed. April traction was placed on the PEG tube. It was removed without difficulty. There was no bleeding from the PEGF tube site. The tube was a 20Fr, removed in tact. A 20Fr tube was replaced without difficulty and patent with drainage upon insertion. Assessment IMPRESSION: Status post PEG tube replacement PLAN: If the patient notes any problems, abdominal pain or signs of wound infections, she should contact me immediately. We discussed that liquid or gastric contents may leak from the site for a few days. Diagnoses: (K94.23) PEG tube malfunction (HCC) (primary encounter diagnosis) Return to Clinic: The patient is instructed to follow-up with me as needed. Nohemi Azevedo APRN.ENVIRONMENTAL AIR SPECIALIST [facility] 10-18-2024 History of Presen t illness Narrative FOLLOW UP VISIT - PEG TUBE REMOVAL NAME: Dariana Lindquist [facility] NO.: [id number] DATE OF SERVICE: 10/18/2024 : 1940 REFERRING PHYSICIAN: Kimberly Farris MD Dariana is a patient who had a PEG tube placed for dysphagia and aspiration risk in 2008. The tube has been replaced multiple times. Dr. Bowen last replaced the tube in 2018. Dr. Crane was asked to evaluate the patient in May 2022 for was felt to be PEG tube malfunction. He noted the tube was intact and felt the issue was the patient pulling on the tube and recommended a binder. The patients caregivers have noted that they see what they think are cracks within the tube. Dariana presents for PEG tube removal/exchange. VITALS: There were no vitals taken for this visit. On examination, the PEG tube site is clean and intact. PROCEDURE: PEG TUBE REPLACEMENT The risks, benefits and anticipated outcomes of the procedure, the risks and benefits of the alternatives to the procedure, and the roles and tasks of the personnel to be involved, were discussed with the patient, and the patient consents to the procedure and agrees to proceed. April traction was placed on the PEG tube. It was removed without difficulty. There was no bleeding from the PEGF tube site. The tube was a 20Fr, removed in tact. A 20Fr tube was replaced without difficulty and patent with drainage upon insertion. Assessment IMPRESSION: Status post PEG tube replacement PLAN: If the patient notes any problems, abdominal pain or signs of wound infections, she should contact me immediately. We discussed that liquid or gastric contents may leak from the site for a few days. Diagnoses: (K94.23) PEG tube malfunction (HCC) (primary encounter diagnosis) Return to Clinic: The patient is instructed to follow-up with me as needed. Nohemi Azevedo APRN.ENVIRONMENTAL AIR SPECIALIST FOLLOW UP VISIT - PEG TUBE EVALUATION NAME: Dariana Vazquez [facility] NO.: [id number] DATE OF SERVICE: October 18, 2024 : 1940 REFERRING PHYSICIAN: Kimberly Farris MD Dariana is a patient who had a PEG tube placed for dysphagia and aspiration risk in 2008. The tube has been replaced multiple times. I last replaced the tube in 2019. Dr. Crane was asked to evaluate the patient in May 2022 for was felt to be PEG tube malfunction. He noted the tube was intact and felt the issue was the patient pulling on the tube and recommended a binder. The patients caregivers have noted that they see what they think are cracks within the tube. Dariana presents for PEG tube removal/exchange. VITALS: There were no vitals taken for this visit. On examination, the PEG tube site is clean and intact. The buttress is loosened to 6 cm. There are tube feeds in the tube which are somewhat dried out and therefore give the appearance of the tube is correct. The tube was flushed it is intact and there are no further visual episodes of a crack. The tube is a 24 Malagasy tube (note that I had last replaced the tube with a 20 Malagasy tube) and the buttress was secured down to 4 cm at the skin. Assessment IMPRESSION: Status post PEG tube not requiring removal/replacament PLAN: If the patient notes any problems, abdominal pain or signs of wound infections, she should contact me immediately. I discussed with the caregiver that the retained tube end should pass spontaneously. If the patient seems to have any issues with nausea or vomiting, she should be taken to the ER and I should be contacted. I recommended the ECF obtain a 24 Malagasy PEG tube that when the catheter does fail we can change as we only have 20 Malagasy replacement since stock. Diagnoses: No diagnosis found. Return to Clinic: The patient is instructed to follow-up with me as needed. Calos Bowen MD documented in this encounter [facility] 10-18-2024 Note HNO ID: [id number] Author: CALOS BOWEN MD Service: ? Author Type: Physician Type: Progress Notes Filed: 10/25/2024 05:11 Note Text: FOLLOW UP VISIT - PEG TUBE EVALUATION NAME: Dariana Vazquez [facility] NO.: [id number] DATE OF SERVICE: October 18, 2024 : 1940 REFERRING PHYSICIAN: Kimberly Farris MD Dariana is a patient who had a PEG tube placed for dysphagia and aspiration risk in 2008. The tube has been replaced multiple times. I last replaced the tube in 2019. Dr. Crane was asked to evaluate the patient in May 2022 for was felt to be PEG tube malfunction. He noted the tube was intact and felt the issue was the patient pulling on the tube and recommended a binder. The patients caregivers have noted that they see what they think are cracks within the tube. Dariana presents for PEG tube removal/exchange. VITALS: There were no vitals taken for this visit. On examination, the PEG tube site is clean and intact. The buttress is loosened to 6 cm. There are tube feeds in the tube which are somewhat dried out and therefore give the appearance of the tube is correct. The tube was flushed it is intact and there are no further visual episodes of a crack. The tube is a 24 Malagasy tube (note that I had last replaced the tube with a 20 Malagasy tube) and the buttress was secured down to 4 cm at the skin. Assessment IMPRESSION: Status post PEG tube not requiring removal/replacament PLAN: If the patient notes any problems, abdominal pain or signs of wound infections, she should contact me immediately. I discussed with the caregiver that the retained tube end should pass spontaneously. If the patient seems to have any issues with nausea or vomiting, she should be taken to the ER and I should be contacted. I recommended the ECF obtain a 24 Malagasy PEG tube that when the catheter does fail we can change as we only have 20 Malagasy replacement since stock. Diagnoses: No diagnosis found. Return to Clinic: The patient is instructed to follow-up with me as needed. Calos Bowen MD [facility] 10-16-2024 Telephone encount er Note Called and spoke to Dariana's nurse and states will check if they have a 24 Malagasy peg tube, states will call us back to update. Marion Umaña LPN October 16, 2024 10:51 AM [facility] 10-16-2024 Miscellaneous Notes Formattin g of this note might be different from the original. Called and spoke to Dariana's nurse and states will check if they have a 24 Malagasy peg tube, states will call us back to update. Marion Umaña LPN October 16, 2024 10:51 AM Called [facility]- left message with nurse line on [facility] where patient resides. No details left due to line not secure. Margie Lynn LPN Called [employer]- [facility]. Not a secure line. Did leave message for nursing staff to call General Surgery. Patient has appointment for PEG tube change 09/06/2024. Please verify that ECF is sending 24 Malagasy PEG Tube with patient to appointment. Margie Lynn LPN documented in this encounter [facility] 08-31-2024 Telephone encount er Note Called [facility]- left message with nurse line on [facility] where patient resides. No details left due to line not secure. Margie Lynn LPN [facility] 08-31-2024 Telephone encount er Note Called [facility]. Not a secure line. Did leave message for nursing staff to call General Surgery. Patient has appointment for PEG tube change 09/06/2024. Please verify that F is sending 24 Malagasy PEG Tube with patient to appointment. Margie Lynn LPN [facility] 01-01-2024 History of Presen t illness Narrative FOLLOW UP VISIT - PEG TUBE EVALUATION NAME: Dariana Lindquist [facility] NO.: [id number] DATE OF SERVICE: January 01, 2024 : 1940 REFERRING PHYSICIAN: Kimberly Farris MD Dariana is a patient who had a PEG tube placed for dysphagia and aspiration risk in 2008. The tube has been replaced multiple times. I last replaced the tube in 2018. Dr. Crane was asked to evaluate the patient in May 2022 for was felt to be PEG tube malfunction. He noted the tube was intact and felt the issue was the patient pulling on the tube and recommended a binder. The patients caregivers have noted that they see what they think are cracks within the tube. Dariana presents for PEG tube removal/exchange. VITALS: Blood pressure 124/86, pulse (!) 121, temperature 36.7 C (98 F), SpO2 90%. On examination, the PEG tube site is clean and intact. The buttress is loosened to 6 cm. There are tube feeds in the tube which are somewhat dried out and therefore give the appearance of the tube is correct. The tube was flushed it is intact and there are no further visual episodes of a crack. The tube is a 24 Malagasy tube (note that I had last replaced the tube with a 20 Malagasy tube) and the buttress was secured down to 4 cm at the skin. Assessment IMPRESSION: Status post PEG tube not requiring removal/replacament PLAN: If the patient notes any problems, abdominal pain or signs of wound infections, she should contact me immediately. I discussed with the caregiver that the retained tube end should pass spontaneously. If the patient seems to have any issues with nausea or vomiting, she should be taken to the ER and I should be contacted. I recommended the ECF obtain a 24 Malagasy PEG tube that when the catheter does fail we can change as we only have 20 Malagasy replacement since stock. Diagnoses: (K94.23) PEG tube malfunction (HCC) Return to Clinic: The patient is instructed to follow-up with me as needed. Calos Bowen MD documented in this encounter [facility] 12-31-2023 Nurse Note REVIEW OF SYSTEMS: General: The patient NOTES fatigue, denies weight loss, denies weight gain, denies feeling hot, and denies feelings of cold. Eyes: The patient denies glaucoma, NOTES eye injury/surgery, does not wear glasses or contacts. Ear/Nose/Throat: The patient denies allergies, denies hayfever, denies ear infections, and denies bloody noses. Cardiovascular: The patient denies chest pain, NOTES heart disease, NOTES high blood pressure,denies cardiac stent, denies prior heart attack, denies irregular heart beat, denies high cholesterol, denies poor circulation, denies heart failure, other cardiac issues, denies claudication, denies cold feet, denies peripheral arterial stent. Respiratory: The patient denies tuberculosis, denies pneumonia, denies frequent cough, denies pulmonary embolism, denies shortness of breath, and denies coughing up blood. Gastrointestinal: The patient NOTES difficulty swallowing, denies acid reflux, denies ulcers, denies vomiting, denies jaundice/hepatitis, denies gallbladder problems, denies black or tarry stools, denies hemorrhoids, denies bleeding from rectum, denies diverticulitis, NOTES constipation, denies diarrhea, denies loss of stool [...] stroke/TIA. Psychiatric: The patient denies psychiatric medications, NOTES depression, and denies voices, denies substance abuse. Endocrine: The patient denies thyroid disorders, denies diabetes, and denies hormonal problems. Hematologic: The patient denies a history of bruising, denies bleeding, and NOTES anemia, denies blood clots. Infections: The patient denies a history of measles and mumps, denies rheumatic fever, and denies sexually transmitted diseases. Musculoskeletal: The patient denies back pain/injury, denies back problems, denies sciatica, denies knee/foot trouble, denies arthritis, or denies gout. When was patient's last Mammogram screening? N/A Last Colonoscopy: 2011 FOBT Shanti Avila LPN documented in this encounter [facility] 09-26-2023 Discharge summary Note Date/Time September 26, 2023 9:57pm [facility] Medical Records Department [address] [place] [id number] Emergency Department Summary 09/26/23 MR#: [id number] Acct: [id number] Name: DARIANA VAZQUEZ Rep #:[id number] : 1940 83 From: Axel Nunez PCP: Dr. Rebecca Raymond MD Status:R EG ER Location: ED HPI History of Present Illness Chief Complaint: Wound Informant: patient and SNF Onset/Context/Timing Onset: Today Context: Gradual Onset Timing: Continuous Worsened by: Nothing Relieved by: Nothing Narrative Narrative: Patient presents with dysfunctional PEG tube. custodial staff reports that they were unable to flush anything through the PEG tube tonight. Patient is a poor informant. Patient has a history of dementia. Patient denies any abdominal pain. Staff denies any nausea or vomiting. Staff denies any fevers or chills. PFSH PFS Medical History (Updated 09/26/23 @ 21:[address] Axel Michaels, DO) Aplastic anemia GERD (gastroesophageal reflux disease) HTN (hypertension) Osteoarthritis Home Medications Omeprazole 20 Mg/10ml 10 ml G-tube QHS GERD 11/27/20 [History Last Taken 11/26/20] calcium carbonate 600 mg-vitamin D3 10 mcg (400 unit) tablet 1 ea G-tube QHS 11/27/20 [History Last Taken 11/26/20] cholecalciferol (vitamin D3) 50 mcg (2,000 unit) capsule 2,000 unit G-tube DAILY11/27/20 [History Last Taken 11/26/20] Tylenol 650 mg Q4H PRN PRN Pain 1-10 Or Fever 02/01/21 [History Last Taken Unknown] aluminum-mag hydroxide-simethicone 400 mg-400 mg-40 mg/5 mL oral susp 15 ml Q4H PRN PRN Constipation 02/01/21 [History Last Taken Unknown] bisacodyl 10 mg rectal suppository 10 mg NV BID PRN PRN Constipation 02/01/21 [History Last Taken Unknown] magnesium hydroxide 400 mg/5 mL oral suspension 30 ml DAILY PRN Constipation 02/01/21 [History Last Taken Unknown] food supplemt, lactose-reduced 910 ml feeding tube DINNER 07/28/21 [History Last Taken Unknown] Allergy/AdvReac Type Severity Reaction Status Date / Time adhesive tape Allergy NEEDS Verified 09/26/23 20:05 FOLLOW-UP clindamycin Allergy Unknown Verified 09/26/23 20:05 Surgical History (Updated 09/26/23 @ 21:[address] Axel Michaels, ) Status post insertion of percutaneous endoscopic gastrostomy (PEG) tube Social History Smoking Status: Never smoker ROS ROS ED Review of Systems ROS Unobtainable: due to mental condition and due to mental status EXAM Physical Exam Const Vital Signs: 09/26/23 20:06 09/26/23 21:59 09/26/23 22:37 Temperature 97.8 F 96 F L 97.1 F L Temperature Source Temporal Temporal Pulse Rate 71 98 92 Respiratory Rate 18 16 16 Blood Pressure 130/76 H 151/74 H Blood Pressure Mean 94 99 Pulse Ox 96 94 94 Oxygen Delivery Method Room Air Room Air Positive well nourished and well developed General Appearance ED: well developed and NAD HEENT Reports moist mucous membranes Neck supple and no JVD Resp normal respiratory effort and clear to auscultation bilaterally Cardio regular rate and regular rhythm GI non-distended Palpation: soft and tender LUQ (Mild tenderness around PEG tube site) Neuro CN's II-XII intact bilaterally and no sensory deficits noted Sensorium / Orientation: alert Motor Exam: strength 5/5 throughout MDM MDM MDM Narrative Medical decision making narrative: The dysfunctional PEG tube was removed. A new 24 Malagasy PEG tube was reinsertedwithout difficulty. The balloon was inflated. Gastrografin study was performed. There is 1 view. On my independent interpretation, the Gastrografinwent into the lumen of the stomach. There is no extravasation noted. Radiologist also interpreted the x-ray and agrees. Patient tolerated the procedure well. Patient will be discharged back to the extended care facility. Radiography Diagnostic Testing: Clinical Impression(s) from Imaging Studies KUB X-Ray 09/26/23 21:25 IMPRESSION: 1. There is a PEG tube in place. Contrast inject through the PEG tube demonstrates oral contrast within the lumen of the stomach. This confirms PEG placement. 2. Large amount of stool in the rectal vault can suggest constipation. 3. Calcification of the right upper quadrant suggestive of a gallstone. Electronically Signed: Nemesio Sweeney MD at 21:43 EST Reading Location ID and State: [facility] / [place] , Service support , Gastrografin study was performed. There is 1 view. On my independent interpretation, the PEG tube is in place. The contrast goes into the stomach. There is no extravasation of the contrast. There is no free air. Radiologist also interpreted the x-ray and agrees. Procedures Other Procedures Procedure(s): The dysfunctional PEG tube was removed after deflating the balloon. A new 24 Malagasy PEG tube was placed into the stoma and passed into thestomach. The balloon was inflated with 5 cc of air. Patient tolerated procedure well. Gastrografin study was performed after placement. Contrast is in the stomach. There is no extravasation of the contrast dye. Radiologist also interpreted the Gastrografin study and agrees. Discharge Plan Triage Chief Complaint: Wound ED Provider: Axel Michaels Dx/Rx/DC Orders Clinical Impression: PEG tube malfunction, Mental retardation Instructions: ED Feeding Tube Replacement Prescriptions: No Action calcium carbonate-vitamin D3 1 EACH tablet 1 ea GT QHS cholecalciferol (vitamin D3) 2,000 UNIT capsule 2,000 unit GT DAILY Omeprazole 20 Mg/10ml 10 ml GT QHS Tylenol 650 mg Q4H PRN PRN (Reason: Pain 1-10 Or Fever) magnesium hydroxide 30 ML suspension 30 ml DAILY PRN (Reason: Constipation) bisacodyl 10 MG suppository 10 mg RC BID PRN PRN (Reason: Constipation) alum-mag hydroxide-simeth 355 ML suspension 15 ml Q4H PRN MDD constipation PRN (Reason: Constipation) Jevity Liquid 910 ml feeding tube DINNER Primary Care Provider: Rebecca Raymond Referrals: Rebecca Raymond MD [Primary Care Provider] - 5-7 Days Disposition Disposition: Home, Self Care What to do if you have Problems For any increased pain, shortness of breath, bleeding, nausea or vomiting, chestpain, or any unexpected problems, contact your Primary Care Provider. Call [facility] ([phone]) or report to the closest Emergency Room. Call 911 if necessary. 09/26/23 2330 <Electronically signed by Axel Michaels DO> Cosigner Signature (if applicable): CC: Dr. Rebecca Raymond MD ~ Signed [facility] Work Phone: 1(208) 279-631905-29-2023 Discharge summary Author [facility] March 07, 2023 11:59pm Note Date/Time March 07, 2023 11:23 pm [facility] Medical Records Department [address] [place] [address] Emergency Department Summary 03/07/23 MR#: [id number] Acct: [id number] Name: DARIANA VAZQUEZ Rep #:[id number] : 1940 82 From: Mario Clarke DO PCP: Dr. Rebecca Raymond MD Status:R EG ER Location: ED HPI History of Present Illness Chief Complaint: Other, Pain/Inj Informant: EMS and SNF Narrative Narrative: Patient is an 82-year-old female from [facility] with past medical historyof obesity GERD MRDD and need for PEG tube. Nursing reports that they were rounding on the patient this evening and discovered her PEG tube had been dislodged. They state they are unsure of how long the tube has been dislodged but as it will not replaced as the patient does not take her medications by mouth she was sent in for evaluation. Nursing reports patient is at her baseline mental status and based on the history of MRDD she cannot offer any further history [facility] Medical History Aplastic anemia GERD (gastroesophageal reflux disease) HTN (hypertension) Osteoarthritis Home Medications Omeprazole 20 Mg/10ml 10 ml G-tube QHS GERD 11/27/20 [History Last Taken 11/26/20] calcium carbonate 600 mg-vitamin D3 10 mcg (400 unit) tablet 1 ea G-tube QHS 11/27/20 [History Last Taken 11/26/20] cholecalciferol (vitamin D3) 50 mcg (2,000 unit) capsule 2,000 unit G-tube DAILY11/27/20 [History Last Taken 11/26/20] Tylenol 650 mg Q4H PRN PRN Pain 1-10 Or Fever 02/01/21 [History Last Taken Unknown] aluminum-mag hydroxide-simethicone 400 mg-400 mg-40 mg/5 mL oral susp 15 ml Q4H PRN PRN Constipation 02/01/21 [History Last Taken Unknown] bisacodyl 10 mg rectal suppository 10 mg NV BID PRN PRN Constipation 02/01/21 [History Last Taken Unknown] magnesium hydroxide 400 mg/5 mL oral suspension 30 ml DAILY PRN Constipation 02/01/21 [History Last Taken Unknown] food supplemt, lactose-reduced 910 ml feeding tube DINNER 07/28/21 [History Last Taken Unknown] Allergy/AdvReac Type Severity Reaction Status Date / Time adhesive tape Allergy NEEDS Verified 09/15/22 16:31 FOLLOW-UP clindamycin Allergy Unknown Verified 09/15/22 16:31 Social History Smoking Status: Never smoker ROS ROS ED ROS Narrative Review of systems cannot be obtained secondary to patient's history of MRDD Review of Systems ROS Unobtainable: due to mental condition EXAM Physical Exam Const Vital Signs: 03/07/23 21:26 Temperature 97.2 F L Temperature Source Temporal Pulse Rate 77 Respiratory Rate 18 Blood Pressure 136/66 H Blood Pressure Mean 89 Pulse Ox 97 Oxygen Delivery Method Room Air Positive well nourished, well developed and obese General Appearance ED: well developed Nutritional Appearance: obese HEENT Reports dry mucous membranes HEENT Narrative: No airway edema or compromise Mouth ED: Yes dry mucous membranes Mouth: dry mucous membranes Eyes PERRL and EOMs intact bilaterally General Eye ED: Negative for scleral icterus Neck supple Resp normal respiratory effort and clear to auscultation bilaterally Cardio regular rate and regular rhythm GI normal to inspection, nondistended, normoactive bowel sounds, non-tender and non-distended GI Narrative: Stoma for PEG tube present in the left mid upper quadrant without surrounding changes to suggest infection and no active discharge or bleeding noted Auscultation: normoactive bowel sounds Palpation: soft Extremity normal to inspection Neuro CN's II-XII intact bilaterally Neuro Narrative: Patient is at her baseline mental status Sensorium / Orientation: alert Psych mental status grossly normal Skin no rashes or lesions noted MDM MDM MDM Narrative Medical decision making narrative: Patient presented to the ER in no acute distress at her baseline mental status with a soft nonsurgical abdomen. Exam indicates that the PEG tube has been dislodged but there is been no internal derangement and therefore there is no need for imaging or laboratory studies. Concern for colitis/gastroenteritis/perforation is low and therefore do not feel there is need for further work-up. The patient had a 24 Malagasy PEG tube reinserted as documented below and following that she is otherwise safe for discharge back to the [facility]pc Patient had her abdominal stoma cleaned with chlorhexidine. Sterile K-Y jelly was then placed for lubrication over top skin. A 24 Malagasy PEG tube was then passed through the stoma and inserted to 5 cm deep into the intestine/stomach. Confirmation was by KUB with Gastrografin. Patient tolerated procedure well without complication History & Record Review Discussion w/independent historian: EMS personnel Radiography Diagnostic Testing: Clinical Impression(s) from Imaging Studies KUB X-Ray 03/07/23 22:55 IMPRESSION: Tip of the percutaneous gastrostomy tube is within the body of the stomach. Electronically Signed: Nemesio Pinon MD at 23:25 EDT , KUB as interpreted by the emergency medicine physician reveals that the PEG tubeis within the antrum of the stomach without perforation or extravasation Discharge Plan Triage Chief Complaint: Other, Pain/Inj ED Provider: Mario Clarke Dx/Rx/DC Orders Clinical Impression: PEG tube malfunction, Mental retardation, Obesity Instructions: ED Feeding Tube Replacement Prescriptions: No Action calcium carbonate-vitamin D3 1 EACH tablet 1 ea GT QHS cholecalciferol (vitamin D3) 2,000 UNIT capsule 2,000 unit GT DAILY Omeprazole 20 Mg/10ml 10 ml GT QHS Tylenol 650 mg Q4H PRN PRN (Reason: Pain 1-10 Or Fever) magnesium hydroxide 30 ML suspension 30 ml DAILY PRN (Reason: Constipation) bisacodyl 10 MG suppository 10 mg RC BID PRN PRN (Reason: Constipation) alum-mag hydroxide-simeth 355 ML suspension 15 ml Q4H PRN MDD constipation PRN (Reason: Constipation) Jevity Liquid 910 ml feeding tube DINNER Primary Care Provider: Rebecca Raymond Referrals: Rebecca Raymond MD [Primary Care Provider] - Disposition Disposition: Home, Self Care What to do if you have Problems For any increased pain, shortness of breath, bleeding, nausea or vomiting, chestpain, or any unexpected problems, contact your Primary Care Provider. Call [facility] ([phone]) or report to the closest Emergency Room. Call 911 if necessary. 03/07/23 4802 <Electronically signed by Mario Clarke DO> Cosigner Signature (if applicable): CC: Dr. Rebecca Raymond MD ~ Signed [facility] Work Phone: 1(977) 805-660808-01-2022 History of Present illness Narrative* Desmond Crane MD - 05/11/2022 4:09 PM EDT Subjective: Patient is well-known to me for having her PEG tube replaced back in November of this year. She has had this fall out and had to go back to the emergency department and have another 1 placed. I am being asked to evaluate this. Subjective:Blood pressure 94/64, pulse 93, temperature (!) 35.9 C (96.7 F), height 149.9 cm (4' 11"), SpO2 94 %. Patient no longer has [...] abdominal binder for her so that she canno longer pull on it it is clear that that is probably how the PEG tube is been coming out I do notthink that there is any other good way to do this. [facility]* Marion Umaña, MOLLY - 05/11/2022 3:28 PM EDT REVIEW OF SYSTEMS: General: The patient denies [...] failure, other cardiac issues, denies claudication, denies coldfeet, denies peripheral arterial stent. Respiratory: The patient [...] back pain/injury, denies back problems, denies sciatica, deniesknee/foot trouble, denies arthritis, or denies gout. When was patient's last Mammogram screening? 2013 Last Colonoscopy: unknown Marion Umaña LPN [facility] History of Past illness Narrative* Problem Noted Date Resolved Date Essential hypertension, malignant 11/05/2015 07/15/2016 Overview: Per LDT 10/31/15 [facility]pc charges Sprain of ankle, unspecified site 11/18/2006 08/01/2007 Pain in limb 08/25/2005 08/01/2007 Urinary tract infection, site not specified 07/15/2016 Overview: Recurrent UTI's documented as of this encounter (statuses as of 05/11/2022) [facility] History of Past illness Narrative* Problem Noted Date Diagnosed Date Resolved Date Essential hypertension, malignant 11/05/2015 07/15/2016 Overview: Per LDT 10/31/15 fpc charges Sprain of ankle, unspecified site 11/18/2006 08/01/2007 Pain in limb 08/25/2005 08/01/2007 Urinary tract infection, site not specified 07/15/2016 Overview: Recurrent UTI's documented as of this encounter (statuses as of 01/01/2024) [facility] September 27, 2023 3:41am Note Date/Time September 27, 2023 2:03am [facility] Medical Records Department [address] [place] [address] Emergency Department Summary 09/27/23 MR#: [id number] Acct: [id number] Name: DARIANA VAZQUEZ Rep #:[id number] : 1940 83 From: Brent Owens MD PCP: Dr. Rebecca Raymond MD Status:R ER Location: ED HPI History of Present Illness Chief Complaint: Other, Pain/Inj Narrative Narrative: Patient presents because her feeding tube fell out. This 1 was placed earlier in the day this past day, staff at the [facility] states they went in and it was sitting on her abdomen with the balloon deflated. [facility] Medical History Aplastic anemia GERD (gastroesophageal reflux disease) HTN (hypertension) Mental retardation Osteoarthritis Home Medications Omeprazole 20 Mg/10ml 10 ml G-tube QHS GERD 11/27/20 [History Last Taken 11/26/20] calcium carbonate 600 mg-vitamin D3 10 mcg (400 unit) tablet 1 ea G-tube QHS 11/27/20 [History Last Taken 11/26/20] cholecalciferol (vitamin D3) 50 mcg (2,000 unit) capsule 2,000 unit G-tube DAILY11/27/20 [History Last Taken 11/26/20] Tylenol 650 mg Q4H PRN PRN Pain 1-10 Or Fever 02/01/21 [History Last Taken Unknown] aluminum-mag hydroxide-simethicone 400 mg-400 mg-40 mg/5 mL oral susp 15 ml Q4H PRN PRN Constipation 02/01/21 [History Last Taken Unknown] bisacodyl 10 mg rectal suppository 10 mg NV BID PRN PRN Constipation 02/01/21 [History Last Taken Unknown] magnesium hydroxide 400 mg/5 mL oral suspension 30 ml DAILY PRN Constipation 02/01/21 [History Last Taken Unknown] food supplemt, lactose-reduced 910 ml feeding tube DINNER 07/28/21 [History Last Taken Unknown] Allergy/AdvReac Type Severity Reaction Status Date / Time adhesive tape Allergy NEEDS Verified 09/27/23 01:49 FOLLOW-UP clindamycin Allergy Unknown Verified 09/27/23 01:49 Surgical History Status post insertion of percutaneous endoscopic gastrostomy (PEG) tube Social History Smoking Status: Never smoker ROS ROS ED Review of Systems ROS Unobtainable: due to mental condition EXAM Physical Exam Const Vital Signs: 09/27/23 01:48 09/27/23 01:48 09/27/23 02:32 Temperature 97.6 F L Temperature Source Temporal Pulse Rate 67 64 Respiratory Rate 18 15 Respiratory Effort Normal Non-Labored Blood Pressure 140/79 H Blood Pressure Mean 99 Pulse Ox 96 98 Oxygen Delivery Method Room Air Positive well nourished and well developed General Appearance ED: well developed and NAD HEENT Reports moist mucous membranes Chest Wall inspection of chest normal and palpation of chest normal Resp normal respiratory effort Cardio regular rate and regular rhythm Rate: Negative for tachycardic GI normal to inspection, nondistended, normoactive bowel sounds GI Narrative: G-tube site left upper quadrant with some gastric contents around it but otherwise benign and patent Skin no rashes or lesions noted and no wounds MDM MDM MDM Narrative Medical decision making narrative: Tube was replaced promptly see the procedure note. There were no complications and small amount of gastric contents with the water that was flushed were able to be aspirated. In reviewing past records, patient has had a gastric feeding tube for years. Given this I do not think we need to do confirmatory x-rays. She is doing well and waiting for a ride to go back to the [facility]. Procedures Other Procedures Procedure(s): 24 Malagasy G-tube placement after verifying balloon competent, inflated with 6 cc of water, both ports ramakrishna back gastric contents and flushed easily. No complications tolerated well. Discharge Plan Triage Chief Complaint: Other, Pain/Inj ED Provider: Brent Owens Dx/Rx/DC Orders Clinical Impression: PEG tube malfunction Instructions: ED Feeding Tube Replacement Prescriptions: No Action calcium carbonate-vitamin D3 1 EACH tablet 1 ea GT QHS cholecalciferol (vitamin D3) 2,000 UNIT capsule 2,000 unit GT DAILY Omeprazole 20 Mg/10ml 10 ml GT QHS Tylenol 650 mg Q4H PRN PRN (Reason: Pain 1-10 Or Fever) magnesium hydroxide 30 ML suspension 30 ml DAILY PRN (Reason: Constipation) bisacodyl 10 MG suppository 10 mg RC BID PRN PRN (Reason: Constipation) alum-mag hydroxide-simeth 355 ML suspension 15 ml Q4H PRN MDD constipation PRN (Reason: Constipation) Jevity Liquid 910 ml feeding tube DINNER Primary Care Provider: Rebecca Raymond Referrals: Rebecca Raymond MD [Primary Care Provider] - As Needed Disposition Disposition: Home, Self Care What to do if you have Problems For any increased pain, shortness of breath, bleeding, nausea or vomiting, chestpain, or any unexpected problems, contact your Primary Care Provider. Call [facility] ([phone]) or report to the closest Emergency Room. Call 911 if necessary. 09/27/23 0341 <Electronically signed by Brent Owens MD> Cosigner Signature (if applicable): CC: Dr. Rebecca Raymond MD ~ Signed [facility] Work Phone: Discharge summary Author Brent Owens [facility] February 08, 2024 5:33am Note Date/Time February 08, 2024 5:2 5am [facility] Medical Records Department [address] [facility] [place] [address] Emergency Department Summary 02/08/24 MR#: [id number] Acct: [id number] Name: DARIANA VAZQUEZ Rep #:[id number] : 1940 83 From: Brent Owens MD PCP: Dr. Rebecca Raymond MD Status:R EG ER Location: ED HPI History of Present Illness Chief Complaint: Other, Pain/Inj Detail of Chief Complaint: pulled feeding tube out Informant: patient and EMS Onset/Context/Timing Onset: Today Narrative Narrative: 83-year-old female with a [facility] with history limited due to mental retardation brought at 5:15 AM due to nurses finding her with her feeding tube out. Unknown how long it was out, but they think no more than a couple hours. Patient admits that this must of happened on accident. She denies having any pain. EMS reports that there is no significant bleeding from the site or discharge. [facility] Medical History Aplastic anemia GERD (gastroesophageal reflux disease) HTN (hypertension) Mental retardation Osteoarthritis Home Medications Omeprazole 20 Mg/10ml 10 ml G-tube QHS GERD 11/27/20 [History Last Taken 11/26/20] calcium carbonate 600 mg-vitamin D3 10 mcg (400 unit) tablet 1 ea G-tube QHS 11/27/20 [History Last Taken 11/26/20] cholecalciferol (vitamin D3) 50 mcg (2,000 unit) capsule 2,000 unit G-tube DAILY11/27/20 [History Last Taken 11/26/20] Tylenol 650 mg Q4H PRN PRN Pain 1-10 Or Fever 02/01/21 [History Last Taken Unknown] aluminum-mag hydroxide-simethicone 400 mg-400 mg-40 mg/5 mL oral susp 15 ml Q4H PRN PRN Constipation 02/01/21 [History Last Taken Unknown] bisacodyl 10 mg rectal suppository 10 mg NV BID PRN PRN Constipation 02/01/21 [History Last Taken Unknown] magnesium hydroxide 400 mg/5 mL oral suspension 30 ml DAILY PRN Constipation 02/01/21 [History Last Taken Unknown] food supplemt, lactose-reduced 910 ml feeding tube DINNER 07/28/21 [History Last Taken Unknown] Allergy/AdvReac Type Severity Reaction Status Date / Time adhesive tape Allergy NEEDS Verified 09/27/23 01:49 FOLLOW-UP clindamycin Allergy Unknown Verified 09/27/23 01:49 Surgical History Status post insertion of percutaneous endoscopic gastrostomy (PEG) tube Social History Smoking Status: Never smoker ROS ROS ED Cardiovascular Cardiovascular: Denies chest pain Respiratory/Chest Respiratory/Chest: Denies dyspnea Gastrointestinal Gastrointestinal: Denies abdominal pain, nausea or vomiting EXAM Physical Exam Const Vital Signs: 02/08/24 05:18 Temperature 97 F L Temperature Source Temporal Pulse Rate 76 Respiratory Rate 18 Blood Pressure 114/68 Blood Pressure Mean 83 Pulse Ox 96 Oxygen Delivery Method Room Air Positive well nourished and well developed General Appearance ED: well developed and NAD Chest Wall inspection of chest normal and palpation of chest normal Resp normal respiratory effort and clear to auscultation bilaterally GI normal to inspection, nondistended, normoactive bowel sounds, non-tender and non-distended GI Narrative: PEG tube site epigastrium benign patent no active bleeding or signs of infection. Extremity normal to inspection Neuro no sensory deficits noted Motor Exam: strength 5/5 throughout Psych mental status grossly normal MDM MDM MDM Narrative Medical decision making narrative: PEG tube was replaced easily, see the procedure note. She had a 24 Malagasy and we placed a 24 Malagasy. Patient has well-established tract, she has had a PEG infor over 1.5 years, and given that it went in uneventfully and I was able to aspirate stomach contents and flush fluid easily, literature supports using thiswithout the need for radiographic confirmation. Procedures Other Procedures Procedure(s): PEG replacement: Immediately upon arrival, placed new 24 Malagasy PEG after confirming competency of balloon with 6 cc saline, lubricated the tip of the tube and with gentle pressure was able to pop it through the opening withlittle transient discomfort, aspirating stomach contents small amount, and easily flushes with 20 cc of fluid without any symptoms. Discharge Plan Triage Chief Complaint: Other, Pain/Inj ED Provider: Brent Owens Dx/Rx/DC Orders Clinical Impression: PEG tube malfunction Instructions: Gastrostomy Feeding Tube Care ... Prescriptions: No Action calcium carbonate-vitamin D3 1 EACH tablet 1 ea GT QHS cholecalciferol (vitamin D3) 2,000 UNIT capsule 2,000 unit GT DAILY Omeprazole 20 Mg/10ml 10 ml GT QHS Tylenol 650 mg Q4H PRN PRN (Reason: Pain 1-10 Or Fever) magnesium hydroxide 30 ML suspension 30 ml DAILY PRN (Reason: Constipation) bisacodyl 10 MG suppository 10 mg RC BID PRN PRN (Reason: Constipation) alum-mag hydroxide-simeth 355 ML suspension 15 ml Q4H PRN MDD constipation PRN (Reason: Constipation) Jevity Liquid 910 ml feeding tube DINNER Primary Care Provider: Rebecca Raymond Referrals: Rebecca Raymond MD [Primary Care Provider] - As Needed Disposition Disposition: Home, Self Care What to do if you have Problems For any increased pain, shortness of breath, bleeding, nausea or vomiting, chestpain, or any unexpected problems, contact your Primary Care Provider. Call [facility] ([phone]) or report to the closest Emergency Room. Call 911 if necessary. 02/08/24 0533 <Electronically signed by Brent Owens MD> Cosigner Signature (if applicable): CC: Dr. Reebcca Raymond MD ~ Signed [facility] Work Phone: Evaluation note* Diagnosis PEG tube malfunction (HCC)- Primary Mechanical complication of gastrostomy [facility] noteNo assessment information availableWUniversity [facility]als [facility] Work Phone: Evaluation note* Diagnosis PEG tube malfunction (HCC) Mechanical complication of gastrostomy documented in this encounter [facility] note* Diagnosis PEG tube malfunction (HCC)- Primary Mechanical complication of gastrostomy documented in this encounter [facility] Discharge instructions Additional Instructions X-ray was obtained with Gastrografin and it shows the PEG tube to be in good position. You may use it.[facility] Work Phone: Hospital Discharge instructions Additional Instructions Her PEG tube was replaced with a 20 Malagasy with a 20 cc balloon and placement was confirmed with an x-ray.[facility] Work Phone: Reason for referral (narrative)No reason for referral information availableWUniversity Hospitals Ahu[facility] Center Work Phone: Advance Directives No Advanced Directives Records FoundDocuments on File Type Date Recorded Patient Food General Manager Expl anation Advance Directive(s) Advance Directive Response Recorded Date/ Time Living Will Yes July 28 3:39pm Power of Diesel Mechanic Farm Yes July 28, 2021 3:39pm Advance Directive Response Recorded Date/ Time Living Will Yes July 28 2:39pm Power of Diesel [employer]ic [employer] Yes July 28, 2021 2:39pm Advance Directive Response Recorded Date/ Time Living Will No March 07, 2023 9 :29pm Power of Diesel [employer] No March 07, 2023 9:29pm Advance Directive Response Recorded Date/ Time Living Will No March 07, 2023 8 :29pm Power of Diesel [employer]ic [employer] No March 07, 2023 8:29pm Advance Directive Response Recorded Date/ Time Living Will No September 26, 2 023 8:07pm Power of Diesel [employer] No September 26, 2023 8:07pm Advance Directive Response Recorded Date/ Time Living Will No September 26, 2 023 9:07pm Power of Diesel [employer] No September 26, 2023 9:07pm Advance Directive Response Recorded Date/ Time Living Will No January 17, 2024 4:20pm Power of Diesel [employer] No January 16 4:20pm Advance Directive Response Recorded Date/ Time Living Will No February 08, 2024 5:23am Power of Diesel [employer] No February 07 5:23am Advance Directive Response Recorded Date/ Time Living Will No December 18, 2024 10:48am Power of Diesel [employer] No December 18 10:48am Advance Directive Response Recorded Date/ Time Living Will No December 18, 2024 10:48am Do you have a Healthcare Power of Diesel Mechanic Farm? 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 EXAM [facility] LABWORK MONTHLY NOTE Chief Complaint [facility] LABWORK MONTHLY NOTE MONTHLY EXAM pulled peg tube out Chief Complaint [facility] LAB WOR K MONTHLY NOTE pulled peg tube out MONTHLY EXAM MONTHLY EXAM Chief Complaint MONTHLY EXAM [facility] LAB WORK [facility] LABWORK MONTHLY NOTE MONTHLY EXAM [facility] LAB WORK Chief Complaint FCI LAB WOR K [facility] LAB[facility] MONTHLY NOTE MONTHLY EXAM [facility] LAB WORK [facility] LAB WORK wound Chief Complaint FCI LAB WOR K [facility] LABWORK MONTHLY NOTE MONTHLY EXAM [facility] LAB WORK [facility] LAB WORK wound peg tube out Chief Complaint FCI LAB WOR K [facility] WORK MONTHLY NOTE MONTHLY EXAM MD wound peg tube out LABWORK Chief Complaint MONTHLY NOTE MONTHLY EXAM wound peg tube out MONTHLY EXAM LABWORK [facility] LAB WORK Chief Complaint MONTHLY EXAM MD wound peg tube out MONTHLY EXAM MONTHLY EXAM MD LABWORK [facility] WORK PEG TUBE CHECK Chief Complaint MONTHLY EXAM MONTHLY EXAM MD LABWORK [facility] LAB WORK MONTHLY NOTE PEG TUBE CHECK other Chief Complaint Admit Date MONTHLY EXAM August 24, 2024 10:18am [facility] LAB WORK August 30 5:00am MONTHLY EXAM September 12, 2024 5 :09pm MONTHLY EXAM November 01, 2024 1 2:02pm LABWORK November 29, 2024 5:00am LABWORK December 08, 2024 5:00am peg tube December 18, 2024 10: 41am Chief Complaint Admit Date MONTHLY EXAM September 12, 2024 5 :09pm MONTHLY EXAM November 01, 2024 1 2:02pm MONTHLY EXAM November 14, 2024 3 :53pm LABWORK November 29, 2024 5:00am LABWORK December 08, 2024 5:00am peg tube December 18, 2024 10: 41am Chief Complaint Admit Date LABWORK November 29, 2024 5:00am LABWORK December 08, 2024 5:00am peg tube December 18, 2024 10: 41am MONTHLY EXAM December 21, 2024 8:5 8am NURISNG HOME LAB WORK February 28, 2025 5:0 0am Chief Complaint Admit Date LABWORK November 29, 2024 5:00am LABWORK December 08, 2024 5:00am peg tube December 18, 2024 10: 41am MONTHLY EXAM December 21, 2024 8:5 8am Monthly Exam January 16, 2025 2:21 pm NURISNG HOME LAB WORK February 28, 2025 5:0 0am Chief Complaint Admit Date LABWORK November 29, 2024 5:00am LABWORK December 08, 2024 5:00am peg tube December 18, 2024 10: 41am MONTHLY EXAM December 21, 2024 8:5 8am Monthly Exam January 16, 2025 2:21 pm New Concern January 22, 2025 6:1 3pm NURISNG HOME LAB WORK February 28, 2025 5:0 0am Chief Complaint Admit Date Monthly Exam January 16, 2025 2:21 pm New Concern January 22, 2025 6:1 3pm MONTHLY EXAM February 08, 2025 11:00a m NURISNG HOME LAB WORK February 28, 2025 5:0 0am Chief Complaint Admit Date Monthly Exam January 16, 2025 2:21 pm New Concern January 22, 2025 6:1 3pm MONTHLY EXAM February 08, 2025 11:00a m NURISNG HOME LAB WORK February 28, 2025 5:0 0am MONTHLY EXAM March 13, 2025 4:45p m Chief Complaint Admit Date Monthly Exam January 16, 2025 2:21 pm New Concern January 22, 2025 6:1 3pm MONTHLY EXAM February 08, 2025 11:00a m NEW CONCERN February 13, 2025 3:36pm NURISNG HOME LAB WORK February 28, 2025 5:0 0am MONTHLY EXAM March 13, 2025 4:45p m Chief Complaint Admit Date MONTHLY EXAM February 08, 2025 11:00a m NEW CONCERN February 13, 2025 3:36pm NURISNG HOME LAB WORK February 28, 2025 5:0 0am MONTHLY EXAM March 13, 2025 4:45p m Monthly Exam April 12, 2025 10:04 am Summary Purpose Family History No Family History Records FoundNo Family History Records Found Additional Source Comments Source Comments (unrecognize d section and content) In the event this informatio n is protected by the Federal Confidentiality of Alcohol and Drug Abuse Patient Records regulations: The Federal rules restrict any use of the information to criminally investigate or prosecute any alcohol or drug abuse patient.[facility] the event this information is protected by the Federal Confidentiality of Alcohol and Drug Abuse Patient Records regulations: The Federal rules restrict any use of the information to criminally investigate or prosecute any alcohol or drug abuse patient.[facility] the event this information is protected by the Federal Confidentiality of Alcohol and Drug Abuse Patient Records regulations: The Federal rules restrict any use of the information to criminally investigate or prosecute any alcohol or drug abuse patient.[facility] the event this information is protected by the Federal Confidentiality of Alcohol and Drug Abuse Patient Records regulations: The Federal rules restrict any use of the information to criminally investigate or prosecute any alcohol or drug abuse patient.[facility] Reason for Visit (unrecogniz ed section and content) Reason Comments Consult peg tube issues Reason Comments peg tube Possibly replace Reason Comments Consult Peg tube change Reason Comments Appointment Care Teams (unrecognized sec tion and content) Team Status: Active Member Role Status Dates Dr. Rebecca Raymond MD Primary Care Provider Active Team Status: Active Member Role Status Dates Dr. Rebecca Raymond MD Primary Care Provider Active Start: November 29, 2024 Rebecca GILL MD Attending Provider Active Start: November 29, 2024 Team Status: Inactive Member Role Status Dates Dr. Rebecca Raymond MD Primary Care Provider Active Start: December 08, 2024 End: December 08, 2024 Rebecca GILL MD Attending Provider Active Start: December 08, 2024 End: December 08, 2024 Team Status: Inactive Member Role Status Dates Dr. Rebecca Raymond MD Primary Care Provider Active Start: December 18, 2024 End: December 18, 2024 Dr. Adalberto Jensen DO Attending Provider Activ e Start: December 18, 2024 End: December 18, 2024 Dr. Adalberto Jensen , DO Emergency Provider Activ e Start: December 18, 2024 End: December 18, 2024 Team Status: Inactive Member Role Status Dates Dr. Rebecca Raymond MD Primary Care Provider Active Start: December 21, 2024 End: December 21, 2024 Julian ZHENG PA Attending Provider Active St art: December 21, 2024 End: December 21, 2024 Team Status: Inactive Member Role Status Dates Dr. eRbecca Raymond MD Primary Care Provider Active Start: February 28, 2025 End: February 28, 2025 Rebecca GILL MD Attending Provider Active Start: February 28, 2025 End: February 28, 2025 Family Dinner Service Specialist Relationship Specialty Start Date End Date Kimberly Farris MD [address] [place] [address] PCP - General 08/03/02 Team Status: Active Member Role Status Dates Dr. Kimberly Farris MD Family Provider Active Dr. Rebecca Raymond MD Primary Care Provider Active Team Status: Inactive Member Role Status Dates Dr. Rebecca Raymond MD Primary Care Provider Active Iraida Peres MEDICAL GENETICS DIRECTOR, MEDICAL GENETICS DIRECTOR-C Attending Provider Active Team Status: Inactive Member Role Status Dates Dr. Rebecca Raymond MD Primary Care Provider, Atten ding Provider Active Team Status: Inactive Member Role Status Dates Dr. Rebecca Raymond MD Primary Care Provider Active Dr. Ashly Abdi DO Attending Provider, Emergency Hilaria fam Active Team Status: Inactive Member Role Status Dates Dr. Rebecca Raymond MD Primary Care Provider Active Rebecca GILL MD Attending Provider Active Team Status: Active Member Role Status Dates Dr. Rebecca Raymond MD Primary Care Provider Active Rebecca GILL MD Attending Provider Active Team Status: Inactive Member Role Status Dates Dr. Rebecca Raymond MD Primary Care Provider Active Dr. Mario Clarke DO Emergency Provider Active Team Status: Inactive Member Role Status Dates Dr. Rebecca Raymond MD Primary Care Provider Active Dr. Mario Clarke DO Attending Provider, Emergency Pr ovider Active Team Status: Inactive Member Role Status Dates Dr. Rebecca Raymond MD Primary Care Provider Active Dr. Axel Michaels DO Emergency Provider Active Team Status: Inactive Member Role Status Dates Dr. Rebecca Raymond MD Primary Care Provider Active Dr. Brent Owens MD Referring Provider, Emergency Provider Active Team Status: Inactive Member Role Status Dates Dr. Rebecca Raymond MD Primary Care Provider Active Dr. Axel Michaels DO Attending Provider, Emergency P rovider Active Team Status: Inactive Member Role Status Dates Dr. Rebecca Raymond MD Primary Care Provider Active Dr. Brent Owens MD Attending Provid er, Referring Provider, Emergency Provider Active Team Status: Inactive Member Role Status Dates Dr. Rebecca Raymond MD Primary Care Provider Active Julian ZHENG, PA Attending Provider Active Team Status: Inactive Member Role Status Dates Dr. Rebecca Raymond MD Primary Care Provider Active Rebecca GILL MD Attending Provider, Referring Provider Active Family Dinner Service Specialist Relationship Specialty Start Date End Date Kimberly Farris MD [address] [place] [address] PCP - General 08/03/02 Team Status: Inactive Member Role Status Dates Dr. Rebecca Raymond MD Primary Care Provider Active Dr. Dejon Raymundo MD Emergency Provider Active Team Status: Inactive Member Role Status Dates Dr. Rebecca Raymond MD Primary Care Provider Active Dr. Dejon Raymundo MD Attending Provider, Emergency Pro vider Active Team Status: Inactive Member Role Status Dates Dr. eRbecca Raymond MD Primary Care Provider Active Dr. Brent Owens MD Emergency Provider Active Family Dinner Service Specialist Relationship Specialty Start Date End Date Kimberly Farris MD [address] [place] [address] PCP - General 08/03/02 Ellie Mora, RN BURN.ASW/[email or web address] TACTICAL AIR CONTROLLER [address] [place] [address] [facility] 09/18/24 Alanis Colvin, RN BURN.ENVIRONMENTAL AIR SPECIALIST [address] [place] [address] [facility] 09/18/24 Team Status: Inactive Member Role Status Dates Dr. Rebecca Raymond MD Primary Care Provider Active Start: August 24, 2024 End: August 24, 2024 Julian ZHENG PA Attending Provider Active St art: August 24, 2024 End: August 24, 2024 Team Status: Inactive Member Role Status Dates Dr. Rebecca Raymond MD Primary Care Provider Active Start: August 30, 2024 End: August 30, 2024 Rebecca GILL MD Attending Provider Active Start: August 30, 2024 End: August 30, 2024 Team Status: Inactive Member Role Status Dates Dr. Rebecca Raymond MD Primary Care Provider Active Start: September 12, 2024 End: September 12, 2024 Dr. Rebecca Raymond MD Attending Provider Active Start: September 12, 2024 End: September 12, 2024 Team Status: Inactive Member Role Status Dates Dr. Rebecca Raymond MD Primary Care Provider Active Start: November 01, 2024 End: November 01, 2024 Iraida Peres MEDICAL GENETICS DIRECTOR, MEDICAL GENETICS DIRECTOR-C Attending Provider Active Start: November 01, 2024 End: November 01, 2024 Team Status: Active Member Role Status Dates Dr. Rebecca Raymond MD Primary Care Provider Active Start: December 08, 2024 Rebecca GILL MD Attending Provider Active Start: December 08, 2024 Team Status: Inactive Member Role Status Dates Dr. Rebecca Raymond MD Primary Care Provider Active Start: December 18, 2024 End: December 18, 2024 Dr. Adalberto Jensen DO Emergency Provider Activ e Start: December 18, 2024 End: December 18, 2024 Team Status: Inactive Member Role Status Dates Dr. Rebecca Raymond MD Primary Care Provider Active Start: November 14, 2024 End: November 14, 2024 Dr. Rebecca Raymond MD Attending Provider Active Start: November 14, 2024 End: November 14, 2024 Family Dinner Service Specialist Relationship Specialty Start Date End Date Kimberly Farris MD [address] [place] [address] PCP - General 08/03/02 01/17/25 Ellie Mora, RN BURN.ASW/[email or web address] TACTICAL [employer]OLLER [address] [place], [place] [id number] [facility] 09/18/24 01/17/25 Alanis Colvin, RN BURN.ENVIRONMENTAL AIR SPECIALIST [address] [place], [place] [id number] [facility] 09/18/24 12/29/24 Alanis Colvin, RN BURN.ENVIRONMENTAL AIR SPECIALIST [address] [place], [place] [address] [facility] 01/02/25 01/17/25 Team Status: Inactive Member Role Status Dates Dr. Rebecca Raymond MD Primary Care Provider Active Start: January 16, 2025 End: January 16, 2025 Dr. Rebecca Raymond MD Attending Provider Active Start: January 16, 2025 End: January 16, 2025 Team Status: Inactive Member Role Status Dates Dr. Rebecca Raymond MD Primary Care Provider Active Start: January 22, 2025 End: January 22, 2025 Iraida Peres MEDICAL GENETICS DIRECTOR, MEDICAL GENETICS DIRECTOR-C Attending Provider Active Start: January 22, 2025 End: January 22, 2025 Team Status: Active Member Role/Relationship Status Dates Dr. Rebecca Raymond MD Primary Care Provider Active Team Status: Inactive Member Role/Relationship Status Dates Dr. Rebecca Raymond MD Primary Care Provider Active Start: January 16, 2025 End: January 16, 2025 Dr. Rebecca Raymond MD Attending Provider Active Start: January 16, 2025 End: January 16, 2025 Team Status: Inactive Member Role/Relationship Status Dates Dr. Rebecca Raymond MD Primary Care Provider Active Start: January 22, 2025 End: January 22, 2025 Iraida Peres MEDICAL GENETICS DIRECTOR, MEDICAL GENETICS DIRECTOR-C Attending Provider Active Start: January 22, 2025 End: January 22, 2025 Team Status: Inactive Member Role/Relationship Status Dates Dr. Rebecca Raymond MD Primary Care Provider Active Start: February 08, 2025 End: February 08, 2025 NORM Thomas Attending Provider Active St art: February 08, 2025 End: February 08, 2025 Team Status: Inactive Member Role/Relationship Status Dates Dr. Rebecca Raymond MD Primary Care Provider Active Start: February 28, 2025 End: February 28, 2025 Rebecca GILL MD Attending Provider Active Start: February 28, 2025 End: February 28, 2025 Team Status: Inactive Member Role/Relationship Status Dates Dr. Rebecca Raymond MD Primary Care Provider Active Start: March 13, 2025 End: March 13, 2025 Dr. Rebecca Raymond MD Attending Provider Active Start: March 13, 2025 End: March 13, 2025 Team Status: Inactive Member Role/Relationship Status Dates Dr. Rebecca Raymond MD Primary Care Provider Active Start: February 13, 2025 End: February 13, 2025 Iraida Peres MEDICAL GENETICS DIRECTOR, MEDICAL GENETICS DIRECTOR-C Attending Provider Active Start: February 13, 2025 End: February 13, 2025 Team Status: Inactive Member Role/Relationship Status Dates Dr. Rebecca Raymond MD Primary Care Provider Active Start: February 28, 2025 End: February 28, 2025 Rebecca GILL MD Attending Provider Active Start: February 28, 2025 End: February 28, 2025 Team Status: Inactive Member Role/Relationship Status Dates Dr. Rebecca Raymond MD Primary Care Provider Active Start: March 13, 2025 End: March 13, 2025 Dr. Rebecca Raymond MD Attending Provider Active Start: March 13, 2025 End: March 13, 2025 Team Status: Inactive Member Role/Relationship Status Dates Dr. Rebecca Raymond MD Primary Care Provider Active Start: February 08, 2025 End: February 08, 2025 NORM Thomas Attending Provider Active St art: February 08, 2025 End: February 08, 2025 Team Status: Inactive Member Role/Relationship Status Dates Dr. Rebecca Raymond MD Primary Care Provider Active Start: February 13, 2025 End: February 13, 2025 Iraida Peres NP, MEDICAL GENETICS DIRECTOR-C Attending Provider Active Start: February 13, 2025 End: February 13, 2025 Team Status: Inactive Member Role/Relationship Status Dates Dr. Rebecca Raymond MD Primary Care Provider Active Start: February 28, 2025 End: February 28, 2025 Rebecca GILL MD Attending Provider Active Start: February 28, 2025 End: February 28, 2025 Team Status: Inactive Member Role/Relationship Status Dates Dr. Rebecca Raymond MD Primary Care Provider Active Start: March 13, 2025 End: March 13, 2025 Dr. Rebecca Raymond MD Attending Provider Active Start: March 13, 2025 End: March 13, 2025 Team Status: Inactive Member Role/Relationship Status Dates Dr. Rebecca Raymond MD Primary Care Provider Active Start: April 12, 2025 End: April 12, 2025 NORM Thomas Attending Provider Active St art: April 12, 2025 End: April 12, 2025 Goals (unrecognized section and content) Goals may be documented in a n alternate sectionGoals may be documented in an alternate sectionGoals may be documented in an alternate sectionGoals may be documented in an alternate sectionGoals may be documented in an alternate sectionGoals may be documented in an alternate sectionGoals may be documented in an alternate sectionGoals may be documented in an alternate sectionGoals may be documented in an alternate sectionGoals may be documented in an alternate sectionGoals may be documented in an alternate sectionGoals may be documented in an alternate sectionGoals may be documented in an alternate sectionGoals may be documented in an alternate sectionGoals may be documented in an alternate sectionGoals may be documented in an alternate sectionGoals may be documented in an alternate sectionGoals may be documented in an alternate sectionGoals may be documented in an alternate sectionGoals may be documented in an alternate sectionGoals may be documented in an alternate section INFORMATION SOURCE (unrecogn ized section and content) DATE CREATED AUTHOR 03/18/2025 [facility] DATE CREATED AUTHOR JUAN C PINZON 05/26/2025 [facility] FOR RECORDS PERTAINING TO PATIENTS WHO ARE [...] BE BASED ON THE PRIMARY CLINICAL RECORDS. [employer] provides no warranty or guarantee of the accuracy or completeness of information in this document.
[2025-05-30 07:36] LABS: Hematocrit 35.7 % (37-47); Hemoglobin 11.5 g/dL (12.0-15.0); Mean Corp Hgb Conc 32.2 g/dL (32-36); Mean Corpuscular Volume 105.0 fL (81-99); Mean Platelet Vol. 12.8 fl (6.2-12.0); Platelet Count 142 K/mm3 (150-450); RBC Distribution Width CV 13.2 % (11.6-14.6); RBC Distribution Width SD 51.2 fl (35.1-43.9); Red Blood Count 3.40 M/mm3 (4.2-5.4); White Blood Count 4.6 K/mm3 (4.4-11.0)
[2025-05-30 08:18] LABS: Albumin, Serum 3.0 g/dL (3.4-4.8); Anion Gap 7 (5-15); BUN 30 mg/dL (4-19); BUN/Creat Ratio 47.2 RATIO (10-20); Calcium,Total 9.0 mg/dL (7.6-11.0); Carbon Dioxide 29.8 mmol/L (21.0-32.0); Chloride 101 mmol/L (98-108); Glucose 98 mg/dL (70-99); Potassium 5.0 mmol/L (3.3-5.1); Vitamin D,25 Hydroxy 50.4 ng/mL (30-100)
== END ==
LOC: OLS.WHLEAS 05:00
PROVIDERS: PCP Internal Medicine; Visit Provider Internal Medicine
DX: I10 Essential (primary) hypertension (principal); I73.89 Other specified peripheral vascular diseases; E55.9 Vitamin D deficiency, unspecified; D61.9 Aplastic anemia, unspecified
CPT/HCPCS: 36415; 80048; 82040; 82306; 85027

== ENCOUNTER → 2025-08-29 05:00 | Outpatient (REF) | payer MEDICARE, MEDICAID, SELFPAY ==
--- OUTSIDE RECORDS SUMMARY | 2025-08-29 04:42 | XMS RPT_ITS | CCD ---
Author Organization [facility] Care Team Providers Care Tank Car Cleaner Name Role Phone Kaleigh BENTLEY, Kimberly Pollard Primary Care Provider Dr. Rebecca Raymond Primary Care Provider [phone] Ja HIGH SCHOOL MUSIC TEACHER, HIGH SCHOOL MUSIC TEACHER-C Iraida Attending Provider UnaDr. Rebecca Freeman Attending Provider [phone] Dr. Rebecca Raymond Primary Care Provider Ja HIGH SCHOOL MUSIC TEACHER, HIGH SCHOOL MUSIC TEACHER-C Iraida Attending Provider Unav Dr. Rebecca Saenz Attending Provider [phone] Dr. Rebecca Raymond Primary Care Provider [phone] Ja HIGH SCHOOL MUSIC TEACHER, HIGH SCHOOL MUSIC TEACHER-C Iraida Attending Provider Unav Dr. Rebecca Saenz Attending Provider [phone] Dr. Rebecca Raymond Primary Care Provider [phone] Dr. Rebecca Raymond Attending Provider [phone] Ja HIGH SCHOOL MUSIC TEACHER, HIGH SCHOOL MUSIC TEACHER-C Iraida Attending Provider UnaDr. Rebecca Freeman Primary Care Provider Dr. Rebecca Raymond Attending Provider [phone] Dr. Rebecca Raymond Primary Care Provider [phone] Ja HIGH SCHOOL MUSIC TEACHER, HIGH SCHOOL MUSIC TEACHER-C Iraida Attending Provider Dr. Rebecca Raymond Attending Provider [phone] Dr. Rebecca Raymond Primary Care Provider [phone] Ja HIGH SCHOOL MUSIC TEACHER, HIGH SCHOOL MUSIC TEACHER-C Iraida Attending Provider Dr. Rebecca Raymond Attending Provider [phone] NORM Dang Attending Provider [phone] Kimberly Farris MD Primary Care Provider Dr. Rebecca Raymond Primary Care Provider [phone] Dr. Rebecca Raymond Primary Care Provider [phone] Dr. Rebecca Raymond Attending Provider [phone] Kimberly Farris MD Primary Care Provider Mora INFRASTRUCTURE ANALYST.SCIENCE EDUCATION PROFESSOR, Ellie Unavailable Marii INFRASTRUCTURE ANALYST.MINE LABORER, Alanis Unavailable Dr. Rebecca Raymond MD Primary Care Provider Julian Dang Attending Provider Rebecca Raymond MD Attending Provider Unavailтатьяна Raymond MD, Dr. Fernandez Attending Provider [phone] Ja HIGH SCHOOL MUSIC TEACHER-C, Iraida Attending Provider Dr. Adalberto Jensen DO Emergency Provider Dr. Rebecca Raymond MD Primary Care Provider Rebecca Raymond MD Attending Provider Unavailтатьяна Jensen DO, Dr. Glover Attending Provider Dr. Rebecca Raymond MD Primary Care Provider Julian Dang Attending Provider [phone] Kimberly Farris MD Primary Care Provider Mora INFRASTRUCTURE ANALYST.SCIENCE EDUCATION PROFESSOR, Ellie Unavailable Marii INFRASTRUCTURE ANALYST.MINE LABORER, Alanis Unavailable Marii INFRASTRUCTURE ANALYST.MINE LABORER, Alanis Unavailable CALOS BOWEN Attending Unavailable TALANGELAS, KIMBERLY D Primary Care Unavailable Mandi BENTLEY, Dr. Fernandez Attending Provider [phone] Ja HIGH SCHOOL MUSIC TEACHER-C, Iraida Attending Provider [phone] Mandi BENTLEY, Dr. Fernandez Primary Care Provider Julian Dang Attending Provider [phone] Mandi BENTLEY, Rebecca Attending Provider Unavaila elvi Raymond MD, Dr. Fernandez Primary Care Provider Segundoton HIGH SCHOOL MUSIC TEACHER-C, Iraida Attending Provider Mandi BENTLEY, Dr. Fernandez Attending Provider [phone] Mandi BENTLEY, Dr. Fernandez Primary Care Provider Julian Dang Attending Provider [phone] Oleghe, Efewongbe Primary Care Unavailable Oleghe, Efewongbe Attending Unavailable Oleghe, Efewongbe Primary Care Unavailable Tickton HIGH SCHOOL MUSIC TEACHERIraida Attending Unavailable Oleghe, Efewongbe Primary Care Unavailable Julian Dang Attending Unavailable Oleghe, Efewongbe Primary Care Unavailable Oleghe, Efewongbe Attending Unavailable Oleghe, Efewongbe Primary Care Unavailable Oleghe, Efewongbe Attending Unavailable Oleghe, Efewongbe Primary Care Unavailable [place] HIGH SCHOOL MUSIC TEACHERIraida Attending Unavailable Julian Dang Attending Unavailable Oleghe, Efewongbe Primary Care Unavailable Oleghe, Efewongbe Primary Care Unavailable Oleghe, Efewongbe Attending Unavailable Julian Dang Attending Unavailable Oleghe, Efewongbe Primary Care Unavailable Oleghe, Efewongbe Primary Care Unavailable [place] HIGH SCHOOL MUSIC TEACHERIraida Attending Unavailable Julian Dang Attending Unavailable Oleghe, Efewongbe Primary Care Unavailable Oleghe, Efewongbe Primary Care Unavailable Oleghe, Efewongbe Attending Unavailable Julian Dang Attending Unavailable Oleghe, Efewongbe Primary Care Unavailable Oleghe OLS, Efewongbe Attending Unavailabl e Oleghe, Efewongbe Primary Care Unavailable Oleghe, Efewongbe Primary Care Unavailable Oleghe OLS, Efewongbe Attending Unavailabl e Isabele, Efewongbe Primary Care Unavailable Isabele OLS, Efewongbe Attending Unavailabl e Isabele, Efewongbe Primary Care Unavailable Isabele OLS, Efewongbe Attending Unavailabl e Isabele, Efewongbe Primary Care Unavailable Isabele OLS, Efewongbe Attending Unavailabl e Isabele, Efewongbe Primary Care Unavailable Adalberto Jensen Attending Unavailabl e Allergies Allergy Classification Reported Allergen(s) Allergy Type Date of Onset Reaction(s) Facility (5 sources) Adhesive agent; Translations: [ADHESIVE] Drug Intolerance 1 Rash [facility] (20 sources) Clindamycin; Translations: [CLINDAMYCIN] Drug Allergy 4 Unknown [facility] (20 sources) Adhesive Tape; Translations: [adhesive tape] Allergy to substance 2 NEEDS FOLLOW-UP [facility] (1 source) Clindamycin Drug Allergy 5 [facility] Repository Medications Current Medications Medication Drug Class(es) [...] 2021 12:00am take 10 mg rectal [place] once daily as needed for constipation bisacodyl [...] mcg (2,000 unit) tablet 05/01/2022 Active Start: 02-17-2021 Cholecalcifero l (Vitamin D3) 2,000 UNIT capsule [...] folds of sk in twice weekly nystatin 744829 unt/ml / triamcinolone acetonide 1 mg/ml topical [...] needed for nausea/vomiting. Active polyethylene glycol 3350 [id number] mg powder for oral solution (4 sources) [...] mg/ml extended release suspension (3 sources) Uncompetitive I-quibkz-Q-asparta te Receptor Antagonist, Sigma-1 Agonist Start: 05-07-2022 [...] 1 tablet by gallo th once daily. Kyvfhedmv-Tkp-QZ-Lut- Zeaxanth (ICAPS MV) 100-1.66-0.83 mcg-mg-mg ORAL TbEC (3 sources) Start: 12-30-2011 End: 10-18-2024 take 1 tablet by mouth once Xgzgysqnm-Egg-YL-Lut -Zeaxanth (ICAPS MV) 100-1.66-0.83 mcg-mg-mg ORAL TbEC by PEG Tube route. Crush two tablets daily and dissolve in 240 cc of water and deliver via peg tube 60 tablet 11 12/30/2011 10/18/2024 Discontinued (Discontinued by Patient) Start: 12-30-2011 take 1 tablet by gallo th once Ugnapdnku-Mhw-NA-Lut-Zeaxanth (ICAPS MV) 100-1.66-0.83 mcg-mg-mg ORAL TbEC by [...] tablet (3 sources) Estrogen Agonist/Antagonist Start: 09-13-20 End: 10-18-19 25 raloxifene (EVISTA) 60 mg tablet Indications: Disorder of bone and cartilage, unspecified 1 tablet once daily. crush and administer through peg tube 30 tablet 11 09/13/2012 10/18/2024 Discontinued (Discontinued by Patient) Comment on above: 1 tablet once daily. crush and administer through peg tube raNITIdine 150 mg oral tablet (3 sources) Histamine-2 Receptor Antagonist Start: 09-13-20 12 End: 10-18-19 ranitidine (ZANTAC MAXIMUM STRENGTH) 150 mg tablet Indications: GERD (gastroesophageal reflux disease) 1 tablet twice daily. Crush and mix with 20cc water-give via peg tube. 60 tablet 6 09/13/2012 10/18/2024 Discontinued (Discontinued by Patient) Comment on above: 1 tablet twice daily . Crush and mix with 20cc water-give via peg tube. 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, unspecified] Onset: 5 10-06-2021 Chronic Other gastrointestinal disorders (4 sources) Finding of gastrointestinal device; Translations: [Encounter for attention to other artificial openings of digestive tract] Onset: 9 12-20-2008 Chronic Other gastrointestinal disorders (4 sources) Gastrostomy present; Translations: [Gastrostomy status] Onset: 7 06-15-2017 Chronic Other gastrointestinal disorders (2 sources) Gastrostomy status; 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 Other gastrointestinal disorders (20 sources) History of gastroesophageal reflux disease; Translations: [Personal history of other diseases of the digestive system] 10-10-2013 Episodic Other gastrointestinal disorders (2 sources) Dysphagia, oropharyngeal phase; Translations: [Dysphagia, oropharyngeal phase] Onset: 5 Episodic Other inflammatory condition of skin (4 sources) Rosacea; Translations: [Rosacea, unspecified] Onset: 2 09-13-2012 Chronic Other lower respiratory disease (4 sources) Respiratory complication; Translations: [Respiratory complications, not elsewhere classified] 01-14-2007 Episodic Other nutritional; endocrine; and metabolic disorders (20 sources) Obesity; Translations: [Obesity, unspecified] 10-10-2013 Chronic Peripheral and visceral atherosclerosis (4 sources) Atherosclerosis of arteries of the extremities; Translations: [Unspecified atherosclerosis of [place] arteries of extremities, unspecified extremity] Onset: 6 [...] Resolved: 08-01-2007 09-14-2007 Episodic Other gastrointestinal disorders (4 sources) Dysphagia, unspecified; Translations: [Dysphagia, unspecified] Onset: [...] or Plasma Ordered By: Rebecca Raymond on 05-30-2025 Anion gap [Moles/Vol] 7 mmol/L 5-15 [place] BUN/creatinine ratioOrdered By: Rebecca Raymond on 05-30-2025 Urea nitrogen/Creatinine [Mass ratio] 47.2 mg/mg High 10-20 [facility] Carbon dioxide, total [Moles /volume] in Central venous bloodOrdered By: Rebecca Raymond on 05-30-2025 CO2 [Moles/Vol] 29.8 mmol/L 21.0-32.0 [facility] Chloride assayOrdered By: Panda Raymond on 05-30-2025 Chloride [Moles/Vol] 101 mmol/L 98-108 [facility] Erythrocyte distribution wid th ratioOrdered By: Rebecca Raymond on 05-30-2025 Erythrocyte distribution width (RBC) [Ratio] 13.2 % 11.6-14.6 [facility] Erythrocyte distribution wid th standard deviationOrdered By: Rebecca aRymond on 05-30-2025 Erythrocyte distribution width (RBC) [Ratio] 51.2 fl High 35.1-43.9 [facility] Glomerular filtration rate ( GFR) estimation/1.73 sq m using serum, plasma, or whole bOrdered By: Rebecca Raymond on 05-30-2025 GFR/1.73 sq M.predicted among non-blacks MDRD (S/P/Bld) [Vol rate/Area] 87 mL/min/{1.73_m2} >60 [facility] Comment on above: mL/min/1.73m2 CKD-EP I Creatinine Equation (2020) Hematocrit Auto (Bld) [Volum e fraction]Ordered By: Rebecca Raymond on 05-30-2025 Hematocrit (Bld) [Volume fraction] 35.7 % Low 37-47 [facility] Hemoglobin measurementOrdere d By: Rebecca Raymond on 05-30-2025 Hemoglobin (Bld) [Mass/Vol] 11.5 g/dL Low 12.0-15.0 [facility] MCV (mean corpuscular volume ) determinationOrdered By: Rebecca Raymond on 05-30-2025 MCV (RBC) [Entitic vol] 105.0 fL High 81-99 [facility] Mean corpuscular hemoglobin (MCH) determinationOrdered By: Rebecca Raymond on 05-30-2025 MCH (RBC) [Entitic mass] 33.8 pg High 27.0-32.0 [facility] Mean corpuscular hemoglobin concentration (MCHC) determinationOrdered By: Rebecca Raymond on 05-30-2025 MCHC (RBC) [Mass/Vol] 32.2 g/dL 32-36 [place] Mean platelet volume determi nationOrdered By: Rebecca Raymond on 05-30-2025 Platelet mean volume (Bld) [Entitic vol] 12.8 fL High 6.2-12.0 [facility] Platelet countOrdered By: Panda Raymond on 05-30-2025 Platelets (Bld) [#/Vol] 142 10*3/uL Low 150-450 [facility] Potassium measurement (mass/ volume)Ordered By: Rebecca Raymond on 05-30-2025 Potassium (Unsp spec) [Mass/Vol] 5.0 mmol/L 3.3-5.1 [facility] RBC Auto (Bld) [#/Vol]Ordere d By: Rebecca Raymond on 05-30-2025 RBC (Bld) [#/Vol] 3.40 10*6/uL Low 4.2-5.4 [facility] Serum creatinine measurement (mass/volume)Ordered By: Rebecca Raymond on 05-30-2025 Creatinine [Mass/Vol] 0.63 mg/dL Low 0.70-1.20 [place] Serum glucose measurement (m ass/volume)Ordered By: Rebecca Raymond on 05-30-2025 Glucose [Mass/Vol] 98 mg/dL 70-99 [facility] Serum or plasma albumin carmen urement (mass/volume)Ordered By: Rebecca Raymond on 05-30-2025 Albumin [Mass/Vol] 3.0 g/dL Low 3.4-4.8 [facility] Serum or plasma calcium carmen urement (mass/volume)Ordered By: Rebecca Raymond on 05-30-2025 Calcium [Mass/Vol] 9.0 mg/dL 7.6-11.0 [facility] Serum or plasma urea nitroge n measurement (mass/volume)Ordered By: Rebecca Raymond on 05-30-2025 Urea nitrogen [Mass/Vol] 30 mg/dL High 4-19 [facility] Sodium levelOrdered By: Mikala luevanofeli Mandi on 05-30-2025 Sodium [Moles/Vol] 138 mmol/L 133-145 [facility] White blood cell (WBC) count Ordered By: Rebecca Raymond on 05-30-2025 WBC (Bld) [#/Vol] 4.6 10*3/uL 4.4-11.0 [facility] Anion gap in Serum or Plasma Ordered By: Rebecca Raymond on 02-28-2025 Anion gap [Moles/Vol] 9 mmol/L 5-15 [place] BUN/creatinine ratioOrdered By: Rebecca Raymond on 02-28-2025 Urea nitrogen/Creatinine [Mass ratio] 48.5 mg/mg High 10-20 [facility] Carbon dioxide, total [Moles /volume] in Central venous bloodOrdered By: Rebecca Raymond on 02-28-2025 CO2 [Moles/Vol] 26.7 mmol/L 21.0-32.0 [facility] Chloride assayOrdered By: Panda Raymond on 02-28-2025 Chloride [Moles/Vol] 102 mmol/L 98-108 [facility] Erythrocyte distribution wid th ratioOrdered By: Rebecca Raymond on 02-28-2025 Erythrocyte distribution width (RBC) [Ratio] 13.0 % 11.6-14.6 [facility] Erythrocyte distribution wid th standard deviationOrdered By: Rebecca Raymond on 02-28-2025 Erythrocyte distribution width (RBC) [Ratio] 50.6 fl High 35.1-43.9 [facility] Glomerular filtration rate ( GFR) estimation/1.73 sq m using serum, plasma, or whole bOrdered By: Rebecca Raymond on 02-28-2025 GFR/1.73 sq M.predicted among non-blacks MDRD (S/P/Bld) [Vol rate/Area] 90 mL/min/{1.73_m2} >60 [facility] Comment on above: mL/min/1.73m2 CKD-EP I Creatinine Equation (2020) Hematocrit Auto (Bld) [Volum e fraction]Ordered By: Rebecca Raymond on 02-28-2025 Hematocrit (Bld) [Volume fraction] 35.2 % Low 37-47 [facility] Hemoglobin measurementOrdere d By: Rebecca Raymond on 02-28-2025 Hemoglobin (Bld) [Mass/Vol] 11.3 g/dL Low 12.0-15.0 [facility] MCV (mean corpuscular volume ) determinationOrdered By: Rebecca Raymond on 02-28-2025 MCV (RBC) [Entitic vol] 105.1 fL High 81-99 [facility] Mean corpuscular hemoglobin (MCH) determinationOrdered By: Rebecca Raymond on 02-28-2025 MCH (RBC) [Entitic mass] 33.7 pg High 27.0-32.0 [facility] Mean corpuscular hemoglobin concentration (MCHC) determinationOrdered By: Rebecca Raymond on 02-28-2025 MCHC (RBC) [Mass/Vol] 32.1 g/dL 32-36 [place] Mean platelet volume determi nationOrdered By: Rebecca Raymond on 02-28-2025 Platelet mean volume (Bld) [Entitic vol] 12.4 fL High 6.2-12.0 [facility] Platelet countOrdered By: Panda Raymond on 02-28-2025 Platelets (Bld) [#/Vol] 131 10*3/uL Low 150-450 [facility] Potassium measurement (mass/ volume)Ordered By: Rebecca Raymond on 02-28-2025 Potassium (Unsp spec) [Mass/Vol] 4.3 mmol/L 3.3-5.1 [facility] RBC Auto (Bld) [#/Vol]Ordere d By: Rebecca Raymond on 05-21-2025 RBC (Bld) [#/Vol] 3.35 10*6/uL Low 4.2-5.4 [facility] Serum creatinine measurement (mass/volume)Ordered By: Rebecca Raymond on 02-28-2025 Creatinine [Mass/Vol] 0.55 mg/dL Low 0.70-1.20 [place] Serum glucose measurement (m ass/volume)Ordered By: Rebecca Raymond on 02-28-2025 Glucose [Mass/Vol] 111 mg/dL High 70-99 [facility] Serum or plasma albumin carmen urement (mass/volume)Ordered By: Rebecca Raymond on 02-28-2025 Albumin [Mass/Vol] 3.0 g/dL Low 3.4-4.8 [facility] Serum or plasma calcium carmen urement (mass/volume)Ordered By: Rebecca Raymond on 02-28-2025 Calcium [Mass/Vol] 8.9 mg/dL 7.6-11.0 [facility] Serum or plasma urea nitroge n measurement (mass/volume)Ordered By: Rebecca Raymond on 02-28-2025 Urea nitrogen [Mass/Vol] 27 mg/dL High 4-19 [facility] Sodium levelOrdered By: Mikala emanuelmansi Mandi on 02-28-2025 Sodium [Moles/Vol] 138 mmol/L 133-145 [facility] White blood cell (WBC) count Ordered By: Rebecca Raymond on 02-28-2025 WBC (Bld) [#/Vol] 4.1 10*3/uL Low 4.4-11.0 [facility] Abdomen Single View (Portabl e)on 12-18-2024 Abdomen Single View (Portable) [facility] Imaging Services [address] [place] [address] Abdomen Single View (Portable) MR#: [id number] Acct: [id number] Name: DARIANA VAZQUEZ Rep #: [id number] : 1940 F 84 From: Blayne Estrada MD PCP: Dr. Rebecca Raymond MD Status: DEP ER Study: Abdomen Single View (Portable) Date of Exam: 0 3/10/25 Exam# [id number] Ordering Dr: Rochelle Jones EXAM: XR Abdomen, [...] appears to be proper position. Reading [facility] CC: Dr. Rebecca Raymond MD; NORM Rocha White Metal Corrosion Proofer: Signed Normal [facility] Emergency Department Summary on 12-18-2024 Emergency Department Summary [facility] Medical Records Department [address] [place] [id number] Emergency Department Summary 12/18/24 MR#: [id number] Acct: [id number] Name: DARIANA VAZQUEZ Rep #: [id number] : 1940 84 From: Rochelle ZHENG PCP: Dr. Rebecca Raymond MD Status:DEP ER Location: ED HPI History of Present Illness Chief Complaint: General Illness Narrative Narrative: 84-year-old female sent in from her snf with limited history due to cognitive delay pulled out her PEG tube. It is unknown how long it was out. She has had it for over a year according to the chart. She has no acute complaints. [facility] Medical History Aplastic anemia GERD (gastroesophageal reflux [...] bisacodyl 10 mg rectal suppository 10 mg NC BID PRN PRN Constipatio n 02/01/21 Unknown [...] 95 95 Oxygen Delivery Method Room Air [facility] Narrative Medical decision making narrative: 84-year-old female pulled out her PEG tube this morning at her facility. The facility sent a 20 [place] replacement tube with her. She has a well-established tract for about 2 years. I lubricated the tip of the 20 [place] PEG tube and with gentle pressure I [...] appears to be proper position. Reading Location: [facility] Narrative Medical decision making narrative: 84-year-o (more content not included)... Normal [facility] Absolute lymphocyte countOrd ered By: Rebecca Raymond on 12-08-2024 Lymphocytes Auto (Unsp spec) [#/Vol] 1.22 10*3/uL 0.83-4.51 [facility] Absolute neutrophil countOrd ered By: Rebecca Raymond on 12-08-2024 Neutrophils (Bld) [#/Vol] 13.7 10*3/uL High 2.0-7.7 [facility] Automated lymphocyte count a s percentage of total leukocytesOrdered By: Rebecca Raymond on 12-08-2024 Lymphocytes/100 WBC Auto (Unsp spec) 7.4 % Low 19-41 [facility] BUN/creatinine ratioOrdered By: Rebecca Raymond on 12-08-2024 Urea nitrogen/Creatinine [Mass ratio] 41.6 mg/mg High 10-20 [facility] Basophil percentageOrdered B y: Rebecca Dillongunner on 12-08-2024 Basophils/100 WBC (Bld) 0.3 % 0-1 [facility] Carbon dioxide measurementOr dered By: Rebecca Raymond on 12-08-2024 CO2 [Moles/Vol] 21.1 mmol/L Low 22.0-29.0 [facility] Chloride measurementOrdered By: Rebecca Raymond on 12-08-2024 Chloride [Moles/Vol] 103 mmol/L 96-108 [facility] Eosinophil percentageOrdered By: Rebecca Raymond on 12-08-2024 Eosinophils/100 WBC (Bld) 0.3 % 0-5 [facility] Erythrocyte distribution wid th ratioOrdered By: Rebecca Raymond on 12-08-2024 Erythrocyte distribution width (RBC) [Ratio] 12.8 % 11.6-14.6 [facility] Erythrocyte distribution wid th standard deviationOrdered By: Mikalasidonkamar Raymond on 12-08-2024 Erythrocyte distribution width (RBC) [Entitic vol] 48.0 fL High 35.1-43.9 [facility] Erythrocyte distribution width (RBC) [Ratio] 48.0 fl High 35.1-43.9 [facility] GFR/1.73 sq M.predicted lui g non-blacks MDRD (S/P/Bld) [Vol rate/Area]Ordered By: Rebecca Raymond on 12-08-2024 Estimated GFR (MDRD) Non-Af Amer 88 >60 [facility] Comment on above: mL/min/1.73m2 CKD-EP I Creatinine Equation (2020) Glomerular filtration rate ( GFR) estimation/1.73 sq m using serum, plasma, or whole bOrdered By: Rebecca Raymond on 12-08-2024 GFR/1.73 sq M.predicted among non-blacks MDRD (S/P/Bld) [Vol rate/Area] 88 mL/min/{1.73_m2} >60 [facility] Comment on above: mL/min/1.73m2 CKD-EP I Creatinine Equation (2020) Hematocrit Auto (Bld) [Volum e fraction]Ordered By: Rebecca Raymond on 12-08-2024 Hematocrit (Bld) [Volume fraction] 40.1 % 37-47 [facility] Hemoglobin measurementOrdere d By: Rebecca Raymond on 12-08-2024 Hemoglobin (Bld) [Mass/Vol] 13.1 g/dL 12.0-15.0 [facility] Immature granulocytes/100 WB C Auto (Bld)Ordered By: Rebecca Raymond on 12-08-2024 Immature granulocytes/100 WBC (Bld) 0.500 % 0.0-0.9 [facility] Comment on above: IG% - Immature Granu locytes (promyelocytes, myelocytes and metamyelocytes) > 1% indicates that a LEFT SHIFT is Present. Lymphocytes Auto (Unsp spec) [#/Vol]Ordered By: radhasidonkamar Raymond on 12-08-2024 Lymphocytes (Bld) [#/Vol] 1.22 10*3/uL 0.83-4.5 1 [facility] Lymphocytes/100 WBC Auto (Un sp spec)Ordered By: Rebecca Raymond on 12-08-2024 Lymphocytes/100 WBC (Bld) 7.4 % Low 19-41 [facility] MCV (mean corpuscular volume ) determinationOrdered By: Rebecca Raymond on 12-08-2024 MCV (RBC) [Entitic vol] 103.4 fL High 81-99 [facility] Mean corpuscular hemoglobin (MCH) determinationOrdered By: Rebecca Raymond on 12-08-2024 MCH (RBC) [Entitic mass] 33.8 pg High 27.0-32.0 [facility] Mean corpuscular hemoglobin concentration (MCHC) determinationOrdered By: Rebecca Raymond on 12-08-2024 MCHC (RBC) [Mass/Vol] 32.7 g/dL 32-36 [place] Mean platelet volume determi nationOrdered By: Rebecca Raymond on 12-08-2024 Platelet mean volume (Bld) [Entitic vol] 12.9 fL High 6.2-12.0 [facility] Monocyte percentageOrdered B y: Rebecca Raymond on 12-08-2024 Monocytes/100 WBC (Bld) 8.7 % 0-10 [facility] Neutrophil percentageOrdered By: Rebecca Dillongunner on 12-08-2024 Neutrophils/100 WBC (Bld) 82.8 % High 47-70 [facility] Nucleated red blood cell per centageOrdered By: Rebecca Dillongunner on 12-08-2024 Nucleated RBC/100 WBC (Bld) [Ratio] 0 % 0-5 [facility] Platelet countOrdered By: Panda marqueskamar Carranzanathanmansi on 12-08-2024 Platelets (Bld) [#/Vol] 119 10*3/uL Low 150-450 [facility] RBC Auto (Bld) [#/Vol]Ordere d By: Rebecca Dillongunner on 12-08-2024 RBC (Bld) [#/Vol] 3.88 10*6/uL Low 4.2-5.4 [facility] Serum creatinine measurement (mass/volume)Ordered By: Rebecca Raymond on 12-08-2024 Creatinine [Mass/Vol] 0.60 mg/dL Low 0.70-1.20 [place] Serum glucose measurement (m ass/volume)Ordered By: Pandasuellen Raymond on 12-08-2024 Glucose [Mass/Vol] 118 mg/dL High 70-99 [facility] Serum or plasma anion gap de termination (moles/volume)Ordered By: Rebecca Raymond on 12-08-2024 Anion gap [Moles/Vol] 12 mmol/L 5-15 [place] Serum or plasma calcium carmen urement (mass/volume)Ordered By: Rebecca Raymond on 12-08-2024 Calcium [Mass/Vol] 8.8 mg/dL 7.6-11.0 [facility] Serum or plasma potassium me asurementOrdered By: Rebecca Raymond on 12-08-2024 Potassium [Moles/Vol] 4.2 mmol/L 3.3-5.1 [place] Comment on above: Hemolysis present, R esults could be affected. Serum or plasma sodium measu rement (moles/volume)Ordered By: Rebecca Raymond on 12-08-2024 Sodium [Moles/Vol] 136 mmol/L 133-145 [facility] Serum or plasma urea nitroge n measurement (mass/volume)Ordered By: Rebecca Raymond on 12-08-2024 Urea nitrogen [Mass/Vol] 25 mg/dL High 4-19 [facility] White blood cell (WBC) count Ordered By: Rebecca Raymond on 12-08-2024 WBC (Bld) [#/Vol] 16.5 10*3/uL High 4.4-11.0 [facility] Blood urea nitrogen (BUN)/cr eatinine ratioOrdered By: Rebecca Raymond on 11-29-2024 Urea nitrogen/Creatinine [Mass ratio] 58.2 mg/mg High 10-20 [facility] Carbon dioxide measurementOr dered By: Rebecca Raymond on 11-29-2024 CO2 [Moles/Vol] 29.0 mmol/L 21.0-32.0 [facility] Chloride measurementOrdered By: Rebecca Raymond on 11-29-2024 Chloride [Moles/Vol] 109 mmol/L High 98-107 [facility] Erythrocyte distribution wid th ratioOrdered By: Rebecca Raymond on 11-29-2024 Erythrocyte distribution width (RBC) [Ratio] 12.6 % 11.6-14.6 [facility] Erythrocyte distribution wid th standard deviationOrdered By: Rebecca Raymond on 11-29-2024 Erythrocyte distribution width (RBC) [Entitic vol] 49.7 fL High 35.1-43.9 [facility] Erythrocyte distribution width (RBC) [Ratio] 49.7 fl High 35.1-43.9 [facility] Estimated glomerular filtrat ion rate (GFR) AmericanOrdered By: Rebecca Raymond on 11-29-2024 Estimated GFR (MDRD) Amer 130 mL/min >60 [facility] Comment on above: GFR Calc Glomerular filtration rate ( GFR) estimationOrdered By: Rebecca Raymond on 11-29-2024 Estimated GFR (MDRD) Non-Af Amer 108 mL/min >60 [facility] Comment on above: Non- GFR Calc GFR/1.73 sq M.predicted among non-blacks MDRD (S/P/Bld) [Vol rate/Area] 108 mL/min/{1.73_m2} >60 [facility] Comment on above: Non- GFR Calc Glucose measurementOrdered B y: Rebecca Raymond on 11-29-2024 Glucose [Mass/Vol] 120 mg/dL High 74-106 [facility] Comment on above: Fasting Glucose resu lt from 100 to 125 mg/dL suggests IMPAIRED HOMEOSTASIS per A.D.A. criteria. Hematocrit Auto (Bld) [Volum e fraction]Ordered By: Rebecca Raymond on 11-29-2024 Hematocrit (Bld) [Volume fraction] 37.7 % 37-47 [facility] Hemoglobin measurementOrdere d By: Rebecca Raymond on 11-29-2024 Hemoglobin (Bld) [Mass/Vol] 11.7 g/dL Low 12.0-15.0 [facility] MCV (mean corpuscular volume ) determinationOrdered By: Rebecca Raymond on 11-29-2024 MCV (RBC) [Entitic vol] 107.1 fL High 81-99 [facility] Mean corpuscular hemoglobin (MCH) determinationOrdered By: Rebecca Raymond on 11-29-2024 MCH (RBC) [Entitic mass] 33.2 pg High 27.0-32.0 [facility] Mean corpuscular hemoglobin concentration (MCHC) determinationOrdered By: Rebecca Raymond on 11-29-2024 MCHC (RBC) [Mass/Vol] 31.0 g/dL Low 32-36 [place] Mean platelet volume determi nationOrdered By: Rebecca Raymond on 11-29-2024 Platelet mean volume (Bld) [Entitic vol] 13.3 fL High 6.2-12.0 [facility] Platelet countOrdered By: Panda Raymond on 11-29-2024 Platelets (Bld) [#/Vol] 108 10*3/uL Low 150-450 [facility] Potassium measurementOrdered By: Rebecca Raymond on 11-29-2024 Potassium [Moles/Vol] 4.5 mmol/L 3.5-5.1 [place] RBC Auto (Bld) [#/Vol]Ordere d By: Rebecca Raymond on 11-29-2024 RBC (Bld) [#/Vol] 3.52 10*6/uL Low 4.2-5.4 [facility] Serum anion gap measurementO rdered By: Rebecca Raymond on 11-29-2024 Anion gap [Moles/Vol] 6 mmol/L 5-15 [place] Serum or plasma albumin carmen urement (mass/volume)Ordered By: Rebecca Raymond on 11-29-2024 Albumin [Mass/Vol] 2.6 g/dL Low 3.2-5.0 [facility] Serum or plasma calcium carmen urement (mass/volume)Ordered By: Rebecca Raymond on 11-29-2024 Calcium [Mass/Vol] 9.1 mg/dL 8.5-10.1 [facility] Serum or plasma creatinine m easurement (mass/volume)Ordered By: Rebecca Raymond on 11-29-2024 Creatinine [Mass/Vol] 0.57 mg/dL 0.55-1.02 [place] Comment on above: The validity of the calculated GFR & GFRAA in patients over 70 years has not been determined. Clinical correlation is essential. Serum or plasma urea nitroge n measurement (mass/volume)Ordered By: Rebecca Raymond on 11-29-2024 Urea nitrogen [Mass/Vol] 33 mg/dL High 7-18 [facility] Sodium levelOrdered By: Mikala emanuelmansi Mandi on 11-29-2024 Sodium [Moles/Vol] 144 mmol/L 136-145 [facility] White blood cell (WBC) count Ordered By: Rebecca Raymond on 11-29-2024 WBC (Bld) [#/Vol] 4.1 10*3/uL Low 4.4-11.0 [facility] CNOVon 10-18-2024 CNOV Office Visit (GENSWS) ---- DARIANA VAZQUEZ ([id number]) 1940 F Date Time Provider Department 10/18/24 10:00 AM NOHEMI AZEVEDO GENS During your visit today, we recorded the following information about you: Calos Bowen MD 10/25/2024 5:11 AM Signed FOLLOW UP VISIT - PEG TUBE EVALUATION NAME: Dariana Vazquez CLINIC NO.: [id number] DATE OF SERVICE: October 18, 2024 : [...] a crack. The tube is a 24 [place] tube (note that I had last replaced the tube with a 20 [place] tube) and the buttress was secured down [...] I recommended the F obtain a 24 [place] PEG tube that when the catheter does fail we can change as we only have 20 [place] replacement since stock. Diagnoses: No diagnosis found. Return to Clinic: The patient is instructed to follow-up with me as needed. MD Candido Pritchett Kimberley, SHARATH.MINE LABORER 10/25/2024 3:14 PM Signed FOLLOW UP VISIT - PEG TUBE REMOVAL NAME: Dariana Vazquez [facility] NO.: [id number] DATE OF SERVICE: 10/18/2024 : 1940 REFERRING [...] follow-up with me as needed. Nohemi Azevedo APRN.MINE LABORER Allergies As of Date: 10/18/2024 Noted Allergy [...] route once (more content not included)... [facility] DARIANA VAZQUEZ ([id number]) 1940 F Date Time Provider Department 08/31/24 CALOS BOWEN GENBERTOS During your visit today, we recorded the following information about you: Margie Lynn LPN 08/31/2024 9:34 AM Signed Called [facility]. Not a secure line. Did leave message for nursing staff to call General Surgery. Patient has appointment for PEG tube change 09/06/2024. Please verify that [facility] is sending 24 [place] PEG Tube with patient to appointment. MOLLY Pugh Kimberly, LPN 08/31/2024 1:00 PM Signed Called [facility]- left message with nurse line on [facility] patient resides. No details left due to line not secure. MOLLY PughMarion gandara MOLLY 10/16/2024 10:51 AM Signed Called and spoke to Dariana's nurse and states will check if they have a 24 [place] peg tube, states will call us back to update. Marion UmañaMOLLY October 16, 2024 10:51 AM Allergies As [...] DERMATOPHYTOSIS OF NAIL [B35.1] 08/25/2005 ATHEROSCLER ART TULUKSAK EXTREM UNSP [I70.209] 08/20/2006 SPRAIN OF ANKLE [...] face [R2 (more content not included)... Normal [facility] Blood urea nitrogen (BUN)/cr eatinine ratioOrdered By: Rebecca Raymond on 08-30-2024 Urea nitrogen/Creatinine [Mass ratio] 54.7 mg/mg High 07-30 [facility] Carbon dioxide measurementOr dered By: Rebecca Raymond on 08-30-2024 CO2 [Moles/Vol] 29.0 mmol/L 21.0-32.0 [facility] Chloride measurementOrdered By: Rebecca Raymond on 08-30-2024 Chloride [Moles/Vol] 110 mmol/L High 98-107 [facility] Erythrocyte distribution wid th ratioOrdered By: Rebecca Raymond on 08-30-2024 Erythrocyte distribution width (RBC) [Ratio] 13.1 % 11.6-14.6 [facility] Erythrocyte distribution wid th standard deviationOrdered By: Rebecca Raymond on 08-30-2024 Erythrocyte distribution width (RBC) [Entitic vol] 49.8 fL High 35.1-43.9 [facility] Estimated glomerular filtrat ion rate (GFR) AmericanOrdered By: Rebecca Raymond on 08-30-2024 Estimated GFR (MDRD) Amer 117 mL/min >60 [facility] Comment on above: GFR Calc Glomerular filtration rate ( GFR) estimationOrdered By: Rebecca Raymond on 08-30-2024 Estimated GFR (MDRD) Non-Af Amer 97 mL/min >60 [facility] Comment on above: Non- GFR Calc Glucose measurementOrdered B y: Rebecca Raymond on 08-30-2024 Glucose [Mass/Vol] 97 mg/dL 74-106 [facility] Hematocrit Auto (Bld) [Volum e fraction]Ordered By: Rebecca Raymond on 08-30-2024 Hematocrit (Bld) [Volume fraction] 39.0 % 37-47 [facility] Hemoglobin measurementOrdere d By: Rebecca Raymond on 08-30-2024 Hemoglobin (Bld) [Mass/Vol] 12.5 g/dL 12.0-15.0 [facility] MCV (mean corpuscular volume ) determinationOrdered By: Rebecca Raymond on 08-30-2024 MCV (RBC) [Entitic vol] 104.3 fL High 81-99 [facility] Mean corpuscular hemoglobin (MCH) determinationOrdered By: Rebecca Raymond on 08-30-2024 MCH (RBC) [Entitic mass] 33.4 pg High 27.0-32.0 [facility] Mean corpuscular hemoglobin concentration (MCHC) determinationOrdered By: Rebecca Raymond on 08-30-2024 MCHC (RBC) [Mass/Vol] 32.1 g/dL 32-36 [place] Mean platelet volume determi nationOrdered By: Rebecca Raymond on 08-30-2024 Platelet mean volume (Bld) [Entitic vol] 13.2 fL High 6.2-12.0 [facility] Platelet countOrdered By: Panda Raymond on 08-30-2024 Platelets (Bld) [#/Vol] 120 10*3/uL Low 150-450 [facility] Potassium measurementOrdered By: Rebecca Raymond on 08-30-2024 Potassium [Moles/Vol] 4.4 mmol/L 3.5-5.1 [place] RBC Auto (Bld) [#/Vol]Ordere d By: Rebecca Carranzagunner on 08-30-2024 RBC (Bld) [#/Vol] 3.74 10*6/uL Low 4.2-5.4 [facility] Serum anion gap measurementO rdered By: Rebecca Carranzanathanmansi on 08-30-2024 Anion gap [Moles/Vol] 4 mmol/L Low 5-15 [place] Serum or plasma albumin carmen urement (mass/volume)Ordered By: Rebecca Carranzanathanmansi on 08-30-2024 Albumin [Mass/Vol] 2.8 g/dL Low 3.2-5.0 [facility] Serum or plasma calcium carmen urement (mass/volume)Ordered By: Rebecca Raymond on 08-30-2024 Calcium [Mass/Vol] 9.1 mg/dL 8.5-10.1 [facility] Serum or plasma creatinine m easurement (mass/volume)Ordered By: Rebecca Raymond on 08-30-2024 Creatinine [Mass/Vol] 0.62 mg/dL 0.55-1.02 [place] Comment on above: The validity of the calculated GFR & GFRAA in patients over 70 years has not been determined. Clinical correlation is essential. Serum or plasma urea nitroge n measurement (mass/volume)Ordered By: Rebecca Raymond on 08-30-2024 Urea nitrogen [Mass/Vol] 34 mg/dL High 7-18 [facility] Sodium levelOrdered By: Pandaradha charmaine Dillonnathanmansi on 08-30-2024 Sodium [Moles/Vol] 142 mmol/L 136-145 [facility] White blood cell (WBC) count Ordered By: Rebecca Carranzanathanmansi on 08-30-2024 WBC (Bld) [#/Vol] 5.6 10*3/uL 4.4-11.0 [facility] Basophil percentageOrdered B y: Rebecca Carranzanathanmansi on 12-01-2023 Chloride [Moles/Vol] 110 mmol/L 98-107 [facility] Glucose [Mass/Vol] 118 mg/dL 74-106 [facility] Comment on above: Fasting Glucose resu lt from 100 to 125 mg/dL suggests IMPAIRED HOMEOSTASIS per A.D.A. criteria. Hemoglobin (Bld) [Mass/Vol] 12.9 g/dL 12.0-15.0 [facility] Potassium [Moles/Vol] 4.3 mmol/L 3.5-5.1 [place] Sodium [Moles/Vol] 140 mmol/L 136-145 [facility] WBC (Bld) [#/Vol] 4.2 10*3/uL 4.4-11.0 [facility] Determination of erythrocyte mean corpuscular volume (MCV)Ordered By: Mikalasidonkamar Raymond on 12-01-2023 MCV (RBC) [Entitic vol] 106.1 fL 81-99 [facility] Erythrocyte distribution wid th ratioOrdered By: Rebecca Raymond on 12-01-2023 Erythrocyte distribution width (RBC) [Ratio] 12.5 % 11.6-14.6 [facility] Erythrocyte distribution wid th standard deviationOrdered By: Mikalasidonkamar Raymond on 12-01-2023 Erythrocyte distribution width (RBC) [Entitic vol] 49.2 fL 35.1-43.9 [facility] Hematocrit Auto (Bld) [Volum e fraction]Ordered By: Rebecca Raymond on 12-01-2023 Hematocrit (Bld) [Volume fraction] 39.9 % 37-47 [facility] Laboratory - Chemistry and C hemistry - challengeOrdered By: Rebecca Raymond on 12-01-2023 CO2 [Moles/Vol] 25.0 mmol/L 21.0-32.0 [facility] Urea nitrogen/Creatinine [Mass ratio] 50.8 mg/mg 10-20 [facility] - Hematology and Cell countsOrdered By: Rebecca Raymond on 12-01-2023 MCH (RBC) [Entitic mass] 34.3 pg 27.0-32.0 [facility] MCHC (RBC) [Mass/Vol] 32.3 g/dL 32-36 [place] Platelet mean volume (Bld) [Entitic vol] 13.3 fL 6.2-12.0 [facility] Platelets (Bld) [#/Vol] 105 10*3/uL 150-450 [facility] No Panel InformationOrdered By: Rebecca Raymond on 12-01-2023 Estimated GFR (MDRD) Amer 104 mL/min >60 [facility] Comment on above: GFR Calc Estimated GFR (MDRD) Non-Af Amer 86 mL/min >60 [facility] Comment on above: Non- GFR Calc RBC Auto (Bld) [#/Vol]Ordere d By: Rebecca Ryamond on 12-01-2023 RBC (Bld) [#/Vol] 3.76 10*6/uL 4.2-5.4 [facility] Serum or plasma calcium carmen urement (mass/volume)Ordered By: Rebecca Raymond on 12-01-2023 Calcium [Mass/Vol] 9.0 mg/dL 8.5-10.1 [facility] Serum or plasma creatinine m easurement (mass/volume)Ordered By: Rebecca aRymond on 12-01-2023 Creatinine [Mass/Vol] 0.69 mg/dL 0.55-1.02 [place] Comment on above: The validity of the calculated GFR & GFRAA in patients over 70 years has not been determined. Clinical correlation is essential. Serum or plasma urea nitroge n measurement (mass/volume)Ordered By: Rebecca Raymond on 12-01-2023 Urea nitrogen [Mass/Vol] 35 mg/dL 7-18 [facility] Thin prep Papanicolaou smear with manual screeningOrdered By: Rebecca Raymond on 12-01-2023 Thin prep Papanicolaou smear with manual screening 2.8 g/dL 3.2-5.0 [facility] Thin prep Papanicolaou smear with manual screening 5 5-15 [facility] Basophil percentageOrdered B y: Rebecca Raymond on 11-22-2023 Chloride [Moles/Vol] 108 mmol/L 98-107 [facility] Glucose [Mass/Vol] 118 mg/dL 74-106 [facility] Comment on above: Fasting Glucose resu lt from 100 to 125 mg/dL suggests IMPAIRED HOMEOSTASIS per A.D.A. criteria. Potassium [Moles/Vol] 4.7 mmol/L 3.5-5.1 [place] Sodium [Moles/Vol] 140 mmol/L 136-145 [facility] Laboratory - Chemistry and C hemistry - challengeOrdered By: Rebecca Raymond on 11-22-2023 CO2 [Moles/Vol] 27.0 mmol/L 21.0-32.0 [facility] Urea nitrogen/Creatinine [Mass ratio] 54.7 mg/mg 10-20 [facility] No Panel InformationOrdered By: Rebecca Raymond on 11-22-2023 Estimated GFR (MDRD) Amer 117 mL/min >60 [facility] Comment on above: GFR Calc Estimated GFR (MDRD) Non-Af Amer 97 mL/min >60 [facility] Comment on above: Non- GFR Calc Serum or plasma calcium carmen urement (mass/volume)Ordered By: Rebecca Raymond on 11-22-2023 Calcium [Mass/Vol] 8.6 mg/dL 8.5-10.1 [facility] Serum or plasma creatinine m easurement (mass/volume)Ordered By: Rebecca Raymond on 11-22-2023 Creatinine [Mass/Vol] 0.62 mg/dL 0.55-1.02 [place] Comment on above: The validity of the calculated GFR & GFRAA in patients over 70 years has not been determined. Clinical correlation is essential. Serum or plasma urea nitroge n measurement (mass/volume)Ordered By: Rebecca Raymond on 11-22-2023 Urea nitrogen [Mass/Vol] 34 mg/dL 7-18 [facility] Thin prep Papanicolaou smear with manual screeningOrdered By: Rebecca Raymond on 11-22-2023 Thin prep Papanicolaou smear with manual screening 5 5-15 [facility] Basophil percentageOrdered B y: Rebecca Raymond on 11-16-2023 WBC (Bld) [#/Vol] 4.6 10*3/uL 4.4-11.0 [facility] Blood erythrocytes count (nu mber/volume)Ordered By: Rebecca Raymond on 08-26-2023 RBC (Bld) [#/Vol] 3.71 10*6/uL 4.2-5.4 [facility] Blood hemoglobin measurement (mass/volume)Ordered By: Rebecca Raymond on 08-26-2023 Hemoglobin (Bld) [Mass/Vol] 12.5 g/dL 12.0-15.0 [facility] Blood platelet mean volumeOr dered By: Rebecca Raymond on 08-26-2023 Platelet mean volume (Bld) [Entitic vol] 14.1 fL 6.2-12.0 [facility] Determination of erythrocyte mean corpuscular volume (MCV)Ordered By: Rebecca Raymond on 08-26-2023 MCV (RBC) [Entitic vol] 105.7 fL 81-99 [facility] Hematocrit Auto (Bld) [Volum e fraction]Ordered By: Rebecca Raymond on 08-26-2023 Hematocrit (Bld) [Volume fraction] 39.2 % 37-47 [facility] - Hematology and Cell countsOrdered By: Rebecca Raymond on 08-26-2023 Erythrocyte distribution width (RBC) [Entitic vol] 49.6 fL 35.1-43.9 [facility] Erythrocyte distribution width (RBC) [Ratio] 12.7 % 11.6-14.6 [facility] MCH (RBC) [Entitic mass] 33.7 pg 27.0-32.0 [facility] MCHC Auto (RBC) [Mass/Vol]Or dered By: Rebecca Raymond on 08-26-2023 MCHC (RBC) [Mass/Vol] 31.9 g/dL 32-36 [place] Platelets bldOrdered By: Bean Raymond on 08-26-2023 Platelets (Bld) [#/Vol] 107 10*3/uL 150-450 [facility] Basophil percentageOrdered B y: Rebecca Raymond on 08-25-2023 Chloride [Moles/Vol] 107 mmol/L 98-107 [facility] Glucose [Mass/Vol] 109 mg/dL 74-106 [facility] Comment on above: Fasting Glucose resu lt from 100 to 125 mg/dL suggests IMPAIRED HOMEOSTASIS per A.D.A. criteria. Potassium [Moles/Vol] 5.3 mmol/L 3.5-5.1 [place] Sodium [Moles/Vol] 136 mmol/L 136-145 [facility] Laboratory - Chemistry and C hemistry - challengeOrdered By: Rebecca Raymond on 08-25-2023 CO2 [Moles/Vol] 25.0 mmol/L 21.0-32.0 [facility] Urea nitrogen/Creatinine [Mass ratio] 53.2 mg/mg 10- [facility] No Panel InformationOrdered By: Rebecca Raymond on 08-25-2023 Estimated GFR (MDRD) Amer 122 mL/min >60 [facility] Comment on above: GFR Calc Estimated GFR (MDRD) Non-Af Amer 101 mL/min >60 [facility] Comment on above: Non- GFR Calc Serum or plasma albumin carmen urement (mass/volume)Ordered By: Rebecca Raymond on 08-25-2023 Albumin [Mass/Vol] 2.4 g/dL 3.2-5.0 [facility] Serum or plasma calcium carmen urement (mass/volume)Ordered By: Rebecca Raymond on 08-25-2023 Calcium [Mass/Vol] 8.0 mg/dL 8.5-10.1 [facility] Serum or plasma creatinine m easurement (mass/volume)Ordered By: Rebecca Raymond on 08-25-2023 Creatinine [Mass/Vol] 0.60 mg/dL 0.55-1.02 [place] Comment on above: The validity of the calculated GFR & GFRAA in patients over 70 years has not been determined. Clinical correlation is essential. Serum or plasma urea nitroge n measurement (mass/volume)Ordered By: Rebecca Raymond on 08-25-2023 Urea nitrogen [Mass/Vol] 32 mg/dL - [facility] Thin prep Papanicolaou smear with manual screeningOrdered By: Rebecca Raymond on 08-25-2023 Thin prep Papanicolaou smear with manual screening 4 5-15 [facility] Absolute lymphocyte countOrd ered By: Rebecca Raymond on 06-07-2023 Lymphocytes Auto (Unsp spec) [#/Vol] 1.38 10*3/uL 0.83-4.51 [facility] Basophil percentageOrdered B y: Rebecca Raymond on 06-07-2023 Basophils/100 WBC (Bld) 0.4 % 0-1 [facility] Chloride [Moles/Vol] 105 mmol/L 98-107 [facility] Eosinophils/100 WBC (Bld) 4.5 % 0-5 [facility] Glucose [Mass/Vol] 96 mg/dL 74-106 [facility] Neutrophils (Bld) [#/Vol] 2.4 10*3/uL 2.0-7.7 [facility] Neutrophils/100 WBC (Bld) 53.3 % 47-70 [facility] Potassium [Moles/Vol] 4.0 mmol/L 3.5-5.1 [place] Sodium [Moles/Vol] 140 mmol/L 136-145 [facility] WBC (Bld) [#/Vol] 4.5 10*3/uL 4.4-11.0 [facility] Blood erythrocytes count (nu mber/volume)Ordered By: Rebecca Raymond on 06-07-2023 RBC (Bld) [#/Vol] 3.93 10*6/uL 4.2-5.4 [facility] Blood hemoglobin measurement (mass/volume)Ordered By: Rebecca Raymond on 06-07-2023 Hemoglobin (Bld) [Mass/Vol] 13.2 g/dL 12.0-15.0 [facility] Blood lymphocytes/100 leukoc ytesOrdered By: Rebecca Raymond on 06-07-2023 Lymphocytes/100 WBC (Bld) 30.7 % 19-41 [facility] Blood monocytes/100 leukocyt esOrdered By: Rebecca Raymond on 06-07-2023 Monocytes/100 WBC (Bld) 10.9 % 0-10 [facility] Blood platelet mean volumeOr dered By: Rebecca Raymond on 06-07-2023 Platelet mean volume (Bld) [Entitic vol] 12.9 fL 6.2-12.0 [facility] Determination of erythrocyte mean corpuscular volume (MCV)Ordered By: suellen Raymond on 06-07-2023 MCV (RBC) [Entitic vol] 107.6 fL 81-99 [facility] Hematocrit Auto (Bld) [Volum e fraction]Ordered By: Mikalasidonkamar Raymond on 06-07-2023 Hematocrit (Bld) [Volume fraction] 42.3 % 37-47 [facility] Laboratory - Chemistry and C hemistry - challengeOrdered By: radhasidonkamar Raymond on 06-07-2023 CO2 [Moles/Vol] 31.0 mmol/L 21.0-32.0 [facility] Urea nitrogen/Creatinine [Mass ratio] 51.3 mg/mg 10-20 [facility] - Hematology and Cell countsOrdered By: Mikalasidonkamar Raymond on 06-07-2023 Erythrocyte distribution width (RBC) [Entitic vol] 49.3 fL 35.1-43.9 [facility] Erythrocyte distribution width (RBC) [Ratio] 12.3 % 11.6-14.6 [facility] Immature granulocytes/100 WBC (Bld) 0.200 % 0.0-0.9 [facility] Comment on above: IG% - Immature Granu locytes (promyelocytes, myelocytes and metamyelocytes) > 1% indicates that a LEFT SHIFT is Present. MCH (RBC) [Entitic mass] 33.6 pg 27.0-32.0 [facility] Nucleated RBC/100 WBC (Bld) [Ratio] 0 % 0-5 [facility] MCHC Auto (RBC) [Mass/Vol]Or dered By: Rebecca Raymond on 06-07-2023 MCHC (RBC) [Mass/Vol] 31.2 g/dL 32-36 [place] No Panel InformationOrdered By: Rebecca Raymond on 06-07-2023 Estimated GFR (MDRD) Amer 117 mL/min >60 [facility] Comment on above: GFR Calc Estimated GFR (MDRD) Non-Af Amer 97 mL/min >60 [facility] Comment on above: Non- GFR Calc Platelets bldOrdered By: Bean Raymond on 06-07-2023 Platelets (Bld) [#/Vol] 132 10*3/uL 150-450 [facility] Serum or plasma calcium carmen urement (mass/volume)Ordered By: Rebecca Raymond on 06-07-2023 Calcium [Mass/Vol] 8.9 mg/dL 8.5-10.1 [facility] Serum or plasma creatinine m easurement (mass/volume)Ordered By: Rebecca Raymond on 06-07-2023 Creatinine [Mass/Vol] 0.62 mg/dL 0.55-1.02 [place] Comment on above: The validity of the calculated GFR & GFRAA in patients over 70 years has not been determined. Clinical correlation is essential. Serum or plasma urea nitroge n measurement (mass/volume)Ordered By: Rebecca Raymond on 06-07-2023 Urea nitrogen [Mass/Vol] 32 mg/dL 7-18 [facility] Thin prep Papanicolaou smear with manual screeningOrdered By: Rebecca Raymond on 06-07-2023 Thin prep Papanicolaou smear with manual screening 4 5-15 [facility] Basophil percentageOrdered B y: Rebecca Raymond on 06-02-2023 Chloride [Moles/Vol] 102 mmol/L 98-107 [facility] Glucose [Mass/Vol] 91 mg/dL 74-106 [facility] Potassium [Moles/Vol] 4.1 mmol/L 3.5-5.1 [place] Comment on above: Slight Hemolysis, Re sult may be falsely increased. Sodium [Moles/Vol] 134 mmol/L 136-145 [facility] WBC (Bld) [#/Vol] 4.9 10*3/uL 4.4-11.0 [facility] [facility] Blood erythrocytes count (nu mber/volume)Ordered By: Rebecca Raymond on 06-02-2023 RBC (Bld) [#/Vol] 3.99 10*6/uL 4.2-5.4 [facility] Blood hemoglobin measurement (mass/volume)Ordered By: Rebecca Raymond on 06-02-2023 Hemoglobin (Bld) [Mass/Vol] 13.4 g/dL 12.0-15.0 [facility] Blood manual differential co mment interpretation (narrative result)Ordered By: Rebecca Raymond on 06-02-2023 Manual differential comment Barrera (Bld) [Interp] COMMENT [facility] Comment on above: PLT POPULATION - MOD ERATELY DECREASED. Blood platelet mean volumeOr dered By: Rebecca Raymond on 06-02-2023 Platelet mean volume (Bld) [Entitic vol] 14.3 fL 6.2-12.0 [facility] Determination of erythrocyte mean corpuscular volume (MCV)Ordered By: Rebecca Raymond on 06-02-2023 MCV (RBC) [Entitic vol] 105.5 fL 81-99 [facility] Hematocrit Auto (Bld) [Volum e fraction]Ordered By: Rebecca Raymond on 06-02-2023 Hematocrit (Bld) [Volume fraction] 42.1 % 37-47 [facility] Laboratory - Chemistry and C hemistry - challengeOrdered By: Rebecca Raymond on 06-02-2023 CO2 [Moles/Vol] 30.0 mmol/L 21.0-32.0 [facility] Urea nitrogen/Creatinine [Mass ratio] 49.2 mg/mg 10-20 [facility] Laboratory - Hematology and Cell countsOrdered By: Rebecca Raymond on 06-02-2023 Erythrocyte distribution width (RBC) [Entitic vol] 47.8 fL 35.1-43.9 [facility] Erythrocyte distribution width (RBC) [Ratio] 12.1 % 11.6-14.6 [facility] MCH (RBC) [Entitic mass] 33.6 pg 27.0-32.0 [facility] MCHC Auto (RBC) [Mass/Vol]Or dered By: Rebecca Raymond on 06-02-2023 MCHC (RBC) [Mass/Vol] 31.8 g/dL 32-36 [place] No Panel InformationOrdered By: Rebecca Raymond on 06-02-2023 Estimated GFR (MDRD) Amer 120 mL/min >60 [facility] Comment on above: GFR Calc Estimated GFR (MDRD) Non-Af Amer 99 mL/min >60 [facility] Comment on above: Non- GFR Calc Platelets bldOrdered By: Bean Raymond on 06-02-2023 Platelets (Bld) [#/Vol] 96 10*3/uL 150-450 [facility] Serum or plasma albumin carmen urement (mass/volume)Ordered By: Rebecca Raymond on 06-02-2023 Albumin [Mass/Vol] 3.1 g/dL 3.2-5.0 [facility] Serum or plasma calcium carmen urement (mass/volume)Ordered By: Rebecca Raymond on 06-02-2023 Calcium [Mass/Vol] 9.0 mg/dL 8.5-10.1 [facility] Serum or plasma creatinine m easurement (mass/volume)Ordered By: Rebecca Raymond on 06-02-2023 Creatinine [Mass/Vol] 0.61 mg/dL 0.55-1.02 [place] Comment on above: The validity of the calculated GFR & GFRAA in patients over 70 years has not been determined. Clinical correlation is essential. Serum or plasma urea nitroge n measurement (mass/volume)Ordered By: Rebecca Raymond on 06-02-2023 Urea nitrogen [Mass/Vol] 30 mg/dL 7-18 [facility] Thin prep Papanicolaou smear with manual screeningOrdered By: Rebecca Raymond on 06-02-2023 Thin prep Papanicolaou smear with manual screening 2 5-15 [facility] Basophil percentageOrdered B y: Rebecca Raymond on 03-03-2023 Chloride [Moles/Vol] 107 mmol/L 98-107 [facility] Glucose [Mass/Vol] 100 mg/dL 74-106 [facility] Comment on above: Fasting Glucose resu lt from 100 to 125 mg/dL suggests IMPAIRED HOMEOSTASIS per A.D.A. criteria. Potassium [Moles/Vol] 3.9 mmol/L 3.5-5.1 [place] Sodium [Moles/Vol] 141 mmol/L 136-145 [facility] WBC (Bld) [#/Vol] 5.0 10*3/uL 4.4-11.0 [facility] Blood erythrocytes count (nu mber/volume)Ordered By: Rebecca Raymond on 03-03-2023 RBC (Bld) [#/Vol] 4.00 10*6/uL 4.2-5.4 [facility] Blood hemoglobin measurement (mass/volume)Ordered By: Rebecca Raymond on 03-03-2023 Hemoglobin (Bld) [Mass/Vol] 13.4 g/dL 12.0-15.0 [facility] Blood platelet mean volumeOr dered By: Mikalasidonkamar Raymond on 03-03-2023 Platelet mean volume (Bld) [Entitic vol] 13.4 fL 6.2-12.0 [facility] Determination of erythrocyte mean corpuscular volume (MCV)Ordered By: Rebecca Raymond on 03-03-2023 MCV (RBC) [Entitic vol] 108.3 fL 81-99 [facility] Hematocrit Auto (Bld) [Volum e fraction]Ordered By: Rebecca Raymond on 03-03-2023 Hematocrit (Bld) [Volume fraction] 43.3 % 37-47 [facility] Laboratory - Chemistry and C hemistry - challengeOrdered By: Rebecca Raymond on 03-03-2023 CO2 [Moles/Vol] 27.0 mmol/L 21.0-32.0 [facility] Urea nitrogen/Creatinine [Mass ratio] 45.8 mg/mg 10-20 [facility] Laboratory - Hematology and Cell countsOrdered By: Rebecca Raymond on 03-03-2023 Erythrocyte distribution width (RBC) [Entitic vol] 53.1 fL 35.1-43.9 [facility] Erythrocyte distribution width (RBC) [Ratio] 13.1 % 11.6-14.6 [facility] MCH (RBC) [Entitic mass] 33.5 pg 27.0-32.0 [facility] Auto (RBC) [Mass/Vol]Or dered By: Rebecca Raymond on 03-03-2023 MCHC (RBC) [Mass/Vol] 30.9 g/dL 32-36 [place] No Panel InformationOrdered By: Rebecca Raymond on 03-03-2023 Estimated GFR (MDRD) Amer 111 mL/min >60 [facility] Comment on above: GFR Calc Estimated GFR (MDRD) Non-Af Amer 92 mL/min >60 [facility] Comment on above: Non- GFR Calc Platelets bldOrdered By: Bean Raymond on 03-03-2023 Platelets (Bld) [#/Vol] 143 10*3/uL 150-450 [facility] Serum or plasma albumin carmen urement (mass/volume)Ordered By: Rebecca Raymond on 03-03-2023 Albumin [Mass/Vol] 3.1 g/dL 3.2-5.0 [facility] Serum or plasma calcium carmen urement (mass/volume)Ordered By: Rebecca Raymond on 03-03-2023 Calcium [Mass/Vol] 9.3 mg/dL 8.5-10.1 [facility] Serum or plasma creatinine m easurement (mass/volume)Ordered By: Rebecca Raymond on 03-03-2023 Creatinine [Mass/Vol] 0.66 mg/dL 0.55-1.02 [place] Comment on above: The validity of the calculated GFR & GFRAA in patients over 70 years has not been determined. Clinical correlation is essential. Serum or plasma urea nitroge n measurement (mass/volume)Ordered By: Rebecca Raymond on 03-03-2023 Urea nitrogen [Mass/Vol] 30 mg/dL 7-18 [facility] Thin prep Papanicolaou smear with manual screeningOrdered By: Rebecca Raymond on 03-03-2023 Thin prep Papanicolaou smear with manual screening 7 5-15 [facility] Basophil percentageOrdered B y: Rebecca Raymond on 12-02-2022 Chloride [Moles/Vol] 106 mmol/L 98-107 [facility] Glucose [Mass/Vol] 97 mg/dL 74-106 [facility] Potassium [Moles/Vol] 4.4 mmol/L 3.5-5.1 [place] Sodium [Moles/Vol] 140 mmol/L 136-145 [facility] WBC (Bld) [#/Vol] 4.3 10*3/uL 4.4-11.0 [facility] Blood erythrocytes count (nu mber/volume)Ordered By: Rebecca Raymond on 12-02-2022 RBC (Bld) [#/Vol] 4.15 10*6/uL 4.2-5.4 [facility] Blood hemoglobin measurement (mass/volume)Ordered By: Rebecca Raymond on 12-02-2022 Hemoglobin (Bld) [Mass/Vol] 13.8 g/dL 12.0-15.0 [facility] Blood platelet mean volumeOr dered By: Rebecca Raymond on 12-02-2022 Platelet mean volume (Bld) [Entitic vol] 13.5 fL 6.2-12.0 [facility] Determination of erythrocyte mean corpuscular volume (MCV)Ordered By: Rebecca Raymond on 12-02-2022 MCV (RBC) [Entitic vol] 108.0 fL 81-99 [facility] Hematocrit Auto (Bld) [Volum e fraction]Ordered By: Rebecca Raymond on 12-02-2022 Hematocrit (Bld) [Volume fraction] 44.8 % 37-47 [facility] Laboratory - Chemistry and C hemistry - challengeOrdered By: Rebecca Raymond on 12-02-2022 CO2 [Moles/Vol] 28.0 mmol/L 21.0-32.0 [facility] Urea nitrogen/Creatinine [Mass ratio] 57.8 mg/mg 10-20 [facility] Laboratory - Hematology and Cell countsOrdered By: Rebecca Raymond on 12-02-2022 Erythrocyte distribution width (RBC) [Entitic vol] 51.0 fL 35.1-43.9 [facility] Erythrocyte distribution width (RBC) [Ratio] 12.9 % 11.6-14.6 [facility] MCH (RBC) [Entitic mass] 33.3 pg 27.0-32.0 [facility] MCHC Auto (RBC) [Mass/Vol]Or dered By: Rebecca Raymond on 12-02-2022 MCHC (RBC) [Mass/Vol] 30.8 g/dL 32-36 [place] No Panel InformationOrdered By: Rebecca Raymond on 12-02-2022 Estimated GFR (MDRD) Amer 114 mL/min >60 [facility] Comment on above: GFR Calc Estimated GFR (MDRD) Non-Af Amer 94 mL/min >60 [facility] Comment on above: Non- GFR Calc Platelets bldOrdered By: Bean Raymond on 12-02-2022 Platelets (Bld) [#/Vol] 127 10*3/uL 150-450 [facility] Serum or plasma albumin carmen urement (mass/volume)Ordered By: Rebecca Raymond on 12-02-2022 Albumin [Mass/Vol] 2.9 g/dL 3.2-5.0 [facility] Serum or plasma calcium carmen urement (mass/volume)Ordered By: Rebecca Raymond on 12-02-2022 Calcium [Mass/Vol] 9.1 mg/dL 8.5-10.1 [facility] Serum or plasma creatinine m easurement (mass/volume)Ordered By: Rebecca Raymond on 12-02-2022 Creatinine [Mass/Vol] 0.64 mg/dL 0.55-1.02 [place] Comment on above: The validity of the calculated GFR & GFRAA in patients over 70 years has not been determined. Clinical correlation is essential. Serum or plasma urea nitroge n measurement (mass/volume)Ordered By: Rebecca Raymond on 12-02-2022 Urea nitrogen [Mass/Vol] 37 mg/dL 7-18 [facility] Thin prep Papanicolaou smear with manual screeningOrdered By: Rebecca Raymond on 12-02-2022 Thin prep Papanicolaou smear with manual screening 6 5-15 [facility] Basophil percentageon 2021 Chloride [Moles/Vol] 106 mmol/L 98-107 [facility] Work Phone: Glucose [Mass/Vol] 85 mg/dL 74-106 [facility] Work Phone: Potassium [Moles/Vol] 4.3 mmol/L 3.5-5.1 [facility] Work Phone: Sodium [Moles/Vol] 139 mmol/L 136-145 [facility] Work Phone: WBC (Bld) [#/Vol] 4.9 10*3/uL 4.4-11.0 [facility]: Blood erythrocytes count (nu mber/volume)on 06-03-2022 RBC (Bld) [#/Vol] 3.71 10*6/uL 4.2-5.4 [facility]: Blood hemoglobin measurement (mass/volume)on 06-03-2022 Hemoglobin (Bld) [Mass/Vol] 12.4 g/dL 12.0-15.0 [facility] Work Phone: Blood platelet mean volumeon 06-03-2022 Platelet mean volume (Bld) [Entitic vol] 13.4 fL 6.2-12.0 [facility] Work Phone: Determination of erythrocyte mean corpuscular volume (MCV)on 06-03-2022 MCV (RBC) [Entitic vol] 103.5 fL 81-99 [facility] Work Phone: Hematocrit Auto (Bld) [Volum e fraction]on 06-03-2022 Hematocrit (Bld) [Volume fraction] 38.4 % 37-47 [facility] Work Phone: Laboratory - Chemistry and C hemistry - challengeon 06-03-2022 CO2 [Moles/Vol] 30.0 mmol/L 21.0-32.0 [facility] Work Phone: Urea nitrogen/Creatinine [Mass ratio] 52.4 mg/mg 10-20 [facility] Work Phone: Laboratory - Hematology and Cell countson 06-03-2022 Erythrocyte distribution width (RBC) [Entitic vol] 47.8 fL 35.1-43.9 [facility] Work Phone: Erythrocyte distribution width (RBC) [Ratio] 12.6 % 11.6-14.6 [facility] Work Phone: MCH (RBC) [Entitic mass] 33.4 pg 27.0-32.0 [facility] Work Phone: MCHC Auto (RBC) [Mass/Vol]on 06-03-2022 MCHC (RBC) [Mass/Vol] 32.3 g/dL 32-36 [place] Work Phone: No Panel Informationon 06-03 Estimated GFR (MDRD) Amer 109 mL/min >60 [facility] Work Phone: Comment on above: GFR Calc Estimated GFR (MDRD) Non-Af Amer 90 mL/min >60 [facility] Work Phone: Comment on above: Non- GFR Calc Platelets bldon 06-03-2022 Platelets (Bld) [#/Vol] 107 10*3/uL 150-450 [facility] Work Phone: Serum or plasma albumin carmen urement (mass/volume)on 06-03-2022 Albumin [Mass/Vol] 2.6 g/dL 3.2-5.0 [facility] Work Phone: Serum or plasma calcium carmen urement (mass/volume)on 06-03-2022 Calcium [Mass/Vol] 8.3 mg/dL 8.5-10.1 [facility] Work Phone: Serum or plasma creatinine m easurement (mass/volume)on 06-03-2022 Creatinine [Mass/Vol] 0.67 mg/dL 0.55-1.02 [place] Work Phone: Comment on above: The validity of the calculated GFR & GFRAA in patients over 70 years has not been determined. Clinical correlation is essential. Serum or plasma urea nitroge n measurement (mass/volume)on 06-03-2022 Urea nitrogen [Mass/Vol] 35 mg/dL 7-18 [facility] Work Phone: Thin prep Papanicolaou smear with manual screeningon 06-03-2022 Thin prep Papanicolaou smear with manual screening 3 5-15 [facility] Work Phone: [phone] Absolute lymphocyte counton 03-04-2022 Lymphocytes Auto (Unsp spec) [#/Vol] 1.14 10*3/uL 0.83-4.51 [facility] Work Phone: Basophil percentageon 2021 Basophils/100 WBC (Bld) 0.7 % 0-1 [facility] Work Phone: [phone] Chloride [Moles/Vol] 105 mmol/L 98-107 [facility] Work Phone: [phone] Eosinophils/100 WBC (Bld) 5.2 % 0-5 [facility] Work Phone: [phone] Glucose [Mass/Vol] 107 mg/dL 74-106 [facility] Work Phone: [phone] Comment on above: Fasting Glucose resu lt from 100 to 125 mg/dL suggests IMPAIRED HOMEOSTASIS per A.D.A. criteria. Neutrophils (Bld) [#/Vol] 2.4 10*3/uL 2.0-7.7 [facility] Work Phone: Neutrophils/100 WBC (Bld) 56.1 % 47-70 [facility] Work Phone: [phone] Potassium [Moles/Vol] 4.3 mmol/L 3.5-5.1 [place] Work Phone: [phone] Sodium [Moles/Vol] 139 mmol/L 136-145 [facility] Work Phone: [phone] WBC (Bld) [#/Vol] 4.3 10*3/uL 4.4-11.0 [facility] Work Phone: Blood erythrocytes count (nu mber/volume)on 03-04-2022 RBC (Bld) [#/Vol] 3.77 10*6/uL 4.2-5.4 [facility] Work Phone: Blood hemoglobin measurement (mass/volume)on 03-04-2022 Hemoglobin (Bld) [Mass/Vol] 12.6 g/dL 12.0-15.0 [facility] Work Phone: Blood lymphocytes/100 leukoc yteson 03-04-2022 Lymphocytes/100 WBC (Bld) 26.8 % 19-41 [facility] Work Phone: Blood monocytes/100 leukocyt eson 03-04-2022 Monocytes/100 WBC (Bld) 11.0 % 0-10 [facility] Work Phone: Blood platelet mean volumeon 03-04-2022 Platelet mean volume (Bld) [Entitic vol] 12.7 fL 6.2-12.0 [facility] Work Phone: Determination of erythrocyte mean corpuscular volume (MCV)on 03-04-2022 MCV (RBC) [Entitic vol] 105.0 fL 81-99 [facility] Work Phone: Hematocrit Auto (Bld) [Volum e fraction]on 03-04-2022 Hematocrit (Bld) [Volume fraction] 39.6 % 37-47 [facility] Work Phone: Laboratory - Chemistry and C hemistry - challengeon 03-04-2022 CO2 [Moles/Vol] 31.0 mmol/L 21.0-32.0 [facility] Work Phone: Urea nitrogen/Creatinine [Mass ratio] 42.6 mg/mg 10-20 [facility] Work Phone: Laboratory - Hematology and Cell countson 03-04-2022 Erythrocyte distribution width (RBC) [Entitic vol] 48.4 fL 35.1-43.9 [facility] Work Phone: Erythrocyte distribution width (RBC) [Ratio] 12.5 % 11.6-14.6 [facility] Work Phone: Immature granulocytes/100 WBC (Bld) 0.200 % 0.0-0.9 [facility] Work Phone: Comment on above: IG% - Immature Granu locytes (promyelocytes, myelocytes and metamyelocytes) > 1% indicates that a LEFT SHIFT is Present. MCH (RBC) [Entitic mass] 33.4 pg 27.0-32.0 [facility] Work Phone: Nucleated RBC/100 WBC (Bld) [Ratio] 0 % 0-5 [facility] Work Phone: MCHC Auto (RBC) [Mass/Vol]on 03-04-2022 MCHC (RBC) [Mass/Vol] 31.8 g/dL 32-36 [place] Work Phone: No Panel Informationon 03-04 Estimated GFR (MDRD) Amer 111 mL/min >60 [facility] Work Phone: Comment on above: GFR Calc Estimated GFR (MDRD) Non-Af Amer 91 mL/min >60 [facility] Work Phone: Comment on above: Non- GFR Calc Platelets bldon 03-04-2022 Platelets (Bld) [#/Vol] 147 10*3/uL 150-450 [facility] Work Phone: Serum or plasma albumin carmen urement (mass/volume)on 03-04-2022 Albumin [Mass/Vol] 2.7 g/dL 3.2-5.0 [facility] Work Phone: Serum or plasma calcium carmen urement (mass/volume)on 03-04-2022 Calcium [Mass/Vol] 8.6 mg/dL 8.5-10.1 [facility] Work Phone: Serum or plasma creatinine m easurement (mass/volume)on 03-04-2022 Creatinine [Mass/Vol] 0.66 mg/dL 0.55-1.02 [place] Work Phone: Comment on above: The validity of the calculated GFR & GFRAA in patients over 70 years has not been determined. Clinical correlation is essential. Serum or plasma urea nitroge n measurement (mass/volume)on 03-04-2022 Urea nitrogen [Mass/Vol] 28 mg/dL 7-18 [facility] Work Phone: Thin prep Papanicolaou smear with manual screeningon 03-04-2022 Thin prep Papanicolaou smear with manual screening 3 5-15 [facility] Work Phone: Vital Signs Date Time Vital Sign Value Performing Clinician Facility 05-24-2025 10:04-0400 Body height 157.[address] Rebecca Raymond MD Work Phone: [facility] 12-18-2024 13:41-0400 Body temperature 97.9 [degF] Dr. Rebecca Raymond MD Work Phone: [facility] 12-18-2024 13:41-0400 Diastolic blood pressure 75 mm[Hg] Dr. Rebecca Raymond MD Work Phone: [facility] 12-18-2024 13:41-0400 Heart rate 82 /min Dr. Rebecca Raymond MD Work Phone: [facility] 12-18-2024 13:41-0400 Respiratory rate 16 /min Dr. Rebecca Raymond MD Work Phone: [facility] 12-18-2024 13:41-0400 SaO2% (BldA) [Mass fraction] 95 % Dr. Rebecca Raymond MD Work Phone: [facility] 12-18-2024 13:41-0400 Systolic blood pressure 99 mm[Hg] Dr. Rebecca Raymond MD Work Phone: [facility] 12-18-2024 10:44-0400 Body height 157.[address] Rebecca Raymond MD Work Phone: [facility] 12-18-2024 10:44-0400 Body mass index (BMI) [Ratio] 31.2 kg/m2 Dr. Rebecca Raymond MD Work Phone: [facility] 12-18-2024 10:44-0400 Body weight 77.[address] Rebecca Raymond MD Work Phone: [facility] 02-08-2024 05:24-0400 Body temperature 97.1 [degF] Dr. Rebecca Raymond Work Phone: [facility] 02-08-2024 05:24-0400 Diastolic blood pressure 67 mm[Hg] Dr. Rebecca Raymond Work Phone: [facility] 02-08-2024 05:24-0400 Heart rate 69 /min Dr. Rebecca Raymond Work Phone: [facility] 02-08-2024 05:24-0400 Respiratory rate 18 /min Dr. Rebecca Raymond Work Phone: [facility] 02-08-2024 05:24-0400 SaO2% (BldA) [Mass fraction] 97 % Dr. Rebecca Raymond Work Phone: [facility] 02-08-2024 05:24-0400 Systolic blood pressure 106 mm[Hg] Dr. Rebecca Raymond Work Phone: [facility] 02-08-2024 05:18-0400 Body height 157.[address] Rebecca Raymond Work Phone: [facility] 01-17-2024 19:02-0400 Body temperature 98.1 [degF] Dr. Rebecca Raymond Work Phone: [facility] 01-17-2024 19:02-0400 Diastolic blood pressure 77 mm[Hg] Dr. Rebecca Raymond Work Phone: [facility] 01-17-2024 19:02-0400 Heart rate 84 /min Dr. Rebecca Raymond Work Phone: [facility] 01-17-2024 19:02-0400 Respiratory rate 16 /min Dr. Rebecca Raymond Work Phone: [facility] 01-17-2024 19:02-0400 SaO2% (BldA) [Mass fraction] 94 % Dr. Rebecca Raymond Work Phone: [facility] 01-17-2024 19:02-0400 Systolic blood pressure 110 mm[Hg] Dr. Rebecca Raymond Work Phone: [facility] 01-17-2024 16:11-0400 Body height 157.[address] Rebecca Raymond Work Phone: [facility] 01-17-2024 16:11-0400 Body mass index (BMI) [Ratio] 31.6 kg/m2 Dr. Rebecca Raymond Work Phone: [facility] 01-17-2024 16:11-0400 Body weight 78.[address] Rebecca Raymond Work Phone: [facility] 12-31-2023 14:29-0400 Body temperature 98.01 [degF] Calos Bowen MD Work Phone: [facility] 12-31-2023 14:29-0400 Diastolic blood pressure 86 mm[Hg] Calos Bowen MD Work Phone: [facility] 12-31-2023 14:29-0400 Heart rate 121 /min Calos Bowen MD Work Phone: [facility] 12-31-2023 14:29-0400 SaO2% (BldA) [Mass fraction] 90 % Calos Bowen MD Work Phone: [facility] 03-22-2024 14:29-0400 Systolic blood pressure 124 mm[Hg] Calos Bowen MD Work Phone: [facility] 09-27-2023 02:32-0500 Heart rate 64 /min Dr. Rebecca Raymond Work Phone: [facility] 09-27-2023 02:32-0500 Respiratory rate 15 /min Dr. Rebecca Raymond Work Phone: [facility] 09-27-2023 02:32-0500 SaO2% (BldA) [Mass fraction] 98 % Dr. Rebecca Raymond Work Phone: [facility] 09-27-2023 01:48-0500 Body height 160.[address] Rebecca Raymond Work Phone: [facility] 09-27-2023 01:48-0500 Body mass index (BMI) [Ratio] 29.8 kg/m2 Dr. Rebecca Raymond Work Phone: [facility] 09-27-2023 01:48-0500 Body temperature 97.6 [degF] Dr. Rebecca Raymond Work Phone: [facility] 09-27-2023 01:48-0500 Body weight 76.[address] Rebecca Raymond Work Phone: [facility] 09-27-2023 01:48-0500 Diastolic blood pressure 79 mm[Hg] Dr. Rebecca Raymond Work Phone: [facility] 09-27-2023 01:48-0500 Systolic blood pressure 140 mm[Hg] Dr. Rebecca Raymond Work Phone: [facility] 09-26-2023 22:37-0500 Body temperature 97.1 [degF] Dr. Rebecca Raymond Work Phone: [facility] 09-26-2023 22:37-0500 Diastolic blood pressure 74 mm[Hg] Dr. Rebecca Raymond Work Phone: [facility] 09-26-2023 22:37-0500 Heart rate 92 /min Dr. Rebecca Raymond Work Phone: [facility] 09-26-2023 22:37-0500 Respiratory rate 16 /min Dr. Rebecca Raymond Work Phone: [facility] 09-26-2023 22:37-0500 SaO2% (BldA) [Mass fraction] 94 % Dr. Rebecca Raymond Work Phone: [facility] 09-26-2023 22:37-0500 Systolic blood pressure 151 mm[Hg] Dr. Rebecca Raymond Work Phone: [facility] 09-26-2023 20:06-0500 Body height 160.[address] Rebecca Raymond Work Phone: [facility] 09-26-2023 20:06-0500 Body mass index (BMI) [Ratio] 31.1 kg/m2 Dr. Rebecca Raymond Work Phone: [facility] 09-26-2023 20:06-0500 Body weight 79.[address] Rebecca Raymond Work Phone: [facility] 03-07-2023 21:26-0400 Body height 160.[address] Rebecca Raymond Work Phone: [facility] 03-07-2023 21:26-0400 Body mass index (BMI) [Ratio] 30.2 kg/m2 Dr. Rebecca Raymond Work Phone: [facility] 03-07-2023 21:26-0400 Body temperature 97.2 [degF] Dr. Rebecca Raymond Work Phone: [facility] 03-07-2023 21:26-0400 Body weight 77.[address] Rebecca Raymond Work Phone: [facility] 03-07-2023 21:26-0400 Diastolic blood pressure 66 mm[Hg] Dr. Rebecca Raymond Work Phone: [facility] 03-07-2023 21:26-0400 Heart rate 77 /min Dr. Rebecca Raymond Work Phone: [facility] 03-07-2023 21:26-0400 Respiratory rate 18 /min Dr. Rebecca Raymond Work Phone: [facility] 03-07-2023 21:26-0400 SaO2% (BldA) [Mass fraction] 97 % Dr. Rebecca Raymond Work Phone: [facility] 03-07-2023 21:26-0400 Systolic blood pressure 136 mm[Hg] Dr. Rebecca Raymond Work Phone: [facility] 09-15-2022 16:31-0500 Body height 162.56 cm [facility] 09-15-2022 16:31-0500 Body mass index (BMI) [Ratio] 30.5 kg/m2 [facility] 09-15-2022 16:31-0500 Body temperature 97.1 [degF] [facility] 09-15-2022 16:31-0500 Body weight 80.73 kg [facility] 09-15-2022 16:31-0500 Diastolic blood pressure 77 mm[Hg] [facility] 09-15-2022 16:31-0500 Heart rate 84 /min [facility] 09-15-2022 16:31-0500 Respiratory rate 16 /min [facility] 09-15-2022 16:31-0500 SaO2% (BldA) [Mass fraction] 98 % [facility] 09-15-2022 16:31-0500 Systolic blood pressure 119 mm[Hg] [facility] 05-11-2022 15:21-0400 Body height 149.9 cm Desmond Crane MD Work Phone: [facility] 05-11-2022 15:21-0400 Body temperature 96.69 [degF] Desmond Crane MD Work Phone: [facility] 05-11-2022 15:21-0400 Diastolic blood pressure 64 mm[Hg] Desmond Crane MD Work Phone: [facility] 05-11-2022 15:21-0400 Heart rate 93 /min Desmond Crane MD Work Phone: [facility] 05-11-2022 15:21-0400 SaO2% (BldA) [Mass fraction] 94 % Desmond Crane MD Work Phone: [facility] 05-11-2022 15:21-0400 Systolic blood pressure 94 mm[Hg] Desmond Crane MD Work Phone: [facility] Encounters Encounter Date Encounter Type Care Provider Facility Start: 06-14-2025 End: 06-14-2025 ambulatory Julian ZHENG Facility:[facility] Start: 05-30-2025 ambulatory Rebecca Ramírez cility:[facility] Start: 05-30-2025 Registered Referred Rebecca Raymond MD -[facility] Start: 05-15-2025 End: 05-15-[address] Rebecca Raymond MD Work Phone: [facility] Start: 05-15-2025 End: 05-15-[address] Rebecca Raymond MD -[facility] Work Phone: Start: 04-12-2025 End: 04-12-[address] Rebecca Raymond MD Work Phone: [facility] Start: 04-12-2025 End: 04-12-2025 Patient encounter procedure Julian ZHENG -[facility] Work Phone: Start: 03-13-2025 End: 03-13-[address] Rebecca Raymond MD Work Phone: [facility] Start: 03-13-2025 End: 03-13-[address] Rebecca Raymond MD -[facility] Work Phone: Start: 02-28-2025 End: 02-28-[address] Rebecca Raymond MD Work Phone: [facility] Work Phone: Start: 02-28-2025 End: 02-28-2025 Departed Referred Rebecca Raymond MD [facility] Start: 02-28-2025 End: 02-28-2025 ambulatory Rebecca Raymond Facility:[facility] Start: 02-13-2025 End: 02-13-[address] Rebecca Raymond MD Work Phone: [facility] Start: 02-13-2025 End: 02-13-2025 Patient encounter procedure Iraida Peres [facility] Work Phone: Start: 02-08-2025 End: 02-08-[address] Rebecca Raymond MD Work Phone: [facility] Start: 02-08-2025 End: 02-08-2025 Patient encounter procedure Julian ZHENG -[facility] Work Phone: Start: 01-22-2025 End: 01-22-[address] Rebecca Raymond MD Work Phone: [facility] Work Phone: Start: 01-22-2025 End: 01-22-2025 [facility] Start: 01-16-2025 End: 01-16-[address] Rebecca Raymond MD Work Phone: [facility] Work Phone: Start: 01-16-2025 End: 01-16-[address] Rebecca Raymond MD -[facility] Work Phone: Start: 12-21-2024 End: 12-21-2024 ambulatory Julian ZHENG Facility:[facility] Start: 12-21-2024 End: 12-21-2024 Patient encounter procedure Julian ZHENG -[facility] Work Phone: Start: 12-18-2024 End: 12-18-2024 Emergency department patient visit Dr. Rebecca Raymond MD Work Phone: -Emergency Department Work Phone: Start: 12-08-2024 End: 12-08-[address] Rebecca Raymond MD Work Phone: [facility] Work Phone: Start: 12-08-2024 End: 12-08-2024 [facility]: 12-08-2024 Registered Referred Rebecca Raymond MD -[facility] Start: 12-08-2024 End: 12-08-2024 ambulatory Efewongbe Olenathane Facility:[facility] Start: 11-29-2024 ambulatory Efewongbe Olenathane Facili ty:[facility] Start: 11-29-2024 Registered Referred Rebecca Raymond MD [facility] Start: 11-14-2024 End: 11-14-2024 ambulatory Efewongbe Olenathane Facility:[facility] Start: 11-14-2024 End: 11-14-[address] Rebecca Raymond MD -[facility] Work Phone: Start: 11-01-2024 End: 11-01-2024 ambulatory Efewongbe Olegunner Facility:[facility] Start: 11-01-2024 End: 11-01-2024 Patient encounter procedure Iraida MAGANA -[facility] Work Phone: Start: 10-18-2024 End: 10-18-2024 ambulatory CALOS BOWEN Facility:[facility] Start: 10-18-2024 End: 10-18-2024 Patient encounter procedure Nohemi Azevedo RAMAKRISHNA Work Phone: General Surgery Comment on above: PEG tube malfunction (HCC) (Primary Dx) Start: 09-12-2024 End: 09-12-2024 ambulatory Rebecca Raymond Facility:[facility] Start: 09-12-2024 End: 09-12-[address] Rebecca Raymond MD -[facility] Work Phone: Start: 08-31-2024 End: 03-16-2025 Telephone encounter Calos Bowen MD Work Phone: General Surgery Comment on above: Appointment Start: 08-30-2024 End: 08-30-2024 Departed Referred Rebecca Raymond MD -[facility] Start: 08-30-2024 End: 08-30-2024 ambulatory Rebecca Raymond Facility:[facility] Start: 08-24-2024 End: 08-24-2024 ambulatory uJlian ZHENG Facility:[facility] Start: 08-24-2024 End: 08-24-2024 Patient encounter procedure Julian ZHENG -[facility] Work Phone: Start: 02-08-2024 End: 02-08-2024 Emergency department [facility] Start: 01-17-2024 End: 01-17-2024 Emergency department patient visit Dr. Rebecca Raymond Work Phone: [facility] Work Phone: Start: 12-31-2023 End: 12-31-2023 Patient encounter procedure Calos Bowen MD Work Phone: General Surgery Comment on above: PEG tube malfunction (HCC) Start: 12-23-2023 End: 12-23-[address] Rebecca Raymond Work Phone: [facility] Work Phone: Start: 12-01-2023 End: 12-01-[address] Rebecca Raymond Work Phone: [facility] Work Phone: Start: 12-01-2023 End: 12-01-[address] Rebecca Raymond Work Phone: [facility] Start: 12-01-[address] Sejal Raymond Work Phone: [facility] Start: 11-22-2023 End: 11-22-[address] Rebecca Raymond Work Phone: [facility] Work Phone: Start: 11-22-2023 End: 11-22-[address] Rebecca Raymond Work Phone: [facility] Start: 11-16-2023 End: 11-16-[address] Rebecca Raymond Work Phone: [facility] Work Phone: Start: 10-28-2023 End: 10-28-[address] Rebecca Raymond Work Phone: [facility] Work Phone: Start: 09-27-2023 End: 09-27-2023 Emergency department patient visit Dr. Rebecca Raymond Work Phone: [facility] Work Phone: Start: 09-26-2023 End: 09-27-2023 Emergency department patient visit Dr. Rebecca Raymond Work Phone: [facility] Work Phone: Start: 09-21-2023 End: 09-21-[address] Rebecca Raymond Work Phone: [facility] Work Phone: Start: 09-06-2023 End: 09-06-[address] Rebecca Raymond Work Phone: [facility] Work Phone: Start: 08-26-2023 End: 08-26-[address] Rebecca Raymond Work Phone: [facility] Start: 08-26-[address] Sejal Raymond Work Phone: [facility] Start: 08-25-2023 End: 08-25-[address] Rebecca Raymond Work Phone: [facility] Work Phone: Start: 08-25-2023 End: 08-25-[address] Rebecca Raymond Work Phone: [facility] Start: 08-03-2023 End: 08-03-[address] Rebecca Raymond Work Phone: [facility] Work Phone: Start: 07-05-2023 End: 07-05-[address] Rebecca Raymond Work Phone: [facility] Work Phone: Start: 06-07-2023 End: 06-07-[address] Rebecca Raymond Work Phone: [facility] Start: 06-02-2023 End: 06-02-[address] Rebecca Raymond Work Phone: [facility] Start: 05-18-2023 End: 05-18-[address] Rebecca Raymond Work Phone: [facility] Work Phone: Start: 05-04-2023 End: 05-04-[address] Rebecca Raymond Work Phone: [facility] Work Phone: Start: 03-16-2023 End: 03-16-[address] Rebecca Raymond Work Phone: [facility] Work Phone: Start: 03-07-2023 End: 03-08-2023 Emergency department patient visit Dr. Rebecca Raymond Work Phone: [facility] Start: 03-04-2023 End: 03-04-[address] Rebecca Raymond Work Phone: [facility] Work Phone: Start: 03-03-2023 End: 03-03-[address] Rebecca Raymond Work Phone: [facility] Work Phone: Start: 03-03-2023 End: 03-03-[address] Rebecca Raymond Work Phone: [facility] Start: 03-03-[address] Sejal Raymond Work Phone: [facility] Start: 01-19-2023 End: 01-19-[address] Rebecca Raymond Work Phone: [facility] Start: 01-01-2023 End: 01-01-[address] Rebecca Raymond Work Phone: [facility] Start: 12-02-2022 End: 12-02-[address] Rebecca Raymond Work Phone: [facility] Work Phone: Start: 12-02-2022 End: 12-02-[address] Rebecca Raymond Work Phone: [facility] Start: 11-03-2022 End: 11-03-[address] Rebecca Raymond Work Phone: [facility] Start: 10-26-2022 End: 10-26-[address] Rebecca Raymond Work Phone: [facility] Start: 09-15-2022 End: 09-15-2022 Emergency department patient visit [facility] Start: 06-03-2022 End: 06-03-2022 ambulatory [facility] Work Phone: Start: 06-03-2022 End: 06-03-2022 Departed Referred [facility] Start: 05-11-2022 End: 05-11-2022 Patient encounter procedure Desmond Crane MD Work Phone: General Surgery Comment on above: PEG tube malfunction (HCC) (Primary Dx) Start: 03-04-2022 End: 03-04-2022 Departed Referred [facility] Procedures Date Procedure Procedure Detail Performing Clinician Start: 05-30-2025 Vitamin D, 25-hydrox y measurement Dr. Rebecca Raymond MD Work Phone: Comment on above: Vitamin D StatusDefi ciency: <20 ng/mL (50nmol/L)Insufficiency: 20-30 ng/mL (50-75 nmol/L)Sufficiency: 30-100 ng/mL (75-250 nmol/L)Toxicity: >100 ng/mL (>250 nmol/L) Start: 12-18-2024 Plain X-ray abdomen Dr. Rebecca [...] 06-11-2025 Influenza vaccination Influenza Vaccine (Season Ended) [facility] Start: 12-18-2024 Application of abdominal corset [facility] Start: 12-18-2024 [facility] Start: 12-18-2024 Plain X-ray abdomen Abdomen Single View (Portable) [facility] Start: 12-18-2024 XR Abdomen Single view [facility] Start: 10-11-2024 Advance Directive Discussion Advance Directive Discussion [facility] Start: 06-11-2024 Covid-19 Vaccine ( season) Covid-19 Vaccine ( season) [facility] Start: 06-11-2024 Influenza vaccination Influenza Vaccine (#1) [facility] Start: 02-08-2024 [facility] Start: 01-17-2024 [facility] Start: 10-11-2023 Advance Directive Discussion Advance Directive Discussion [facility] Start: 10-11-2023 Depression Assessment Depression Assessment [facility] Start: 09-27-2023 [facility] Start: 09-27-2023 [facility] Start: 09-27-2023 [facility] Start: 09-26-2023 [facility] Start: 09-26-2023 Insert gastrostomy tube percutaneous PLACE GASTROSTOMY TUBE PERC [facility] Start: 06-11-2023 Covid-19 Vaccine ( season) Covid-19 Vaccine ( season) [facility] Start: 06-11-2023 Influenza vaccination Influenza Vaccine (#1) [facility] Start: 03-07-2023 Perq replacement gtube not req revj gstrst trc [facility] GTUBE NO REVJ TRC [facility] Start: 09-15-2022 Application of abdominal corset [facility] Start: 09-15-2022 Plain X-ray abdomen Abdomen Single View (Portable) [facility] Work Phone: Start: 09-15-2022 XR Abdomen Single view [facility] Work Phone: Start: 06-11-2022 Influenza vaccination INFLUENZA (#1) [facility] Start: 10-11-2021 ADVANCE DIRECTIVE DISCUSSION ADVANCE DIRECTIVE DISCUSSION [facility] Start: 03-04-2015 DIABETES SCREEN DIABETES SCREEN [facility] Start: 03-04-2015 Diabetes Screening Diabetes Screening [facility] Start: 08-11-2014 Urine microalbumin profile [facility] Start: 2014 RSV Vaccine (1 - 1-dose 75+ series) RSV Vaccine (1 - 1-dose 75+ series) [facility] Start: 12-29-2012 Pneumococcal Vaccine: 50+ (2 of 2 - PCV) Pneumococcal Vaccine: 50+ (2 of 2 - PCV) [facility] Start: 12-29-2012 Pneumococcal Vaccine: 65+ (2 of 2 - PCV) Pneumococcal Vaccine: 65+ (2 of 2 - PCV) [facility] Start: 12-29-2012 PNEUMOCOCCAL: 65+ (2 - PCV) PNEUMOCOCCAL: 65+ (2 - PCV) [facility] Start: 11-27-2012 FECAL OCCULT BLOOD FECAL OCCULT BLOOD [facility] Start: 1999 RSV Vaccine (1 - 1-dose 60+ series) RSV Vaccine (1 - 1-dose 60+ series) [facility] Start: 1989 SHINGRIX VACCINE (1 of 2) SHINGRIX VACCINE (1 of 2) [facility] Start: 1957 Anxiety Screening Anxiety Screening [facility] Start: 1957 Depression Screening Depression Screening [facility] Patient Education [facility] Work Phone: Patient referral [facility] Work Phone: Immunizations Immunization Date Immunization Notes Care Provider Fa cili 07-01-2012 influenza virus vacc ine, unspecified formulation Desmond Crane MD Work Phone: [facility] 12-30-2011 pneumococcal polysaccharide vaccine, 23 valent Desmond Crane MD Work Phone: [facility] 09-11-2011 influenza virus vacc ine, unspecified formulation Desmond Crane MD Work Phone: [facility] 07-29-2010 influenza virus vacc ine, unspecified formulation Desmond Crane MD Work Phone: [facility] 07-02-2009 influenza virus vacc ine, unspecified formulation Desmond Crane MD Work Phone: [facility] Work Phone: 08-17-2008 influenza virus vacc ine, unspecified formulation Desmond Crane MD Work Phone: [facility] 08-17-2007 influenza virus vacc ine, unspecified formulation Desmond Crane MD Work Phone: [facility] Work Phone: 08-10-2005 influenza virus vacc ine, unspecified formulation Desmond Crane MD Work Phone: [facility] Work Phone: 08-11-2004 diphtheria and tetan us toxoids, adsorbed for pediatric use Desmond Crane MD Work Phone: [facility] Work Phone: 07-25-2004 pneumococcal polysaccharide vaccine, 23 valent Desmond Crane MD Work Phone: [facility] Work Phone: Payers Date Payer Category Payer Self-pay [id number] 2018 Medicaid [id number] 2018 Medicare [id number] 2018 Medicare [employer] [id number] 2018-Present [phone] [address] [place] [address] Medicare [id number] 2018 Medicare (Managed Care) [facility] [employer] MEDICARE [id number] 2018 Unknown [id number] 2012 Medicaid [id number] Medicare MEDICARE PART A B [id number] Unknown [id number]. 462 Unknown [id number] [id number]. 462 Unknown [id number] 2.16.840.1.264950.3.579.2. 462 Unknown [id number] [id number]. 462 Unknown [id number] 2.16.840.1.560570.3.579.2. 462 Unknown [id number] 2.16.840.1.726502.3.579.2. 462 Unknown [id number] 2.16.840.1.093321.3.579.2. 462 Unknown [id number] 2.16.840.1.370809.3.579.2. 462 Unknown [id number] 2.16.840.1.300168.3.579.2. 462 Unknown [id number] 2.16.840.1.729497.3.579.2. 462 Unknown [id number] 2.16.840.1.344952.3.579.2. 462 Unknown [id number] 2.16.840.1.801972.3.579.2. 462 Unknown [id number] 2.16.840.1.283762.3.579.2. 462 Unknown [id number] 2.16.840.1.171333.3.579.2. 462 Unknown [id number] 2.16.840.1.314941.3.579.2. 462 Unknown [id number] 2.16.840.1.595174.3.579.2. 462 Unknown [id number] 2.16.840.1.074435.3.579.2. 462 Unknown [id number]. 462 Unknown [id number]. 462 Social History Date Type Detail Facility Start: 05-25-2012 End: 05-24-2025 Tobacco smoking status NHIS Never smoked tobacco [facility] Start: 05-11-2022 End: 01-01-2024 Alcohol intake Current non-drinker of alcohol (finding) [facility] Start: 1940 Sex Assigned At Not on file C [facility] Start: 05-01-2022 End: 05-11-2022 Exposure to SARS-CoV-2 (event) Not sure [facility] Start: 07-28-2021 End: 02-08-2024 Tobacco smoking status NHIS Unknown if ever smoked [facility] Start: 11-27-2020 None [facility] Start: 04-17-2021 None;unknown [facility] Start: 11-27-2020 Snf [facility] Start: 04-17-2021 Non-smoker [facility] Start: 1940 Sex Assigned At Female [facility] Start: 05-25-2012 Tobacco use and exposure Smokeless tobacco non-user [facility] Work Phone: Start: 01-01-2024 History of Social function [facility] Start: 01-01-2024 Tobacco use panel [facility] Start: 12-18-2024 End: 01-10-2025 Sex Female (finding) [facility] Mental Status Date Assessment Result Facility 12-18-2024 Cognitive function Level Of Cons ciousness Awake;Alert [facility] Work Phone: 02-08-2024 Cognitive function Level Of Cons ciousness Awake;Alert [facility] Work Phone: 01-17-2024 Cognitive function Level Of Cons ciousness Awake;Alert;Appropriate;Follow s Commands [facility] Work Phone: 09-27-2023 Cognitive function Level Of Cons ciousness Awake;Alert [facility] Work Phone: 03-07-2023 Cognitive function Level Of Cons ciousness Awake;Alert [facility] Work Phone: 09-15-2022 Cognitive function Level Of Cons ciousness Awake;Alert;Appropriate;Follow s Commands [facility] Work Phone: Clinical Notes 11-05-2015 to 10-18-2024 Nohemi Azevedo APRN.[facility] - 10/18/2024 10:36 AM Calos Hutchison MD - 10/18/2024 10:00 AM ESTTelephone Encounter - Marion UmañaMOLLY - 10/16/2024 10:50 AM EST Note Date & Type Note Facility 10-18-2024 Note HNO ID: [id number] Author: NOHEMI AZEVEDO APRN.[facility] Service: ? Author Type: Nurse Practitioner Type: Progress Notes Filed: 10/25/2024 15:14 Note Text: FOLLOW UP VISIT - PEG TUBE REMOVAL NAME: Dariana Vazquez CLINIC NO.: [id number] DATE OF SERVICE: 10/18/2024 : 1940 REFERRING [...] follow-up with me as needed. Nohemi Azevedo APRN.CNP [facility] 10-18-2024 History of Presen t illness Narrative FOLLOW UP VISIT - PEG TUBE REMOVAL NAME: Dariana Vazquez [facility] NO.: [id number] DATE OF SERVICE: 10/18/2024 : 1940 REFERRING [...] follow-up with me as needed. Nohemi Azevedo APRN.[place] FOLLOW UP VISIT - PEG TUBE EVALUATION NAME: Dariana Vazquez [facility] NO.: [id number] DATE OF SERVICE: October 18, 2024 : [...] a crack. The tube is a 24 Djib[place]ian tube (note that I had last replaced the tube with a 20 [place]ib[place]ian tube) and the buttress was secured down [...] I recommended the ECF obtain a 24 [place]ib[place]ian PEG tube that when the catheter does fail we can change as we only have 20 [place]ib[place]ian replacement since stock. Diagnoses: No diagnosis found. Return to Clinic: The patient is instructed to follow-up with me as needed. Calos Bowen MD documented in this encounter [facility] 10-18-2024 Note HNO ID: [id number] Author: CALOS BOWEN MD Service: ? Author Type: Physician Type: Progress Notes Filed: 10/25/2024 05:11 Note Text: FOLLOW UP VISIT - PEG TUBE EVALUATION NAME: Dariana Vazquez [facility] NO.: [id number] DATE OF SERVICE: October 18, 2024 : [...] a crack. The tube is a 24 [place]ib[place]ian tube (note that I had last replaced the tube with a 20 [place]ib[place]ian tube) and the buttress was secured down [...] I recommended the ECF obtain a 24 [place] PEG tube that when the catheter does fail we can change as we only have 20 [place]ib[place]ian replacement since stock. Diagnoses: No diagnosis found. Return to Clinic: The patient is instructed to follow-up with me as needed. Calos Bowen MD [facility] 10-16-2024 Telephone encount er Note Called and spoke to Dariana's nurse and states will check if they have a 24 [place]iboutian peg tube, states will call us back to update. Marion Umaña LPN October 16, 2024 10:51 AM [facility] 10-16-2024 Miscellaneous Notes Formattin g of this note might be different from the original. Called and spoke to Dariana's nurse and states will check if they have a 24 [place]ib[place]ian peg tube, states will call us back to update. Marion Umaña LPN October 16, 2024 10:51 AM Called [facility]- left message with nurse line on [facility] where patient resides. No details left due to line not secure. Margie Lynn LPN Called [facility] [employer] [facility]. Not a secure line. Did leave message for nursing staff to call General Surgery. Patient has appointment for PEG tube change 09/06/2024. Please verify that ECF is sending 24 Djiboutian PEG Tube with patient to appointment. Margie Lynn LPN documented in this encounter [facility] 08-31-2024 Telephone encount er Note Called [facility]- left message with nurse line on [place] where patient resides. No details left due to line not secure. Margie Lynn LPN [facility] 08-31-2024 Telephone encount er Note Called [facility] [employer] [facility]. Not a secure line. Did leave message for nursing staff to call General Surgery. Patient has appointment for PEG tube change 09/06/2024. Please verify that ECF is sending 24 [place]iboutian PEG Tube with patient to appointment. Margie Lynn LPN [facility] 01-01-2024 History of Presen t illness Narrative FOLLOW UP VISIT - PEG TUBE EVALUATION NAME: Dariana Vazquez [facility] NO.: [id number] DATE OF SERVICE: January 01, 2024 : [...] a crack. The tube is a 24 Djiboutian tube (note that I had last replaced the tube with a 20 Djiboutian tube) and the buttress was secured down [...] I recommended the ECF obtain a 24 [place]ib[place]ian PEG tube that when the catheter does fail we can change as we only have 20 Djib[place]ian replacement since stock. Diagnoses: (K94.23) PEG tube malfunction (HCC) Return to Clinic: The patient is instructed to follow-up with me as needed. Calos Bowen MD documented in this encounter [facility] 12-31-2023 Nurse Note REVIEW OF SYSTEMS: General: [...] Shanti Avila LPN documented in this encounter [facility] 09-26-2023 Discharge summary Note Date/Time September 26, 2023 9:57pm [facility] Medical Records Department [address] [place] [address] Emergency Department Summary 09/26/23 MR#: [id number] Acct: [id number] Name: DARIANA VAZQUEZ Rep #:[id number] : 1940 83 From: Axel Nunez PCP: Dr. Rebecca Raymond MD Status:R EG ER Location: ED HPI History of Present Illness Chief Complaint: Wound Informant: patient and SNF Onset/Context/Timing Onset: Today Context: Gradual Onset Timing: Continuous Worsened by: Nothing Relieved by: Nothing Narrative Narrative: Patient presents with dysfunctional PEG tube. prison staff reports that they were unable to flush anything through the PEG tube tonight. Patient is a poor informant. Patient has a history of dementia. Patient denies any abdominal pain. Staff denies any nausea or vomiting. Staff denies any fevers or chills. [facility] Medical History (Updated 09/26/23 @ 21:[address] Axel Michaels DO) Aplastic anemia GERD (gastroesophageal reflux disease) [...] bisacodyl 10 mg rectal suppository 10 mg NC BID PRN PRN Constipation 02/01/21 [History Last [...] History (Updated 09/26/23 @ 21:[address] Aexl Michaels, ) Status post insertion of percutaneous [...] PEG tube was removed. A new 24 Djiboutian PEG tube was reinsertedwithout difficulty. The balloon [...] Signed: Nemesio Sweeney MD at 21:43 EST , Gastrografin study was performed. There is 1 view. On my independent interpretation, the PEG tube is in place. The contrast goes into the stomach. There is no extravasation of the contrast. There is no free air. Radiologist also interpreted the x-ray and agrees. Procedures Other Procedures Procedure(s): The dysfunctional PEG tube was removed after deflating the balloon. A new 24 Djiboutian PEG tube was placed into the stoma [...] your Primary Care Provider. Call [facility] ([phone]) or report to the closest Emergency Room. Call 911 if necessary. 09/26/23 2330 <Electronically signed by Axel Michaels DO> Cosigner Signature (if applicable): CC: Dr. Rebecca Raymnod MD ~ Signed [facility] Work Phone: [phone]) 644-192205-29-2023 Discharge summary Author [facility] March 07, 2023 11:59pm Note Date/Time March 07, 2023 11:23 pm [facility] Medical Records Department [address] [place] [address] Emergency Department Summary 03/07/23 MR#: [id number] Acct: [id number] Name: DARIANA VAZQUEZ Rep #:[id number] : 1940 82 From: Mario Clarke DO PCP: Dr. Rebecca Raymond MD Status:R EG ER Location: ED HPI History of Present Illness Chief Complaint: Other, Pain/Inj Informant: EMS and SNF Narrative Narrative: Patient is an 82-year-old female from the snf with past medical historyof obesity GERD MRDD [...] MRDD she cannot offer any further history [facility] Medical History Aplastic anemia GERD (gastroesophageal reflux [...] bisacodyl 10 mg rectal suppository 10 mg NC BID PRN PRN Constipation 02/01/21 [History Last [...] further work-up. The patient had a 24 Djiboutian PEG tube reinserted as documented below and following that she is otherwise safe for discharge back to the snf Patient had her abdominal stoma cleaned with chlorhexidine. Sterile K-Y jelly was then placed for lubrication over top skin. A 24 Djiboutian PEG tube was then passed through the [...] your Primary Care Provider. Call [facility] ([phone]) or report to the closest Emergency Room. Call 911 if necessary. 03/07/23 5723 <Electronically signed by Mario Clarke DO> Cosigner Signature (if applicable): CC: Dr. Rebecca Raymond MD ~ Signed [facility] Work Phone: [phone] 544-175708-01-2022 History of Present illness Narrative* Desmond Crane [...] way to do this. [facility]* Marion Umaña, ORACLE OBIEE DEVELOPER - 05/11/2022 3:28 PM EDT REVIEW OF [...] unknown Marion Umaña LPN [facility] History of Past illness Narrative* Problem Noted Date Resolved Date Essential hypertension, malignant 11/05/2015 07/15/2016 Overview: Per LDT 10/31/15 snf charges Sprain of ankle, unspecified site 11/18/2006 08/01/2007 Pain in limb 08/25/2005 08/01/2007 Urinary tract infection, site not specified 07/15/2016 Overview: Recurrent UTI's documented as of this encounter (statuses as of 05/11/2022) [facility] History of Past illness Narrative* Problem Noted Date Diagnosed Date Resolved Date Essential hypertension, malignant 11/05/2015 07/15/2016 Overview: Per LDT 10/31/15 snf charges Sprain of ankle, unspecified site 11/18/2006 08/01/2007 Pain in limb 08/25/2005 08/01/2007 Urinary tract infection, site not specified 07/15/2016 Overview: Recurrent UTI's documented as of this encounter (statuses as of 01/01/2024) [facility] Brent Owens [facility] September 27, 2023 3:41am Note Date/Time September 27, 2023 2:03am [facility] Medical Records Department [address] [place] [address] Emergency Department Summary 09/27/23 MR#: [id number] Acct: [id number] Name: DARIANA VAZQUEZ Rep #:[id number] : 1940 83 From: Brent Owens MD PCP: Dr. Rebecca Raymond MD Status:R EG ER Location: ED HPI History of Present Illness Chief Complaint: Other, Pain/Inj Narrative Narrative: Patient presents because her feeding tube fell out. This 1 was placed earlier in the day this past day, staff at the snf states they went in and it was sitting on her abdomen with the balloon deflated. Limited ROS due to MR. [facility] Medical History Aplastic anemia GERD (gastroesophageal reflux [...] bisacodyl 10 mg rectal suppository 10 mg NC BID PRN PRN Constipation 02/01/21 [History Last [...] a ride to go back to the snf. Procedures Other Procedures Procedure(s): 24 Djiboutian G-tube placement after verifying balloon competent, inflated [...] your Primary Care Provider. Call [facility] ([phone]) or report to the closest Emergency Room. Call 911 if necessary. 09/27/23 0341 <Electronically signed by Brent Owens MD> Cosigner Signature (if applicable): CC: Dr. Rebecca Raymond MD ~ Signed [facility] Work Phone: Discharge summary Author Brent Owens [facility] February 08, 2024 5:33am Note Date/Time February 08, 2024 5:2 5am [facility] Medical Records Department [address] [place] [address] Emergency Department Summary 02/08/24 MR#: [id number] Acct: [id number] Name: DARIANA VAZQUEZ Rep #:[id number] : 1940 83 From: Brent Owens MD PCP: Dr. Rebecca Raymond MD Status:R EG ER Location: ED HPI History of Present Illness Chief Complaint: Other, Pain/Inj Detail of Chief Complaint: pulled feeding tube out Informant: patient and EMS Onset/Context/Timing Onset: Today Narrative Narrative: 83-year-old female with a snf with history limited due to mental retardation brought at 5:15 AM due to nurses finding her with her feeding tube out. Unknown how long it was out, but they think no more than a couple hours. Patient admits that this must of happened on accident. She denies having any pain. EMS reports that there is no significant bleeding from the site or discharge. [facility] Medical History Aplastic anemia GERD (gastroesophageal reflux [...] bisacodyl 10 mg rectal suppository 10 mg NC BID PRN PRN Constipation 02/01/21 [History Last [...] the procedure note. She had a 24 Djiboutian and we placed a 24 Djiboutian. Patient has well-established tract, she has had a PEG infor over 1.5 years, and given that it went in uneventfully and I was able to aspirate stomach contents and flush fluid easily, literature supports using thiswithout the need for radiographic confirmation. Procedures Other Procedures Procedure(s): PEG replacement: Immediately upon arrival, placed new 24 Djiboutian PEG after confirming competency of balloon with [...] problems, contact your Primary Care Provider. Call [employer] [facility] ([phone]) or report to the closest Emergency Room. Call 911 if necessary. 02/08/24 0533 <Electronically signed by Brent Owens MD> Cosigner Signature (if applicable): CC: Dr. Rebecca Raymond MD ~ Signed [facility] Work Phone: Evaluation note* Diagnosis PEG tube malfunction (HCC)- Primary Mechanical complication of gastrostomy documented in this encounter [facility] noteNo assessment information availableWBucyrus Community [facility] Work Phone: Evaluation note* Diagnosis PEG tube malfunction (HCC) Mechanical complication of gastrostomy documented in this encounter [facility] note* Diagnosis PEG tube malfunction (HCC)- Primary Mechanical complication of gastrostomy [facility] Additional Instructions X-ray was obtained with Gastrografin and it shows the PEG tube to be in good position. You may use it.[facility] Work Phone: Hospital Discharge instructions Additional Instructions Her PEG tube was replaced with a 20 Djiboutian with a 20 cc balloon and placement was confirmed with an x-ray.[facility] Work Phone: Reason for referral (narrative)No reason for referral information availableWBucyrus Community Hospital Work Phone: Advance Directives No Advanced Directives Records FoundDocuments on File Type Date Recorded Patient Vb Net Developer Expl anation Advance Directive(s) Advance Directive Response Recorded Date/ Time Living Will Yes July 28 3:39pm Power of Jeweler Apprentice Yes July 28, 2021 3:39pm Advance Directive Response Recorded Date/ Time Living Will Yes July 28 2:39pm Power of Jeweler Apprentice Yes July 28, 2021 2:39pm Advance Directive Response Recorded Date/ Time Living Will No March 07, 2023 9 :29pm Power of Jeweler Apprentice No March 07, 2023 9:29pm Advance Directive Response Recorded Date/ Time Living Will No March 07, 2023 8 :29pm Power of Jeweler Apprentice No March 07, 2023 8:29pm Advance Directive Response Recorded Date/ Time Living Will No September 26 8:07pm Power of Jeweler Apprentice No September 26, 2023 8:07pm Advance Directive Response Recorded Date/ Time Living Will No September 26, 2 023 9:07pm Power of Jeweler Apprentice No September 26, 2023 9:07pm Advance Directive Response Recorded Date/ Time Living Will No January 17, 2024 4:20pm Power of Jeweler Apprentice No January 16 4:20pm Advance Directive Response Recorded Date/ Time Living Will No February 08, 2024 5:23am Power of Jeweler Apprentice No February 07 5:23am Advance Directive Response Recorded Date/ Time Living Will No December 18, 2024 10:48am Power of Jeweler Apprentice No December 18 10:48am Advance Directive Response Recorded Date/ Time Living Will No December 18, 2024 10:48am Do you have a Healthcare Power of Jeweler Apprentice? 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 EXAM GROUP HOME LABWORK MONTHLY NOTE Chief Complaint GROUP HOME LABWORK MONTHLY NOTE MONTHLY EXAM pulled peg tube out Chief Complaint GROUP HOME LAB WOR K MONTHLY NOTE pulled peg tube out MONTHLY EXAM MONTHLY EXAM Chief Complaint MONTHLY EXAM GROUP HOME LAB WORK GROUP HOME LABWORK MONTHLY NOTE MONTHLY EXAM GROUP HOME LAB WORK Chief Complaint GROUP HOME LAB WOR K GROUP HOME LABWORK MONTHLY NOTE MONTHLY EXAM GROUP HOME LAB WORK GROUP HOME LAB WORK wound Chief Complaint GROUP HOME LAB WOR K GROUP HOME LABWORK MONTHLY NOTE MONTHLY EXAM GROUP HOME LAB WORK GROUP HOME LAB WORK wound peg tube out Chief Complaint GROUP HOME LAB WOR K GROUP HOME LAB WORK MONTHLY NOTE MONTHLY EXAM wound peg tube out LABWORK Chief Complaint MONTHLY NOTE MONTHLY EXAM wound peg tube out MONTHLY EXAM LABWORK GROUP HOME LAB WORK Chief Complaint MONTHLY EXAM wound peg tube out MONTHLY EXAM MONTHLY EXAM MD LABWORK GROUP HOME LAB WORK PEG TUBE CHECK Chief Complaint MONTHLY EXAM MONTHLY EXAM MD LABWORK GROUP HOME LAB WORK MONTHLY NOTE PEG TUBE CHECK other Chief Complaint Admit Date MONTHLY EXAM August 24, 2024 10:18am GROUP HOME LAB WORK August 30 5:00am MONTHLY EXAM [...] Monthly Exam April 12, 2025 10:04 am Chief Complaint Admit Date NEW CONCERN February 13, 2025 3:36pm NURISNG HOME LAB WORK February 28, 2025 5:0 0am MONTHLY EXAM March 13, 2025 4:45p m Monthly Exam April 12, 2025 10:04 am MONTHLY EXAM May 15, 2025 4:1 1pm Summary Purpose Family History No Family History Records FoundNo Family History Records Found Additional Source Comments Source Comments (unrecognize d section and content) In the event this informatio n is protected by the Federal Confidentiality of Alcohol and Drug Abuse Patient Records regulations: The Federal rules restrict any use of the information to criminally investigate or prosecute any alcohol or drug abuse patient.[facility] the event this information is protected by the Federal Confidentiality of Alcohol and Drug Abuse Patient Records regulations: The Federal rules restrict any use of the information to criminally investigate or prosecute any alcohol or drug abuse patient.[facility] Hospital[facility] the event this information is protected by the Federal Confidentiality of Alcohol and Drug Abuse Patient Records regulations: The Federal rules restrict any use of the information to criminally investigate or prosecute any alcohol or drug abuse patient.[facility] Hospital[facility] the event this information is protected by the Federal Confidentiality of Alcohol and Drug Abuse Patient Records regulations: The Federal rules restrict any use of the information to criminally investigate or prosecute any alcohol or drug abuse patient.[facility] Reason for Visit (unrecogniz ed section [...] 21, 2024 End: December 21, 2024 Julian ZHENG, PA Attending Provider Active St art: December 21, 2024 End: December 21, 2024 Team Status: Inactive Member Role Status Dates Dr. Rebecca Raymond MD Primary Care Provider Active Start: February 28, 2025 End: February 28, 2025 Rebecca GILL MD Attending Provider Active Start: February 28, 2025 End: February 28, 2025 Tank Car Cleaner Relationship Specialty Start Date End Date Kimberly Farris MD [address] [place] [address] PCP - General 08/03/02 Team Status: Active Member Role Status Dates Dr. Kimberly Farris MD Family Provider Active Dr. Rebecca Raymond MD Primary Care Provider Active Team Status: Inactive Member Role Status Dates Dr. Rebecca Raymond MD Primary Care Provider Active Iraida Peres HIGH SCHOOL MUSIC TEACHER, HIGH SCHOOL MUSIC TEACHER-C Attending Provider Active Team Status: Inactive Member Role Status Dates Dr. Rebecca Raymond MD Primary Care Provider, Atten ding Provider Active Team Status: Inactive Member Role Status Dates Dr. Rebecca Raymond MD Primary Care Provider Active Dr. Ashly Abdi DO Attending Provider, Emergency P cristel Active Team Status: Inactive Member Role Status [...] Axel Michaels DO Attending Provider, Emergency P cristel Active Team Status: Inactive Member Role Status [...] GILL MD Attending Provider, Referring Provider Active Tank Car Cleaner Relationship Specialty Start Date End Date Kimberly Farris MD [address] [place], [place] [id number] PCP - General 08/03/02 Team Status: Inactive [...] Dr. Brent Owens MD Emergency Provider Active Tank Car Cleaner Relationship Specialty Start Date End Date Kimberly Farris MD [address] [place], [place] [id number] PCP - General 08/03/02 Ellie Mora, INFRASTRUCTURE ANALYST.SCIENCE EDUCATION PROFESSOR [address] [place], [place] [address] Sprinkler Fitter Helper Internal Medicine 09/18/24 Alanis Colvin INFRASTRUCTURE ANALYST.MINE LABORER [address] [place], [place] [id number] [facility] Internal Medicine 09/18/24 Team Status: Inactive Member Role Status Dates Dr. Rebecca Raymond MD Primary Care Provider Active Start: August 24, 2024 End: August 24, 2024 NORM Thomas Attending Provider Active St art: August 24, [...] 2024 End: November 01, 2024 Iraida Peres HIGH SCHOOL MUSIC TEACHER, HIGH SCHOOL MUSIC TEACHER-C Attending Provider Active Start: November 01, 2024 [...] November 14, 2024 End: November 14, 2024 Tank Car Cleaner Relationship Specialty Start Date End Date Kimberly Farris MD [address] [place] [address] PCP - General 08/03/02 01/17/25 Ellie Mora APRN.SCIENCE EDUCATION PROFESSOR [address] [place] [address] Sprinkler Fitter Helper Internal Medicine 09/18/24 01/17/25 Alanis Colvin APRN.MINE LABORER [address] [place] [address] [facility] Internal Medicine 09/18/24 12/29/24 Alanis Colvin APRN.MINE LABORER [address] [place] [address] [facility] Internal Medicine 01/02/25 01/17/25 Team Status: Inactive [...] 2025 End: January 22, 2025 Iraida Peres NP HIGH SCHOOL MUSIC TEACHER-C Attending Provider Active Start: January 22, 2025 [...] 2025 End: January 22, 2025 Iraida Peres NP HIGH SCHOOL MUSIC TEACHER-C Attending Provider Active Start: January 22, 2025 [...] 2025 End: February 13, 2025 Iraida Peres HIGH SCHOOL MUSIC TEACHER, HIGH SCHOOL MUSIC TEACHER-C Attending Provider Active Start: February 13, 2025 [...] 2025 End: February 13, 2025 Iraida Peres HIGH SCHOOL MUSIC TEACHER, HIGH SCHOOL MUSIC TEACHER-C Attending Provider Active Start: February 13, 2025 [...] April 12, 2025 End: April 12, 2025 Team Status: Inactive Member Role/Relationship Status Dates Dr. Rebecca Raymond MD Primary Care Provider Active Start: February 13, 2025 End: February 13, 2025 Iraida Peres HIGH SCHOOL MUSIC TEACHER, HIGH SCHOOL MUSIC TEACHER-C Attending Provider Active Start: February 13, 2025 [...] April 12, 2025 End: April 12, 2025 Team Status: Inactive Member Role/Relationship Status Dates Dr. Rebecca Raymond MD Primary Care Provider Active Start: May 15, 2025 End: May 15, 2025 Dr. Rebecca Raymond MD Attending Provider Active Start: May 15, 2025 End: May 15, 2025 Team Status: Active Member Role/Relationship Status Dates Dr. Rebecca Raymond MD Primary Care Provider Active Start: May 30, 2025 Rebecca GILL MD Attending Provider Active Start: May 30, 2025 Goals (unrecognized section and content) Goals [...] section and content) DATE CREATED AUTHOR 03/18/[address] [facility] DATE CREATED AUTHOR AUTHOR'S ORGANIZ ATION 08/19/2025 [facility] FOR RECORDS PERTAINING TO PATIENTS WHO [...] BE BASED ON THE PRIMARY CLINICAL RECORDS. [facility]. provides no warranty or guarantee of the accuracy or completeness of information in this document.
[2025-08-29 08:59] LABS: Hematocrit 37.1 % (37-47); Hemoglobin 11.9 g/dL (12.0-15.0); Mean Corp Hgb Conc 32.1 g/dL (32-36); Mean Corpuscular Volume 105.1 fL (81-99); Mean Platelet Vol. 13.3 fl (6.2-12.0); POSITIVE COUNT YES; Platelet Count 96 K/mm3 (150-450); RBC Distribution Width CV 12.9 % (11.6-14.6); RBC Distribution Width SD 49.6 fl (35.1-43.9); Red Blood Count 3.53 M/mm3 (4.2-5.4); White Blood Count 3.6 K/mm3 (4.4-11.0)
[2025-08-29 09:02] LABS: Scan Indicated on CBC? Y/N YES- FLAGS NOTED
[2025-08-29 09:16] LABS: Albumin, Serum 3.2 g/dL (3.4-4.8); Anion Gap 6 (5-15); BUN 31 mg/dL (4-19); BUN/Creat Ratio 59.5 RATIO (10-20); Calcium,Total 8.9 mg/dL (7.6-11.0); Carbon Dioxide 28.6 mmol/L (21.0-32.0); Chloride 104 mmol/L (98-108); Glucose 108 mg/dL (70-99); Potassium 4.5 mmol/L (3.3-5.1)
[2025-08-29 09:33] LABS: Differential Comment SCANNED
== END ==
LOC: OLS.WHLEAS 05:00
PROVIDERS: PCP Internal Medicine; Visit Provider Internal Medicine
DX: I10 Essential (primary) hypertension (principal); I73.89 Other specified peripheral vascular diseases
CPT/HCPCS: 36415; 80048; 82040; 85027

== ENCOUNTER → 2025-09-20 05:00 | Outpatient (REF) | payer MEDICARE, MEDICAID, SELFPAY ==
--- OUTSIDE RECORDS SUMMARY | 2025-09-20 03:27 | XMS RPT_ITS | CCD ---
Author Organization [facility] Care Team Providers Care Instructional Technology Instructor Name Role Phone Kaleigh BENTLEY, Kimberly Pollard Primary Care Provider Dr. Rebecca Raymond Primary Care Provider [phone] Ja STEREOTYPE CASTER, STEREOTYPE CASTER-C Iraida Attending Provider UnaDr. Rebecca Freeman Attending Provider [phone] Dr. Rebecca Raymond Primary Care Provider Ja STEREOTYPE CASTER, STEREOTYPE CASTER-C Iraida Attending Provider Unav Dr. Rebecca Saenz Attending Provider [phone] Dr. Rebecca Raymond Primary Care Provider [phone] Ja STEREOTYPE CASTER, STEREOTYPE CASTER-C Iraida Attending Provider Unav Dr. Rebecca Saenz Attending Provider [phone] Dr. Rebecca Raymond Primary Care Provider [phone] Dr. Rebecca Raymond Attending Provider [phone] Ja STEREOTYPE CASTER, STEREOTYPE CASTER-C Iraida Attending Provider UnaDr. Rebecca Freeman Primary Care Provider Dr. Rebecca Raymond Attending Provider [phone] Dr. Rebecca Raymond Primary Care Provider [phone] Ja STEREOTYPE CASTER, STEREOTYPE CASTER-C Iraida Attending Provider Dr. Rebecca Raymond Attending Provider [phone] Dr. Rebecca Raymond Primary Care Provider [phone] Ja STEREOTYPE CASTER, STEREOTYPE CASTER-C Iraida Attending Provider Dr. Rebecca Raymond Attending Provider [phone] NORM Dang Attending Provider [phone] Kimberly Farris MD Primary Care Provider Dr. Rebecca Raymond Primary Care Provider [phone] Dr. Rebecca Raymond Primary Care Provider [phone] Dr. Rebecca Raymond Attending Provider [phone] Kimberly Farris MD Primary Care Provider Mora PHILOSOPHY AND RELIGION INSTRUCTOR.COMMERCIAL CARPET INSTALLER, Ellie Unavailable Marii PHILOSOPHY AND RELIGION INSTRUCTOR.REGULATORY AFFAIRS COORDINATOR, Alanis Unavailable Dr. Rebecca Raymond MD Primary Care Provider Julian Dang Attending Provider Rebecca Raymond MD Attending Provider Unavailтатьяна Raymond MD, Dr. Fernandez Attending Provider [phone] STEREOTYPE CASTER-C, Iraida Attending Provider Dr. Adalberto Jensen DO Emergency Provider Dr. Rebecca Raymond MD Primary Care Provider Rebecca Raymond MD Attending Provider Unavailтатьяна Jensen DO, Dr. Glover Attending Provider Dr. Rebecca Raymond MD Primary Care Provider Julian Dang Attending Provider [phone] Kimberly Farris MD Primary Care Provider Mora PHILOSOPHY AND RELIGION INSTRUCTOR.COMMERCIAL CARPET INSTALLER, Ellie Unavailable Marii PHILOSOPHY AND RELIGION INSTRUCTOR.REGULATORY AFFAIRS COORDINATOR, Alanis Unavailable Marii PHILOSOPHY AND RELIGION INSTRUCTOR.REGULATORY AFFAIRS COORDINATOR, Alanis Unavailable CALOS BOWEN Attending Unavailable TALANGELAS, KIMBERLY D Primary Care Unavailable Mandi BENTLEY, Dr. Fernandez Attending Provider [phone] Ja STEREOTYPE CASTER-C, Iraida Attending Provider [phone] Mandi BENTLEY, Dr. Fernandez Primary Care Provider Julian Dang Attending Provider [phone] Mandi BENTLEY, Rebecca Attending Provider Unavaila elvi Raymond MD, Dr. Fernandez Primary Care Provider Segundoton STEREOTYPE CASTER-C, Iraida Attending Provider Mandi BENTLEY, Dr. Fernandez Attending Provider [phone] Mandi BENTLEY, Dr. Fernandez Primary Care Provider Julian Dang Attending Provider [phone] Oleghe, Efewongbe Primary Care Unavailable Oleghe, Efewongbe Attending Unavailable Oleghe, Efewongbe Primary Care Unavailable Tickton STEREOTYPE CASTERIraida Attending Unavailable Oleghe, Efewongbe Primary Care Unavailable Julian Dang Attending Unavailable Oleghe, Efewongbe Primary Care Unavailable Oleghe, Efewongbe Attending Unavailable Oleghe, Efewongbe Primary Care Unavailable Oleghe, Efewongbe Attending Unavailable Oleghe, Efewongbe Primary Care Unavailable Tickton STEREOTYPE CASTERIraida Attending Unavailable Julian Dang Attending Unavailable Oleghe, Efewongbe Primary Care Unavailable Oleghe, Efewongbe Primary Care Unavailable Oleghe, Efewongbe Attending Unavailable Julian Dang Attending Unavailable Oleghe, Efewongbe Primary Care Unavailable Oleghe, Efewongbe Primary Care Unavailable [place] STEREOTYPE CASTERIraida Attending Unavailable Julian Dang Attending Unavailable Oleghe, [...] agent; Translations: [ADHESIVE] Drug Intolerance 1 Rash [facility] (20 sources) Clindamycin; Translations: [CLINDAMYCIN] Drug Allergy 4 Unknown [facility] (20 sources) Adhesive Tape; Translations: [adhesive tape] Allergy to substance 2 NEEDS FOLLOW-UP [facility] (1 source) Clindamycin Drug Allergy 5 [facility] Repository Medications Current Medications Medication Drug Class(es) [...] 2021 12:00am take 10 mg rectal ro [place] once daily as needed for constipation bisacodyl [...] folds of sk in twice weekly nystatin 228300 unt/ml / triamcinolone acetonide 1 mg/ml topical [...] needed for nausea/vomiting. Active polyethylene glycol [id number] [id number] mg powder for oral solution (4 sources) [...] mg/ml extended release suspension (3 sources) Uncompetitive U-wctbvu-D-asparta te Receptor Antagonist, Sigma-1 Agonist Start: 05-07-2022 [...] 1 tablet by gallo th once daily. Bdfmvtiug-Kbk-WD-Lut- Zeaxanth (ICAPS MV) 100-1.66-0.83 mcg-mg-mg ORAL TbEC (3 sources) Start: 12-30-2011 End: 10-18-2024 take 1 tablet by mouth once Ilqounzlt-Ssx-RX-Lut -Zeaxanth (ICAPS MV) 100-1.66-0.83 mcg-mg-mg ORAL TbEC by PEG Tube route. Crush two tablets daily and dissolve in 240 cc of water and deliver via peg tube 60 tablet 11 12/30/2011 10/18/2024 Discontinued (Discontinued by Patient) Start: 12-30-2011 take 1 tablet by gallo th once Uwigrwdga-Tww-AB-Lut-Zeaxanth (ICAPS MV) 100-1.66-0.83 mcg-mg-mg ORAL TbEC by [...] of the extremities; Translations: [Unspecified atherosclerosis of [place] arteries of extremities, unspecified extremity] Onset: 6 [...] 05-30-2025 Anion gap [Moles/Vol] 7 mmol/L 5-15 [facility] BUN/creatinine ratioOrdered By: Rebecca Raymond on 05-30-2025 Urea nitrogen/Creatinine [Mass ratio] 47.2 mg/mg High 10-20 [facility] Carbon dioxide, total [Moles /volume] in Central venous bloodOrdered By: Rebecca Raymond on 05-30-2025 CO2 [Moles/Vol] 29.8 mmol/L 21.0-32.0 [facility] Chloride assayOrdered By: Panda Raymond on 05-30-2025 Chloride [Moles/Vol] 101 mmol/L 98-108 [facility] Erythrocyte distribution wid th ratioOrdered By: Rebecca Raymond on 05-30-2025 Erythrocyte distribution width (RBC) [Ratio] 13.2 % 11.6-14.6 [facility] Erythrocyte distribution wid th standard deviationOrdered By: Rebecca Raymond on 05-30-2025 Erythrocyte distribution width (RBC) [Ratio] 51.2 fl High 35.1-43.9 [facility] Glomerular filtration rate ( GFR) estimation/1.73 sq m using serum, plasma, or whole bOrdered By: Rebecca Raymond on 05-30-2025 GFR/1.73 sq M.predicted among non-blacks MDRD (S/P/Bld) [Vol rate/Area] 87 mL/min/{1.73_m2} >60 [facility] Comment on above: mL/min/1.73m2 CKD-EP I Creatinine Equation (2020) Hematocrit Auto (Bld) [Volum e fraction]Ordered By: Rebecca Raymond on 05-30-2025 Hematocrit (Bld) [Volume fraction] 35.7 % Low 37-47 [facility] Hemoglobin measurementOrdere d By: Rebecca Raymond on 05-30-2025 Hemoglobin (Bld) [Mass/Vol] 11.5 g/dL Low 12.0-15.0 [facility] MCV (mean corpuscular volume ) determinationOrdered By: Rebecca Raymond on 05-30-2025 MCV (RBC) [Entitic vol] 105.0 fL High 81-99 [facility] Mean corpuscular hemoglobin (MCH) determinationOrdered By: Rebecca Raymond on 05-30-2025 MCH (RBC) [Entitic mass] 33.8 pg High 27.0-32.0 [facility] Mean corpuscular hemoglobin concentration (MCHC) determinationOrdered By: Rebecca Raymond on 05-30-2025 MCHC (RBC) [Mass/Vol] 32.2 g/dL 32-36 [facility] Mean platelet volume determi nationOrdered By: Rebecca Raymond on 05-30-2025 Platelet mean volume (Bld) [Entitic vol] 12.8 fL High 6.2-12.0 [facility] Platelet countOrdered By: Panda Raymond on 05-30-2025 Platelets (Bld) [#/Vol] 142 10*3/uL Low 150-450 [facility] Potassium measurement (mass/ volume)Ordered By: Rebecca Raymond on 05-30-2025 Potassium (Unsp spec) [Mass/Vol] 5.0 mmol/L 3.3-5.1 [facility] RBC Auto (Bld) [#/Vol]Ordere d By: Rebecca Raymond on 05-30-2025 RBC (Bld) [#/Vol] 3.40 10*6/uL Low 4.2-5.4 [facility] Serum creatinine measurement (mass/volume)Ordered By: Rebecca Raymond on 05-30-2025 Creatinine [Mass/Vol] 0.63 mg/dL Low 0.70-1.20 [facility] Serum glucose measurement (m ass/volume)Ordered By: Rebecca Raymond on 05-30-2025 Glucose [Mass/Vol] 98 mg/dL 70-99 [facility] Serum or plasma albumin carmen urement (mass/volume)Ordered By: Rebecca Raymond on 05-30-2025 Albumin [Mass/Vol] 3.0 g/dL Low 3.4-4.8 [facility] Serum or plasma calcium carmen urement (mass/volume)Ordered By: Rebecca Raymond on 05-30-2025 Calcium [Mass/Vol] 9.0 mg/dL 7.6-11.0 [facility] Serum or plasma urea nitroge n measurement (mass/volume)Ordered By: Rebecca Raymond on 05-30-2025 Urea nitrogen [Mass/Vol] 30 mg/dL High 4-19 [facility] Sodium levelOrdered By: Mikala luevanofeli Mandi on 05-30-2025 Sodium [Moles/Vol] 138 mmol/L 133-145 [facility] White blood cell (WBC) count Ordered By: Rebecca Raymond on 05-30-2025 WBC (Bld) [#/Vol] 4.6 10*3/uL 4.4-11.0 [facility] Anion gap in Serum or Plasma Ordered By: Rebecca Raymond on 02-28-2025 Anion gap [Moles/Vol] 9 mmol/L 5-15 [facility] BUN/creatinine ratioOrdered By: Rebecca Raymond on 02-28-2025 Urea nitrogen/Creatinine [Mass ratio] 48.5 mg/mg High 10-20 [facility] Carbon dioxide, total [Moles /volume] in Central venous bloodOrdered By: Rebecca Raymond on 02-28-2025 CO2 [Moles/Vol] 26.7 mmol/L 21.0-32.0 [facility] Chloride assayOrdered By: Panda Raymond on 02-28-2025 Chloride [Moles/Vol] 102 mmol/L 98-108 [facility] Erythrocyte distribution wid th ratioOrdered By: Rebecca Raymond on 02-28-2025 Erythrocyte distribution width (RBC) [Ratio] 13.0 % 11.6-14.6 [facility] Erythrocyte distribution wid th standard deviationOrdered By: Rebecca Raymond on 02-28-2025 Erythrocyte distribution width (RBC) [Ratio] 50.6 fl High 35.1-43.9 [facility] Glomerular filtration rate ( GFR) estimation/1.73 sq m using serum, plasma, or whole bOrdered By: Rebecca Raymond on 02-28-2025 GFR/1.73 sq M.predicted among non-blacks MDRD (S/P/Bld) [Vol rate/Area] 90 mL/min/{1.73_m2} >60 [facility] Comment on above: mL/min/1.73m2 CKD-EP I Creatinine Equation (2020) Hematocrit Auto (Bld) [Volum e fraction]Ordered By: Rebecca Raymond on 02-28-2025 Hematocrit (Bld) [Volume fraction] 35.2 % Low 37-47 [facility] Hemoglobin measurementOrdere d By: Rebecca Raymond on 02-28-2025 Hemoglobin (Bld) [Mass/Vol] 11.3 g/dL Low 12.0-15.0 [facility] MCV (mean corpuscular volume ) determinationOrdered By: Rebecca Raymond on 02-28-2025 MCV (RBC) [Entitic vol] 105.1 fL High 81-99 [facility] Mean corpuscular hemoglobin (MCH) determinationOrdered By: Rebecca Raymond on 02-28-2025 MCH (RBC) [Entitic mass] 33.7 pg High 27.0-32.0 [facility] Mean corpuscular hemoglobin concentration (MCHC) determinationOrdered By: Rebecca Raymond on 02-28-2025 MCHC (RBC) [Mass/Vol] 32.1 g/dL 32-36 [facility] Mean platelet volume determi nationOrdered By: Rebecca Raymond on 02-28-2025 Platelet mean volume (Bld) [Entitic vol] 12.4 fL High 6.2-12.0 [facility] Platelet countOrdered By: Panda Raymond on 02-28-2025 Platelets (Bld) [#/Vol] 131 10*3/uL Low 150-450 [facility] Potassium measurement (mass/ volume)Ordered By: Rebecca Raymond on 02-28-2025 Potassium (Unsp spec) [Mass/Vol] 4.3 mmol/L 3.3-5.1 [facility] RBC Auto (Bld) [#/Vol]Ordere d By: Rebecca Raymond on 05-21-2025 RBC (Bld) [#/Vol] 3.35 10*6/uL Low 4.2-5.4 [facility] Serum creatinine measurement (mass/volume)Ordered By: Rebecca Raymond on 02-28-2025 Creatinine [Mass/Vol] 0.55 mg/dL Low 0.70-1.20 [facility] Serum glucose measurement (m ass/volume)Ordered By: Rebecca Raymond on 02-28-2025 Glucose [Mass/Vol] 111 mg/dL High 70-99 [facility] Serum or plasma albumin carmen urement (mass/volume)Ordered By: Rebecca Raymond on 02-28-2025 Albumin [Mass/Vol] 3.0 g/dL Low 3.4-4.8 [facility] Serum or plasma calcium carmen urement (mass/volume)Ordered By: Rebecca Raymond on 02-28-2025 Calcium [Mass/Vol] 8.9 mg/dL 7.6-11.0 [facility] Serum or plasma urea nitroge n measurement (mass/volume)Ordered By: Rebecca Raymond on 02-28-2025 Urea nitrogen [Mass/Vol] 27 mg/dL High 4-19 [facility] Sodium levelOrdered By: Mikala emanuelmansi Mandi on 02-28-2025 Sodium [Moles/Vol] 138 mmol/L 133-145 [facility] White blood cell (WBC) count Ordered By: Rebecca Raymond on 02-28-2025 WBC (Bld) [#/Vol] 4.1 10*3/uL Low 4.4-11.0 [facility] Abdomen Single View (Portabl e)on 12-18-2024 Abdomen Single View (Portable) [facility] Services [address] [place] [address] Abdomen Single View (Portable) MR#: [id number] Acct: [id number] Name: DARIANA VAZQUEZ Rep #: [id number] : 1940 F 84 From: Blayne Estrada MD PCP: Dr. Rebecca Raymond MD Status: DEP ER Study: Abdomen Single View (Portable) Date of Exam: 0 3/10/25 Exam# [id number] Ordering Dr: Rochelle Jones EXAM: XR Abdomen, [...] appears to be proper position. [facility] CC: Dr. Rebecca Raymond MD; NORM Rocha Brake Mechanic: Signed Normal [facility] Emergency Department Summary on 12-18-2024 Emergency Department Summary [facility] Medical Records Department [address] [place] [id number] Emergency Department Summary 12/18/24 MR#: [id number] Acct: [id number] Name: DARIANA VAZQUEZ Rep #: [id number] : 1940 84 From: Rochelle ZHENG PCP: Dr. Rebecca Raymond MD Status:DEP ER Location: ED HPI History of Present Illness Chief Complaint: General Illness Narrative Narrative: 84-year-old female sent in from her [facility] with limited history due to cognitive delay pulled out her PEG tube. It is unknown how long it was out. She has had it for over a year according to the chart. She has no acute complaints. [facility] Medical History Aplastic anemia GERD (gastroesophageal [...] bisacodyl 10 mg rectal suppository 10 mg AR BID PRN PRN Constipatio n 02/01/21 Unknown [...] 95 95 Oxygen Delivery Method Room Air [place] Narrative Medical decision making narrative: 84-year-old female pulled out her PEG tube this morning at her facility. The facility sent a 20 [place] replacement tube with her. She has a well-established tract for about 2 years. I lubricated the tip of the 20 [place]ronesian PEG tube and with gentle pressure I [...] appears to be proper position. Reading Location: [facility] Narrative Medical decision making narrative: 84-year-o (more content not included)... Normal [facility] Absolute lymphocyte countOrd ered By: Rebecca Raymond on 12-08-2024 Lymphocytes Auto (Unsp spec) [#/Vol] 1.22 10*3/uL 0.83-4.51 [facility] Absolute neutrophil countOrd ered By: Rebecca Raymond on 12-08-2024 Neutrophils (Bld) [#/Vol] 13.7 10*3/uL High 2.0-7.7 [facility] Automated lymphocyte count a s percentage of total leukocytesOrdered By: Rebecca Raymond on 12-08-2024 Lymphocytes/100 WBC Auto (Unsp spec) 7.4 % Low 19-41 [facility] BUN/creatinine ratioOrdered By: Rebecca Raymond on 12-08-2024 Urea nitrogen/Creatinine [Mass ratio] 41.6 mg/mg High 10-20 [facility] Basophil percentageOrdered B y: Rebecca Dillongunner on 12-08-2024 Basophils/100 WBC (Bld) 0.3 % 0-1 [facility] Carbon dioxide measurementOr dered By: Rebecca Raymond on 12-08-2024 CO2 [Moles/Vol] 21.1 mmol/L Low 22.0-29.0 [facility] Chloride measurementOrdered By: Rebecca Raymond on 12-08-2024 Chloride [Moles/Vol] 103 mmol/L 96-108 [facility] Eosinophil percentageOrdered By: Rebecca Raymond on 12-08-2024 Eosinophils/100 WBC (Bld) 0.3 % 0-5 [facility] Erythrocyte distribution wid th ratioOrdered By: Rebecca Raymond on 12-08-2024 Erythrocyte distribution width (RBC) [Ratio] 12.8 % 11.6-14.6 [facility] Erythrocyte distribution wid th standard deviationOrdered By: Mikalawallacekamar Raymond on 12-08-2024 Erythrocyte distribution width (RBC) [Entitic vol] 48.0 fL High 35.1-43.9 [facility] Erythrocyte distribution width (RBC) [Ratio] 48.0 fl High 35.1-43.9 [facility] GFR/1.73 sq M.predicted lui g non-blacks MDRD (S/P/Bld) [Vol rate/Area]Ordered By: Rebecca Raymond on 12-08-2024 Estimated GFR (MDRD) Non-Af Amer 88 >60 [facility] Comment on above: mL/min/1.73m2 CKD-EP I Creatinine Equation (2020) Glomerular filtration rate ( GFR) estimation/1.73 sq m using serum, plasma, or whole bOrdered By: Rebecca Raymond on 12-08-2024 GFR/1.73 sq M.predicted among non-blacks MDRD (S/P/Bld) [Vol rate/Area] 88 mL/min/{1.73_m2} >60 [facility] Comment on above: mL/min/1.73m2 CKD-EP I Creatinine Equation (2020) Hematocrit Auto (Bld) [Volum e fraction]Ordered By: Rebecca Raymond on 12-08-2024 Hematocrit (Bld) [Volume fraction] 40.1 % 37-47 [facility] Hemoglobin measurementOrdere d By: Rebecca Raymond on 12-08-2024 Hemoglobin (Bld) [Mass/Vol] 13.1 g/dL 12.0-15.0 [facility] Immature granulocytes/100 WB C Auto (Bld)Ordered By: Rebecca Raymond on 12-08-2024 Immature granulocytes/100 WBC (Bld) 0.500 % 0.0-0.9 [facility] Comment on above: IG% - Immature Granu locytes (promyelocytes, myelocytes and metamyelocytes) > 1% indicates that a LEFT SHIFT is Present. Lymphocytes Auto (Unsp spec) [#/Vol]Ordered By: radhawallacekamar Raymond on 12-08-2024 Lymphocytes (Bld) [#/Vol] 1.22 10*3/uL 0.83-4.5 1 [facility] Lymphocytes/100 WBC Auto (Un sp spec)Ordered By: Rebecca Raymond on 12-08-2024 Lymphocytes/100 WBC (Bld) 7.4 % Low 19-41 [facility] MCV (mean corpuscular volume ) determinationOrdered By: Rebecca Raymond on 12-08-2024 MCV (RBC) [Entitic vol] 103.4 fL High 81-99 [facility] Mean corpuscular hemoglobin (MCH) determinationOrdered By: Rebecca Raymond on 12-08-2024 MCH (RBC) [Entitic mass] 33.8 pg High 27.0-32.0 [facility] Mean corpuscular hemoglobin concentration (MCHC) determinationOrdered By: Rebecca Raymond on 12-08-2024 MCHC (RBC) [Mass/Vol] 32.7 g/dL 32-36 [facility] Mean platelet volume determi nationOrdered By: Rebecca Raymond on 12-08-2024 Platelet mean volume (Bld) [Entitic vol] 12.9 fL High 6.2-12.0 [facility] Monocyte percentageOrdered B y: Rebecca Raymond on 12-08-2024 Monocytes/100 WBC (Bld) 8.7 % 0-10 [facility] Neutrophil percentageOrdered By: Rebecca Dillongunner on 12-08-2024 Neutrophils/100 WBC (Bld) 82.8 % High 47-70 [facility] Nucleated red blood cell per centageOrdered By: Rebecca Dillongunner on 12-08-2024 Nucleated RBC/100 WBC (Bld) [Ratio] 0 % 0-5 [facility] Platelet countOrdered By: Panda marqueskamar Carranzanathanmansi on 12-08-2024 Platelets (Bld) [#/Vol] 119 10*3/uL Low 150-450 [facility] RBC Auto (Bld) [#/Vol]Ordere d By: Rebecca Dillongunner on 12-08-2024 RBC (Bld) [#/Vol] 3.88 10*6/uL Low 4.2-5.4 [facility] Serum creatinine measurement (mass/volume)Ordered By: Rebecca Raymond on 12-08-2024 Creatinine [Mass/Vol] 0.60 mg/dL Low 0.70-1.20 [facility] Serum glucose measurement (m ass/volume)Ordered By: Pandasuellen Raymond on 12-08-2024 Glucose [Mass/Vol] 118 mg/dL High 70-99 [facility] Serum or plasma anion gap de termination (moles/volume)Ordered By: Rebecca Raymond on 12-08-2024 Anion gap [Moles/Vol] 12 mmol/L 5-15 [facility] Serum or plasma calcium carmen urement (mass/volume)Ordered By: Rebecca Raymond on 12-08-2024 Calcium [Mass/Vol] 8.8 mg/dL 7.6-11.0 [facility] Serum or plasma potassium me asurementOrdered By: Rebecca Raymond on 12-08-2024 Potassium [Moles/Vol] 4.2 mmol/L 3.3-5.1 [facility] Comment on above: Hemolysis present, R esults could be affected. Serum or plasma sodium measu rement (moles/volume)Ordered By: Rebecca Raymond on 12-08-2024 Sodium [Moles/Vol] 136 mmol/L 133-145 [facility] Serum or plasma urea nitroge n measurement (mass/volume)Ordered By: Rebecca Raymond on 12-08-2024 Urea nitrogen [Mass/Vol] 25 mg/dL High 4-19 [facility] White blood cell (WBC) count Ordered By: Rebecca Raymond on 12-08-2024 WBC (Bld) [#/Vol] 16.5 10*3/uL High 4.4-11.0 [facility] Blood urea nitrogen (BUN)/cr eatinine ratioOrdered By: Rebecca Raymond on 11-29-2024 Urea nitrogen/Creatinine [Mass ratio] 58.2 mg/mg High 10-20 [facility] Carbon dioxide measurementOr dered By: Rebecca Raymond on 11-29-2024 CO2 [Moles/Vol] 29.0 mmol/L 21.0-32.0 [facility] Chloride measurementOrdered By: Rebecca Raymond on 11-29-2024 Chloride [Moles/Vol] 109 mmol/L High 98-107 [facility] Erythrocyte distribution wid th ratioOrdered By: Rebecca Raymond on 11-29-2024 Erythrocyte distribution width (RBC) [Ratio] 12.6 % 11.6-14.6 [facility] Erythrocyte distribution wid th standard deviationOrdered By: Rebecca Raymond on 11-29-2024 Erythrocyte distribution width (RBC) [Entitic vol] 49.7 fL High 35.1-43.9 [facility] Erythrocyte distribution width (RBC) [Ratio] 49.7 fl High 35.1-43.9 [facility] Estimated glomerular filtrat ion rate (GFR) AmericanOrdered By: Rebecca Raymond on 11-29-2024 Estimated GFR (MDRD) Amer 130 mL/min >60 [facility] Comment on above: GFR Calc Glomerular filtration rate ( GFR) estimationOrdered By: Rebecca Raymond on 11-29-2024 Estimated GFR (MDRD) Non-Af Amer 108 mL/min >60 [facility] Comment on above: Non- GFR Calc GFR/1.73 sq M.predicted among non-blacks MDRD (S/P/Bld) [Vol rate/Area] 108 mL/min/{1.73_m2} >60 [facility] Comment on above: Non- GFR Calc Glucose measurementOrdered B y: Rebecca Raymond on 11-29-2024 Glucose [Mass/Vol] 120 mg/dL High 74-106 [facility] Comment on above: Fasting Glucose resu lt from 100 to 125 mg/dL suggests IMPAIRED HOMEOSTASIS per A.D.A. criteria. Hematocrit Auto (Bld) [Volum e fraction]Ordered By: Rebecca Raymond on 11-29-2024 Hematocrit (Bld) [Volume fraction] 37.7 % 37-47 [facility] Hemoglobin measurementOrdere d By: Rebecca Raymond on 11-29-2024 Hemoglobin (Bld) [Mass/Vol] 11.7 g/dL Low 12.0-15.0 [facility] MCV (mean corpuscular volume ) determinationOrdered By: Rebecca Raymond on 11-29-2024 MCV (RBC) [Entitic vol] 107.1 fL High 81-99 [facility] Mean corpuscular hemoglobin (MCH) determinationOrdered By: Rebecca Raymond on 11-29-2024 MCH (RBC) [Entitic mass] 33.2 pg High 27.0-32.0 [facility] Mean corpuscular hemoglobin concentration (MCHC) determinationOrdered By: Rebecca Raymond on 11-29-2024 MCHC (RBC) [Mass/Vol] 31.0 g/dL Low 32-36 [facility] Mean platelet volume determi nationOrdered By: Rebecca Raymond on 11-29-2024 Platelet mean volume (Bld) [Entitic vol] 13.3 fL High 6.2-12.0 [facility] Platelet countOrdered By: Panda Raymond on 11-29-2024 Platelets (Bld) [#/Vol] 108 10*3/uL Low 150-450 [facility] Potassium measurementOrdered By: Rebecca Raymond on 11-29-2024 Potassium [Moles/Vol] 4.5 mmol/L 3.5-5.1 [facility] RBC Auto (Bld) [#/Vol]Ordere d By: Rebecca Raymond on 11-29-2024 RBC (Bld) [#/Vol] 3.52 10*6/uL Low 4.2-5.4 [facility] Serum anion gap measurementO rdered By: Rebecca Raymond on 11-29-2024 Anion gap [Moles/Vol] 6 mmol/L 5-15 [facility] Serum or plasma albumin carmen urement (mass/volume)Ordered By: Rebecca Raymond on 11-29-2024 Albumin [Mass/Vol] 2.6 g/dL Low 3.2-5.0 [facility] Serum or plasma calcium carmen urement (mass/volume)Ordered By: Rebecca Raymond on 11-29-2024 Calcium [Mass/Vol] 9.1 mg/dL 8.5-10.1 [facility] Serum or plasma creatinine m easurement (mass/volume)Ordered By: Rebecca Raymond on 11-29-2024 Creatinine [Mass/Vol] 0.57 mg/dL 0.55-1.02 [facility] Comment on above: The validity of the calculated GFR & GFRAA in patients over 70 years has not been determined. Clinical correlation is essential. Serum or plasma urea nitroge n measurement (mass/volume)Ordered By: Rebecca Raymond on 11-29-2024 Urea nitrogen [Mass/Vol] 33 mg/dL High 7-18 [facility] Sodium levelOrdered By: Mikala emanuelmansi Mandi on 11-29-2024 Sodium [Moles/Vol] 144 mmol/L 136-145 [facility] White blood cell (WBC) count Ordered By: Rebecca Raymond on 11-29-2024 WBC (Bld) [#/Vol] 4.1 10*3/uL Low 4.4-11.0 [facility] CNOVon 10-18-2024 CNOV Office Visit (GENSWS) ---- DARIANA VAZQUEZ ([id number]) 1940 F Date Time Provider Department 10/18/24 10:00 AM NOHEMI AZEVEDO GENS During your visit today, we recorded the following information about you: Calos Bowen MD 10/25/2024 5:11 AM Signed FOLLOW UP VISIT - PEG TUBE EVALUATION NAME: Dariana Vazquez CLINIC NO.: [id number] DATE OF SERVICE: October 18, 2024 : [...] a crack. The tube is a 24 Micronesian tube (note that I had last replaced the tube with a 20 Micronesian tube) and the buttress was secured down [...] I recommended the F obtain a 24 Micronesian PEG tube that when the catheter does fail we can change as we only have 20 Micronesian replacement since stock. Diagnoses: No diagnosis found. Return to Clinic: The patient is instructed to follow-up with me as needed. MD Candido Pritchett Kimberley, SHARATH.REGULATORY AFFAIRS COORDINATOR 10/25/2024 3:14 PM Signed FOLLOW UP VISIT - PEG TUBE REMOVAL NAME: Dariana Vazquez [facility] NO.: [id number] DATE OF SERVICE: 10/18/2024 : 1940 REFERRING [...] follow-up with me as needed. Nohemi Azevedo APRN.REGULATORY AFFAIRS COORDINATOR Allergies As of Date: 10/18/2024 Noted Allergy [...] route once (more content not included)... [facility] ---- DARIANA VAZQUEZ ([id number]) 1940 F Date Time Provider Department 08/31/24 CALOS BOWEN GENBERTOS During your visit today, we recorded the following information about you: Margie Lynn LPN 08/31/2024 9:34 AM Signed Called [facility]. Not a secure line. Did leave message for nursing staff to call General Surgery. Patient has appointment for PEG tube change 09/06/2024. Please verify that [facility] is sending 24 Micronesian PEG Tube with patient to appointment. MOLLY Pugh Kimberly, LPN 08/31/2024 1:00 PM Signed Called [facility]- left message with nurse line on [facility] where patient resides. No details left due to line not secure. MOLLY PughMarion gandara MOLLY 10/16/2024 10:51 AM Signed Called and spoke to Dariana's nurse and states will check if they have a 24 Micronesian peg tube, states will call us back [...] DERMATOPHYTOSIS OF NAIL [B35.1] 08/25/2005 ATHEROSCLER ART SOBOBA EXTREM UNSP [I70.209] 08/20/2006 SPRAIN OF ANKLE [...] face [R2 (more content not included)... Normal [facility] Blood urea nitrogen (BUN)/cr eatinine ratioOrdered By: Rebecca Raymond on 08-30-2024 Urea nitrogen/Creatinine [Mass ratio] 54.7 mg/mg High 07-30 [facility] Carbon dioxide measurementOr dered By: Rebecca Raymond on 08-30-2024 CO2 [Moles/Vol] 29.0 mmol/L 21.0-32.0 [facility] Chloride measurementOrdered By: Rebecca Raymond on 08-30-2024 Chloride [Moles/Vol] 110 mmol/L High 98-107 [facility] Erythrocyte distribution wid th ratioOrdered By: Rebecac Raymond on 08-30-2024 Erythrocyte distribution width (RBC) [Ratio] 13.1 % 11.6-14.6 [facility] Erythrocyte distribution wid th standard deviationOrdered By: Rebecca Raymond on 08-30-2024 Erythrocyte distribution width (RBC) [Entitic vol] 49.8 fL High 35.1-43.9 [facility] Estimated glomerular filtrat ion rate (GFR) AmericanOrdered By: Rebecca Raymond on 08-30-2024 Estimated GFR (MDRD) Amer 117 mL/min >60 [facility] Comment on above: GFR Calc Glomerular filtration rate ( GFR) estimationOrdered By: Rebecca Raymond on 08-30-2024 Estimated GFR (MDRD) Non-Af Amer 97 mL/min >60 [facility] Comment on above: Non- GFR Calc Glucose measurementOrdered B y: Rebecca Raymond on 08-30-2024 Glucose [Mass/Vol] 97 mg/dL 74-106 [facility] Hematocrit Auto (Bld) [Volum e fraction]Ordered By: Rebecca Raymond on 08-30-2024 Hematocrit (Bld) [Volume fraction] 39.0 % 37-47 [facility] Hemoglobin measurementOrdere d By: Rebecca Raymond on 08-30-2024 Hemoglobin (Bld) [Mass/Vol] 12.5 g/dL 12.0-15.0 [facility] MCV (mean corpuscular volume ) determinationOrdered By: Rebecca Raymond on 08-30-2024 MCV (RBC) [Entitic vol] 104.3 fL High 81-99 [facility] Mean corpuscular hemoglobin (MCH) determinationOrdered By: Rebecca Raymond on 08-30-2024 MCH (RBC) [Entitic mass] 33.4 pg High 27.0-32.0 [facility] Mean corpuscular hemoglobin concentration (MCHC) determinationOrdered By: Rebecca Raymond on 08-30-2024 MCHC (RBC) [Mass/Vol] 32.1 g/dL 32-36 [facility] Mean platelet volume determi nationOrdered By: Rebecca Raymond on 08-30-2024 Platelet mean volume (Bld) [Entitic vol] 13.2 fL High 6.2-12.0 [facility] Platelet countOrdered By: Panda Raymond on 08-30-2024 Platelets (Bld) [#/Vol] 120 10*3/uL Low 150-450 [facility] Potassium measurementOrdered By: Rebecca Raymond on 08-30-2024 Potassium [Moles/Vol] 4.4 mmol/L 3.5-5.1 [facility] RBC Auto (Bld) [#/Vol]Ordere d By: Rebecca Carranzagunner on 08-30-2024 RBC (Bld) [#/Vol] 3.74 10*6/uL Low 4.2-5.4 [facility] Serum anion gap measurementO rdered By: Rebecca Carranzanathanmansi on 08-30-2024 Anion gap [Moles/Vol] 4 mmol/L Low 5-15 [facility] Serum or plasma albumin carmen urement (mass/volume)Ordered By: Rebecca Carranzanathanmansi on 08-30-2024 Albumin [Mass/Vol] 2.8 g/dL Low 3.2-5.0 [facility] Serum or plasma calcium carmen urement (mass/volume)Ordered By: Rebecca Raymond on 08-30-2024 Calcium [Mass/Vol] 9.1 mg/dL 8.5-10.1 [facility] Serum or plasma creatinine m easurement (mass/volume)Ordered By: Rebecca Raymond on 08-30-2024 Creatinine [Mass/Vol] 0.62 mg/dL 0.55-1.02 [facility] Comment on above: The validity of the calculated GFR & GFRAA in patients over 70 years has not been determined. Clinical correlation is essential. Serum or plasma urea nitroge n measurement (mass/volume)Ordered By: Rebecca Raymond on 08-30-2024 Urea nitrogen [Mass/Vol] 34 mg/dL High 7-18 [facility] Sodium levelOrdered By: Pandaradha charmaine Dillonnathanmansi on 08-30-2024 Sodium [Moles/Vol] 142 mmol/L 136-145 [facility] White blood cell (WBC) count Ordered By: Rebecca Carranzanathanmansi on 08-30-2024 WBC (Bld) [#/Vol] 5.6 10*3/uL 4.4-11.0 [facility] Basophil percentageOrdered B y: Rebecca Carranzanathanmansi on 12-01-2023 Chloride [Moles/Vol] 110 mmol/L 98-107 [facility] Glucose [Mass/Vol] 118 mg/dL 74-106 [facility] Comment on above: Fasting Glucose resu lt from 100 to 125 mg/dL suggests IMPAIRED HOMEOSTASIS per A.D.A. criteria. Hemoglobin (Bld) [Mass/Vol] 12.9 g/dL 12.0-15.0 [facility] Potassium [Moles/Vol] 4.3 mmol/L 3.5-5.1 [facility] Sodium [Moles/Vol] 140 mmol/L 136-145 [facility] WBC (Bld) [#/Vol] 4.2 10*3/uL 4.4-11.0 [facility] Determination of erythrocyte mean corpuscular volume (MCV)Ordered By: Mikalawallacekamar Raymond on 12-01-2023 MCV (RBC) [Entitic vol] 106.1 fL 81-99 [facility] Erythrocyte distribution wid th ratioOrdered By: Rebecca Raymond on 12-01-2023 Erythrocyte distribution width (RBC) [Ratio] 12.5 % 11.6-14.6 [facility] Erythrocyte distribution wid th standard deviationOrdered By: Mikalawallacekamar Raymond on 12-01-2023 Erythrocyte distribution width (RBC) [Entitic vol] 49.2 fL 35.1-43.9 [facility] Hematocrit Auto (Bld) [Volum e fraction]Ordered By: Rebecca Raymond on 12-01-2023 Hematocrit (Bld) [Volume fraction] 39.9 % 37-47 [facility] Laboratory - Chemistry and C hemistry - challengeOrdered By: Rebecca Raymond on 12-01-2023 CO2 [Moles/Vol] 25.0 mmol/L 21.0-32.0 [facility] Urea nitrogen/Creatinine [Mass ratio] 50.8 mg/mg 10-20 [facility] Laboratory - Hematology and Cell countsOrdered By: Rebecca Raymond on 12-01-2023 MCH (RBC) [Entitic mass] 34.3 pg 27.0-32.0 [facility] MCHC (RBC) [Mass/Vol] 32.3 g/dL 32-36 [facility] Platelet mean volume (Bld) [Entitic vol] 13.3 fL 6.2-12.0 [facility] Platelets (Bld) [#/Vol] 105 10*3/uL 150-450 [facility] No Panel InformationOrdered By: Rebecca Raymond on 12-01-2023 Estimated GFR (MDRD) Amer 104 mL/min >60 [facility] Comment on above: GFR Calc Estimated GFR (MDRD) Non-Af Amer 86 mL/min >60 [facility] Comment on above: Non- GFR Calc RBC Auto (Bld) [#/Vol]Ordere d By: Rebecca Raymond on 12-01-2023 RBC (Bld) [#/Vol] 3.76 10*6/uL 4.2-5.4 [facility] Serum or plasma calcium carmen urement (mass/volume)Ordered By: Rebecca Raymond on 12-01-2023 Calcium [Mass/Vol] 9.0 mg/dL 8.5-10.1 [facility] Serum or plasma creatinine m easurement (mass/volume)Ordered By: Rebecca Raymond on 12-01-2023 Creatinine [Mass/Vol] 0.69 mg/dL 0.55-1.02 [facility] Comment on above: The validity of the calculated GFR & GFRAA in patients over 70 years has not been determined. Clinical correlation is essential. Serum or plasma urea nitroge n measurement (mass/volume)Ordered By: Rebecca Raymond on 12-01-2023 Urea nitrogen [Mass/Vol] 35 mg/dL 7-18 [facility] Thin prep Papanicolaou smear with manual screeningOrdered By: Rebecca Raymond on 12-01-2023 Thin prep Papanicolaou smear with manual screening 2.8 g/dL 3.2-5.0 [facility] Thin prep Papanicolaou smear with manual screening 5 5-15 [facility] Basophil percentageOrdered B y: Rebecca Raymond on 11-22-2023 Chloride [Moles/Vol] 108 mmol/L 98-107 [facility] Glucose [Mass/Vol] 118 mg/dL 74-106 [facility] Comment on above: Fasting Glucose resu lt from 100 to 125 mg/dL suggests IMPAIRED HOMEOSTASIS per A.D.A. criteria. Potassium [Moles/Vol] 4.7 mmol/L 3.5-5.1 [facility] Sodium [Moles/Vol] 140 mmol/L 136-145 [facility] Laboratory - Chemistry and C hemistry - challengeOrdered By: Rebecca Raymond on 11-22-2023 CO2 [Moles/Vol] 27.0 mmol/L 21.0-32.0 [facility] Urea nitrogen/Creatinine [Mass ratio] 54.7 mg/mg 10-20 [facility] No Panel InformationOrdered By: Rebecca Raymond on 11-22-2023 Estimated GFR (MDRD) Amer 117 mL/min >60 [facility] Comment on above: GFR Calc Estimated GFR (MDRD) Non-Af Amer 97 mL/min >60 [facility] Comment on above: Non- GFR Calc Serum or plasma calcium carmen urement (mass/volume)Ordered By: Rebecca Raymond on 11-22-2023 Calcium [Mass/Vol] 8.6 mg/dL 8.5-10.1 [facility] Serum or plasma creatinine m easurement (mass/volume)Ordered By: Rebecca Raymond on 11-22-2023 Creatinine [Mass/Vol] 0.62 mg/dL 0.55-1.02 [facility] Comment on above: The validity of the calculated GFR & GFRAA in patients over 70 years has not been determined. Clinical correlation is essential. Serum or plasma urea nitroge n measurement (mass/volume)Ordered By: Rebecca Raymond on 11-22-2023 Urea nitrogen [Mass/Vol] 34 mg/dL 7-18 [facility] Thin prep Papanicolaou smear with manual screeningOrdered By: Rebecca Raymond on 11-22-2023 Thin prep Papanicolaou smear with manual screening 5 5-15 [facility] Basophil percentageOrdered B y: Rebecca Raymond on 11-16-2023 WBC (Bld) [#/Vol] 4.6 10*3/uL 4.4-11.0 [facility] Blood erythrocytes count (nu mber/volume)Ordered By: Rebecca Raymond on 08-26-2023 RBC (Bld) [#/Vol] 3.71 10*6/uL 4.2-5.4 [facility] Blood hemoglobin measurement (mass/volume)Ordered By: Rebecca Raymond on 08-26-2023 Hemoglobin (Bld) [Mass/Vol] 12.5 g/dL 12.0-15.0 [facility] Blood platelet mean volumeOr dered By: Rebecca Raymond on 08-26-2023 Platelet mean volume (Bld) [Entitic vol] 14.1 fL 6.2-12.0 [facility] Determination of erythrocyte mean corpuscular volume (MCV)Ordered By: Rebecca Raymond on 08-26-2023 MCV (RBC) [Entitic vol] 105.7 fL 81-99 [facility] Hematocrit Auto (Bld) [Volum e fraction]Ordered By: Rebecca Raymond on 08-26-2023 Hematocrit (Bld) [Volume fraction] 39.2 % 37-47 [facility] Laboratory - Hematology and Cell countsOrdered By: Rebecca Raymond on 08-26-2023 Erythrocyte distribution width (RBC) [Entitic vol] 49.6 fL 35.1-43.9 [facility] Erythrocyte distribution width (RBC) [Ratio] 12.7 % 11.6-14.6 [facility] MCH (RBC) [Entitic mass] 33.7 pg 27.0-32.0 [facility] MCHC Auto (RBC) [Mass/Vol]Or dered By: Rebecca Rayomnd on 08-26-2023 MCHC (RBC) [Mass/Vol] 31.9 g/dL 32-36 [facility] Platelets bldOrdered By: Bean Raymond on 08-26-2023 Platelets (Bld) [#/Vol] 107 10*3/uL 150-450 [facility] Basophil percentageOrdered B y: Rebecca Raymond on 08-25-2023 Chloride [Moles/Vol] 107 mmol/L 98-107 [facility] Glucose [Mass/Vol] 109 mg/dL 74-106 [facility] Comment on above: Fasting Glucose resu lt from 100 to 125 mg/dL suggests IMPAIRED HOMEOSTASIS per A.D.A. criteria. Potassium [Moles/Vol] 5.3 mmol/L 3.5-5.1 [facility] Sodium [Moles/Vol] 136 mmol/L 136-145 [facility] Laboratory - Chemistry and C hemistry - challengeOrdered By: Rebecca Raymond on 08-25-2023 CO2 [Moles/Vol] 25.0 mmol/L 21.0-32.0 [facility] Urea nitrogen/Creatinine [Mass ratio] 53.2 mg/mg 10- [facility] No Panel InformationOrdered By: Rebecca Raymond on 08-25-2023 Estimated GFR (MDRD) Amer 122 mL/min >60 [facility] Comment on above: GFR Calc Estimated GFR (MDRD) Non-Af Amer 101 mL/min >60 [facility] Comment on above: Non- GFR Calc Serum or plasma albumin carmen urement (mass/volume)Ordered By: Rebecca Raymond on 08-25-2023 Albumin [Mass/Vol] 2.4 g/dL 3.2-5.0 [facility] Serum or plasma calcium carmen urement (mass/volume)Ordered By: Rebecca Raymond on 08-25-2023 Calcium [Mass/Vol] 8.0 mg/dL 8.5-10.1 [facility] Serum or plasma creatinine m easurement (mass/volume)Ordered By: Rebecca Raymond on 08-25-2023 Creatinine [Mass/Vol] 0.60 mg/dL 0.55-1.02 [facility] Comment on above: The validity of the calculated GFR & GFRAA in patients over 70 years has not been determined. Clinical correlation is essential. Serum or plasma urea nitroge n measurement (mass/volume)Ordered By: Rebecca Raymond on 08-25-2023 Urea nitrogen [Mass/Vol] 32 mg/dL - [facility] Thin prep Papanicolaou smear with manual screeningOrdered By: Rebecca Raymond on 08-25-2023 Thin prep Papanicolaou smear with manual screening 4 5-15 [facility] Absolute lymphocyte countOrd ered By: Rebecca Raymond on 06-07-2023 Lymphocytes Auto (Unsp spec) [#/Vol] 1.38 10*3/uL 0.83-4.51 [facility] Basophil percentageOrdered B y: Rebecca Raymond on 06-07-2023 Basophils/100 WBC (Bld) 0.4 % 0-1 [facility] Chloride [Moles/Vol] 105 mmol/L 98-107 [facility] Eosinophils/100 WBC (Bld) 4.5 % 0-5 [facility] Glucose [Mass/Vol] 96 mg/dL 74-106 [facility] Neutrophils (Bld) [#/Vol] 2.4 10*3/uL 2.0-7.7 [facility] Neutrophils/100 WBC (Bld) 53.3 % 47-70 [facility] Potassium [Moles/Vol] 4.0 mmol/L 3.5-5.1 [facility] Sodium [Moles/Vol] 140 mmol/L 136-145 [facility] WBC (Bld) [#/Vol] 4.5 10*3/uL 4.4-11.0 [facility] Blood erythrocytes count (nu mber/volume)Ordered By: Rebecca Raymond on 06-07-2023 RBC (Bld) [#/Vol] 3.93 10*6/uL 4.2-5.4 [facility] Blood hemoglobin measurement (mass/volume)Ordered By: Rebecca Raymond on 06-07-2023 Hemoglobin (Bld) [Mass/Vol] 13.2 g/dL 12.0-15.0 [facility] Blood lymphocytes/100 leukoc ytesOrdered By: Rebecca Raymond on 06-07-2023 Lymphocytes/100 WBC (Bld) 30.7 % 19-41 [facility] Blood monocytes/100 leukocyt esOrdered By: Rebecca Raymond on 06-07-2023 Monocytes/100 WBC (Bld) 10.9 % 0-10 [facility] Blood platelet mean volumeOr dered By: Rebecca Raymond on 06-07-2023 Platelet mean volume (Bld) [Entitic vol] 12.9 fL 6.2-12.0 [facility] Determination of erythrocyte mean corpuscular volume (MCV)Ordered By: suellen Raymond on 06-07-2023 MCV (RBC) [Entitic vol] 107.6 fL 81-99 [facility] Hematocrit Auto (Bld) [Volum e fraction]Ordered By: Mikalawallacekamar Raymond on 06-07-2023 Hematocrit (Bld) [Volume fraction] 42.3 % 37-47 [facility] Laboratory - Chemistry and C hemistry - challengeOrdered By: radhawallacekamar Raymond on 06-07-2023 CO2 [Moles/Vol] 31.0 mmol/L 21.0-32.0 [facility] Urea nitrogen/Creatinine [Mass ratio] 51.3 mg/mg 10-20 [facility] Laboratory - Hematology and Cell countsOrdered By: Mikalawallacekamar Raymond on 06-07-2023 Erythrocyte distribution width (RBC) [Entitic vol] 49.3 fL 35.1-43.9 [facility] Erythrocyte distribution width (RBC) [Ratio] 12.3 % 11.6-14.6 [facility] Immature granulocytes/100 WBC (Bld) 0.200 % 0.0-0.9 [facility] Comment on above: IG% - Immature Granu locytes (promyelocytes, myelocytes and metamyelocytes) > 1% indicates that a LEFT SHIFT is Present. MCH (RBC) [Entitic mass] 33.6 pg 27.0-32.0 [facility] Nucleated RBC/100 WBC (Bld) [Ratio] 0 % 0-5 [facility] MCHC Auto (RBC) [Mass/Vol]Or dered By: Rebecca Raymond on 06-07-2023 MCHC (RBC) [Mass/Vol] 31.2 g/dL 32-36 [facility] No Panel InformationOrdered By: Rebecca Raymond on 06-07-2023 Estimated GFR (MDRD) Amer 117 mL/min >60 [facility] Comment on above: GFR Calc Estimated GFR (MDRD) Non-Af Amer 97 mL/min >60 [facility] Comment on above: Non- GFR Calc Platelets bldOrdered By: Bean Raymond on 06-07-2023 Platelets (Bld) [#/Vol] 132 10*3/uL 150-450 [facility] Serum or plasma calcium carmen urement (mass/volume)Ordered By: eRbecca Raymond on 06-07-2023 Calcium [Mass/Vol] 8.9 mg/dL 8.5-10.1 [facility] Serum or plasma creatinine m easurement (mass/volume)Ordered By: Rebecca Raymnod on 06-07-2023 Creatinine [Mass/Vol] 0.62 mg/dL 0.55-1.02 [facility] Comment on above: The validity of the calculated GFR & GFRAA in patients over 70 years has not been determined. Clinical correlation is essential. Serum or plasma urea nitroge n measurement (mass/volume)Ordered By: Rebecca Raymond on 06-07-2023 Urea nitrogen [Mass/Vol] 32 mg/dL 7-18 [facility] Thin prep Papanicolaou smear with manual screeningOrdered By: Rebecca Raymond on 06-07-2023 Thin prep Papanicolaou smear with manual screening 4 5-15 [facility] Basophil percentageOrdered B y: Rebecca Raymond on 06-02-2023 Chloride [Moles/Vol] 102 mmol/L 98-107 [facility] Glucose [Mass/Vol] 91 mg/dL 74-106 [facility] Potassium [Moles/Vol] 4.1 mmol/L 3.5-5.1 [facility] Comment on above: Slight Hemolysis, Re sult may be falsely increased. Sodium [Moles/Vol] 134 mmol/L 136-145 [facility] WBC (Bld) [#/Vol] 4.9 10*3/uL 4.4-11.0 [facility] Blood erythrocytes count (nu mber/volume)Ordered By: Rebecca Raymond on 06-02-2023 RBC (Bld) [#/Vol] 3.99 10*6/uL 4.2-5.4 [facility] Blood hemoglobin measurement (mass/volume)Ordered By: Rebecca Raymond on 06-02-2023 Hemoglobin (Bld) [Mass/Vol] 13.4 g/dL 12.0-15.0 [facility] Blood manual differential co mment interpretation (narrative result)Ordered By: Rebecca Raymond on 06-02-2023 Manual differential comment Barrera (Bld) [Interp] COMMENT [facility] Comment on above: PLT POPULATION - MOD ERATELY DECREASED. Blood platelet mean volumeOr dered By: Rebecca Raymond on 06-02-2023 Platelet mean volume (Bld) [Entitic vol] 14.3 fL 6.2-12.0 [facility] Determination of erythrocyte mean corpuscular volume (MCV)Ordered By: Rebecca Raymond on 06-02-2023 MCV (RBC) [Entitic vol] 105.5 fL 81-99 [facility] Hematocrit Auto (Bld) [Volum e fraction]Ordered By: Rebecca Raymond on 06-02-2023 Hematocrit (Bld) [Volume fraction] 42.1 % 37-47 [facility] Laboratory - Chemistry and C hemistry - challengeOrdered By: Rebecca Raymond on 06-02-2023 CO2 [Moles/Vol] 30.0 mmol/L 21.0-32.0 [facility] Urea nitrogen/Creatinine [Mass ratio] 49.2 mg/mg 10-20 [facility] Laboratory - Hematology and Cell countsOrdered By: Rebecca Raymond on 06-02-2023 Erythrocyte distribution width (RBC) [Entitic vol] 47.8 fL 35.1-43.9 [facility] Erythrocyte distribution width (RBC) [Ratio] 12.1 % 11.6-14.6 [facility] MCH (RBC) [Entitic mass] 33.6 pg 27.0-32.0 [facility] MCHC Auto (RBC) [Mass/Vol]Or dered By: Rebecca Raymond on 06-02-2023 MCHC (RBC) [Mass/Vol] 31.8 g/dL 32-36 [facility] No Panel InformationOrdered By: Rebecca Raymond on 06-02-2023 Estimated GFR (MDRD) Amer 120 mL/min >60 [facility] Comment on above: GFR Calc Estimated GFR (MDRD) Non-Af Amer 99 mL/min >60 [facility] Comment on above: Non- GFR Calc Platelets bldOrdered By: Bean Raymond on 06-02-2023 Platelets (Bld) [#/Vol] 96 10*3/uL 150-450 [facility] Serum or plasma albumin carmen urement (mass/volume)Ordered By: Rebecca Raymond on 06-02-2023 Albumin [Mass/Vol] 3.1 g/dL 3.2-5.0 [facility] Serum or plasma calcium carmen urement (mass/volume)Ordered By: Rebecca Raymond on 06-02-2023 Calcium [Mass/Vol] 9.0 mg/dL 8.5-10.1 [facility] Serum or plasma creatinine m easurement (mass/volume)Ordered By: Rebecca Raymond on 06-02-2023 Creatinine [Mass/Vol] 0.61 mg/dL 0.55-1.02 [facility] Comment on above: The validity of the calculated GFR & GFRAA in patients over 70 years has not been determined. Clinical correlation is essential. Serum or plasma urea nitroge n measurement (mass/volume)Ordered By: Rebecca Raymond on 06-02-2023 Urea nitrogen [Mass/Vol] 30 mg/dL 7-18 [facility] Thin prep Papanicolaou smear with manual screeningOrdered By: Rebecca Raymond on 06-02-2023 Thin prep Papanicolaou smear with manual screening 2 5-15 [facility] Basophil percentageOrdered B y: Rebecca Raymond on 03-03-2023 Chloride [Moles/Vol] 107 mmol/L 98-107 [facility] Glucose [Mass/Vol] 100 mg/dL 74-106 [facility] Comment on above: Fasting Glucose resu lt from 100 to 125 mg/dL suggests IMPAIRED HOMEOSTASIS per A.D.A. criteria. Potassium [Moles/Vol] 3.9 mmol/L 3.5-5.1 [facility] Sodium [Moles/Vol] 141 mmol/L 136-145 [facility] WBC (Bld) [#/Vol] 5.0 10*3/uL 4.4-11.0 [facility] Blood erythrocytes count (nu mber/volume)Ordered By: Rebecca Raymond on 03-03-2023 RBC (Bld) [#/Vol] 4.00 10*6/uL 4.2-5.4 [facility] Blood hemoglobin measurement (mass/volume)Ordered By: Rebecca Raymond on 03-03-2023 Hemoglobin (Bld) [Mass/Vol] 13.4 g/dL 12.0-15.0 [facility] Blood platelet mean volumeOr dered By: Mikalawallacekamar Raymond on 03-03-2023 Platelet mean volume (Bld) [Entitic vol] 13.4 fL 6.2-12.0 [facility] Determination of erythrocyte mean corpuscular volume (MCV)Ordered By: Rebecca Raymond on 03-03-2023 MCV (RBC) [Entitic vol] 108.3 fL 81-99 [facility] Hematocrit Auto (Bld) [Volum e fraction]Ordered By: Rebecca Raymond on 03-03-2023 Hematocrit (Bld) [Volume fraction] 43.3 % 37-47 [facility] Laboratory - Chemistry and C hemistry - challengeOrdered By: Rebecca Raymond on 03-03-2023 CO2 [Moles/Vol] 27.0 mmol/L 21.0-32.0 [facility] Urea nitrogen/Creatinine [Mass ratio] 45.8 mg/mg 10-20 [facility] Laboratory - Hematology and Cell countsOrdered By: Rebecca Raymond on 03-03-2023 Erythrocyte distribution width (RBC) [Entitic vol] 53.1 fL 35.1-43.9 [facility] Erythrocyte distribution width (RBC) [Ratio] 13.1 % 11.6-14.6 [facility] MCH (RBC) [Entitic mass] 33.5 pg 27.0-32.0 [facility] Auto (RBC) [Mass/Vol]Or dered By: Rebecca Raymond on 03-03-2023 MCHC (RBC) [Mass/Vol] 30.9 g/dL 32-36 [facility] No Panel InformationOrdered By: Rebecca Raymond on 03-03-2023 Estimated GFR (MDRD) Amer 111 mL/min >60 [facility] Comment on above: GFR Calc Estimated GFR (MDRD) Non-Af Amer 92 mL/min >60 [facility] Comment on above: Non- GFR Calc Platelets bldOrdered By: Bean Raymond on 03-03-2023 Platelets (Bld) [#/Vol] 143 10*3/uL 150-450 [facility] Serum or plasma albumin carmen urement (mass/volume)Ordered By: Rebecca Raymond on 03-03-2023 Albumin [Mass/Vol] 3.1 g/dL 3.2-5.0 [facility] Serum or plasma calcium carmen urement (mass/volume)Ordered By: Rebecca Raymond on 03-03-2023 Calcium [Mass/Vol] 9.3 mg/dL 8.5-10.1 [facility] Serum or plasma creatinine m easurement (mass/volume)Ordered By: Rebecca Raymond on 03-03-2023 Creatinine [Mass/Vol] 0.66 mg/dL 0.55-1.02 [facility] Comment on above: The validity of the calculated GFR & GFRAA in patients over 70 years has not been determined. Clinical correlation is essential. Serum or plasma urea nitroge n measurement (mass/volume)Ordered By: Rebecca Raymond on 03-03-2023 Urea nitrogen [Mass/Vol] 30 mg/dL 7-18 [facility] Thin prep Papanicolaou smear with manual screeningOrdered By: Rebecca Raymond on 03-03-2023 Thin prep Papanicolaou smear with manual screening 7 5-15 [facility] Basophil percentageOrdered B y: Rebecca Raymond on 12-02-2022 Chloride [Moles/Vol] 106 mmol/L 98-107 [facility] Glucose [Mass/Vol] 97 mg/dL 74-106 [facility] Potassium [Moles/Vol] 4.4 mmol/L 3.5-5.1 [facility] Sodium [Moles/Vol] 140 mmol/L 136-145 [facility] WBC (Bld) [#/Vol] 4.3 10*3/uL 4.4-11.0 [facility] Blood erythrocytes count (nu mber/volume)Ordered By: Rebecca Raymond on 12-02-2022 RBC (Bld) [#/Vol] 4.15 10*6/uL 4.2-5.4 [facility] Blood hemoglobin measurement (mass/volume)Ordered By: Rebecca Raymond on 12-02-2022 Hemoglobin (Bld) [Mass/Vol] 13.8 g/dL 12.0-15.0 [facility] Blood platelet mean volumeOr dered By: Rebecca Raymond on 12-02-2022 Platelet mean volume (Bld) [Entitic vol] 13.5 fL 6.2-12.0 [facility] Determination of erythrocyte mean corpuscular volume (MCV)Ordered By: Rebecca Raymond on 12-02-2022 MCV (RBC) [Entitic vol] 108.0 fL 81-99 [facility] Hematocrit Auto (Bld) [Volum e fraction]Ordered By: Rebecca Raymond on 12-02-2022 Hematocrit (Bld) [Volume fraction] 44.8 % 37-47 [facility] Laboratory - Chemistry and C hemistry - challengeOrdered By: Rebecca Raymond on 12-02-2022 CO2 [Moles/Vol] 28.0 mmol/L 21.0-32.0 [facility] Urea nitrogen/Creatinine [Mass ratio] 57.8 mg/mg 10-20 [facility] Laboratory - Hematology and Cell countsOrdered By: Rebecca Raymond on 12-02-2022 Erythrocyte distribution width (RBC) [Entitic vol] 51.0 fL 35.1-43.9 [facility] Erythrocyte distribution width (RBC) [Ratio] 12.9 % 11.6-14.6 [facility] MCH (RBC) [Entitic mass] 33.3 pg 27.0-32.0 [facility] MCHC Auto (RBC) [Mass/Vol]Or dered By: Rebecca Raymond on 12-02-2022 MCHC (RBC) [Mass/Vol] 30.8 g/dL 32-36 [facility] No Panel InformationOrdered By: Rebecca Raymond on 12-02-2022 Estimated GFR (MDRD) Amer 114 mL/min >60 [facility] Comment on above: GFR Calc Estimated GFR (MDRD) Non-Af Amer 94 mL/min >60 [facility] Comment on above: Non- GFR Calc Platelets bldOrdered By: Bean Raymond on 12-02-2022 Platelets (Bld) [#/Vol] 127 10*3/uL 150-450 [facility] Serum or plasma albumin carmen urement (mass/volume)Ordered By: Rebecca Raymond on 12-02-2022 Albumin [Mass/Vol] 2.9 g/dL 3.2-5.0 [facility] Serum or plasma calcium carmen urement (mass/volume)Ordered By: Rebecca Raymond on 12-02-2022 Calcium [Mass/Vol] 9.1 mg/dL 8.5-10.1 [facility] Serum or plasma creatinine m easurement (mass/volume)Ordered By: Rebecca Raymond on 12-02-2022 Creatinine [Mass/Vol] 0.64 mg/dL 0.55-1.02 [facility] Comment on above: The validity of the calculated GFR & GFRAA in patients over 70 years has not been determined. Clinical correlation is essential. Serum or plasma urea nitroge n measurement (mass/volume)Ordered By: Rebecca Raymond on 12-02-2022 Urea nitrogen [Mass/Vol] 37 mg/dL 7-18 [facility] Thin prep Papanicolaou smear with manual screeningOrdered By: Rebecca Raymond on 12-02-2022 Thin prep Papanicolaou smear with manual screening 6 5-15 [facility] Basophil percentageon 2021 Chloride [Moles/Vol] 106 mmol/L 98-107 [facility] Work Phone: Glucose [Mass/Vol] 85 mg/dL 74-106 [facility] Work Phone: Potassium [Moles/Vol] 4.3 mmol/L 3.5-5.1 [facility] Work Phone: Sodium [Moles/Vol] 139 mmol/L 136-145 [facility] Work Phone: WBC (Bld) [#/Vol] 4.9 10*3/uL 4.4-11.0 [facility] Work [facility]: Blood erythrocytes count (nu mber/volume)on 06-03-2022 RBC (Bld) [#/Vol] 3.71 10*6/uL 4.2-5.4 [facility] Work [facility]: Blood hemoglobin measurement (mass/volume)on 06-03-2022 Hemoglobin (Bld) [Mass/Vol] 12.4 g/dL 12.0-15.0 [facility] Work Phone: Blood platelet mean volumeon 06-03-2022 Platelet mean volume (Bld) [Entitic vol] 13.4 fL 6.2-12.0 [facility] Work Phone: Determination of erythrocyte mean corpuscular volume (MCV)on 06-03-2022 MCV (RBC) [Entitic vol] 103.5 fL 81-99 [facility] Work Phone: Hematocrit Auto (Bld) [Volum e fraction]on 06-03-2022 Hematocrit (Bld) [Volume fraction] 38.4 % 37-47 [facility] Work Phone: Laboratory - Chemistry and C hemistry - challengeon 06-03-2022 CO2 [Moles/Vol] 30.0 mmol/L 21.0-32.0 [facility] Work Phone: Urea nitrogen/Creatinine [Mass ratio] 52.4 mg/mg 10-20 [facility] Work Phone: Laboratory - Hematology and Cell countson 06-03-2022 Erythrocyte distribution width (RBC) [Entitic vol] 47.8 fL 35.1-43.9 [facility] Work Phone: Erythrocyte distribution width (RBC) [Ratio] 12.6 % 11.6-14.6 [facility] Work Phone: MCH (RBC) [Entitic mass] 33.4 pg 27.0-32.0 [facility] Work Phone: MCHC Auto (RBC) [Mass/Vol]on 06-03-2022 MCHC (RBC) [Mass/Vol] 32.3 g/dL 32-36 [facility] Work Phone: No Panel Informationon 06-03 Estimated GFR (MDRD) Amer 109 mL/min >60 [facility] Work Phone: Comment on above: GFR Calc Estimated GFR (MDRD) Non-Af Amer 90 mL/min >60 [facility] Work Phone: Comment on above: Non- GFR Calc Platelets bldon 06-03-2022 Platelets (Bld) [#/Vol] 107 10*3/uL 150-450 [facility] Work Phone: Serum or plasma albumin carmen urement (mass/volume)on 06-03-2022 Albumin [Mass/Vol] 2.6 g/dL 3.2-5.0 [facility] Work Phone: Serum or plasma calcium carmen urement (mass/volume)on 06-03-2022 Calcium [Mass/Vol] 8.3 mg/dL 8.5-10.1 [facility] Work Phone: Serum or plasma creatinine m easurement (mass/volume)on 06-03-2022 Creatinine [Mass/Vol] 0.67 mg/dL 0.55-1.02 [facility] Work Phone: Comment on above: The validity of the calculated GFR & GFRAA in patients over 70 years has not been determined. Clinical correlation is essential. Serum or plasma urea nitroge n measurement (mass/volume)on 06-03-2022 Urea nitrogen [Mass/Vol] 35 mg/dL 7-18 [facility] Work Phone: Thin prep Papanicolaou smear with manual screeningon 06-03-2022 Thin prep Papanicolaou smear with manual screening 3 5-15 [facility] Work Phone: [phone] Absolute lymphocyte counton 03-04-2022 Lymphocytes Auto (Unsp spec) [#/Vol] 1.14 10*3/uL 0.83-4.51 [facility] Work Phone: Basophil percentageon 2021 Basophils/100 WBC (Bld) 0.7 % 0-1 [facility] Work Phone: [phone] Chloride [Moles/Vol] 105 mmol/L 98-107 [facility] Work Phone: [phone] Eosinophils/100 WBC (Bld) 5.2 % 0-5 [facility] Work Phone: [phone] Glucose [Mass/Vol] 107 mg/dL 74-106 [facility] Work Phone: [phone] Comment on above: Fasting Glucose resu lt from 100 to 125 mg/dL suggests IMPAIRED HOMEOSTASIS per A.D.A. criteria. Neutrophils (Bld) [#/Vol] 2.4 10*3/uL 2.0-7.7 [facility] Work Phone: Neutrophils/100 WBC (Bld) 56.1 % 47-70 [facility] Work Phone: [phone] Potassium [Moles/Vol] 4.3 mmol/L 3.5-5.1 [facility] Work Phone: [phone] Sodium [Moles/Vol] 139 mmol/L 136-145 [facility] Work Phone: [phone] WBC (Bld) [#/Vol] 4.3 10*3/uL 4.4-11.0 [facility] Work Phone: Blood erythrocytes count (nu mber/volume)on 03-04-2022 RBC (Bld) [#/Vol] 3.77 10*6/uL 4.2-5.4 [facility] Work Phone: Blood hemoglobin measurement (mass/volume)on 03-04-2022 Hemoglobin (Bld) [Mass/Vol] 12.6 g/dL 12.0-15.0 [facility] Work Phone: Blood lymphocytes/100 leukoc yteson 03-04-2022 Lymphocytes/100 WBC (Bld) 26.8 % 19-41 [facility] Work Phone: Blood monocytes/100 leukocyt eson 03-04-2022 Monocytes/100 WBC (Bld) 11.0 % 0-10 [facility] Work Phone: Blood platelet mean volumeon 03-04-2022 Platelet mean volume (Bld) [Entitic vol] 12.7 fL 6.2-12.0 [facility] Work Phone: Determination of erythrocyte mean corpuscular volume (MCV)on 03-04-2022 MCV (RBC) [Entitic vol] 105.0 fL 81-99 [facility] Work Phone: Hematocrit Auto (Bld) [Volum e fraction]on 03-04-2022 Hematocrit (Bld) [Volume fraction] 39.6 % 37-47 [facility] Work Phone: Laboratory - Chemistry and C hemistry - challengeon 03-04-2022 CO2 [Moles/Vol] 31.0 mmol/L 21.0-32.0 [facility] Work Phone: Urea nitrogen/Creatinine [Mass ratio] 42.6 mg/mg 10-20 [facility] Work Phone: Laboratory - Hematology and Cell countson 03-04-2022 Erythrocyte distribution width (RBC) [Entitic vol] 48.4 fL 35.1-43.9 [facility] Work Phone: Erythrocyte distribution width (RBC) [Ratio] 12.5 % 11.6-14.6 [facility] Work Phone: Immature granulocytes/100 WBC (Bld) 0.200 % 0.0-0.9 [facility] Work Phone: Comment on above: IG% - Immature Granu locytes (promyelocytes, myelocytes and metamyelocytes) > 1% indicates that a LEFT SHIFT is Present. MCH (RBC) [Entitic mass] 33.4 pg 27.0-32.0 [facility] Work Phone: Nucleated RBC/100 WBC (Bld) [Ratio] 0 % 0-5 [facility] Work Phone: MCHC Auto (RBC) [Mass/Vol]on 03-04-2022 MCHC (RBC) [Mass/Vol] 31.8 g/dL 32-36 [facility] Work Phone: No Panel Informationon 03-04 Estimated GFR (MDRD) Amer 111 mL/min >60 [facility] Work Phone: Comment on above: GFR Calc Estimated GFR (MDRD) Non-Af Amer 91 mL/min >60 [facility] Work Phone: Comment on above: Non- GFR Calc Platelets bldon 03-04-2022 Platelets (Bld) [#/Vol] 147 10*3/uL 150-450 [facility] Work Phone: Serum or plasma albumin carmen urement (mass/volume)on 03-04-2022 Albumin [Mass/Vol] 2.7 g/dL 3.2-5.0 [facility] Work Phone: Serum or plasma calcium carmen urement (mass/volume)on 03-04-2022 Calcium [Mass/Vol] 8.6 mg/dL 8.5-10.1 [facility] Work Phone: Serum or plasma creatinine m easurement (mass/volume)on 03-04-2022 Creatinine [Mass/Vol] 0.66 mg/dL 0.55-1.02 [facility] Work Phone: Comment on above: The validity of the calculated GFR & GFRAA in patients over 70 years has not been determined. Clinical correlation is essential. Serum or plasma urea nitroge n measurement (mass/volume)on 03-04-2022 Urea nitrogen [Mass/Vol] 28 mg/dL 7-18 [facility] Work Phone: Thin prep Papanicolaou smear with manual screeningon 03-04-2022 Thin prep Papanicolaou smear with manual screening 3 5-15 [facility] Work Phone: Vital Signs Date Time Vital Sign Value Performing Clinician Facility 05-24-2025 10:04-0400 Body height 157.[address] Rebecca Raymond MD Work Phone: [facility] 12-18-2024 13:41-0400 Body temperature 97.9 [degF] Dr. Rebecca Raymond MD Work Phone: [facility] 12-18-2024 13:41-0400 Diastolic blood pressure 75 mm[Hg] Dr. Rebecca Raymond MD Work Phone: [facility] 12-18-2024 13:41-0400 Heart rate 82 /min Dr. Rebecca Raymond MD Work Phone: [facility] 12-18-2024 13:41-0400 Respiratory rate 16 /min Dr. Rebecca Raymond MD Work Phone: [facility] 12-18-2024 13:41-0400 SaO2% (BldA) [Mass fraction] 95 % Dr. Rebecca Raymond MD Work Phone: [facility] 12-18-2024 13:41-0400 Systolic blood pressure 99 mm[Hg] Dr. Rebecca Raymond MD Work Phone: [facility] 12-18-2024 10:44-0400 Body height 157.[address] Rebecca Raymond MD Work Phone: [facility] 12-18-2024 10:44-0400 Body mass index (BMI) [Ratio] 31.2 kg/m2 Dr. Rebecca Raymond MD Work Phone: [facility] 12-18-2024 10:44-0400 Body weight 77.[address] Rebecca Raymond MD Work Phone: [facility] 02-08-2024 05:24-0400 Body temperature 97.1 [degF] Dr. Rebecca Raymond Work Phone: [facility] 02-08-2024 05:24-0400 Diastolic blood pressure 67 mm[Hg] Dr. Rebecca Raymond Work Phone: [facility] 02-08-2024 05:24-0400 Heart rate 69 /min Dr. Rebecca Raymond Work Phone: [facility] 02-08-2024 05:24-0400 Respiratory rate 18 /min Dr. Rebecca Raymond Work Phone: [facility] 02-08-2024 05:24-0400 SaO2% (BldA) [Mass fraction] 97 % Dr. Rebecca Raymond Work Phone: [facility] 02-08-2024 05:24-0400 Systolic blood pressure 106 mm[Hg] Dr. Rebecca Raymond Work Phone: [facility] 02-08-2024 05:18-0400 Body height 157.[address] Rebecca Raymond Work Phone: [facility] 01-17-2024 19:02-0400 Body temperature 98.1 [degF] Dr. Rebecca Raymond Work Phone: [facility] 01-17-2024 19:02-0400 Diastolic blood pressure 77 mm[Hg] Dr. Rebecca Raymond Work Phone: [facility] 01-17-2024 19:02-0400 Heart rate 84 /min Dr. Rebecca Raymond Work Phone: [facility] 01-17-2024 19:02-0400 Respiratory rate 16 /min Dr. Rebecca Raymond Work Phone: [facility] 01-17-2024 19:02-0400 SaO2% (BldA) [Mass fraction] 94 % Dr. Rebecca Raymond Work Phone: [facility] 01-17-2024 19:02-0400 Systolic blood pressure 110 mm[Hg] Dr. Rebecca Raymond Work Phone: [facility] 01-17-2024 16:11-0400 Body height 157.[address] Rebecca Raymond Work Phone: [facility] 01-17-2024 16:11-0400 Body mass index (BMI) [Ratio] 31.6 kg/m2 Dr. Rebecca Raymond Work Phone: [facility] 01-17-2024 16:11-0400 Body weight 78.[address] Rebecca Raymond Work Phone: [facility] 12-31-2023 14:29-0400 Body temperature 98.01 [degF] Calos Bowen MD Work Phone: [facility] 12-31-2023 14:29-0400 Diastolic blood pressure 86 mm[Hg] Calos Bowen MD Work Phone: [facility] 12-31-2023 14:29-0400 Heart rate 121 /min Calos Bowen MD Work Phone: [facility] 12-31-2023 14:29-0400 SaO2% (BldA) [Mass fraction] 90 % Calos Bowen MD Work Phone: [facility] 03-22-2024 14:29-0400 Systolic blood pressure 124 mm[Hg] Calos Bowen MD Work Phone: [facility] 09-27-2023 02:32-0500 Heart rate 64 /min Dr. Rebecca Raymond Work Phone: [facility] 09-27-2023 02:32-0500 Respiratory rate 15 /min Dr. Rebecca Raymond Work Phone: [facility] 09-27-2023 02:32-0500 SaO2% (BldA) [Mass fraction] 98 % Dr. Rebecca Raymond Work Phone: [facility] 09-27-2023 01:48-0500 Body height 160.[address] Rebecca Raymond Work Phone: [facility] 09-27-2023 01:48-0500 Body mass index (BMI) [Ratio] 29.8 kg/m2 Dr. Rebecca Raymond Work Phone: [facility] 09-27-2023 01:48-0500 Body temperature 97.6 [degF] Dr. Rebecca Raymond Work Phone: [facility] 09-27-2023 01:48-0500 Body weight 76.[address] Rebecca Raymond Work Phone: [facility] 09-27-2023 01:48-0500 Diastolic blood pressure 79 mm[Hg] Dr. Rebecca Raymond Work Phone: [facility] 09-27-2023 01:48-0500 Systolic blood pressure 140 mm[Hg] Dr. Rebecca Raymond Work Phone: [facility] 09-26-2023 22:37-0500 Body temperature 97.1 [degF] Dr. Rebecca Raymond Work Phone: [facility] 09-26-2023 22:37-0500 Diastolic blood pressure 74 mm[Hg] Dr. Rebecca Raymond Work Phone: [facility] 09-26-2023 22:37-0500 Heart rate 92 /min Dr. Rebecca Raymond Work Phone: [facility] 09-26-2023 22:37-0500 Respiratory rate 16 /min Dr. Rebecca Raymond Work Phone: [facility] 09-26-2023 22:37-0500 SaO2% (BldA) [Mass fraction] 94 % Dr. Rebecca Raymond Work Phone: [facility] 09-26-2023 22:37-0500 Systolic blood pressure 151 mm[Hg] Dr. Rebecca Raymond Work Phone: [facility] 09-26-2023 20:06-0500 Body height 160.[address] Rebecca Raymond Work Phone: [facility] 09-26-2023 20:06-0500 Body mass index (BMI) [Ratio] 31.1 kg/m2 Dr. Rebecca Raymond Work Phone: [facility] 09-26-2023 20:06-0500 Body weight 79.[address] Rebecca Raymond Work Phone: [facility] 03-07-2023 21:26-0400 Body height 160.[address] Rebecca Raymond Work Phone: [facility] 03-07-2023 21:26-0400 Body mass index (BMI) [Ratio] 30.2 kg/m2 Dr. Rebecca Raymond Work Phone: [facility] 03-07-2023 21:26-0400 Body temperature 97.2 [degF] Dr. Rebecca Raymond Work Phone: [facility] 03-07-2023 21:26-0400 Body weight 77.[address] Rebecca Raymond Work Phone: [facility] 03-07-2023 21:26-0400 Diastolic blood pressure 66 mm[Hg] Dr. Rebecca Raymond Work Phone: [facility] 03-07-2023 21:26-0400 Heart rate 77 /min Dr. Rebecca Raymond Work Phone: [facility] 03-07-2023 21:26-0400 Respiratory rate 18 /min Dr. Rebecca Ramyond Work Phone: [facility] 03-07-2023 21:26-0400 SaO2% (BldA) [Mass fraction] 97 % Dr. Rebecca Raymond Work Phone: [facility] 03-07-2023 21:26-0400 Systolic blood pressure 136 mm[Hg] Dr. Rebecca Raymond Work Phone: [facility] 09-15-2022 16:31-0500 Body height 162.56 cm [facility] 09-15-2022 16:31-0500 Body mass index (BMI) [Ratio] 30.5 kg/m2 [facility] 09-15-2022 16:31-0500 Body temperature 97.1 [degF] [facility] 09-15-2022 16:31-0500 Body weight 80.73 kg [facility] 09-15-2022 16:31-0500 Diastolic blood pressure 77 mm[Hg] [facility] 09-15-2022 16:31-0500 Heart rate 84 /min [facility] 09-15-2022 16:31-0500 Respiratory rate 16 /min [facility] 09-15-2022 16:31-0500 SaO2% (BldA) [Mass fraction] 98 % [facility] 09-15-2022 16:31-0500 Systolic blood pressure 119 mm[Hg] [facility] 05-11-2022 15:21-0400 Body height 149.9 cm Desmond Crane MD Work Phone: [facility] 05-11-2022 15:21-0400 Body temperature 96.69 [degF] Desmond Crane MD Work Phone: [facility] 05-11-2022 15:21-0400 Diastolic blood pressure 64 mm[Hg] Desmond Crane MD Work Phone: [facility] 05-11-2022 15:21-0400 Heart rate 93 /min Desmond Crane MD Work Phone: [facility] 05-11-2022 15:21-0400 SaO2% (BldA) [Mass fraction] 94 % Desmond Crane MD Work Phone: [facility] 05-11-2022 15:21-0400 Systolic blood pressure 94 mm[Hg] Desmond Crane MD Work Phone: [facility] Encounters Encounter Date Encounter Type Care Provider Facility Start: 06-14-2025 End: 06-14-2025 ambulatory Julian ZHENG Facility:[facility] Start: 05-30-2025 ambulatory Rebecca Ramírez cility:[facility] Start: 05-30-2025 Registered Referred Rebecca Raymond MD -[facility] Start: 05-15-2025 End: 05-15-[address] Rebecca Raymond MD Work Phone: [facility] Start: 05-15-2025 End: 05-15-[address] Rebecca Raymond MD -[facility] Work Phone: Start: 04-12-2025 End: 04-12-[address] Rebecca Raymond MD Work Phone: [facility] Start: 04-12-2025 End: 04-12-2025 Patient encounter procedure Julian ZHENG -[facility] Work Phone: Start: 03-13-2025 End: 03-13-[address] Rebecca Raymond MD Work Phone: [facility] Start: 03-13-2025 End: 03-13-[address] [place] [facility] Work Phone: Start: 02-28-2025 End: 02-28-[address] Rebecca Raymond MD Work Phone: [facility] Work Phone: Start: 02-28-2025 End: 02-28-2025 Departed Referred Rebecca Raymond MD [facility] Start: 02-28-2025 End: 02-28-2025 ambulatory Rebecca Raymond Facility:[facility] Start: 02-13-2025 End: 02-13-[address] Rebecca Raymond MD Work Phone: [facility] Start: 02-13-2025 End: 02-13-2025 Patient encounter procedure Iraida Peres [facility] Work Phone: Start: 02-08-2025 End: 02-08-[address] Rebecca Raymond MD Work Phone: [facility] Start: 02-08-2025 End: 02-08-2025 Patient encounter procedure Julian ZHENG -[facility] Work Phone: Start: 01-22-2025 End: 01-22-[address] Rebecca Raymond MD Work Phone: [facility] Work Phone: Start: 01-22-2025 End: 01-22-2025 [facility] Start: 01-16-2025 End: 01-16-[address] Rebecca Raymond MD Work Phone: [facility] Work Phone: Start: 01-16-2025 End: 01-16-[address] Rebecca Raymond MD -[facility] Work Phone: Start: 12-21-2024 End: 12-21-2024 ambulatory Julian ZHENG Facility:[facility] Start: 12-21-2024 End: 12-21-2024 Patient encounter procedure Julian ZHENG -[facility] Work Phone: Start: 12-18-2024 End: 12-18-2024 Emergency department patient visit Dr. Rebecca Raymond MD Work Phone: -Emergency Department Work Phone: Start: 12-08-2024 End: 12-08-[address] Rebecca Raymond MD Work Phone: [facility] Work Phone: Start: 12-08-2024 End: 12-08-2024 [facility] Start: 12-08-2024 Registered Referred Rebecca Raymond MD -[facility] Start: 12-08-2024 End: 12-08-2024 ambulatory Efewongbe Olenathane Facility:[facility] Start: 11-29-2024 ambulatory Efewongbe Olenathane Facili ty:[facility] Start: 11-29-2024 Registered Referred Rebecca Raymond MD [facility] Start: 11-14-2024 End: 11-14-2024 ambulatory Efewongbe Olenathane Facility:[facility] Start: 11-14-2024 End: 11-14-[address] Rebecca Raymond MD -[facility] Work Phone: Start: 11-01-2024 End: 11-01-2024 ambulatory Efewongbe Olegunner Facility:[facility] Start: 11-01-2024 End: 11-01-2024 Patient encounter procedure Iraida MAGANA -[facility] Work Phone: Start: 10-18-2024 End: 10-18-2024 ambulatory CALOS BOWEN Facility:[facility] Start: 10-18-2024 End: 10-18-2024 Patient encounter procedure Nohemi Azevedo RAMAKRISHNA Work Phone: General Surgery Comment on above: PEG tube malfunction (HCC) (Primary Dx) Start: 09-12-2024 End: 09-12-2024 ambulatory Rebecca Raymond Facility:[facility] Start: 09-12-2024 End: 09-12-[address] Rebecca Raymond MD -[facility] Work Phone: Start: 08-31-2024 End: 03-16-2025 Telephone encounter Calos Bowen MD Work Phone: General Surgery Comment on above: Appointment Start: 08-30-2024 End: 08-30-2024 Departed Referred Rebecca Raymond MD -[facility] Start: 08-30-2024 End: 08-30-2024 ambulatory Rebecca Raymond Facility:[facility] Start: 08-24-2024 End: 08-24-2024 ambulatory Julian ZHENG Facility:[facility] Start: 08-24-2024 End: 08-24-2024 Patient encounter procedure Julian ZHENG -[facility] Work Phone: Start: 02-08-2024 End: 02-08-2024 Emergency department [facility] Start: 01-17-2024 End: 01-17-2024 Emergency department patient visit Dr. Rebecca Raymond Work Phone: [facility] Work Phone: Start: 12-31-2023 End: 12-31-2023 Patient encounter procedure Calos Bowen MD Work Phone: General Surgery Comment on above: PEG tube malfunction (HCC) Start: 12-23-2023 End: 12-23-[address] Rebecca Raymond Work Phone: [facility] Work Phone: Start: 12-01-2023 End: 12-01-[address] Rebecca Raymond Work Phone: [facility] Work Phone: Start: 12-01-2023 End: 12-01-[address] Rebecca Raymond Work Phone: [facility] Start: 12-01-[address] Sejal Raymond Work Phone: [facility] Start: 11-22-2023 End: 11-22-[address] Rebecca Raymond Work Phone: [facility] Work Phone: Start: 11-22-2023 End: 11-22-[address] Rebecca Raymond Work Phone: [facility] Start: 11-16-2023 End: 11-16-[address] Rebecca Raymond Work Phone: [facility] Work Phone: Start: 10-28-2023 End: 10-28-[address] Rebecca Raymond Work Phone: [facility] Work Phone: Start: 09-27-2023 End: 09-27-2023 Emergency department patient visit Dr. Rebecca Raymond Work Phone: [facility] Work Phone: Start: 09-26-2023 End: 09-27-2023 Emergency department patient visit Dr. Rebecca Raymond Work Phone: [facility] Work Phone: Start: 09-21-2023 End: 09-21-[address] Rebecca Raymond Work Phone: [facility] Work Phone: Start: 09-06-2023 End: 09-06-[address] Rebecca Raymond Work Phone: [facility] Work Phone: Start: 08-26-2023 End: 08-26-[address] Rebecca Raymond Work Phone: [facility] Start: 08-26-[address] Sejal Raymond Work Phone: [facility] Start: 08-25-2023 End: 08-25-[address] Rebecca Raymond Work Phone: [facility] Work Phone: Start: 08-25-2023 End: 08-25-[address] Rebecca Raymond Work Phone: [facility] Start: 08-03-2023 End: 08-03-[address] Rebecca Raymond Work Phone: [facility] Work Phone: Start: 07-05-2023 End: 07-05-[address] Rebecca Raymond Work Phone: [facility] Work Phone: Start: 06-07-2023 End: 06-07-[address] Rebecca Raymond Work Phone: [facility] Start: 06-02-2023 End: 06-02-[address] Rebecca Raymond Work Phone: [facility] Start: 05-18-2023 End: 05-18-[address] Rebecca Raymond Work Phone: [facility] Work Phone: Start: 05-04-2023 End: 05-04-[address] Rebecca Raymond Work Phone: [facility] Work Phone: Start: 03-16-2023 End: 03-16-[address] Rebecca Raymond Work Phone: [facility] Work Phone: Start: 03-07-2023 End: 03-08-2023 Emergency department patient visit Dr. Rebecca Raymond Work Phone: [facility] Start: 03-04-2023 End: 03-04-[address] Rebecca Raymond Work Phone: [facility] Work Phone: Start: 03-03-2023 End: 03-03-[address] Rebecca Raymond Work Phone: [facility] Work Phone: Start: 03-03-2023 End: 03-03-[address] Rebecca Raymond Work Phone: [facility] Start: 03-03-[address] Sejal Raymond Work Phone: [facility] Start: 01-19-2023 End: 01-19-[address] Rebecca Raymond Work Phone: [facility] Start: 01-01-2023 End: 01-01-[address] Rebecca Raymnod Work Phone: [facility] Start: 12-02-2022 End: 12-02-[address] Rebecca Raymond Work Phone: [facility] Work Phone: Start: 12-02-2022 End: 12-02-[address] Rebecca Raymond Work Phone: [facility] Start: 11-03-2022 End: 11-03-[address] Rebecca Raymond Work Phone: [facility] Start: 10-26-2022 End: 10-26-[address] Rebecca Raymond Work Phone: [facility] Start: 09-15-2022 End: 09-15-2022 Emergency department patient visit [facility] Start: 06-03-2022 End: 06-03-2022 ambulatory [facility] Work Phone: Start: 06-03-2022 End: 06-03-2022 Departed Referred [facility] Start: 05-11-2022 End: 05-11-2022 Patient encounter procedure Desmond Crane MD Work Phone: General Surgery Comment on above: PEG tube malfunction (HCC) (Primary Dx) Start: 03-04-2022 End: 03-04-2022 Departed Referred [facility] Procedures Date Procedure Procedure Detail Performing [...] 06-11-2025 Influenza vaccination Influenza Vaccine (Season Ended) [facility] Start: 12-18-2024 Application of abdominal corset [facility] Start: 12-18-2024 [facility] Start: 12-18-2024 Plain X-ray abdomen Abdomen Single View (Portable) [facility] Start: 12-18-2024 XR Abdomen Single view [facility] Start: 10-11-2024 Advance Directive Discussion Advance Directive Discussion [facility] Start: 06-11-2024 Covid-19 Vaccine ( season) Covid-19 Vaccine ( season) [facility] Start: 06-11-2024 Influenza vaccination Influenza Vaccine (#1) [facility] Start: 02-08-2024 [facility] Start: 01-17-2024 [facility] Start: 10-11-2023 Advance Directive Discussion Advance Directive Discussion [facility] Start: 10-11-2023 Depression Assessment Depression Assessment [facility] Start: 09-27-2023 [facility] Start: 09-27-2023 [facility] Start: 09-27-2023 [facility] Start: 09-26-2023 [facility] Start: 09-26-2023 Insert gastrostomy tube percutaneous PLACE GASTROSTOMY TUBE PERC [facility] Start: 06-11-2023 Covid-19 Vaccine ( season) Covid-19 Vaccine ( season) [facility] Start: 06-11-2023 Influenza vaccination Influenza Vaccine (#1) [facility] Start: 03-07-2023 Perq replacement gtube not req revj gstrst trc [facility] GTUBE NO REVJ TRC [facility] Start: 09-15-2022 Application of abdominal corset [facility] Start: 09-15-2022 Plain X-ray abdomen Abdomen Single View (Portable) [facility] Work Phone: Start: 09-15-2022 XR Abdomen Single view [facility] Work Phone: Start: 06-11-2022 Influenza vaccination INFLUENZA (#1) [facility] Start: 10-11-2021 ADVANCE DIRECTIVE DISCUSSION ADVANCE DIRECTIVE DISCUSSION [facility] Start: 03-04-2015 DIABETES SCREEN DIABETES SCREEN [facility] Start: 03-04-2015 Diabetes Screening Diabetes Screening [facility] Start: 08-11-2014 Urine microalbumin profile [facility] Start: 2014 RSV Vaccine (1 - 1-dose 75+ series) RSV Vaccine (1 - 1-dose 75+ series) [facility] Start: 12-29-2012 Pneumococcal Vaccine: 50+ (2 of 2 - PCV) Pneumococcal Vaccine: 50+ (2 of 2 - PCV) [facility] Start: 12-29-2012 Pneumococcal Vaccine: 65+ (2 of 2 - PCV) Pneumococcal Vaccine: 65+ (2 of 2 - PCV) [facility] Start: 12-29-2012 PNEUMOCOCCAL: 65+ (2 - PCV) PNEUMOCOCCAL: 65+ (2 - PCV) [facility] Start: 11-27-2012 FECAL OCCULT BLOOD FECAL OCCULT BLOOD [facility] Start: 1999 RSV Vaccine (1 - 1-dose 60+ series) RSV Vaccine (1 - 1-dose 60+ series) [facility] Start: 1989 SHINGRIX VACCINE (1 of 2) SHINGRIX VACCINE (1 of 2) [facility] Start: 1957 Anxiety Screening Anxiety Screening [facility] Start: 1957 Depression Screening Depression Screening [facility] Patient Education [facility] Work Phone: Patient referral [facility] Work Phone: Immunizations Immunization Date Immunization Notes Care Provider Fa cili 07-01-2012 influenza virus vacc ine, unspecified formulation Desmond Crane MD Work Phone: [facility] 12-30-2011 pneumococcal polysaccharide vaccine, 23 valent Desmond Crane MD Work Phone: [facility] 09-11-2011 influenza virus vacc ine, unspecified formulation Desmond Crane MD Work Phone: [facility] 07-29-2010 influenza virus vacc ine, unspecified formulation Desmond Crane MD Work Phone: [facility] 07-02-2009 influenza virus vacc ine, unspecified formulation Desmond Crane MD Work Phone: [facility] Work Phone: 08-17-2008 influenza virus vacc ine, unspecified formulation Desmond Crane MD Work Phone: [facility] 08-17-2007 influenza virus vacc ine, unspecified formulation Desmond Crane MD Work Phone: [facility] Work Phone: 08-10-2005 influenza virus vacc ine, unspecified formulation Desmond Crane MD Work Phone: [facility] Work Phone: 08-11-2004 diphtheria and tetan us toxoids, adsorbed for pediatric use Desmond Crane MD Work Phone: [facility] Work Phone: 07-25-2004 pneumococcal polysaccharide vaccine, 23 valent Desmond Crane MD Work Phone: [facility] Work Phone: Payers Date Payer Category Payer Self-pay [id number] 2018 Medicaid [id number] 2018 Medicare [id number] 2018 Medicare [employer] [id number] 2018-Present [phone] [address] [place] [address] Medicare [id number] 2018 Medicare (Managed Care) [facility] [employer] [id number] 2018 Unknown [id number] 2012 Medicaid [id number] Medicare MEDICARE PART A B [id number] Unknown [id number]. 462 Unknown [id number] 2.16.840.1.250280.3.579.2. 462 Unknown [id number] 2.16.840.1.641615.3.579.2. 462 Unknown [id number] 2.16.840.1.630595.3.579.2. 462 Unknown [id number] 2.16.840.1.104402.3.579.2. 462 Unknown [id number] 2.16.840.1.564240.3.579.2. 462 Unknown [id number] 2.16.840.1.309852.3.579.2. 462 Unknown [id number] 2.16.840.1.728831.3.579.2. 462 Unknown [id number] 2.16.840.1.547186.3.579.2. 462 Unknown [id number] 2.16.840.1.647237.3.579.2. 462 Unknown [id number] 2.16.840.1.349075.3.579.2. 462 Unknown [id number] 2.16.840.1.197022.3.579.2. 462 Unknown [id number] 2.16.840.1.947746.3.579.2. 462 Unknown [id number] 2.16.840.1.312868.3.579.2. 462 Unknown [id number] 2.16.840.1.025757.3.579.2. 462 Unknown [id number] 2.16.840.1.943619.3.579.2. 462 Unknown [id number] 2.16.840.1.178647.3.579.2. 462 Unknown [id number] 2.16840.1.308072.3.579.2. 462 Unknown [id number]. 462 Social History Date Type Detail Facility Start: 05-25-2012 End: 05-24-2025 Tobacco smoking status NHIS Never smoked tobacco [facility] Start: 05-11-2022 End: 01-01-2024 Alcohol intake Current non-drinker of alcohol (finding) [facility] Start: 1940 Sex Assigned At Not on file [facility] Start: 05-01-2022 End: 05-11-2022 Exposure to SARS-CoV-2 (event) Not sure [facility] Start: 07-28-2021 End: 02-08-2024 Tobacco smoking status NHIS Unknown if ever smoked [facility] Start: 11-27-2020 None [facility] Start: 04-17-2021 None;unknown [facility] Start: 11-27-2020 [facility] Start: 04-17-2021 Non-smoker [facility] Start: 1940 Sex Assigned At Female [facility] Start: 05-25-2012 Tobacco use and exposure Smokeless tobacco non-user [facility] Work Phone: Start: 01-01-2024 History of Social function [facility] Start: 01-01-2024 Tobacco use panel [facility] Start: 12-18-2024 End: 01-10-2025 Sex Female (finding) [facility] Mental Status Date Assessment Result Facility 12-18-2024 Cognitive function Level Of Cons ciousness Awake;Alert [facility] Work Phone: 02-08-2024 Cognitive function Level Of Cons ciousness Awake;Alert [facility] Work Phone: 01-17-2024 Cognitive function Level Of Cons ciousness Awake;Alert;Appropriate;Follow s Commands [facility] Work Phone: 09-27-2023 Cognitive function Level Of Cons ciousness Awake;Alert [facility] Work Phone: 03-07-2023 Cognitive function Level Of Cons ciousness Awake;Alert [facility] Work Phone: 09-15-2022 Cognitive function Level Of Cons ciousness Awake;Alert;Appropriate;Follow s Commands [facility] Work Phone: Clinical Notes 11-05-2015 to 10-18-2024 Nohemi Azevedo APRN.[facility] - 10/18/2024 10:36 AM Calos Hutchison MD - 10/18/2024 10:00 AM ESTTelephone Encounter - Marion UmañaMOLLY - 10/16/2024 10:50 AM EST Note Date & Type Note Facility 10-18-2024 Note HNO ID: [id number] Author: NOHEMI AZEVEDO APRN.[facility] Service: ? Author Type: Nurse Practitioner Type: Progress Notes Filed: 10/25/2024 15:14 Note Text: FOLLOW UP VISIT - PEG TUBE REMOVAL NAME: Dariana Vazquez CLINIC NO.: [id number] DATE OF SERVICE: 10/18/2024 : 1940 REFERRING [...] with me as needed. Nohemi Azevedo APRN.CNP [facility] 10-18-2024 History of Presen t illness Narrative FOLLOW UP VISIT - PEG TUBE REMOVAL NAME: Dariana Vazquez [facility] NO.: [id number] DATE OF SERVICE: 10/18/2024 : 1940 REFERRING [...] - PEG TUBE EVALUATION NAME: Dariana Vazquez [facility] NO.: [id number] DATE OF SERVICE: October 18, 2024 : [...] a crack. The tube is a 24 Micronesian tube (note that I had last replaced the tube with a 20 Micronesian tube) and the buttress was secured down [...] I recommended the ECF obtain a 24 Micronesian PEG tube that when the catheter does fail we can change as we only have 20 Micronesian replacement since stock. Diagnoses: No diagnosis found. Return to Clinic: The patient is instructed to follow-up with me as needed. Calos Bowen MD documented in this encounter [facility] 10-18-2024 Note HNO ID: [id number] Author: CALOS BOWEN MD Service: ? Author Type: Physician Type: Progress Notes Filed: 10/25/2024 05:11 Note Text: FOLLOW UP VISIT - PEG TUBE EVALUATION NAME: Dariana Vazquez [facility] NO.: [id number] DATE OF SERVICE: October 18, 2024 : [...] a crack. The tube is a 24 Micronesian tube (note that I had last replaced the tube with a 20 Micronesian tube) and the buttress was secured down [...] I recommended the ECF obtain a 24 Micronesian PEG tube that when the catheter does fail we can change as we only have 20 Micronesian replacement since stock. Diagnoses: No diagnosis found. Return to Clinic: The patient is instructed to follow-up with me as needed. Calos Bowen MD [facility] 10-16-2024 Telephone encount er Note Called and spoke to Dariana's nurse and states will check if they have a 24 Micronesian peg tube, states will call us back to update. Marion Umaña LPN October 16, 2024 10:51 AM [facility] 10-16-2024 Miscellaneous Notes Formattin g of this note might be different from the original. Called and spoke to Dariana's nurse and states will check if they have a 24 Micronesian peg tube, states will call us back to update. Marion Umaña LPN October 16, 2024 10:51 AM Called [facility]- left message with nurse line on [facility] where patient resides. No details left due to line not secure. Margie Lynn LPN Called [facility]. Not a secure line. Did leave message for nursing staff to call General Surgery. Patient has appointment for PEG tube change 09/06/2024. Please verify that ECF is sending 24 Micronesian PEG Tube with patient to appointment. Margie Lynn LPN documented in this encounter [facility] 08-31-2024 Telephone encount er Note Called [facility]- left message with nurse line on [facility] where patient resides. No details left due to line not secure. Margie Lynn LPN [facility] 08-31-2024 Telephone encount er Note Called [facility]. Not a secure line. Did leave message for nursing staff to call General Surgery. Patient has appointment for PEG tube change 09/06/2024. Please verify that ECF is sending 24 Micronesian PEG Tube with patient to appointment. Margie Lynn LPN [facility] 01-01-2024 History of Presen t illness Narrative FOLLOW UP VISIT - PEG TUBE EVALUATION NAME: Dariana Vazquez [facility] NO.: [id number] DATE OF SERVICE: January 01, 2024 : [...] a crack. The tube is a 24 Micronesian tube (note that I had last replaced the tube with a 20 Micronesian tube) and the buttress was secured down [...] I recommended the ECF obtain a 24 Micronesian PEG tube that when the catheter does fail we can change as we only have 20 Micronesian replacement since stock. Diagnoses: (K94.23) PEG tube malfunction (HCC) Return to Clinic: The patient is instructed to follow-up with me as needed. Calos Bowen MD documented in this encounter [facility] 12-31-2023 Nurse Note REVIEW OF SYSTEMS: General: [...] Shanti Avila LPN documented in this encounter [facility] 09-26-2023 Discharge summary Note Date/Time September 26, 2023 9:57pm [facility] Medical Records Department [address] [place] [address] Emergency Department Summary 09/26/23 MR#: [id number] Acct: [id number] Name: DARIANA VAZQUEZ Rep #:[id number] : 1940 83 From: xAel Nunez PCP: Dr. Rebecca Raymond MD Status:R EG ER Location: ED HPI History of Present Illness Chief Complaint: Wound Informant: patient and SNF Onset/Context/Timing Onset: Today Context: Gradual Onset Timing: Continuous Worsened by: Nothing Relieved by: Nothing Narrative Narrative: Patient presents with dysfunctional PEG tube. skilled nursing staff reports that they were unable to flush anything through the PEG tube tonight. Patient is a poor informant. Patient has a history of dementia. Patient denies any abdominal pain. Staff denies any nausea or vomiting. Staff denies any fevers or chills. [facility] Medical History (Updated 09/26/23 @ 21:57 by [...] bisacodyl 10 mg rectal suppository 10 mg AR BID PRN PRN Constipation 02/01/21 [History Last [...] PEG tube was removed. A new 24 Micronesian PEG tube was reinsertedwithout difficulty. The balloon [...] after deflating the balloon. A new 24 Micronesian PEG tube was placed into the stoma [...] your Primary Care Provider. Call [facility] ([phone]) or report to the closest Emergency Room. Call 911 if necessary. 09/26/23 2330 <Electronically signed by Axel Michaels DO> Cosigner Signature (if applicable): CC: Dr. Rebecca Raymond MD ~ Signed [facility] Work Phone: [phone] [id number] Discharge summary Author [facility] March 07, 2023 11:59pm Note Date/Time March 07, 2023 11:23 pm [facility] Medical Records Department [address] [place] [address] Emergency Department Summary 03/07/23 MR#: [id number] Acct: [id number] Name: DARIANA VAZQUEZ Rep #:[id number] : 1940 82 From: Mario Clarke DO PCP: Dr. Rebecca Raymond MD Status:R EG ER Location: ED HPI History of Present Illness Chief Complaint: Other, Pain/Inj Informant: EMS and SNF Narrative Narrative: Patient is an 82-year-old female from the [facility] with past medical historyof obesity GERD MRDD [...] MRDD she cannot offer any further history [facility] Medical History Aplastic anemia GERD (gastroesophageal [...] bisacodyl 10 mg rectal suppository 10 mg AR BID PRN PRN Constipation 02/01/21 [History Last [...] further work-up. The patient had a 24 Micronesian PEG tube reinserted as documented below and following that she is otherwise safe for discharge back to the [facility] Patient had her abdominal stoma cleaned with chlorhexidine. Sterile K-Y jelly was then placed for lubrication over top skin. A 24 Micronesian PEG tube was then passed through the [...] your Primary Care Provider. Call [facility] ([phone]) or report to the closest Emergency Room. Call 911 if necessary. 03/07/23 8540 <Electronically signed by Mario Clarke DO> Cosigner Signature (if applicable): CC: Dr. Rebecca Raymond MD ~ Signed [facility] Work Phone: [phone]) 906-135308-01-2022 History of Present illness Narrative* Desmond Crane [...] C (96.7 F), height 149.9 cm (4' 11), SpO2 94 %. Patient no longer has [...] way to do this. documented in [facility] Nurse Note* Marion Umaña, PRODUCT MARKETING INTERN - 05/11/2022 3:28 PM EDT REVIEW OF [...] unknown Marion Umaña LPN documented in this encounterUniversity [facility]01-26-2016 History of Past illness Narrative* Problem Noted Date Resolved Date Essential hypertension, malignant 11/05/2015 07/15/2016 Overview: Per LDT 10/31/15 [facility] charges Sprain of ankle, unspecified site 11/18/2006 08/01/2007 Pain in limb 08/25/2005 08/01/2007 Urinary tract infection, site not specified 07/15/2016 Overview: Recurrent UTI's documented as of this encounter (statuses as of 05/11/2022) [facility] History of Past illness Narrative* Problem Noted Date Diagnosed Date Resolved Date Essential hypertension, malignant 11/05/2015 07/15/2016 Overview: Per LDT 10/31/15 [facility] charges Sprain of ankle, unspecified site 11/18/2006 08/01/2007 Pain in limb 08/25/2005 08/01/2007 Urinary tract infection, site not specified 07/15/2016 Overview: Recurrent UTI's documented as of this encounter (statuses as of 01/01/2024) [facility] CenterDis[facility] summary Author Brent Owens [facility] September 27, 2023 3:41am Note Date/Time September 27, 2023 2:03am [facility] Medical Records Department [address] [place] [address] Emergency Department Summary 09/27/23 MR#: [id number] Acct: [id number] Name: DARIANA VAZQUEZ Rep #:[id number] : 1940 83 From: Brent Owens MD PCP: Dr. Rebecca Raymond MD Status:R EG ER Location: ED HPI History of Present Illness Chief Complaint: Other, Pain/Inj Narrative Narrative: Patient presents because her feeding tube fell out. This 1 was placed earlier in the day this past day, staff at the [facility] states they went in and it was sitting on her abdomen with the balloon deflated. Limited ROS due to [facility]. [facility] Medical History Aplastic anemia GERD (gastroesophageal [...] bisacodyl 10 mg rectal suppository 10 mg AR BID PRN PRN Constipation 02/01/21 [History Last [...] a ride to go back to the [facility]. Procedures Other Procedures Procedure(s): 24 Micronesian G-tube placement after verifying balloon competent, inflated [...] your Primary Care Provider. Call [facility] ([phone]) or report to the closest Emergency Room. Call 911 if necessary. 09/27/23 0341 <Electronically signed by Brent Owens MD> Cosigner Signature (if applicable): CC: Dr. Rebecca Raymond MD ~ Signed [facility] Work Phone: Discharge summary Author Brent Owens [facility] February 08, 2024 5:33am Note Date/Time February 08, 2024 5:2 5am [facility] Medical Records Department [address] [place] [address] Emergency Department Summary 02/08/24 MR#: [id number] Acct: [id number] Name: DARIANA VAZQUEZ Rep #:[id number] : 1940 83 From: Brent Owens MD PCP: Dr. Rebecca Raymond MD Status:R EG ER Location: ED HPI History of Present Illness Chief Complaint: Other, Pain/Inj Detail of Chief Complaint: pulled feeding tube out Informant: patient and EMS Onset/Context/Timing Onset: Today Narrative Narrative: 83-year-old female with a [facility] with history limited due to mental retardation brought at 5:15 AM due to nurses finding her with her feeding tube out. Unknown how long it was out, but they think no more than a couple hours. Patient admits that this must of happened on accident. She denies having any pain. EMS reports that there is no significant bleeding from the site or discharge. [facility] Medical History Aplastic anemia GERD (gastroesophageal [...] bisacodyl 10 mg rectal suppository 10 mg AR BID PRN PRN Constipation 02/01/21 [History Last [...] the procedure note. She had a 24 Micronesian and we placed a 24 Micronesian. Patient has well-established tract, she has had a PEG infor over 1.5 years, and given that it went in uneventfully and I was able to aspirate stomach contents and flush fluid easily, literature supports using thiswithout the need for radiographic confirmation. Procedures Other Procedures Procedure(s): PEG replacement: Immediately upon arrival, placed new 24 Micronesian PEG after confirming competency of balloon with [...] problems, contact your Primary Care Provider. Call [facility] ([phone]) or report to the closest Emergency Room. Call 911 if necessary. 02/08/24 0533 <Electronically signed by Brent Owens MD> Cosigner Signature (if applicable): CC: Dr. Rebecca Raymond MD ~ Signed [facility] Work Phone: Evaluation note* Diagnosis PEG tube malfunction (HCC)- Primary Mechanical complication of gastrostomy documented in this encounter [facility] noteNo assessment information availableWGenesis Hospital Work Phone: Evaluation note* Diagnosis PEG tube malfunction (HCC) Mechanical complication of gastrostomy documented in this encounter [facility] note* Diagnosis PEG tube malfunction (HCC)- Primary Mechanical complication of gastrostomy [facility] Additional Instructions X-ray was obtained with Gastrografin and it shows the PEG tube to be in good position. You may use it.[facility] Work Phone: Hospital Discharge instructions Additional Instructions Her PEG tube was replaced with a 20 Micronesian with a 20 cc balloon and placement was confirmed with an x-ray.[facility] Work Phone: Reason for referral (narrative)No reason for referral information availableWGenesis Hospital Work Phone: Advance Directives No Advanced Directives Records FoundDocuments on File Type Date Recorded Patient Manager Flight Operations Expl anation Advance Directive(s) Advance Directive Response Recorded Date/ Time Living Will Yes July 28 3:39pm Power of Compounder Flavorings Yes July 28, 2021 3:39pm Advance Directive Response Recorded Date/ Time Living Will Yes July 28 2:39pm Power of Compounder Flavorings Yes July 28, 2021 2:39pm Advance Directive Response Recorded Date/ Time Living Will No March 07, 2023 9 :29pm Power of Compounder Flavorings No March 07, 2023 9:29pm Advance Directive Response Recorded Date/ Time Living Will No March 07, 2023 8 :29pm Power of Compounder Flavorings No March 07, 2023 8:29pm Advance Directive Response Recorded Date/ Time Living Will No September 26 8:07pm Power of Compounder Flavorings No September 26, 2023 8:07pm Advance Directive Response Recorded Date/ Time Living Will No September 26, 2 023 9:07pm Power of Compounder Flavorings No September 26, 2023 9:07pm Advance Directive Response Recorded Date/ Time Living Will No January 17, 2024 4:20pm Power of Compounder Flavorings No January 16 4:20pm Advance Directive Response Recorded Date/ Time Living Will No February 08, 2024 5:23am Power of Compounder Flavorings No February 07 5:23am Advance Directive Response Recorded Date/ Time Living Will No December 18, 2024 10:48am Power of Compounder Flavorings No December 18 10:48am Advance Directive Response Recorded Date/ Time Living Will No December 18, 2024 10:48am Do you have a Healthcare Power of Compounder Flavorings? No December 18, 2024 10:48am Chief Complaint and Reason for Visit Chief Complaint LABWORK PENITENTIARY LABWORK Chief Complaint PENITENTIARY LABWORK other pain Chief Complaint other pain ADMISSION EXAM-STEREOTYPE CASTER ADMISSION EXAM PENITENTIARY LABWORK MONTHLY NOTE Chief Complaint PENITENTIARY LABWORK MONTHLY NOTE MONTHLY EXAM pulled peg tube out Chief Complaint PENITENTIARY LAB WOR K MONTHLY NOTE pulled peg tube out MONTHLY EXAM MONTHLY EXAM Chief Complaint MONTHLY EXAM PENITENTIARY LAB WORK PENITENTIARY LABWORK MONTHLY NOTE MONTHLY EXAM PENITENTIARY LAB WORK Chief Complaint PENITENTIARY LAB WOR K PENITENTIARY LABWORK MONTHLY NOTE MONTHLY EXAM PENITENTIARY LAB WORK PENITENTIARY LAB WORK wound Chief Complaint PENITENTIARY LAB WOR K PENITENTIARY LABWORK MONTHLY NOTE MONTHLY EXAM PENITENTIARY LAB WORK PENITENTIARY LAB WORK wound peg tube out Chief Complaint PENITENTIARY LAB WOR K PENITENTIARY LAB WORK MONTHLY NOTE MONTHLY EXAM wound peg tube out LABWORK Chief Complaint MONTHLY NOTE MONTHLY EXAM wound peg tube out MONTHLY EXAM LABWORK PENITENTIARY LAB WORK Chief Complaint MONTHLY EXAM wound peg tube out MONTHLY EXAM MONTHLY EXAM MD LABWORK PENITENTIARY LAB WORK PEG TUBE CHECK Chief Complaint MONTHLY EXAM MONTHLY EXAM MD LABWORK PENITENTIARY LAB WORK MONTHLY NOTE PEG TUBE CHECK other Chief Complaint Admit Date MONTHLY EXAM August 24, 2024 10:18am PENITENTIARY LAB WORK August 30 5:00am MONTHLY EXAM [...] or prosecute any alcohol or drug abuse patient.[facility] CenterIn the event this information is protected by the Federal Confidentiality of Alcohol and Drug Abuse Patient Records regulations: The Federal rules restrict any use of the information to criminally investigate or prosecute any alcohol or drug abuse patient.[facility] CenterIn the event this information is protected by the Federal Confidentiality of Alcohol and Drug Abuse Patient Records regulations: The Federal rules restrict any use of the information to criminally investigate or prosecute any alcohol or drug abuse patient.[facility] CenterIn the event this information is protected by the Federal Confidentiality of Alcohol and Drug Abuse Patient Records regulations: The Federal rules restrict any use of the information to criminally investigate or prosecute any alcohol or drug abuse patient.[facility] Reason for Visit (unrecogniz ed [...] February 28, 2025 End: February 28, 2025 Instructional Technology Instructor Relationship Specialty Start Date End Date Kimberly Farris MD [address] [place] [address] PCP - General 08/03/02 Team Status: Active Member Role Status Dates Dr. Kimberly Farris MD Family Provider Active Dr. Rebecca Raymond MD Primary Care Provider Active Team Status: Inactive Member Role Status Dates Dr. Rebecca Raymond MD Primary Care Provider Active Iraida Peres STEREOTYPE CASTER, STEREOTYPE CASTER-C Attending Provider Active Team Status: Inactive Member [...] GILL MD Attending Provider, Referring Provider Active Instructional Technology Instructor Relationship Specialty Start Date End Date Kimberly Farris MD [address] [place], [place] [id number] PCP - General 08/03/02 Team Status: Inactive [...] Dr. Brent Owens MD Emergency Provider Active Instructional Technology Instructor Relationship Specialty Start Date End Date Kimberly Farris MD [address] [place], [place] [id number] PCP - General 08/03/02 Ellie Mora APRN.COMMERCIAL CARPET INSTALLER [address] [place], [place] [id number] Beauty Operator Apprentice Internal Medicine 09/18/24 Alanis Colvin PHILOSOPHY AND RELIGION INSTRUCTOR.REGULATORY AFFAIRS COORDINATOR [address] [place], [place] [address] [facility] Internal Medicine 09/18/24 Team Status: Inactive [...] 2024 End: November 01, 2024 Iraida Peres STEREOTYPE CASTER, STEREOTYPE CASTER-C Attending Provider Active Start: November 01, 2024 [...] November 14, 2024 End: November 14, 2024 Instructional Technology Instructor Relationship Specialty Start Date End Date Kimberly Farris MD [address] [place] [address] PCP - General 08/03/02 01/17/25 Ellie Mora APRN.COMMERCIAL CARPET INSTALLER [address] [place] [address] Beauty Operator Apprentice Internal Medicine 09/18/24 01/17/25 Alanis Colvin APRN.REGULATORY AFFAIRS COORDINATOR [address] [place] [address] [facility] Internal Medicine 09/18/24 12/29/24 Alanis Colvin APRN.REGULATORY AFFAIRS COORDINATOR [address] [place] [address] [facility] Internal Medicine 01/02/25 01/17/25 Team Status: [...] End: January 22, 2025 Iraida Peres NP STEREOTYPE CASTER-C Attending Provider Active Start: January 22, 2025 [...] End: January 22, 2025 Iraida Peres NP STEREOTYPE CASTER-C Attending Provider Active Start: January 22, 2025 [...] 2025 End: February 13, 2025 Iraida Peres STEREOTYPE CASTER, STEREOTYPE CASTER-C Attending Provider Active Start: February 13, 2025 [...] 2025 End: February 13, 2025 Iraida Peres STEREOTYPE CASTER, STEREOTYPE CASTER-C Attending Provider Active Start: February 13, 2025 [...] 2025 End: February 13, 2025 Iraida Peres STEREOTYPE CASTER, STEREOTYPE CASTER-C Attending Provider Active Start: February 13, 2025 [...] section and content) DATE CREATED AUTHOR 03/18/2025 [facility] DATE CREATED AUTHOR AUTHOR'S ORGANIZ ATION 08/19/2025 [facility] FOR RECORDS PERTAINING TO PATIENTS WHO ARE [...] BE BASED ON THE PRIMARY CLINICAL RECORDS. [employer] [facility]. provides no warranty or guarantee of the accuracy or completeness of information in this document.
[2025-09-20 09:25] LABS: Ferritin 99 ng/mL (22-378); Iron 69 ug/dL (50-170); Iron Binding Capacity,Total 273 ug/dL (250-450); Iron Binding Capacity,Unsat 204 ug/dL (228-428); Vitamin B12 841 pg/mL (180-914)
[2025-09-20 09:54] LABS: FOLATES,SERUM (FOLIC ACID) 25.30 ng/mL (4.60-34.80)
== END ==
LOC: OLS.WHLEAS 05:00
PROVIDERS: PCP Internal Medicine; Visit Provider Internal Medicine
DX: F79 Unspecified intellectual disabilities (principal); R13.12 Dysphagia, oropharyngeal phase; Z93.1 Gastrostomy status; I10 Essential (primary) hypertension; D61.9 Aplastic anemia, unspecified; I73.89 Other specified peripheral vascular diseases
CPT/HCPCS: 36415; 82607; 82728; 82746; 83540; 83550